=== PATIENT | female | born 1955 | race Caucasian/White ===

== ENCOUNTER 2016-07-28 22:58 | Observation (INO) | payer MEDICAID ==
[~2016-07-28] VITALS: Ht 162.6 cm; Wt 100.0 kg
[~2016-07-28 22:58] MED LIST: CEPH-460 PO
[2016-07-28 23:45] VITALS: BP 142/64; PULSE 71; RESP 20; TEMP 98.1; O2SAT 98
[2016-07-28] MEDS ORDERED: PLAV75TA29 PO (23:55)
[2016-07-28] MEDS ORDERED: ASPI81TA81 PO (23:55)
[2016-07-28] MEDS ORDERED: AMOX500T PO (23:56)
[2016-07-28] MEDS ORDERED: FURO1TAB61 PO (23:56)
[2016-07-28] MEDS ORDERED: LEVO.075 PO (23:56)
[2016-07-28] MEDS ORDERED: XANA2TAB2 PO (23:57)
[2016-07-28] MEDS ORDERED: POTA-163 PO (23:58)
[2016-07-28] MEDS ORDERED: HYDR-3516 PO (23:58)
[2016-07-28] MEDS ORDERED: SIMV20TA PO (23:59)
[2016-07-28] MEDS ORDERED: blood pressure (23:59)
[2016-07-29] VITALS: O2SAT 97
[2016-07-29] MEDS ORDERED: ASPIRIN 81 MG CHEW TAB PO ONE
[2016-07-29] MEDS ORDERED: SODIUM CHLORIDE 0.9% FLUSH 5 ML FLUSH IVF PRN
[2016-07-29] MEDS ORDERED: NITROGLYCERIN 0.4 MG SL 25 TABS/BTL SL ONE
[2016-07-29] MEDS ORDERED: NITROGLYCERIN 2% OINT 1 GM PACKET TOP ONE
[2016-07-29 00:27] LABS: AUTOMATED NEUTROPHIL # 4.3 TH/MM3 (1.8-7.7); BASOPHIL % 0.3 % (0.0-2.0); EOSINOPHIL # 0.1 TH/MM3 (0-0.4); EOSINOPHIL % 1.1 % (0.0-4.0); HEMATOCRIT 40.5 % (35.0-46.0); HEMO FLAGS DIFF FINAL; LYMPH % 43.4 % (9.0-44.0); MEAN CELL VOLUME 80.9 FL (80.0-100.0); MEAN CORPUSCULAR HEMOGLOBIN 28.1 PG (27.0-34.0); MEAN CORPUSCULAR HGB CONC 34.7 % (32.0-36.0); MONO % 7.6 % (0.0-8.0); NEUT % 47.6 % (16.0-70.0); PLATELET COUNT 303 TH/MM3 (150-450); RED BLOOD COUNT 5.01 MIL/MM3 (4.00-5.30); RED CELL DISTRIBUTION WIDTH 14.1 % (11.6-17.2); WHITE BLOOD COUNT 9.1 TH/MM3 (4.0-11.0)
[2016-07-29] MEDS ORDERED: ENAL5TAB PO (00:27)
[2016-07-29 00:35] LABS: APTT (PATIENT) 25.2 SEC (24.3-30.1); PROTHROMBIN TIME - PATIENT 10.6 SEC (9.8-11.6)
--- NOTE | 2016-07-29 00:46 | RADRPT ---
EXAM DATE/TIME: 07/29/2016 00:10 [place] COMPARISON: CHEST SINGLE AP, September 25, 2015, 4:50. INDICATIONS : Shortness of breath. MEDICAL HISTORY : Chronic obstructive pulmonary disease. Diabetes mellitus type II. SURGICAL HISTORY : None. ENCOUNTER: Initial ACUITY: 1 day PAIN SCORE: 0/10 LOCATION: Bilateral chest FINDINGS: A single view of the chest demonstrates the lungs to be symmetrically aerated without evidence of mas s, infiltrate or effusion. The cardiomediastinal contours are unremarkable. Osseous structures are intact. CONCLUSION: No acute disease. Rei Mello MD on July 29, 2016 at 0:45 Board Certified Radiologist. This report was verified electronically.
[2016-07-29 00:48] LABS: ALT (GPT) 22 U/L (10-53); ANION GAP 10 MEQ/L (5-15); AST (GOT) 21 U/L (15-37); BICARBONATE 26.8 MEQ/L (21.0-32.0); BLOOD UREA NITROGEN 16 MG/DL (7-18); CHLORIDE 99 MEQ/L (98-107); GLOMERULAR FILTRATION RATE 64 ML/MIN (>89); MAGNESIUM 1.5 MG/DL (1.5-2.5); POTASSIUM 3.7 MEQ/L (3.5-5.1); SODIUM (NA) 136 MEQ/L (136-145)
[2016-07-29 00:52] LABS: ALKALINE PHOSPHATASE 67 U/L (45-117); CREATINE KINASE 332 U/L (26-192); TOTAL BILIRUBIN ADULT 0.3 MG/DL (0.2-1.0)
[2016-07-29 01:04] LABS: CKMB 1.9 NG/ML (0.5-3.6)
[2016-07-29 01:23] VITALS: BP 142/64; PULSE 78; RESP 18; O2SAT 98
--- NOTE | 2016-07-29 02:06 | PD ---
HPI Chief Complaint: Chest Pain Time Seen by Provider: 23:42 Travel History International Travel<30 days: No Contact w/Intl Traveler<30days: No Traveled to known affect area: No History of Present Illness HPI The patient is a 61 year old female who presents to the [facility] emergency department with a history of chest pain that she reports is in the center of her chest and a sharp sensation. She reports that she has had chest pain in the past. She reports that in 2009 she had a cardiac catheterization, however she reports that it was never completed due to a problem with the equipment. She reports that she last had a stress test done in 2012, however review of the electronic medical record reveals that it was in 2014 at this facility. The patient reports that she's been out of all of her chronic medications as her physician in [place] 2 months ago. The patient unfortunately is a poor historian. The patient reports that she has a history of schizophrenia, posttraumatic stress disorder, bipolar disorder and generalized anxiety and has been off of her medication. She denies any suicidal or homicidal ideations. She reports that she has had a myocardial infarction in the past, however she denies having angioplasty or stenting done previously. She has not had coronary artery bypass grafting. The patient denies any recent fevers, cough, congestion, neck pain, abdominal pain, vomiting , diarrhea, urinary symptoms, or neurologic symptoms. [facility] Past Medical History Narrative Medical The patient's past medical history is significant for generalized anxiety disorder, bipolar disorder, schizophrenia, history of reported myocardial infarction in the past, history of hypertension, hyperlipidemia, diabetes mellitus, fibromyalgia, hepatitis C, chronic back pain, chronic shoulder pain, history of kidney stones, history of hypothyroid disorder. Hx Anticoagulant Therapy: Yes Arthritis: No Asthma: Yes Autoimmune Disease: No Blood Disorders: No Bipolar Disorder: Yes Anxiety: Yes Depression: Yes Heart Rhythm Problems: No Cancer: Yes (BREAST AND UTERINE) Cardiac Catheterization: Yes Cardiovascular Problems: Yes High Cholesterol: Yes Chemotherapy: No Chest Pain: Yes Congestive Heart Failure: Yes COPD: Yes Cerebrovascular Accident: Yes Diabetes: Yes Patient Takes Glucophage: No Diminished Hearing: Yes Endocrine: No Fibromyalgia: Yes GERD: Yes Glaucoma: No Genitourinary: No Headaches: No Hepatitis: Yes (C) Hiatal Hernia: No Herniated Disk: Yes Hypertension: Yes Immune Disorder: No Implanted Vascular Access Dvce: No Kidney Stones: Yes Musculoskeletal: Yes (RT SHOULDER,RT KNEE 3 HERNIATED DISCS) Neurologic: No Psychiatric: Yes Reproductive: No Respiratory: Yes Immunizations Current: No Migraines: Yes Myocardial Infarction: Yes Radiation Therapy: No Renal Failure: No Schizophrenia: Yes (PARANOID SCHIZOPHRENIA) Seizures: No Sickle Cell Disease: No Sleep Apnea: No Thyroid Disease: Yes (HYPOTHYROIDISM) Triglycerides - High: Yes Ulcer: No Tetanus Vaccination: Unknown Menopausal: Yes : 5 Para: 2 : 3 Ectopic : Yes Ovarian Cysts: Yes Past Surgical History Narrative Surgical The patient's past surgical history is significant for eye surgery, 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 Abdominal Surgery: No AICD: No Appendectomy: No Arteriovenous Shunt: No Cardiac Surgery: No Cholecystectomy: No Ear Surgery: No Endocrine Surgery: No Eye Surgery: Yes (BLIND LEFT EYE-surgery) Genitourinary Surgery: No Gynecologic Surgery: Yes (BX BILATERAL BREAST) Hysterectomy: Yes Insulin Pump: No Joint Replacement: No Oral Surgery: No Pacemaker: No Thoracic Surgery: No Social History Alcohol Use: No Tobacco Use: Yes (pack ) Substance Use: No Allergies-Medications (Allergen,Severity, Reaction): Coded Allergies: Baclofen (Verified Allergy, Unknown, 07/28/16) Geodon (Verified Allergy, Unknown, 07/28/16) Sulfa (Verified Allergy, Unknown, does not know, 07/28/16) Haldol (Verified Adverse Reaction, Severe, "STIFFNESS", 07/28/16) Risperdal (Verified Adverse Reaction, Severe, anxiety, 07/28/16) Seroquel (Verified Adverse Reaction, Severe, anxiety, 07/28/16) Iron (Verified Adverse Reaction, Intermediate, dark bm's, 07/28/16) Reported Meds & Prescriptions Reported Meds & Active Scripts Active Reported Enalapril (Enalapril Maleate) 5 Mg Tab 5 Mg PO DAILY Simvastatin 20 Mg Tab 20 Mg PO DAILY Potassium Chloride ER (Potassium Chloride) 20 Meq Tab 20 Meq PO DAILY Hydrocodone-Acetaminophen 5-325 mg Tab 1 Tab PO Q4H PRN Xanax (Alprazolam) 2 Mg Tab 2 Mg PO Q8H PRN Amoxicillin 500 Mg Tab 500 Mg PO BID Lasix (Furosemide) 80 Mg Tab 80 Mg PO DAILY Synthroid (Levothyroxine Sodium) 75 Mcg Tab 0.175 Mcg PO DAILY Plavix (Clopidogrel Bisulfate) 75 Mg Tab 75 Mg PO DAILY Aspir-81 (Aspirin) 81 Mg Tabdr Review of Systems Except as stated in HPI: all other systems reviewed are Neg General / Constitutional: No: Fever Eyes: No: Visual changes HENT: No: Headaches, Congestion Cardiovascular: Positive: Chest Pain or Discomfort, Dyspnea on exertion Respiratory: Positive: Shortness of Breath, No: Cough Gastrointestinal: No: Nausea, Vomiting, Diarrhea, Abdominal Pain Genitourinary: No: Dysuria Musculoskeletal: Positive: Myalgias, No: Pain Skin: No Rash Neurologic: No: Weakness, Focal Abnormalities, Change in Mentation, Slurred Speech, Sensory Disturbance Psychiatric: Positive: Anxiety, Mood Disorder, No: Depression, Suicidal Ideations, Substance Abuse, Homicidal Ideation Endocrine: No: Polydipsia Hematologic/Lymphatic: No: Easy Bruising Physical Exam Narrative General: The patient is a well-developed well-nourished female in no acute distress. Head and Neck exam: Head is normocephalic atraumatic. Eyes: EOMI, pupils are equal round and reactive to light. Nose: Midline septum with pink mucous membranes Mouth: Dentition unremarkable. Moist mucus membranes. Posterior oropharynx is not erythematous. No tonsillar hypertrophy. Uvula midline. Airway patent. Neck: No palpable lymphadenopathy. No nuchal rigidity. No thyromegaly. Cardiovascular: Regular rate and rhythm without murmurs, gallops, or rubs. No pulse deficit to the extremities and simultaneous auscultation and palpation of her radial artery. Lungs: Clear to auscultation bilaterally. No wheezes, rhonchi, or rales. Abdomen: Soft, without tenderness to palpation in all 4 quadrants of the abdomen. No guarding, rebound, or rigidity. Normal bowel sounds are audible. Extremities: No clubbing, cyanosis, or edema. 2+ pulses in all 4 extremities. No calf tenderness on palpation. Back: No spinous process tenderness to palpation. No costovertebral angle tenderness to palpation. Neurologic Exam: Grossly nonfocal. Skin Exam: No rash noted. Intact skin that is warm and dry. Data Data Last Documented VS Vital Signs Date Time Temp Pulse Resp B/P Pulse Ox O2 Delivery O2 Flow Rate FiO2 07/29/16 01:23 78 18 142/64 98 Room Air 07/28/16 23:45 98.1 Orders Electrocardiogram (07/28/16 23:56) B-Type Natriuretic Peptide (07/28/16 23:56) Ckmb (Isoenzyme) Profile (07/28/16 23:56) Complete Blood Count With Diff (07/28/16 23:56) Comprehensive Metabolic Panel (07/28/16 23:56) Magnesium (Mg) (07/28/16 23:56) Prothrombin Time / Inr (Pt) (07/28/16 23:56) Act Partial Throm Time (Ptt) (07/28/16 23:56) Troponin I (07/28/16 23:56) Chest, Single Ap (07/28/16 23:56) Ecg Monitoring (07/28/16:56) Bilateral Bp Monitoring (07/28/16 23:56) Iv Access Insert/Monitor (07/28/16 23:56) Oximetry (07/28/16 23:56) Oxygen Administration (07/28/16 23:56) Aspirin Chew (Aspirin Chew) (07/29/16 00:00) Nitroglycerin 2% Oint (Nitroglycerin 2% (07/29/16 00:00) Sodium Chloride 0.9% Flush (Ns Flush) (07/29/16 00:00) Nitroglycerin Sl (Nitrostat Sl) (07/29/16 00:00) CKMB (07/28/16 23:28) CKMB% (07/28/16 23:28) Admit Order (Ed Use Only) (07/29/16 01:29) Labs Laboratory Tests Test 07/28/16 23:28 White Blood Count 9.1 TH/MM3 Red Blood Count 5.01 MIL/MM3 Hemoglobin 14.1 GM/DL Hematocrit 40.5 % Mean Corpuscular Volume 80.9 FL Mean Corpuscular Hemoglobin 28.1 PG Mean Corpuscular Hemoglobin 34.7 % Concent Red Cell Distribution Width 14.1 % Platelet Count 303 TH/MM3 Mean Platelet Volume 7.8 FL Neutrophils (%) (Auto) 47.6 % Lymphocytes (%) (Auto) 43.4 % Monocytes (%) (Auto) 7.6 % Eosinophils (%) (Auto) 1.1 % Basophils (%) (Auto) 0.3 % Neutrophils # (Auto) 4.3 TH/MM3 Lymphocytes # (Auto) 4.0 TH/MM3 Monocytes # (Auto) 0.7 TH/MM3 Eosinophils # (Auto) 0.1 TH/MM3 Basophils # (Auto) 0.0 TH/MM3 CBC Comment DIFF FINAL Differential Comment Prothrombin Time 10.6 SEC Prothromb Time International 1.0 RATIO Ratio Activated Partial 25.2 SEC Thromboplast Time Sodium Level 136 MEQ/L Potassium Level 3.7 MEQ/L Chloride Level 99 MEQ/L Carbon Dioxide Level 26.8 MEQ/L Anion Gap 10 MEQ/L Blood Urea Nitrogen 16 MG/DL Creatinine 0.90 MG/DL Estimat Glomerular Filtration 64 ML/MIN Rate Random Glucose 105 MG/DL Calcium Level 8.2 MG/DL Magnesium Level 1.5 MG/DL Total Bilirubin 0.3 MG/DL Aspartate Amino Transf 21 U/L (AST/SGOT) Alanine Aminotransferase 22 U/L (ALT/SGPT) Alkaline Phosphatase 67 U/L Total Creatine Kinase 332 U/L Creatine Kinase MB 1.9 NG/ML Creatine Kinase MB % 0.6 % Troponin I LESS THAN 0.02 NG/ML B-Type Natriuretic Peptide 2 PG/ML Total Protein 7.5 GM/DL Albumin 3.6 GM/DL MDM Medical Decision Making Medical Screen Exam Complete: Yes Emergency Medical Condition: Yes Medical Record Reviewed: Yes Interpretation(s) Laboratory Tests Test 07/28/16 23:28 White Blood Count 9.1 TH/MM3 Red Blood Count 5.01 MIL/MM3 Hemoglobin 14.1 GM/DL Hematocrit 40.5 % Mean Corpuscular Volume 80.9 FL Mean Corpuscular Hemoglobin 28.1 PG Mean Corpuscular Hemoglobin 34.7 % Concent Red Cell Distribution Width 14.1 % Platelet Count 303 TH/MM3 Mean Platelet Volume 7.8 FL Neutrophils (%) (Auto) 47.6 % Lymphocytes (%) (Auto) 43.4 % Monocytes (%) (Auto) 7.6 % Eosinophils (%) (Auto) 1.1 % Basophils (%) (Auto) 0.3 % Neutrophils # (Auto) 4.3 TH/MM3 Lymphocytes # (Auto) 4.0 TH/MM3 Monocytes # (Auto) 0.7 TH/MM3 Eosinophils # (Auto) 0.1 TH/MM3 Basophils # (Auto) 0.0 TH/MM3 CBC Comment DIFF FINAL Differential Comment Prothrombin Time 10.6 SEC Prothromb Time International 1.0 RATIO Ratio Activated Partial 25.2 SEC Thromboplast Time Sodium Level 136 MEQ/L Potassium Level 3.7 MEQ/L Chloride Level 99 MEQ/L Carbon Dioxide Level 26.8 MEQ/L Anion Gap 10 MEQ/L Blood Urea Nitrogen 16 MG/DL Creatinine 0.90 MG/DL Estimat Glomerular Filtration 64 ML/MIN Rate Random Glucose 105 MG/DL Calcium Level 8.2 MG/DL Magnesium Level 1.5 MG/DL Total Bilirubin 0.3 MG/DL Aspartate Amino Transf 21 U/L (AST/SGOT) Alanine Aminotransferase 22 U/L (ALT/SGPT) Alkaline Phosphatase 67 U/L Total Creatine Kinase 332 U/L Creatine Kinase MB 1.9 NG/ML Creatine Kinase MB % 0.6 % Troponin I LESS THAN 0.02 NG/ML B-Type Natriuretic Peptide 2 PG/ML Total Protein 7.5 GM/DL Albumin 3.6 GM/DL Last Impressions Chest X-Ray 07/28/16 4799 Signed Impressions: Service Date/Time: Friday, July 29, 2016 00:10 - CONCLUSION: No acute disease. Rei Mello MD Differential Diagnosis Musculoskeletal strain, versus costochondritis, versus acute coronary syndrome, versus Narrative Course During the course of the patients emergency department visit, the patients history, examination, and differential diagnosis were reviewed with the patient. The patient had IV access obtained and blood work sent for analysis. The patient was placed on a front desk monitor with oximetry and blood pressure monitoring. An EKG was done on arrival. The patient's EKG reveals a sinus rhythm heart rate of 65, no acute ST segment elevation, T waves are inverted in V1. The patient was provided nitroglycerin sublingual 1, nitroglycerin 1 inch to the chest wall, aspirin 162 mg by mouth 1. The patients laboratory studies were reviewed and remarkable for a CBC that is within normal limits, CMP is unremarkable, CPK and troponin I initial results show no evidence of myocardial infarction, BNP within normal limits. Radiology studies were reviewed and remarkable for a chest x-ray that shows no acute abnormality. As it has been over a year since the patient's last stress test, the patient will be admitted to the chest pain center for rule out serial cardiac enzyme protocol and consideration of stress test to follow in the morning. The patients results were discussed with the patient, including the plan of care. I explained that further testing and/ or monitoring is indicated based on the patients history, examination, and/ or laboratory findings. Therefore, I recommended admission for additional evaluation. The patient expressed understanding and was agreeable with this plan. The patient was admitted to the hospital in stable condition and sent to a bed under the care of chest pain center. Unfortunately, while awaiting the bed in the chest pain center the patient became agitated, did not want to wait any longer. The patient was made aware that her symptoms could be related to cardiac disease, however she insisted on leaving. AMA: The risks of leaving against medical advice without further evaluation treatment were discussed with the patient. These risks include cardiac dysfunction, cardiac dysrhythmia, possible heart attack, possible stroke or . The patient indicated understanding of these risks and appeared to have the capacity to make this decision. Diagnosis Primary Impression: Chest pain, rule out acute myocardial infarction Patient Instructions: General Instructions Departure Forms: Tests/Procedures Disposition: 07 AGAINST MEDICAL ADVICE Condition: Stable Lashell Parekh MD Jul 29, 2016 02:06
--- NOTE | 2016-07-29 14:23 | EKG ---
Date Performed: 07/28/2016 Time Performed: 23:57:16 PTAGE: 61 years EKG: Sinus rhythm LOW QRS VOLTAGE IN PRECORDIAL LEADS BORDERLINE ECG PREVIOUS TRACING : 09/25/2015 04.28 DOCTOR: Alonzo Landin Interpretating Date/Time 07/29/2016 14:18:50
== END 2016-07-29 01:45 | disposition left against medical advice (07) ==
LOC: NEPE 22:58 → NEDA 07-29 01:37
DX: R07.89 Other chest pain (principal); I10 Essential (primary) hypertension; E03.9 Hypothyroidism, unspecified; E11.9 Type 2 diabetes mellitus without complications; K21.9 Gastro-esophageal reflux disease without esophagitis; R94.31 Abnormal electrocardiogram [ECG] [EKG]; R45.1 Restlessness and agitation; M79.7 Fibromyalgia; J44.9 Chronic obstructive pulmonary disease, unspecified; J45.909 Unspecified asthma, uncomplicated; I25.2 Old myocardial infarction; E78.5 Hyperlipidemia, unspecified; E78.00 Pure hypercholesterolemia, unspecified; F20.0 Paranoid schizophrenia; H91.90 Unspecified hearing loss, unspecified ear; Z72.0 Tobacco use; Z86.73 Personal history of transient ischemic attack (TIA), and cerebral infarction without residual deficits; Z87.442 Personal history of urinary calculi
CPT/HCPCS: 71010; 80053; 82550; 82552; 83735; 83880; 84484; 85025; 85610; 85730; 93005

== ENCOUNTER 2016-08-07 21:48 | Emergency (ER) | payer MEDICAID ==
[~2016-08-07 21:48] MED LIST changes: +AMOX500T PO; +ASPI81TA81 PO; -CEPH-460 PO; +ENAL5TAB PO; +FURO1TAB61 PO; +HYDR-3516 PO; +LEVO.075 PO; +PLAV75TA29 PO; +POTA-163 PO; +SIMV20TA PO; +XANA2TAB2 PO
--- NOTE | 2016-08-07 22:09 | PD ---
HPI . patient wanting refills on xanax and hydrocodone Chief Complaint: Pain: Acute or Chronic Time Seen by Provider: 22:09 Travel History International Travel<30 days: No Contact w/Intl Traveler<30days: No Traveled to known affect area: No History of Present Illness HPI 61-year-old female with multiple medical problems including hypertension, hypothyroidism, schizophrenia, bipolar disorder, COPD, hepatitis C, old CVA, old AK, tobaccoism who was recently seen on July 29, 2016 for complaints of chest pain, but decided to leave AGAINST MEDICAL ADVICE here with request for refills on Xanax and hydrocodone. Patient here telling me that she is just here because she needs refill on her hydrocodone. She looks and tells me "I am almost certain that you cannot fill that, but maybe continue some alprazolam. I discussed with her the policy and procedures in the emergency department and she was very understanding." I did complete a physical exam on her. She has no other complaints today. PFSH Past Medical History Hx Anticoagulant Therapy: Yes Arthritis: No Asthma: Yes Autoimmune Disease: No Blood Disorders: No Bipolar Disorder: Yes Anxiety: Yes Depression: Yes Heart Rhythm Problems: No Cancer: Yes (BREAST AND UTERINE) Cardiac Catheterization: Yes Cardiovascular Problems: Yes High Cholesterol: Yes Chemotherapy: No Chest Pain: Yes Congestive Heart Failure: Yes COPD: Yes Cerebrovascular Accident: Yes Diabetes: Yes Diminished Hearing: Yes Endocrine: No Fibromyalgia: Yes GERD: Yes Glaucoma: No Genitourinary: No Headaches: No Hepatitis: Yes (C) Hiatal Hernia: No Herniated Disk: Yes Hypertension: Yes Immune Disorder: No Implanted Vascular Access Dvce: No Kidney Stones: Yes Musculoskeletal: Yes (RT SHOULDER,RT KNEE 3 HERNIATED DISCS) Neurologic: No Psychiatric: Yes Reproductive: No Respiratory: Yes Immunizations Current: No Migraines: Yes Myocardial Infarction: Yes Radiation Therapy: No Renal Failure: No Schizophrenia: Yes (PARANOID SCHIZOPHRENIA) Seizures: No Sickle Cell Disease: No Sleep Apnea: No Thyroid Disease: Yes (HYPOTHYROIDISM) Triglycerides - High: Yes Ulcer: No Menopausal: Yes : 5 Para: 2 : 3 Ectopic : Yes Ovarian Cysts: Yes Past Surgical History Abdominal Surgery: No AICD: No Appendectomy: No Arteriovenous Shunt: No Cardiac Surgery: No Cholecystectomy: No Ear Surgery: No Endocrine Surgery: No Eye Surgery: Yes (BLIND LEFT EYE-surgery) Genitourinary Surgery: No Gynecologic Surgery: Yes (BX BILATERAL BREAST) Hysterectomy: Yes Insulin Pump: No Joint Replacement: No Oral Surgery: No Pacemaker: No Thoracic Surgery: No Social History Alcohol Use: No Tobacco Use: Yes (pack ) Substance Use: No Allergies-Medications (Allergen,Severity, Reaction): Coded Allergies: Baclofen (Verified Allergy, Unknown, 08/07/16) Geodon (Verified Allergy, Unknown, 08/07/16) Sulfa (Verified Allergy, Unknown, does not know, 08/07/16) Haldol (Verified Adverse Reaction, Severe, "STIFFNESS", 08/07/16) Risperdal (Verified Adverse Reaction, Severe, anxiety, 08/07/16) Seroquel (Verified Adverse Reaction, Severe, anxiety, 08/07/16) Iron (Verified Adverse Reaction, Intermediate, dark bm's, 08/07/16) Reported Meds & Prescriptions Reported Meds & Active Scripts Active Reported Paroxetine (Paroxetine HCl) 10 Mg Tab 10 Mg PO DAILY Potassium Chloride ER (Potassium Chloride) 20 Meq Tab 20 Meq PO DAILY Clopidogrel (Clopidogrel Bisulfate) 75 Mg Tab 75 Mg PO DAILY Metoprolol Tartrate 25 Mg Tab 25 Mg PO DAILY Levothyroxine (Levothyroxine Sodium) 175 Mcg Tab 175 Mcg PO DAILY Promethazine (Promethazine HCl) 12.5 Mg Tab 12.5 Mg PO Q6H PRN Enalapril (Enalapril Maleate) 5 Mg Tab 5 Mg PO DAILY Aspir-81 (Aspirin) 81 Mg Tabdr Review of Systems General / Constitutional: No: Fever Eyes: No: Visual changes HENT: No: Headaches Cardiovascular: No: Chest Pain or Discomfort Respiratory: No: Shortness of Breath Gastrointestinal: No: Abdominal Pain Genitourinary: No: Dysuria Musculoskeletal: No: Pain Skin: No Rash Neurologic: No: Weakness Psychiatric: No: Depression Endocrine: No: Polydipsia Hematologic/Lymphatic: No: Easy Bruising Physical Exam Narrative GENERAL: AAO x 3, no acute distress, Well-nourished, well-developed patient. comfortable and pleasant. SKIN: Warm and dry. No visible rashes or bruising. HEAD: Normocephalic and atraumatic. EYES: No scleral icterus. No injection or drainage. ENT: No nasal drainage noted. Airway patent. NECK: Supple, trachea midline. No JVD. CARDIOVASCULAR: Regular rate and rhythm without murmurs, gallops, or rubs. RESPIRATORY: Breath sounds equal bilaterally. No accessory muscle use. No rhonchi or rales. GASTROINTESTINAL: Abdomen soft, non-tender, nondistended. EXTREMITIES: No cyanosis or edema. BACK: Nontender without obvious deformity. No CVA tenderness. PSYCH: AAO x 3, normal affect. Data Data Last Documented VS Vital Signs Date Time Temp Pulse Resp B/P Pulse Ox O2 Delivery O2 Flow Rate FiO2 08/07/16 22:25 78 155/86 95 Room Air MDM Medical Decision Making Medical Screen Exam Complete: Yes Emergency Medical Condition: Yes Medical Record Reviewed: Yes Differential Diagnosis chronic pain, drug seeking behavior, less likely acute trauma Narrative Course 61-year-old female with multiple medical problems including hypertension, hypothyroidism, schizophrenia, bipolar disorder, COPD, hepatitis C, old CVA, old AK, tobaccoism who was recently seen on July 29, 2016 for complaints of chest pain, but decided to leave AGAINST MEDICAL ADVICE here with request for refills on Xanax and hydrocodone. Patient here telling me that she is just here because she needs refill on her hydrocodone. She looks and tells me "I am almost certain that you cannot fill that, but maybe continue some alprazolam. I discussed with her the policy and procedures in the emergency department and she was very understanding." I did complete a physical exam on her. She has no other complaints today. Patient seen and examined. She does not have any acute findings. Unfortunately she is aware that I cannot fill the medication she is requesting. I have advised her to follow-up with her primary care provider. Patient verbalized understanding of instructions, questions were answered, and thanked me for their care. I advised them if their condition worsens, please return to the nearest emergency room for further care. Diagnosis Primary Impression: Drug-seeking behavior Patient Instructions: General Instructions Additional Instructions: Please return to emergency department if your symptoms return or worsen. Follow up with your primary care provider. Med/Other Pt SpecificInfo: No Change to Meds Disposition: 01 DISCHARGE HOME Condition: Stable Peyton Dumont Aug 07, 2016 22:09
[2016-08-07] MEDS ORDERED: POTA-163 PO (22:16)
[2016-08-07] MEDS ORDERED: METO25TA3 PO (22:16)
[2016-08-07] MEDS ORDERED: CLOP75TA PO (22:16)
[2016-08-07] MEDS ORDERED: PROM12.54 PO (22:16)
[2016-08-07] MEDS ORDERED: LEVO175T2 PO (22:16)
[2016-08-07] MEDS ORDERED: PARO1TAB71 PO (22:16)
[2016-08-07 22:25] VITALS: BP 155/86; PULSE 78; O2SAT 95
== END 2016-08-07 22:46 | disposition home or self-care (01) ==
LOC: PHEFT 21:48
DX: Z76.5 Malingerer [conscious simulation] (principal); I10 Essential (primary) hypertension; E03.9 Hypothyroidism, unspecified; Z86.59 Personal history of other mental and behavioral disorders; Z87.09 Personal history of other diseases of the respiratory system; Z86.19 Personal history of other infectious and parasitic diseases
CPT/HCPCS: 99281

== ENCOUNTER 2016-08-08 22:53 | Emergency (ER) | payer MEDICAID ==
[~2016-08-08] VITALS: Ht 162.6 cm; Wt 100.0 kg
[~2016-08-08 22:53] MED LIST changes: +CLOP75TA PO; +LEVO175T2 PO; +METO25TA3 PO; +PARO1TAB71 PO; +PROM12.54 PO
[2016-08-08 22:55] VITALS: BP 155/85; PULSE 73; RESP 18; TEMP 97.2; O2SAT 99
--- NOTE | 2016-08-08 23:34 | PD ---
HPI Chief Complaint: Pain: Acute or Chronic Time Seen by Provider: 23:30 Travel History International Travel<30 days: No Contact w/Intl Traveler<30days: No Traveled to known affect area: No History of Present Illness HPI 61-year-old white female presents to emergency department by EMS for evaluation of a allegedly fall. According to the nursing staff the patient had notified them that she was here to get an x-ray she had chronic pain. She tells me that she was swatting at a bug and fell onto her right side. She is complaining of pain in her lower back, right hip, and right shoulder. She states that she uses a cane. She states that she does not have a current doctor. She had been on hydrocodone and Xanax. Review of the medical record indicates that she was just seen yesterday and was requesting a refill of her hydrocodone and Xanax. Review of the medical record also indicates she had been under the care Dr. Conrad and Dr. Griffiths. [facility] Past Medical History Hx Anticoagulant Therapy: Yes Arthritis: No Asthma: Yes Autoimmune Disease: No Blood Disorders: No Bipolar Disorder: Yes Anxiety: Yes Depression: Yes Heart Rhythm Problems: No Cancer: Yes (BREAST AND UTERINE) Cardiac Catheterization: Yes Cardiovascular Problems: Yes High Cholesterol: Yes Chemotherapy: No Chest Pain: Yes Congestive Heart Failure: Yes COPD: Yes Cerebrovascular Accident: Yes Diabetes: Yes Patient Takes Glucophage: No Diminished Hearing: Yes Endocrine: No Fibromyalgia: Yes GERD: Yes Glaucoma: No Genitourinary: No Headaches: No Hepatitis: Yes (C) Hiatal Hernia: No Herniated Disk: Yes Hypertension: Yes Immune Disorder: No Implanted Vascular Access Dvce: No Kidney Stones: Yes Musculoskeletal: Yes (RT SHOULDER,RT KNEE 3 HERNIATED DISCS) Neurologic: No Psychiatric: Yes Reproductive: No Respiratory: Yes Immunizations Current: No Migraines: Yes Myocardial Infarction: Yes Radiation Therapy: No Renal Failure: No Schizophrenia: Yes (PARANOID SCHIZOPHRENIA) Seizures: No Sickle Cell Disease: No Sleep Apnea: No Thyroid Disease: Yes (HYPOTHYROIDISM) Triglycerides - High: Yes Ulcer: No ?: Not Menopausal: Yes : 5 Para: 2 : 3 Ectopic : Yes Ovarian Cysts: Yes Past Surgical History Abdominal Surgery: No AICD: No Appendectomy: No Arteriovenous Shunt: No Cardiac Surgery: No Cholecystectomy: No Ear Surgery: No Endocrine Surgery: No Eye Surgery: Yes (BLIND LEFT EYE-surgery) Genitourinary Surgery: No Gynecologic Surgery: Yes (BX BILATERAL BREAST) Hysterectomy: Yes Insulin Pump: No Joint Replacement: No Oral Surgery: No Pacemaker: No Thoracic Surgery: No Social History Alcohol Use: No Tobacco Use: Yes (pack ) Substance Use: No Allergies-Medications (Allergen,Severity, Reaction): Coded Allergies: Baclofen (Verified Allergy, Unknown, 08/08/16) Geodon (Verified Allergy, Unknown, 08/08/16) Sulfa (Verified Allergy, Unknown, does not know, 08/08/16) Haldol (Verified Adverse Reaction, Severe, "STIFFNESS", 08/08/16) Risperdal (Verified Adverse Reaction, Severe, anxiety, 08/08/16) Seroquel (Verified Adverse Reaction, Severe, anxiety, 08/08/16) Iron (Verified Adverse Reaction, Intermediate, dark bm's, 08/08/16) Reported Meds & Prescriptions Reported Meds & Active Scripts Active Reported Paroxetine (Paroxetine HCl) 10 Mg Tab 10 Mg PO DAILY Potassium Chloride ER (Potassium Chloride) 20 Meq Tab 20 Meq PO DAILY Clopidogrel (Clopidogrel Bisulfate) 75 Mg Tab 75 Mg PO DAILY Metoprolol Tartrate 25 Mg Tab 25 Mg PO DAILY Levothyroxine (Levothyroxine Sodium) 175 Mcg Tab 175 Mcg PO DAILY Promethazine (Promethazine HCl) 12.5 Mg Tab 12.5 Mg PO Q6H PRN Enalapril (Enalapril Maleate) 5 Mg Tab 5 Mg PO DAILY Aspir-81 (Aspirin) 81 Mg Tabdr Review of Systems Except as stated in HPI: all other systems reviewed are Neg Physical Exam Narrative GENERAL: Well-developed, well-nourished in no apparent distress. Nontoxic appearing. HEAD: Normocephalic, atraumatic. EYES: Pupils equal round and reactive. Extraocular motions intact. No scleral icterus. No injection or drainage. ENT: Nose clear. Throat without erythema, tonsillar hypertrophy or exudate. Uvula midline. Airway patent. NECK: Trachea midline. Supple, nontender, moves head freely. No central bony tenderness or spasm. CARDIOVASCULAR: Regular rate and rhythm without murmurs, gallops, or rubs. RESPIRATORY: Clear to auscultation. Breath sounds equal bilaterally. No wheezes , rales, or rhonchi. GASTROINTESTINAL: Abdomen soft, non-tender, nondistended. No hepato-splenomegaly , or palpable masses. No guarding. EXTREMITIES: No clubbing, cyanosis, or edema. No joint tenderness. Examination of the right upper extremity reveals no localizing pain and she moves it freely without limitation. Left upper extremity is unremarkable. The right lower extremity the patient complains of pain over the right buttocks and greater trochanter. She also complains of pain in the right knee down in her right leg. There is no obvious deformity or bruising. She has intact gross sensation and pulses. The left lower extremity is unremarkable. BACK: Complains of diffuse lower lumbar tenderness more so on the right side. Without deformity. No flank tenderness. Sits up in bed at 90 without difficulty. No saddle anesthesia. NEUROLOGICAL: Awake, alert and oriented x 3 .Cranial nerves grossly intact. Motor and sensory grossly within normal limits. Normal speech. Data Data Last Documented VS Vital Signs Date Time Temp Pulse Resp B/P Pulse Ox O2 Delivery O2 Flow Rate FiO2 08/08/16 22:55 97.2 73 18 155/85 99 Orders Spine, Lumbar - Ltd (Ap & Lat) (08/08/16 23:28) Pelvis, Ap Only (Routine) (08/08/16 23:28) MDM Medical Decision Making Medical Screen Exam Complete: Yes Emergency Medical Condition: Yes Medical Record Reviewed: Yes Interpretation(s) Lumbar spine: Negative for acute fracture. Pelvis: Negative for acute fracture. No obvious hip deformity. Differential Diagnosis MDM: High Differential diagnoses: Fracture, sprain, strain, dislocation, contusion, neurovascular injury, malingering Narrative Course Patient is given 1 g of Tylenol and Flexeril 10 mg by mouth. X-rays are negative. I am unsure whether the patient truly fell or not the medical record indicates a visit yesterday requesting opiates and benzos. I suspect that this is truly a malingering event and that she truly did not have an injury. She also had told triage nurse that she has chronic pain in that the reason she is here. I see no indication for opiates or benzos at this time. This is acute exacerbation of chronic pain Diagnosis Primary Impression: Acute exacerbation of chronic low back pain Patient Instructions: General Instructions Additional Instructions: Rest. Ice for the next 3 days followed by heat . Flexeril and 2 Tylenol every 6 hours. Follow-up with a primary care doctor in one week. Return to the ER for emergencies. Med/Other Pt SpecificInfo: Prescription(s) given Disposition: 01 DISCHARGE HOME Condition: Stable Lauro Griffith Aug 08, 2016 23:34
[2016-08-09] MEDS ORDERED: CYCL1TAB29 PO (00:11)
[2016-08-09] MEDS ORDERED: ACETAMINOPHEN 500 MG CPLT PO ONE (00:15)
[2016-08-09] MEDS ORDERED: CYCLOBENZAPRINE HCL 10 MG TAB PO ONE (00:15)
--- NOTE | 2016-08-09 00:27 | RADRPT ---
EXAM DATE/TIME: 08/08/2016 23:55 [facility] COMPARISON: No previous studies available for comparison. INDICATIONS : Trauma, fall. MEDICAL HISTORY : None. SURGICAL HISTORY : None. ENCOUNTER: Initial ACUITY: 1 day PAIN SCORE: 6/10 LOCATION: Right pelvis FINDINGS: A single frontal view of the pelvis demonstrates no evidence of fracture. The bony pelvic ring is in tact. Bony mineralization is normal. The soft tissues are intact. CONCLUSION: Unremarkable examination of the pelvis. Rei Rodriguez MD on August 09, 2016 at 0:25 Board Certified Radiologist. This report was verified electronically.
--- NOTE | 2016-08-09 00:28 | RADRPT ---
EXAM DATE/TIME: 08/08/2016 23:57 [facility] COMPARISON: No previous studies available for comparison. INDICATIONS : Trauma, fall. MEDICAL HISTORY : None. SURGICAL HISTORY : None. ENCOUNTER: Initial ACUITY: 1 day PAIN SCORE: 6/10 LOCATION: lumbar spine. FINDINGS: Two view examination was performed. There are five non-rib bearing vertebral bodies. The vertebral bodies are in normal alignment without evidence of subluxation or scoliosis. The disc spaces are karri ntained. The pedicles are intact. Bony mineralization is normal. No fracture is identified. CONCLUSION: Unremarkable limited examination of the lumbar spine. Rei Rodriguez MD on August 09, 2016 at 0:26 Board Certified Radiologist. This report was verified electronically.
== END 2016-08-09 00:31 | disposition home or self-care (01) ==
LOC: NEPB 22:53
DX: M54.5 Low back pain (principal); G89.29 Other chronic pain; E03.9 Hypothyroidism, unspecified; I10 Essential (primary) hypertension; M79.7 Fibromyalgia; F17.210 Nicotine dependence, cigarettes, uncomplicated; E78.00 Pure hypercholesterolemia, unspecified; Z87.442 Personal history of urinary calculi; F31.9 Bipolar disorder, unspecified; I50.9 Heart failure, unspecified; J44.9 Chronic obstructive pulmonary disease, unspecified; E11.9 Type 2 diabetes mellitus without complications; I25.2 Old myocardial infarction
CPT/HCPCS: 72100; 72170; 99284

== ENCOUNTER 2016-08-28 13:25 | Emergency (ER) | payer MEDICAID ==
[~2016-08-28] VITALS: Ht 162.6 cm; Wt 103.7 kg
[~2016-08-28 13:25] MED LIST changes: -AMOX500T PO; +CYCL1TAB29 PO; -FURO1TAB61 PO; -HYDR-3516 PO; -LEVO.075 PO; -PLAV75TA29 PO; -SIMV20TA PO; -XANA2TAB2 PO
[2016-08-28 13:33] VITALS: BP 119/69; PULSE 81; RESP 18; TEMP 98; O2SAT 98
[2016-08-28] MEDS ORDERED: XANA2TAB2 PO (14:02)
[2016-08-28] MEDS ORDERED: FURO1TAB60 PO (14:02)
[2016-08-28] MEDS ORDERED: HYDR-3535 PO (14:02)
--- NOTE | 2016-08-28 14:21 | PD ---
HPI Chief Complaint: Edema Time Seen by Provider: 13:50 Travel History International Travel<30 days: No Contact w/Intl Traveler<30days: No Traveled to known affect area: No History of Present Illness HPI 61-year-old female presents with bilateral lower extremity swelling that is been present over the past 3 weeks. She states that this is new for her. She states that she is having difficulty affording her diabetes and blood pressure medications and she is out of some of them. She is out of enalapril and metoprolol. She states she hasn't been taking her insulin at night because she cannot afford her diabetes strips and she is afraid to take it without knowing what her sugars are. She denies any trauma or other concurrent complaints other than she feels like she has a bite on her left elbow. She states that she 's not wanting pain medications and she was here recently for that and understands that we cannot do those here. She states she has an appointment with her primary this Friday but will not be able to afford to go. PFSH Past Medical History Hx Anticoagulant Therapy: Yes Arthritis: No Asthma: Yes Autoimmune Disease: No Blood Disorders: No Bipolar Disorder: Yes Anxiety: Yes Depression: Yes Heart Rhythm Problems: No Cancer: Yes (BREAST AND UTERINE) Cardiac Catheterization: Yes Cardiovascular Problems: Yes High Cholesterol: Yes Chemotherapy: No Chest Pain: Yes Congestive Heart Failure: Yes COPD: Yes Cerebrovascular Accident: Yes Diabetes: Yes Patient Takes Glucophage: No Diminished Hearing: Yes Endocrine: No Fibromyalgia: Yes GERD: Yes Glaucoma: No Genitourinary: No Headaches: No Hepatitis: Yes (C) Hiatal Hernia: No Herniated Disk: Yes Hypertension: Yes Immune Disorder: No Implanted Vascular Access Dvce: No Kidney Stones: Yes Musculoskeletal: Yes (RT SHOULDER,RT KNEE 3 HERNIATED DISCS) Neurologic: No Psychiatric: Yes Reproductive: No Respiratory: Yes Immunizations Current: No Migraines: Yes Myocardial Infarction: Yes Radiation Therapy: No Renal Failure: No Schizophrenia: Yes (PARANOID SCHIZOPHRENIA) Seizures: No Sickle Cell Disease: No Sleep Apnea: No Thyroid Disease: Yes (HYPOTHYROIDISM) Triglycerides - High: Yes Ulcer: No Influenza Vaccination: No ?: Not Menopausal: Yes : 5 Para: 2 : 3 Ectopic : Yes Ovarian Cysts: Yes Past Surgical History Abdominal Surgery: No AICD: No Appendectomy: No Arteriovenous Shunt: No Cardiac Surgery: No Cholecystectomy: No Ear Surgery: No Endocrine Surgery: No Eye Surgery: Yes (BLIND LEFT EYE-surgery) Genitourinary Surgery: No Gynecologic Surgery: Yes (BX BILATERAL BREAST) Hysterectomy: Yes Insulin Pump: No Joint Replacement: No Oral Surgery: No Pacemaker: No Thoracic Surgery: No Social History Alcohol Use: No Tobacco Use: Yes (5 CIGS) Substance Use: No Allergies-Medications (Allergen,Severity, Reaction): Coded Allergies: Baclofen (Verified Allergy, Unknown, 08/28/16) Geodon (Verified Allergy, Unknown, 08/28/16) Sulfa (Verified Allergy, Unknown, does not know, 08/28/16) Haldol (Verified Adverse Reaction, Severe, "STIFFNESS", 08/28/16) Risperdal (Verified Adverse Reaction, Severe, anxiety, 08/28/16) Seroquel (Verified Adverse Reaction, Severe, anxiety, 08/28/16) Iron (Verified Adverse Reaction, Intermediate, dark bm's, 08/28/16) Reported Meds & Prescriptions Reported Meds & Active Scripts Active Keflex (Cephalexin) 500 Mg Cap 500 Mg PO TID 7 Days Flexeril (Cyclobenzaprine HCl) 10 Mg Tab 10 Mg PO TID Reported Xanax (Alprazolam) 2 Mg Tab 2 Mg PO Q8H PRN Lortab (Hydrocodone-Acetaminophen) 10-325 Mg Tab 1 Tab PO Q6H PRN Lasix (Furosemide) 40 Mg Tab 40 Mg PO DAILY Potassium Chloride ER (Potassium Chloride) 20 Meq Tab 20 Meq PO DAILY Clopidogrel (Clopidogrel Bisulfate) 75 Mg Tab 75 Mg PO DAILY Metoprolol Tartrate 25 Mg Tab 25 Mg PO DAILY Levothyroxine (Levothyroxine Sodium) 175 Mcg Tab 175 Mcg PO DAILY Promethazine (Promethazine HCl) 12.5 Mg Tab 12.5 Mg PO Q6H PRN Enalapril (Enalapril Maleate) 5 Mg Tab 5 Mg PO DAILY Aspir-81 (Aspirin) 81 Mg Tabdr Review of Systems Except as stated in HPI: all other systems reviewed are Neg Physical Exam Narrative GENERAL: Well-nourished, well-developed patient. SKIN: Warm and dry. Small area of erythema noted near left elbow without induration or crepitus, no pain with movement of left elbow HEAD: Normocephalic and atraumatic. EYES: No injection or drainage. ENT: No nasal drainage noted. NECK: Supple, trachea midline. CARDIOVASCULAR: Regular rate and rhythm RESPIRATORY: Breath sounds equal bilaterally. No accessory muscle use. GASTROINTESTINAL: Abdomen soft, non-tender, nondistended. EXTREMITIES: Mild nonpitting bilateral edema without calf pain NEUROLOGICAL: Awake and alert. Motor and sensory grossly within normal limits. Normal speech. Steady gait Data Data Last Documented VS Vital Signs Date Time Temp Pulse Resp B/P Pulse Ox O2 Delivery O2 Flow Rate FiO2 08/28/16 16:24 84 16 111/60 96 Room Air 08/28/16 13:33 98.0 Orders Us Leg Venous Doppler Bilat (08/28/16 14:13) Complete Blood Count With Diff (08/28/16 14:13) Basic Metabolic Panel (Bmp) (08/28/16 14:13) Act Partial Throm Time (Ptt) (08/28/16 14:13) Prothrombin Time / Inr (Pt) (08/28/16 14:13) Iv Access Insert/Monitor (08/28/16 14:13) Ecg Monitoring (08/28/16 14:13) Oximetry (08/28/16 14:13) Labs Laboratory Tests Test 08/28/16 14:25 White Blood Count 6.6 TH/MM3 Red Blood Count 4.40 MIL/MM3 Hemoglobin 12.1 GM/DL Hematocrit 36.5 % Mean Corpuscular Volume 82.9 FL Mean Corpuscular Hemoglobin 27.4 PG Mean Corpuscular Hemoglobin 33.1 % Concent Red Cell Distribution Width 13.2 % Platelet Count 309 TH/MM3 Mean Platelet Volume 7.7 FL Neutrophils (%) (Auto) 51.8 % Lymphocytes (%) (Auto) 35.8 % Monocytes (%) (Auto) 10.6 % Eosinophils (%) (Auto) 1.4 % Basophils (%) (Auto) 0.4 % Neutrophils # (Auto) 3.4 TH/MM3 Lymphocytes # (Auto) 2.4 TH/MM3 Monocytes # (Auto) 0.7 TH/MM3 Eosinophils # (Auto) 0.1 TH/MM3 Basophils # (Auto) 0.0 TH/MM3 CBC Comment DIFF FINAL Differential Comment Prothrombin Time 10.4 SEC Prothromb Time International 0.9 RATIO Ratio Activated Partial 24.7 SEC Thromboplast Time Sodium Level 141 MEQ/L Potassium Level 3.5 MEQ/L Chloride Level 100 MEQ/L Carbon Dioxide Level 31.7 MEQ/L Anion Gap 9 MEQ/L Blood Urea Nitrogen 9 MG/DL Creatinine 0.90 MG/DL Estimat Glomerular Filtration 64 ML/MIN Rate Random Glucose 110 MG/DL Calcium Level 8.4 MG/DL [facility] Medical Decision Making Medical Screen Exam Complete: Yes Emergency Medical Condition: Yes Medical Record Reviewed: Yes (past history confirmed) Interpretation(s) CBC & BMP Diagram 08/28/16 14:25 Last 24 hours Impressions Lower Extremity Ultrasound 08/28/16 1413 Signed Impressions: Service Date/Time: Sunday, August 28, 2016 15:15 - CONCLUSION: No evidence of deep venous thrombosis within the lower extremities. Chepe Flowers MD Differential Diagnosis Anemia, renal failure, DVT, cellulitis Narrative Course Will check blood work, ultrasound, imaging and reevaluate ED workup no emergent process, for small area of redness noted to left arm Will start on Keflex for possible cellulitis. Patient wanting to go home, Patient denies any new complaints, all questions answered. Patient knows that follow up is incumbent on them and to return to the emergency room immediately if new or worsening symptoms develop. Patient given strict return precautions, vitals reviewed and are normal, agrees to further workup as an outpatient. Case management talked with patient to help facilitate outpatient care Diagnosis Primary Impression: Edema Qualified Code: R60.9 - Edema, unspecified type Additional Impression: Cellulitis of arm Qualified Code: L03.114 - Cellulitis of left upper extremity Patient Instructions: General Instructions Additional Instructions: return as needed, tylenol as needed, follow with primary friday as scheduled, elevate legs at rest Med/Other Pt SpecificInfo: Prescription(s) given Scripts Cephalexin (Keflex)500 Mg Isg830 Mg PO TID 7 Days Prov:Zee Da Silva MD 08/28/16 Disposition: 01 DISCHARGE HOME Condition: Stable Zee Da Silva MD Aug 28, 2016 14:21
[2016-08-28 14:46] LABS: AUTOMATED NEUTROPHIL # 3.4 TH/MM3 (1.8-7.7); BASOPHIL % 0.4 % (0.0-2.0); EOSINOPHIL # 0.1 TH/MM3 (0-0.4); EOSINOPHIL % 1.4 % (0.0-4.0); HEMATOCRIT 36.5 % (35.0-46.0); HEMO FLAGS DIFF FINAL; LYMPH % 35.8 % (9.0-44.0); LYMPHOCYTE # 2.4 TH/MM3 (1.0-4.8); MEAN CELL VOLUME 82.9 FL (80.0-100.0); MEAN CORPUSCULAR HEMOGLOBIN 27.4 PG (27.0-34.0); MEAN CORPUSCULAR HGB CONC 33.1 % (32.0-36.0); MONO % 10.6 % (0.0-8.0); NEUT % 51.8 % (16.0-70.0); PLATELET COUNT 309 TH/MM3 (150-450); RED CELL DISTRIBUTION WIDTH 13.2 % (11.6-17.2); WHITE BLOOD COUNT 6.6 TH/MM3 (4.0-11.0)
[2016-08-28 14:57] LABS: POTASSIUM 3.5 MEQ/L (3.5-5.1)
[2016-08-28 15:00] LABS: BICARBONATE 31.7 MEQ/L (21.0-32.0)
[2016-08-28 15:01] LABS: APTT (PATIENT) 24.7 SEC (24.3-30.1); INTERNATIONAL NORMALIZED RATIO 0.9 RATIO; PROTHROMBIN TIME - PATIENT 10.4 SEC (9.8-11.6)
--- NOTE | 2016-08-28 15:54 | RADHPO ---
EXAM DATE/TIME: 08/28/2016 15:15 [facility] COMPARISON: No previous studies available for comparison. INDICATIONS : Bilateral leg swelling. MEDICAL HISTORY : Hypertension. Chronic obstructive pulmonary disease. Hepatitis C. Hypothyroid. Schizophrenia. Bipol ar. CVA. Diabetic. IA. Breast and uterine cancer. SURGICAL HISTORY : Breast biopsy. ENCOUNTER: Initial ACUITY: 3 weeks PAIN SCORE: 10/10 LOCATION: Bilateral leg. TECHNIQUE: Venous ultrasound of the left and right leg was performed from the inguinal ligament to the proximal calf. Real-time, color Doppler and spectral tracing, compression and augmentation techniques were us ed. FINDINGS: RIGHT LEG: There is normal compressibility of the deep venous system from the inguinal region to the proximal ca lf. No echogenic clot is seen in the lumen of the common femoral, femoral, popliteal, and posterior tibial veins. There is a normal response of the venous system to proximal and distal augmentation an d respiration. LEFT LEG: There is normal compressibility of the deep venous system from the inguinal region to the proximal ca lf. No echogenic clot is seen in the lumen of the common femoral, femoral, popliteal, and posterior tibial veins. There is a normal response of the venous system to proximal and distal augmentation an d respiration. CONCLUSION: No evidence of deep venous thrombosis within the lower extremities. Chepe Flowers MD on August 28, 2016 at 15:52 Board Certified Radiologist. This report was verified electronically.
[2016-08-28] MEDS ORDERED: CEPH-460 PO (16:18)
[2016-08-28 16:24] VITALS: BP 111/60; PULSE 84; RESP 16; O2SAT 96
== END 2016-08-28 16:30 | disposition home or self-care (01) ==
LOC: PHEFT 13:25
DX: R60.0 Localized edema (principal); L03.114 Cellulitis of left upper limb; E78.00 Pure hypercholesterolemia, unspecified; I50.9 Heart failure, unspecified; J44.9 Chronic obstructive pulmonary disease, unspecified; E11.9 Type 2 diabetes mellitus without complications; M79.7 Fibromyalgia; I10 Essential (primary) hypertension; K21.9 Gastro-esophageal reflux disease without esophagitis; I25.2 Old myocardial infarction; E03.9 Hypothyroidism, unspecified; F17.210 Nicotine dependence, cigarettes, uncomplicated; Z87.442 Personal history of urinary calculi; Z86.73 Personal history of transient ischemic attack (TIA), and cerebral infarction without residual deficits; Z79.01 Long term (current) use of anticoagulants
CPT/HCPCS: 80048; 85025; 85610; 85730; 93970

== ENCOUNTER 2016-09-27 06:57 | Emergency (ER) | payer MEDICAID ==
[~2016-09-27] VITALS: Ht 154.9 cm; Wt 104.5 kg
[~2016-09-27 06:57] MED LIST changes: +CEPH-460 PO; +FURO1TAB60 PO; +HYDR-3535 PO; -PARO1TAB71 PO; +XANA2TAB2 PO
--- NOTE | 2016-09-27 07:12 | PD ---
HPI Chief Complaint: fall Time Seen by Provider: 07:12 Travel History International Travel<30 days: No Contact w/Intl Traveler<30days: No Traveled to known affect area: No History of Present Illness HPI 59-year-old female presents to the emergency department by EMS transport from home to be evaluated for head injury and right knee injury. According to the patient last evening around 8:30 she was going down 3 of her steps from her trailer and on the last step and fell forward. Patient states that she went "flying"landing on her right knee with injury. Patient also complains of posterior scalp pain and headache injury. Patient denies having loss of consciousness. Patient has chronic pain syndrome, diabetes, schizophrenia, legally blind, hypertension, dyslipidemia, COPD, CVA, fibromyalgia, hepatitis C , chronic right upper extremity and lower extremity injury/pain, migraines, ovarian cysts, hypothyroidism, hysterectomy, cardiac catheterization, and tobacco use. According to lead pony rider report blood sugar was 113. According to lead pony rider report patient walked to the door and let them into her trailer. [facility] Past Medical History Narrative Medical chronic pain syndrome, diabetes, schizophrenia, legally blind, hypertension, dyslipidemia, COPD, CVA, fibromyalgia, hepatitis C, chronic right upper extremity and lower extremity injury/pain, migraines, ovarian cysts, hypothyroidism, hysterectomy, cardiac catheterization; tobacco use; nursing notes reviewed Hx Anticoagulant Therapy: Yes Arthritis: No Asthma: Yes Autoimmune Disease: No Blood Disorders: No Bipolar Disorder: Yes Anxiety: Yes Depression: Yes Heart Rhythm Problems: No Cancer: Yes (BREAST AND UTERINE) Cardiac Catheterization: Yes Cardiovascular Problems: Yes High Cholesterol: Yes Chemotherapy: No Chest Pain: Yes Congestive Heart Failure: Yes COPD: Yes Cerebrovascular Accident: Yes Diabetes: Yes Diminished Hearing: Yes Endocrine: No Fibromyalgia: Yes GERD: Yes Glaucoma: No Genitourinary: No Headaches: No Hepatitis: Yes (C) Hiatal Hernia: No Herniated Disk: Yes Hypertension: Yes Immune Disorder: No Implanted Vascular Access Dvce: No Kidney Stones: Yes Musculoskeletal: Yes (RT SHOULDER,RT KNEE 3 HERNIATED DISCS) Neurologic: No Psychiatric: Yes Reproductive: No Respiratory: Yes Immunizations Current: No Migraines: Yes Myocardial Infarction: Yes Radiation Therapy: No Renal Failure: No Schizophrenia: Yes (PARANOID SCHIZOPHRENIA) Seizures: No Sickle Cell Disease: No Sleep Apnea: No Thyroid Disease: Yes (HYPOTHYROIDISM) Triglycerides - High: Yes Ulcer: No Menopausal: Yes : 5 Para: 2 : 3 Ectopic : Yes Ovarian Cysts: Yes Past Surgical History Abdominal Surgery: No AICD: No Appendectomy: No Arteriovenous Shunt: No Cardiac Surgery: No Cholecystectomy: No Ear Surgery: No Endocrine Surgery: No Eye Surgery: Yes (BLIND LEFT EYE-surgery) Genitourinary Surgery: No Gynecologic Surgery: Yes (BX BILATERAL BREAST) Hysterectomy: Yes Insulin Pump: No Joint Replacement: No Oral Surgery: No Pacemaker: No Thoracic Surgery: No Social History Alcohol Use: No Tobacco Use: Yes (5 CIGS) Substance Use: No Allergies-Medications (Allergen,Severity, Reaction): Coded Allergies: Baclofen (Verified Allergy, Unknown, 08/28/16) Geodon (Verified Allergy, Unknown, 08/28/16) Sulfa (Verified Allergy, Unknown, does not know, 08/28/16) Haldol (Verified Adverse Reaction, Severe, "STIFFNESS", 08/28/16) Risperdal (Verified Adverse Reaction, Severe, anxiety, 08/28/16) Seroquel (Verified Adverse Reaction, Severe, anxiety, 08/28/16) Iron (Verified Adverse Reaction, Intermediate, dark bm's, 08/28/16) Reported Meds & Prescriptions Reported Meds & Active Scripts Active Keflex (Cephalexin) 500 Mg Cap 500 Mg PO TID 7 Days Flexeril (Cyclobenzaprine HCl) 10 Mg Tab 10 Mg PO TID Reported Xanax (Alprazolam) 2 Mg Tab 2 Mg PO Q8H PRN Lortab (Hydrocodone-Acetaminophen) 10-325 Mg Tab 1 Tab PO Q6H PRN Lasix (Furosemide) 40 Mg Tab 40 Mg PO DAILY Potassium Chloride ER (Potassium Chloride) 20 Meq Tab 20 Meq PO DAILY Clopidogrel (Clopidogrel Bisulfate) 75 Mg Tab 75 Mg PO DAILY Metoprolol Tartrate 25 Mg Tab 25 Mg PO DAILY Levothyroxine (Levothyroxine Sodium) 175 Mcg Tab 175 Mcg PO DAILY Promethazine (Promethazine HCl) 12.5 Mg Tab 12.5 Mg PO Q6H PRN Enalapril (Enalapril Maleate) 5 Mg Tab 5 Mg PO DAILY Aspir-81 (Aspirin) 81 Mg Tabdr Review of Systems Except as stated in HPI: all other systems reviewed are Neg General / Constitutional: No: Fever, Chills Eyes: No: Visual changes HENT: Positive: Headaches, No: Neck Pain Cardiovascular: No: Chest Pain or Discomfort Respiratory: Positive: Wheezing, No: Shortness of Breath Gastrointestinal: No: Nausea, Vomiting, Abdominal Pain Genitourinary: No: Dysuria Musculoskeletal: Positive: Myalgias, Arthralgias, Pain (right knee) Skin: Positive Rash Neurologic: Positive: Weakness (abrasion right knee) Psychiatric: Positive: Anxiety Hematologic/Lymphatic: No: Easy Bruising Physical Exam Narrative GENERAL: Well-developed obese female in no acute distress no respiratory distress; GCS 15 SKIN: Warm and dry. HEAD: Atraumatic. Normocephalic small posterior scalp hematoma tender to palpation no bony step-off. EYES: Pupils equal and round. Extraocular muscles intact. No scleral icterus. No injection or drainage. ENT: No nasal bleeding or discharge. Mucous membranes pink and moist. No hemotympanum. NECK: Trachea midline. No JVD. No midline tenderness to direct palpation along the cervical spine no bony step-off. CARDIOVASCULAR: Regular rate and rhythm. RESPIRATORY: No accessory muscle use. Expiratory wheezes noted to auscultation. Breath sounds equal bilaterally. GASTROINTESTINAL: Abdomen soft, non-tender, nondistended. Hepatic and splenic margins not palpable. MUSCULOSKELETAL: Extremities without clubbing, cyanosis, or edema. No obvious deformities. Right knee with soft tissue swelling tenderness superficial abrasion minimal effusion no deformity. Distally extremities are neurovascular tendon intact. NEUROLOGICAL: Awake and alert. No obvious cranial nerve deficits. Motor grossly within normal limits. Five out of 5 muscle strength in the arms and legs. Normal speech. MDM Medical Decision Making Medical Screen Exam Complete: Yes Emergency Medical Condition: Yes Medical Record Reviewed: Yes Differential Diagnosis Knee contusion sprain strain internal derangement fracture, minor CHI, ICH, overmedication, uncontrolled diabetes Narrative Course Patient with recent fall not witnessed reportedly without loss of consciousness complains of right knee pain and head pain. Ice pack applied imaging studies ordered. EMS glucose in the 130 range. Random glucose was rechecked at bedside urine specimen obtained CT brain noncontrast and x-ray of the right knee ordered At 7:10 AM care signed over to oncoming physician for follow-up of imaging studies and patient disposition Crista Ron MD Sep 27, 2016 07:12
[2016-09-27 07:15] VITALS: BP 140/65; PULSE 89; RESP 16; TEMP 98.1; O2SAT 98
[2016-09-27 07:32] LABS: BLOOD, URINE NEG (NEG); GLUCOSE,URINE NEG (NEG); KETONE, URINE NEG (NEG); NITRITE,URINE NEG (NEG); PH, URINE 5.5 (5.0-8.5)
[2016-09-27 07:38] LABS: METHOD OF COLLECTION CLEAN CATCH; URINE COLOR YELLOW (YELLW/STRAW)
[2016-09-27 07:39] LABS: COMMENT (UR) CULT NOT INDICATED; CULTURE IF INDICATED CULT NOT INDICATED; WBC, URINE 0-2 /hpf (0-5)
[2016-09-27] MEDS ORDERED: LANTUS2P SQ (08:19)
--- NOTE | 2016-09-27 09:07 | RADHPO ---
EXAM DATE/TIME: 09/27/2016 08:43 [facility] COMPARISON: No previous studies available for comparison. INDICATIONS : Trauma. Fall. RADIATION DOSE: 38.58 CTDIvol (mGy) MEDICAL HISTORY : Chronic obstructive pulmonary disease. Congestive heart failure. Cerebrovascular disease.Hep C. Diab etes. Hypertension. Breast cancer. Uterine cancer. Schizophrenia. SURGICAL HISTORY : None. ENCOUNTER: Initial ACUITY: 1 day PAIN SCALE: 2/10 LOCATION: cranial TECHNIQUE: Multiple contiguous axial images were obtained of the head. Using automated exposure control and adj ustment of the mA and/or kV according to patient size, radiation dose was kept as low as reasonably a chievable to obtain optimal diagnostic quality images. FINDINGS: There is no evidence for intracranial hemorrhage, mass effect, mass lesions, edema, or extra-axial fl uid collections. The visualized bony structures appear intact. The ventricles are normal size for t he patient's age. There are no signs of acute infarction for technique. CONCLUSION: Unremarkable study. Vicente Conti MD on September 27, 2016 at 9:03 Board Certified Radiologist. This report was verified electronically.
--- NOTE | 2016-09-27 09:08 | RADHPO ---
EXAM DATE/TIME: 09/27/2016 08:30 [facility] COMPARISON: KNEE RIGHT LTD (1 OR 2 VWS), September 10, 2013, 23:54. INDICATIONS : Right anterior knee pain/bruising post fall yesterday. MEDICAL HISTORY : Hypercholesterolemia. Gastroesophageal reflux disease. Renal calculi. Hypertension. Chronic obstr uctive pulmonary disease. Hepatitis C. Hypothyroid. Schizophrenia. Bipolar. CVA. Diabetic. NM. Breast and uterine cancer. SURGICAL HISTORY : Hysterectomy. Breast biopsy. Right shuolder. Right knee. ENCOUNTER: Initial ACUITY: 2 days PAIN SCORE: 10/10 LOCATION: Right anterior knee FINDINGS: There is a small avulsion off the superior portion of the patella not present previously. Tricompartm ent osteoarthritis to a slight degree is identified. CONCLUSION: Small avulsion off the superior portion of the patella. Vicente Conti MD on September 27, 2016 at 9:05 Board Certified Radiologist. This report was verified electronically.
--- NOTE | 2016-09-27 09:10 | PD ---
Physical Exam Narrative Received sign out from previous physician to follow up on CT brain and Xray right knee. 61yo F fell last night and is here for evaluation of head and right knee injury. Pt has a bump in occipital lobe but states it has been there for a while. Right knee has ecchymoses but no effusion. FROM right knee. Distal pulses intact. CT brain negative. Xray right knee showed small avulsion off superior portion of the patella. Pt given toradol with improvement of pain. Pt given right knee immobilizer and is ambulating with her cane. Return precautions given. Pt to follow up with orthopedic as outpatient. Data Data Last Documented VS Vital Signs Date Time Temp Pulse Resp B/P Pulse Ox O2 Delivery O2 Flow Rate FiO2 09/27/16 07:17 89 16 98 Room Air 09/27/16 07:15 98.1 140/65 Orders Blood Glucose (09/27/16 07:12) Urinalysis - C+S If Indicated (09/27/16 07:12) Ct Brain W/O Iv Contrast(Rout) (09/27/16 ) Knee, Complete (4vws) (09/27/16 ) Ketorolac Inj (Toradol Inj) (09/27/16 09:15) Ketorolac Inj (Toradol Inj) (09/27/16 09:30) Splint Or Brace Apply/Monitor (09/27/16 09:19) Labs Laboratory Tests Test 09/27/16 07:20 Urine Collection Type CLEAN CATCH Urine Color YELLOW Urine Turbidity CLEAR Urine pH 5.5 Urine Specific [place] 1.003 Urine Protein NEG mg/dL Urine Glucose (UA) NEG mg/dL Urine Ketones NEG mg/dL Urine Occult Blood NEG Urine Nitrite NEG Urine Bilirubin NEG Urine Leukocyte Esterase NEG Urine WBC 0-2 /hpf Urine Squamous Epithelial 6-8 /hpf Cells Microscopic Urinalysis Comment CULT NOT INDICATED Urine Collection Time 07:20 MDM Supervised Visit with LINDSEY: No Diagnosis Primary Impression: Avulsion fracture Referrals: Yovany Zaragoza MD call for appointment Avulsion patella Patient Instructions: General Instructions Departure Forms: Tests/Procedures Additional Instruction: Please follow up with orthopedic as outpatient. Return to the ED if symptoms worsen. Med/Other Pt SpecificInfo: Prescription(s) given Scripts Acetaminophen (Acetaminophen Extra Strength)500 Mg [id number] Mg PO Q6H PRN (PAIN SCALE 1 TO 4) #20 TAB Ref 0 Prov:Mary Burton DO 09/27/16 Disposition: 01 DISCHARGE HOME Condition: Stable Mary Burton DO Sep 27, 2016 09:09
[2016-09-27] MEDS ORDERED: KETOROLAC TROMETHAMINE 30 MG/ML (IVP) VIAL IV PUSH ONE (09:15)
[2016-09-27] MEDS ORDERED: ACET500T36 PO (09:25)
[2016-09-27 09:30] VITALS: BP 132/72; PULSE 78; RESP 18; O2SAT 97
[2016-09-27] MEDS ORDERED: KETOROLAC TROMETHAMINE 60 MG/2 ML (IM) VIAL IM ONE (09:30)
[2016-09-27 10:19] VITALS: BP 137/69
[2016-09-27 10:20] VITALS: RESP 16
== END 2016-09-27 10:29 | disposition home or self-care (01) ==
LOC: PHED 06:57
DX: S82.091A Other fracture of right patella, initial encounter for closed fracture (principal); R51 Headache; G89.4 Chronic pain syndrome; E11.9 Type 2 diabetes mellitus without complications; E03.9 Hypothyroidism, unspecified; I10 Essential (primary) hypertension; E78.5 Hyperlipidemia, unspecified; H54.8 Legal blindness, as defined in USA; W10.8XXA Fall (on) (from) other stairs and steps, initial encounter; Z72.0 Tobacco use; Z79.01 Long term (current) use of anticoagulants; Z87.09 Personal history of other diseases of the respiratory system; Z86.59 Personal history of other mental and behavioral disorders; Z86.79 Personal history of other diseases of the circulatory system; Z87.39 Personal history of other diseases of the musculoskeletal system and connective tissue; Z86.19 Personal history of other infectious and parasitic diseases; Z86.69 Personal history of other diseases of the nervous system and sense organs
CPT/HCPCS: 70450; 73564; 81001; 96372; 99285; J1885; L1830

== ENCOUNTER 2016-10-07 06:55 | Emergency (ER) | payer MEDICAID ==
[~2016-10-07] VITALS: Ht 162.6 cm; Wt 100.0 kg
[~2016-10-07 06:55] MED LIST changes: +ACET500T36 PO; -CEPH-460 PO; +LANTUS2P SQ
[2016-10-07 07:01] VITALS: BP 113/64; PULSE 73; RESP 18; TEMP 98.1; O2SAT 97
--- NOTE | 2016-10-07 07:07 | PD ---
HPI Chief Complaint: Skin Problem Time Seen by Provider: 07:06 Travel History International Travel<30 days: No Contact w/Intl Traveler<30days: No Traveled to known affect area: No History of Present Illness HPI 61-year-old female came to the emergency room with history of itching all over her body and rash since she's been taking Abilify which she said started a week ago. Patient says she spoke with her psych doctor and has been asked to stop taking Abilify. She did that 2 days ago. But the rash and itching still continues. Patient says she took Benadryl 2 days ago and did not help much. Vital signs are stable. No respiratory issues. PFSH Past Medical History Narrative Medical List of her past medical, surgical, social and family history was reviewed from the nursing note. Hx Anticoagulant Therapy: Yes Arthritis: No Asthma: Yes Autoimmune Disease: No Blood Disorders: No Bipolar Disorder: Yes Anxiety: Yes Depression: Yes Heart Rhythm Problems: No Cancer: Yes (BREAST AND UTERINE) Cardiac Catheterization: Yes Cardiovascular Problems: Yes (2009 IN [place] ) High Cholesterol: Yes Chemotherapy: No Chest Pain: Yes Congestive Heart Failure: Yes COPD: Yes Cerebrovascular Accident: Yes (2009) Diabetes: Yes Diminished Hearing: Yes Endocrine: No Fibromyalgia: Yes GERD: Yes Glaucoma: No Genitourinary: No Headaches: No Hepatitis: Yes (C) Hiatal Hernia: No Herniated Disk: Yes Hypertension: Yes Immune Disorder: No Implanted Vascular Access Dvce: No Kidney Stones: Yes Musculoskeletal: Yes (RT SHOULDER,RT KNEE 3 HERNIATED DISCS) Neurologic: No Psychiatric: Yes Reproductive: No Respiratory: Yes Immunizations Current: No Migraines: Yes Myocardial Infarction: Yes Radiation Therapy: No Renal Failure: No Schizophrenia: Yes (PARANOID SCHIZOPHRENIA) Seizures: No Sickle Cell Disease: No Sleep Apnea: No Thyroid Disease: Yes (HYPOTHYROIDISM) Triglycerides - High: Yes Ulcer: No Menopausal: Yes : 5 Para: 2 : 3 Ectopic : Yes Ovarian Cysts: Yes Past Surgical History Abdominal Surgery: No AICD: No Appendectomy: No Arteriovenous Shunt: No Cardiac Surgery: No Cholecystectomy: No Ear Surgery: No Endocrine Surgery: No Eye Surgery: Yes (BLIND LEFT EYE-surgery) Genitourinary Surgery: No Gynecologic Surgery: Yes (BX BILATERAL BREAST) Hysterectomy: Yes Insulin Pump: No Joint Replacement: No Oral Surgery: No Pacemaker: No Thoracic Surgery: No Social History Alcohol Use: No (denies) Tobacco Use: Yes (5 CIGS) Substance Use: No Allergies-Medications (Allergen,Severity, Reaction): Coded Allergies: Baclofen (Verified Allergy, Unknown, 09/27/16) Geodon (Verified Allergy, Unknown, 09/27/16) Sulfa (Verified Allergy, Unknown, does not know, 09/27/16) Haldol (Verified Adverse Reaction, Severe, "STIFFNESS", 09/27/16) Risperdal (Verified Adverse Reaction, Severe, anxiety, 09/27/16) Seroquel (Verified Adverse Reaction, Severe, anxiety, 09/27/16) Iron (Verified Adverse Reaction, Intermediate, dark bm's, 09/27/16) Comments List of her allergies reviewed from the nursing note. Reported Meds & Prescriptions Reported Meds & Active Scripts Active Benadryl Allergy Children Liq (Diphenhydramine HCl) 12.5 Mg/5 Ml Liq 25 Mg PO Q6H PRN 3 Days Acetaminophen Extra Strength (Acetaminophen) 500 Mg Tab 500 Mg PO Q6H PRN Flexeril (Cyclobenzaprine HCl) 10 Mg Tab 10 Mg PO TID Reported Lantus Inj (Insulin Glargine) 1,000 Unit/10 Ml Vial 10-12 Units SQ HS Xanax (Alprazolam) 2 Mg Tab 2 Mg PO Q8H PRN Lortab (Hydrocodone-Acetaminophen) 10-325 Mg Tab 1 Tab PO Q6H PRN Lasix (Furosemide) 40 Mg Tab 80 Mg PO DAILY Potassium Chloride ER (Potassium Chloride) 20 Meq Tab 20 Meq PO DAILY Clopidogrel (Clopidogrel Bisulfate) 75 Mg Tab 75 Mg PO DAILY Metoprolol Tartrate 25 Mg Tab 25 Mg PO DAILY Levothyroxine (Levothyroxine Sodium) 175 Mcg Tab 175 Mcg PO DAILY Promethazine (Promethazine HCl) 12.5 Mg Tab 12.5 Mg PO Q6H PRN Enalapril (Enalapril Maleate) 5 Mg Tab 5 Mg PO DAILY Aspir-81 (Aspirin) 81 Mg Tabdr 81 Mg PO DAILY Narrative Medication List of her home medications reviewed from the nursing note. Review of Systems Except as stated in HPI: all other systems reviewed are Neg Physical Exam Narrative GENERAL: Awake, alert, obese, no obvious distress SKIN: Focused skin assessment warm/dry. Faint erythematous macular rash on the arms HEAD: Atraumatic. Normocephalic. EYES: Pupils equal and round. No scleral icterus. No injection or drainage. ENT: No nasal bleeding or discharge. Mucous membranes pink and moist. NECK: Trachea midline. No JVD. CARDIOVASCULAR: Regular rate and rhythm. No murmur appreciated. RESPIRATORY: No accessory muscle use. Clear to auscultation. Breath sounds equal bilaterally. GASTROINTESTINAL: Abdomen soft, non-tender, nondistended. Hepatic and splenic margins not palpable. MUSCULOSKELETAL: No obvious deformities. No clubbing. No cyanosis. No edema. NEUROLOGICAL: Awake and alert. No obvious cranial nerve deficits. Motor grossly within normal limits. Normal speech. PSYCHIATRIC: Appropriate mood and affect; insight and judgment normal. Data Data Last Documented VS Vital Signs Date Time Temp Pulse Resp B/P Pulse Ox O2 Delivery O2 Flow Rate FiO2 10/07/16 07:30 80 18 10/07/16 07:01 98.1 113/64 97 Orders Diphenhydramine Liq (Benadryl Liq) (10/07/16 07:15) [facility] Medical Decision Making Medical Screen Exam Complete: Yes Emergency Medical Condition: Yes Medical Record Reviewed: Yes Differential Diagnosis Allergic reaction Narrative Course 7:15 AM patient was given by mouth Benadryl. She insisted on getting liquid Benadryl. She says she "takes too many pills" already. Patient will be discharged home on prescription Benadryl. Procedures EKG Prior to Arrival: No Diagnosis Primary Impression: Allergic reaction Qualified Code: T78.40XA - Allergic reaction, initial encounter Referrals: Primary Care Physician 2 days Additional Instructions: Stop taking Abilify. Take the medication as per the prescription direction. Follow-up with your primary care in couple days. Med/Other Pt SpecificInfo: Prescription(s) given Scripts Diphenhydramine Liq (Benadryl Allergy Children Liq)12.5 Mg/5 Ml Liq25 Mg PO Q6H PRN (ALLERGIES) 3 Days Ref 0 Prov:Vaibhav Howard MD 10/07/16 Disposition: 01 DISCHARGE HOME Condition: Stable Vaibhav Howard MD October 07, 2016 07:07
[2016-10-07] MEDS ORDERED: BENA12.5 PO (07:14)
[2016-10-07] MEDS ORDERED: diphenhydrAMINE HCL ELIXIR 12.5 MG/5 ML CUP PO ONE (07:15)
== END 2016-10-07 08:05 | disposition home or self-care (01) ==
LOC: NEPC 06:55
DX: T78.40XA Allergy, unspecified, initial encounter (principal); J45.909 Unspecified asthma, uncomplicated; E11.9 Type 2 diabetes mellitus without complications; I10 Essential (primary) hypertension; Z72.0 Tobacco use; Z79.01 Long term (current) use of anticoagulants
CPT/HCPCS: 99283

== ENCOUNTER 2016-10-23 13:47 | Inpatient (IN) | payer OTHER ==
[~2016-10-23] VITALS: Ht 162.6 cm; Wt 97.2 kg
[~2016-10-23 13:47] MED LIST changes: +BENA12.5 PO
[2016-10-23 14:10] VITALS: BP 115/57; PULSE 82; RESP 18; TEMP 99.1; O2SAT 95
[2016-10-23] MEDS ORDERED: ZOCO40TA PO (14:41)
[2016-10-23] MEDS ORDERED: FENO160T PO (14:41)
[2016-10-23] MEDS ORDERED: PROM25TA5 PO (14:41)
[2016-10-23] MEDS ORDERED: LEVO137T2 PO (14:41)
[2016-10-23] MEDS ORDERED: OXCA150T PO (14:41)
[2016-10-23] MEDS ORDERED: PROM6.256 PO (14:41)
--- NOTE | 2016-10-23 14:47 | PD ---
HPI Chief Complaint: Psychiatric Symptoms Time Seen by Provider: 14:45 Travel History International Travel<30 days: No Contact w/Intl Traveler<30days: No Traveled to known affect area: No History of Present Illness HPI 61-year-old female that presents to the ED for evaluation of psychiatric evaluation. Patient was [place] acted by police after apparently she mentioned to a social media marketer on the phone that she was suicidal. The patient is was taken out of context and now she is here. Patient denies any suicidal or homicidal ideation. Patient denies any depression. Per patient she has chronic medical issues but denies suicidal ideation. Patient does state that she has a history of bipolar disorder and depression. Patient does take medications for psychiatric disease. She denies any other acute disease other than chronic pain to her leg secondary to neuropathy. She does have a history of diabetes. She is cooperative at this time. She denies any other medical problem. No chest pressures of breath. No urinary or bowel movement issues. PFSH Past Medical History Hx Anticoagulant Therapy: Yes Arthritis: No Asthma: Yes Autoimmune Disease: No Blood Disorders: No Bipolar Disorder: Yes Anxiety: Yes Depression: Yes Heart Rhythm Problems: No Cancer: Yes (BREAST AND UTERINE) Cardiac Catheterization: Yes Cardiovascular Problems: Yes High Cholesterol: Yes Chemotherapy: No Chest Pain: Yes Congestive Heart Failure: Yes COPD: Yes Cerebrovascular Accident: Yes Diabetes: Yes Patient Takes Glucophage: No Diminished Hearing: Yes Endocrine: No Fibromyalgia: Yes GERD: Yes Glaucoma: No Genitourinary: No Headaches: No Hepatitis: Yes (C) Hiatal Hernia: No Herniated Disk: Yes Hypertension: Yes Immune Disorder: No Implanted Vascular Access Dvce: No Kidney Stones: Yes Musculoskeletal: Yes (RT SHOULDER,RT KNEE 3 HERNIATED DISCS) Neurologic: No Psychiatric: Yes Reproductive: No Respiratory: Yes Immunizations Current: No Migraines: Yes Myocardial Infarction: Yes Radiation Therapy: No Renal Failure: No Schizophrenia: Yes (PARANOID SCHIZOPHRENIA) Seizures: No Sickle Cell Disease: No Sleep Apnea: No Thyroid Disease: Yes (HYPOTHYROIDISM) Triglycerides - High: Yes Ulcer: No Menopausal: Yes : 5 Para: 2 : 3 Ectopic : Yes Ovarian Cysts: Yes Past Surgical History Abdominal Surgery: No AICD: No Appendectomy: No Arteriovenous Shunt: No Cardiac Surgery: No Cholecystectomy: No Ear Surgery: No Endocrine Surgery: No Eye Surgery: Yes (BLIND LEFT EYE-surgery) Genitourinary Surgery: No Gynecologic Surgery: Yes (BX BILATERAL BREAST) Hysterectomy: Yes Insulin Pump: No Joint Replacement: No Oral Surgery: No Pacemaker: No Thoracic Surgery: No Other Surgery: No Social History Alcohol Use: No (denies) Tobacco Use: Yes (5 CIGS) Substance Use: No Allergies-Medications (Allergen,Severity, Reaction): Coded Allergies: Baclofen (Verified Allergy, Unknown, 09/27/16) Geodon (Verified Allergy, Unknown, 09/27/16) Sulfa (Verified Allergy, Unknown, does not know, 09/27/16) Haldol (Verified Adverse Reaction, Severe, "STIFFNESS", 09/27/16) Risperdal (Verified Adverse Reaction, Severe, anxiety, 09/27/16) Seroquel (Verified Adverse Reaction, Severe, anxiety, 09/27/16) Iron (Verified Adverse Reaction, Intermediate, dark bm's, 09/27/16) Reported Meds & Prescriptions Reported Meds & Active Scripts Active Reported Zocor (Simvastatin) 40 Mg Tab 40 Mg PO HS Promethazine-Codeine Liq 6.25-10 Mg/5 Ml Syrp 5 Ml PO Q8HR PRN Fenofibrate 160 Mg Tab 160 Mg PO DAILY Oxcarbazepine 150 Mg Tab 150 Mg PO BID Levothyroxine (Levothyroxine Sodium) 137 Mcg Tab 137 Mcg PO DAILY Phenergan (Promethazine HCl) 25 Mg Tab 25 Mg PO Q6H PRN Lantus Inj (Insulin Glargine) 1,000 Unit/10 Ml Vial 10-12 Units SQ HS Xanax (Alprazolam) 2 Mg Tab 2 Mg PO Q8H PRN Lortab (Hydrocodone-Acetaminophen) 10-325 Mg Tab 1 Tab PO Q6H PRN Lasix (Furosemide) 40 Mg Tab 80 Mg PO DAILY Potassium Chloride ER (Potassium Chloride) 20 Meq Tab 20 Meq PO DAILY Clopidogrel (Clopidogrel Bisulfate) 75 Mg Tab 75 Mg PO DAILY Metoprolol Tartrate 25 Mg Tab 25 Mg PO DAILY Enalapril (Enalapril Maleate) 5 Mg Tab 5 Mg PO DAILY Aspir-81 (Aspirin) 81 Mg Tabdr 81 Mg PO DAILY Review of Systems Except as stated in HPI: all other systems reviewed are Neg Physical Exam Narrative GENERAL: SKIN: Warm and dry. HEAD: Atraumatic. Normocephalic. EYES: Pupils equal and round. No scleral icterus. No injection or drainage. ENT: No nasal bleeding or discharge. Mucous membranes pink and moist. Tongue is midline. No Uvula deviation. NECK: Trachea midline. No JVD. CARDIOVASCULAR: Regular rate and rhythm. No murmurs, S3, S4. RESPIRATORY: No accessory muscle use. Clear to auscultation. Breath sounds equal bilaterally. GASTROINTESTINAL: Abdomen soft, non-tender, nondistended. Hepatic and splenic margins not palpable. MUSCULOSKELETAL: Extremities without clubbing, cyanosis, or edema. No obvious deformities. Full range of motion of the upper and lower extremities bilaterally. 2+ pulses bilaterally. NEUROLOGICAL: Awake and alert. No obvious cranial nerve deficits. Motor grossly within normal limits. Five out of 5 muscle strength in the arms and legs. Normal speech. PSYCHIATRIC: Appropriate mood and affect; insight and judgment normal. Data Data Last Documented VS Vital Signs Date Time Temp Pulse Resp B/P Pulse Ox O2 Delivery O2 Flow Rate FiO2 10/23/16 14:10 99.1 82 18 115/57 95 Orders Complete Blood Count With Diff (10/23/16 14:12) Comprehensive Metabolic Panel (10/23/16 14:12) Urinalysis - C+S If Indicated (10/23/16 14:12) Psych Screen (10/23/16 14:12) Drug Screen, Random Urine (10/23/16 14:12) Alcohol (Ethanol) (10/23/16 14:12) Labs Laboratory Tests Test 10/23/16 10/23/16 14:50 15:00 Urine Color LIGHT-YELLOW Urine Turbidity CLEAR Urine pH 7.0 Urine Specific [place] 1.006 Urine Protein NEG mg/dL Urine Glucose (UA) NEG mg/dL Urine Ketones NEG mg/dL Urine Occult Blood NEG Urine Nitrite NEG Urine Bilirubin NEG Urine Urobilinogen LESS THAN 2.0 MG/DL Urine Leukocyte Esterase NEG Urine WBC LESS THAN 1 /hpf Urine Squamous Epithelial <1 /hpf Cells Urine Bacteria RARE /hpf Microscopic Urinalysis Comment CULT NOT INDICATED Urine Opiates Screen POS Urine Barbiturates Screen NEG Urine Amphetamines Screen NEG Urine Benzodiazepines Screen POS Urine Cocaine Screen NEG Urine Cannabinoids Screen NEG White Blood Count 13.9 TH/MM3 Red Blood Count 4.95 MIL/MM3 Hemoglobin 13.4 GM/DL Hematocrit 39.2 % Mean Corpuscular Volume 79.1 FL Mean Corpuscular Hemoglobin 27.0 PG Mean Corpuscular Hemoglobin 34.1 % Concent Red Cell Distribution Width 13.5 % Platelet Count 374 TH/MM3 Mean Platelet Volume 7.5 FL Neutrophils (%) (Auto) 76.1 % Lymphocytes (%) (Auto) 19.2 % Monocytes (%) (Auto) 4.2 % Eosinophils (%) (Auto) 0.1 % Basophils (%) (Auto) 0.4 % Neutrophils # (Auto) 10.6 TH/MM3 Lymphocytes # (Auto) 2.7 TH/MM3 Monocytes # (Auto) 0.6 TH/MM3 Eosinophils # (Auto) 0.0 TH/MM3 Basophils # (Auto) 0.1 TH/MM3 CBC Comment DIFF FINAL Differential Comment MDM Medical Decision Making Medical Screen Exam Complete: Yes Emergency Medical Condition: Yes Medical Record Reviewed: Yes Interpretation(s) CBC Diagram 10/23/16 15:00 Tox screen positive for opiates and benzos Differential Diagnosis Depression versus suicidal ideation versus anxiety versus adjustment disorder versus mood disorder versus bipolar disorder versus schizophrenia versus paranoid disorder versus psychosis versus substance abuse versus alcohol abuse versus alcohol induced psychosis versus homicidality addition versus cutting versus personality disorder Narrative Course 61-year-old female that presents to the ED for evaluation of psych. Patient was properly examined and was found to have signs and symptoms consistent with psychiatric illness. No significant medical distress. Patient was medically cleared. Okay to be seen by psych. Labs were drawn. Mental health screening was discussed with the patient. Diagnosis Primary Impression: Bipolar disorder Qualified Code: F31.9 - Bipolar affective disorder, remission status unspecified Leopoldo Schultz October 23, 2016 14:47
[2016-10-23 15:17] LABS: AUTOMATED NEUTROPHIL # 10.6 TH/MM3 (1.8-7.7); BASOPHIL # 0.1 TH/MM3 (0-0.2); BASOPHIL % 0.4 % (0.0-2.0); EOSINOPHIL % 0.1 % (0.0-4.0); HEMATOCRIT 39.2 % (35.0-46.0); HEMO FLAGS DIFF FINAL; LYMPH % 19.2 % (9.0-44.0); LYMPHOCYTE # 2.7 TH/MM3 (1.0-4.8); MEAN CELL VOLUME 79.1 FL (80.0-100.0); MEAN CORPUSCULAR HGB CONC 34.1 % (32.0-36.0); MONO % 4.2 % (0.0-8.0); NEUT % 76.1 % (16.0-70.0); PLATELET COUNT 374 TH/MM3 (150-450); RED BLOOD COUNT 4.95 MIL/MM3 (4.00-5.30); RED CELL DISTRIBUTION WIDTH 13.5 % (11.6-17.2); WHITE BLOOD COUNT 13.9 TH/MM3 (4.0-11.0)
[2016-10-23 15:28] LABS: AMPHETAMINE, URINE NEG (NEG); BARBITURATES, URINE NEG (NEG); COCAINE, URINE NEG (NEG)
[2016-10-23 15:47] LABS: BACTERIA, URINE RARE /hpf; BLOOD, URINE NEG (NEG); COMMENT (UR) CULT NOT INDICATED; CULTURE IF INDICATED CULT NOT INDICATED; GLUCOSE,URINE NEG (NEG); KETONE, URINE NEG (NEG); NITRITE,URINE NEG (NEG); SQUAMOUS EPITHELIAL CELL URINE <1 /hpf (0-5); URINE COLOR LIGHT-YELLOW (YELLW/STRAW)
[2016-10-23 16:48] LABS: ALT (GPT) 22 U/L (10-53); ANION GAP 9 MEQ/L (5-15); AST (GOT) 19 U/L (15-37); BICARBONATE 29.9 MEQ/L (21.0-32.0); BLOOD UREA NITROGEN 13 MG/DL (7-18); CHLORIDE 94 MEQ/L (98-107); GLOMERULAR FILTRATION RATE 56 ML/MIN (>89); POTASSIUM 3.8 MEQ/L (3.5-5.1); SODIUM (NA) 133 MEQ/L (136-145)
[2016-10-23 16:50] LABS: ALKALINE PHOSPHATASE 60 U/L (45-117); TOTAL BILIRUBIN ADULT 0.2 MG/DL (0.2-1.0)
[2016-10-23] MEDS ORDERED: CLOPIDOGREL 75 MG TAB PO ONE (19:00)
[2016-10-23] MEDS ORDERED: FUROSEMIDE 40 MG TAB PO ONE (19:00)
[2016-10-23] MEDS ORDERED: OXcarbazepine 150 MG TAB PO ONE (19:00)
[2016-10-23 19:06] VITALS: BP 128/83; PULSE 82; RESP 16; O2SAT 95
[2016-10-23 22:00] VITALS: BP 126/65; PULSE 73; RESP 18; O2SAT 99
[2016-10-23 22:40] VITALS: BP 129/68; PULSE 78; RESP 16; TEMP 97.8; O2SAT 91
[2016-10-23] MEDS ORDERED: ALUMINUM/MAGNESIUM/SIMETH 30 ML CUP PO PRN (23:15)
[2016-10-23] MEDS ORDERED: diphenhydrAMINE HCL 50 MG/ML VIAL IM PRN (23:15)
[2016-10-23] MEDS ORDERED: MAGNESIUM HYDROXIDE SUSP 30 ML CUP PO PRN (23:15)
[2016-10-23] MEDS: diphenhydrAMINE HCL 50 MG CAP PO PRN (23:30)
[2016-10-23] MEDS: hydrOXYzine HCL 50 MG TAB PO PRN (23:30)
[2016-10-23] MEDS: ACETAMINOPHEN 325 MG TAB PO PRN (23:36)
[2016-10-24] MEDS: ACETAMINOPHEN 325 MG TAB PO PRN ×3 (04:08→20:08)
[2016-10-24] MEDS: LEVOTHYROXINE SODIUM 25 MCG TAB PO SCH (06:08)
[2016-10-24] MEDS: LEVOTHYROXINE SODIUM 112 MCG TAB PO SCH (06:08)
[2016-10-24 06:11] VITALS: BP 118/63; PULSE 78; RESP 18; TEMP 98.1; O2SAT 96
[2016-10-24 07:40] LABS: ANION GAP 10 MEQ/L (5-15); BICARBONATE 33.4 MEQ/L (21.0-32.0); BLOOD UREA NITROGEN 18 MG/DL (7-18); CHLORIDE 93 MEQ/L (98-107); GLOMERULAR FILTRATION RATE 73 ML/MIN (>89); LDL CHOLESTEROL 88 MG/DL (0-99); POTASSIUM 3.4 MEQ/L (3.5-5.1); SODIUM (NA) 136 MEQ/L (136-145)
[2016-10-24] MEDS ORDERED: POTASSIUM CHLORIDE 10 MEQ CONTROLLED RELEASE TAB PO ONE (08:30)
[2016-10-24] MEDS: NICOTINE 21 MG/24 HR PATCH T-DERMAL SCH (08:38)
[2016-10-24] MEDS: POTASSIUM CHLORIDE 20 MEQ CONTROLLED RELEASE TAB PO SCH (08:39)
[2016-10-24] MEDS: hydrOXYzine HCL 50 MG TAB PO PRN (08:40)
[2016-10-24] MEDS: METOPROLOL TARTRATE 25 MG TAB PO SCH (08:40)
[2016-10-24] MEDS: FENOFIBRATE 145 MG TAB PO SCH (08:40)
[2016-10-24] MEDS: OXcarbazepine 150 MG TAB PO SCH ×2 (08:40→20:07)
[2016-10-24] MEDS: ASPIRIN 81 MG CHEW TAB PO SCH (08:40)
[2016-10-24] MEDS: CLOPIDOGREL 75 MG TAB PO SCH (08:40)
[2016-10-24] MEDS: FUROSEMIDE 80 MG TAB PO SCH (08:46)
[2016-10-24] MEDS: ENALAPRIL MALEATE 5 MG TAB PO SCH (08:46)
[2016-10-24] MEDS ORDERED: MAGNESIUM HYDROXIDE SUSP 30 ML CUP PO PRN (13:00)
[2016-10-24] MEDS ORDERED: ACETAMINOPHEN 325 MG TAB PO PRN (13:00)
[2016-10-24] MEDS ORDERED: LORazepam 2 MG/ML VIAL IM PRN (13:00)
[2016-10-24] MEDS ORDERED: ALUMINUM/MAGNESIUM/SIMETH 30 ML CUP PO PRN (13:00)
[2016-10-24 13:28] LABS: HEMOGLOBIN A1a 0.6 %; HEMOGLOBIN A1b 2.1 %; HEMOGLOBIN Ao 84.1 %; HEMOGLOBIN P3 3.9 %
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
--- NOTE | 2016-10-24 14:38 | PD.CONS ---
HPI Service [facility] Consult Requested By Psychiatry team Reason for Consult Medical management diabetes Primary Care Physician No Primary Care Physician Diagnoses: History of Present Illness Written by Jeff Stovall, acting as scribe for Dr. Wright on 10/24/16 at 16: 13. Patient say 61-year-old female with primary medical history of CHF, HTN, HLD, CVA, diabetes, hypothyroidism, bipolar disorder, depression who came into the hospital under [place] act for psychiatric evaluation. As per records, patient was [place] acted by the police because she mentioned to a social service worker on the phone that she was suicidal. She is now admitted to inpatient psychiatry unit for further evaluation. Consulted for medical management. Patient seen and examined today. Patient verified some of her medical conditions. She rambles throughout conversation. Most of the time and able to answer questions appropriately. States she has fibroid tumor and uropathy requesting for Xanax, [place]'s, oxycodone. 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 Poor historian with other medical conditions. Not focus on conversation. Denies pain and discomfort. Denies SOB/ dyspnea. Denies chest pain, palpitations, headaches, dizziness. Denies fevers, chills, n/v/d. Denies hematuria, dysuria. Review of Systems Psychiatric: COMPLAINS OF: Confusion Except as stated in HPI: all other systems reviewed are Neg Past Family Social History Allergies: Coded Allergies: Baclofen (Verified Allergy, Unknown, 09/27/16) Geodon (Verified Allergy, Unknown, 09/27/16) Sulfa (Verified Allergy, Unknown, does not know, 09/27/16) Haldol (Verified Adverse Reaction, Severe, "STIFFNESS", 09/27/16) Risperdal (Verified Adverse Reaction, Severe, anxiety, 09/27/16) Seroquel (Verified Adverse Reaction, Severe, anxiety, 09/27/16) Iron (Verified Adverse Reaction, Intermediate, dark bm's, 09/27/16) Past Medical History Bipolar disorder Depression Asthma ?Breast and uterine cancer CHF HLD HTN CVA DM 2 Hypothyroidism Hep C Past Surgical History Cardiac catheterization Hysterectomy Right knee arthroscopy/arthroplasty Right questionable lumpectomy versus removal of tumor cyst Reported Medications Reported Meds & Active Scripts Active Reported Zocor (Simvastatin) 40 Mg Tab 40 Mg PO HS Promethazine-Codeine Liq 6.25-10 Mg/5 Ml Syrp 5 Ml PO Q8HR PRN Fenofibrate 160 Mg Tab 160 Mg PO DAILY Oxcarbazepine 150 Mg Tab 150 Mg PO BID Levothyroxine (Levothyroxine Sodium) 137 Mcg Tab 137 Mcg PO DAILY Phenergan (Promethazine HCl) 25 Mg Tab 25 Mg PO Q6H PRN Lantus Inj (Insulin Glargine) 1,000 Unit/10 Ml Vial 10-12 Units SQ HS Xanax (Alprazolam) 2 Mg Tab 2 Mg PO Q8H PRN Lortab (Hydrocodone-Acetaminophen) 10-325 Mg Tab 1 Tab PO Q6H PRN Lasix (Furosemide) 40 Mg Tab 80 Mg PO DAILY Potassium Chloride ER (Potassium Chloride) 20 Meq Tab 20 Meq PO DAILY Clopidogrel (Clopidogrel Bisulfate) 75 Mg Tab 75 Mg PO DAILY Metoprolol Tartrate 25 Mg Tab 25 Mg PO DAILY Enalapril (Enalapril Maleate) 5 Mg Tab 5 Mg PO DAILY Aspir-81 (Aspirin) 81 Mg Tabdr 81 Mg PO DAILY Active Ordered Medications Current Medications Medications (Trade) Dose Ordered Sig/Shira Route Start Time Stop Time Status Last Admin (Pravachol) 80 mg HS PO 10/24/16 21:00 (Aspirin Chew) 81 mg DAILY PO 10/24/16 09:00 10/24/16 08:40 (Vasotec) 5 mg DAILY PO 10/24/16 09:00 10/24/16 08:46 (Lopressor) 25 mg DAILY PO 10/24/16 09:00 10/24/16 08:40 (Plavix) 75 mg DAILY PO 10/24/16 09:00 10/24/16 08:40 (KCl) 20 meq DAILY PO 10/24/16 09:00 10/24/16 08:39 (Lasix) 80 mg DAILY PO 10/24/16 09:00 10/24/16 08:46 (Levemir Inj) 10 units HS SQ 10/24/16 21:00 (Tricor) 145 mg DAILY PO 10/24/16 09:00 10/24/16 08:40 (Trileptal) 150 mg BID PO 10/24/16 09:00 10/24/16 08:40 (Synthroid) 112 mcg DAILY@0600 PO 10/24/16 06:00 10/24/16 06:08 (Synthroid) 25 mcg DAILY@0600 PO 10/24/16 06:00 10/24/16 06:08 (Atarax) 50 mg Q6H PRN PO 10/23/16 23:15 10/24/16 08:40 (Benadryl) 50 mg Q6H PRN PO 10/23/16 23:15 10/23/16 23:30 (Tylenol) 650 mg Q4H PRN PO 10/23/16 23:15 10/24/16 08:39 (Milk Of Magnesia Liq) 30 ml DAILY PRN PO 10/23/16 23:15 (Mag-Al Plus Susp Liq) 30 ml Q6H PRN PO 10/23/16 23:15 (Habitrol 21 Mg Patch.24 Hr) 1 patch DAILY T-DERMAL 10/24/16 09:00 10/24/16 08:38 Miscellaneous Information 1 HS T-DERMAL 10/24/16 21:00 (Pneumovax-23 Inj) 25 mcg ONCE ONCE IM 10/25/16 10:00 10/25/16 10:01 (Ativan) 1 mg Q6H PRN PO 10/24/16 13:00 (Ativan Inj) 1 mg Q6H PRN IM 10/24/16 13:00 (ZyPREXA ZYDIS ODT) 10 mg Q12HR PO 10/24/16 21:00 Family History States mother is manic Father is paranoid schizophrenic and suicidal Social History Denies alcohol use Current day smoker a pack per day Denies illicit drug use Physical Exam Vital Signs Vital Signs Date Time Temp Pulse Resp B/P Pulse Ox O2 Delivery O2 Flow Rate FiO2 10/24/16 06:11 98.1 78 18 118/63 96 10/23/16 22:40 97.8 78 16 129/68 91 10/23/16 22:00 73 18 126/65 99 Room Air 10/23/16 19:06 82 16 128/83 95 Room Air Physical Exam GENERAL: This is an obese, well-developed patient, in no apparent distress. SKIN: No rashes, ecchymoses or lesions. Warm and dry. HEAD: Atraumatic. Normocephalic. No temporal or scalp tenderness. EYES: Pupils equal round and reactive. Extraocular motions intact. No scleral icterus. No injection or drainage. ENT: Nose without bleeding. Throat without erythema. Uvula midline. Airway patent. NECK: Trachea midline. No JVD or lymphadenopathy. CARDIOVASCULAR: Regular rate and rhythm without murmurs, gallops, or rubs. RESPIRATORY: Diminished bases. No wheezes, rales, or rhonchi. GASTROINTESTINAL: Abdomen soft, non-tender, nondistended. Bowel sounds active 4 MUSCULOSKELETAL: Extremities without clubbing, cyanosis, bilateral foot +1 edema. NEUROLOGICAL: Awake and alert. Oriented to person, place. Hyperverbal. Motor and sensory grossly within normal limits. Laboratory Laboratory Tests Test 10/23/16 10/23/16 10/24/16 14:50 15:00 06:12 Urine Color LIGHT-YELLOW Urine Turbidity CLEAR Urine pH 7.0 Urine Specific [place] 1.006 Urine Protein NEG Urine Glucose (UA) NEG Urine Ketones NEG Urine Occult Blood NEG Urine Nitrite NEG Urine Bilirubin NEG Urine Urobilinogen LESS THAN 2.0 Urine Leukocyte Esterase NEG Urine WBC LESS THAN 1 Urine Squamous Epithelial <1 Cells Urine Bacteria RARE Microscopic Urinalysis Comment CULT NOT INDICATED Urine Opiates Screen POS Urine Barbiturates Screen NEG Urine Amphetamines Screen NEG Urine Benzodiazepines Screen POS Urine Cocaine Screen NEG Urine Cannabinoids Screen NEG White Blood Count 13.9 Red Blood Count 4.95 Hemoglobin 13.4 Hematocrit 39.2 Mean Corpuscular Volume 79.1 Mean Corpuscular Hemoglobin 27.0 Mean Corpuscular Hemoglobin 34.1 Concent Red Cell Distribution Width 13.5 Platelet Count 374 Mean Platelet Volume 7.5 Neutrophils (%) (Auto) 76.1 Lymphocytes (%) (Auto) 19.2 Monocytes (%) (Auto) 4.2 Eosinophils (%) (Auto) 0.1 Basophils (%) (Auto) 0.4 Neutrophils # (Auto) 10.6 Lymphocytes # (Auto) 2.7 Monocytes # (Auto) 0.6 Eosinophils # (Auto) 0.0 Basophils # (Auto) 0.1 CBC Comment DIFF FINAL Differential Comment Sodium Level 133 136 Potassium Level 3.8 3.4 Chloride Level 94 93 Carbon Dioxide Level 29.9 33.4 Anion Gap 9 10 Blood Urea Nitrogen 13 18 Creatinine 1.01 0.80 Estimat Glomerular Filtration 56 73 Rate Random Glucose 141 98 Calcium Level 9.4 8.7 Total Bilirubin 0.2 Aspartate Amino Transf 19 (AST/SGOT) Alanine Aminotransferase 22 (ALT/SGPT) Alkaline Phosphatase 60 Total Protein 8.2 Albumin 4.1 Ethyl Alcohol Level LESS THAN 3 Hemoglobin A1c 6.4 Triglycerides Level 128 Cholesterol Level 159 LDL Cholesterol 88 HDL Cholesterol 45.0 Cholesterol/HDL Ratio 3.53 Result Diagram: 10/23/16 1500 10/24/16 0612 Assessment and Plan Problem List: (1) Bipolar disorder ICD Code: F31.9 Status: Acute (2) Hypertension ICD Code: I10 Status: Chronic (3) Hyperlipidemia ICD Code: E78.5 Status: Chronic (4) Diabetes ICD Code: E11.9 Status: Chronic (5) Coronary artery disease ICD Code: I25.10 Status: Chronic (6) History of CVA (cerebrovascular accident) ICD Code: Z86.73 Status: Chronic Assessment and Plan Patient say 61-year-old female with primary medical history of CHF, HTN, HLD, CVA, diabetes, hypothyroidism, bipolar disorder, depression who came into the hospital under [place] act for psychiatric evaluation. As per records, patient was [place] acted by the police because she mentioned to a social service worker on the phone that she was suicidal. She is now admitted to inpatient psychiatry unit for further evaluation. Consulted for medical management. Bipolar, depression -managed by psychiatry team Hypertension, controlled Hyperlipidemia CVA CHF, systolic, not on exacerbation - Continue pravastatin 80 mg, fenofibrate, aspirin 81 mg, Plavix 75 mg daily - Continue enalapril 5 mg daily, continue metoprolol 25 mg daily - Continue Lasix 80 mg daily. May probably benefit with just 40 mg daily - Monitor BP trend DM 2, controlled - On Levemir 10 units daily at bedtime - Accu-Cheks - Monitor for hypoglycemia - Hemoglobin A1c is 6.4 controlled Hypothyroidism - Continue home dose levothyroxine Tobacco use - Counseled. Start nicotine patch. Thank you for this consultation. I will follow patient with you. This note was transcribed by miguel Stovall. I, Dr. Stas Spears personally performed the history, physical exam, and medical decision making; and confirmed the accuracy of the information in the transcribed note. Authenticated by Dr. Stas Spears on 10/24/16 at 16:13. Code Status Full code Discussed Condition With Patient, nursing Problem Qualifiers (1) Bipolar disorder: Qualified Code: F31.2 - Bipolar affective disorder, currently manic, severe, with psychotic features Jeff Merrill October 24, 2016 14:37 Stas Glover MD November 06, 2016 23:47
[2016-10-24 18:00] VITALS: BP 127/75; PULSE 77; RESP 16; TEMP 98.1; O2SAT 97
[2016-10-24] MEDS: OLANZapine ODT 10 MG TAB PO SCH (20:07)
[2016-10-24] MEDS: diphenhydrAMINE HCL 50 MG CAP PO PRN (20:07)
[2016-10-24] MEDS: PRAVASTATIN SOD 80 MG TAB PO SCH (20:07)
[2016-10-24] MEDS: INSULIN DETEMIR 100 UNITS/ML VIAL SQ SCH (20:13)
[2016-10-24] MEDS: REMOVE OLD NICOTINE PATCH T-DERMAL SCH (20:14)
[2016-10-24] MEDS: LORazepam 1 MG TAB PO PRN (21:49)
[2016-10-25 05:17] VITALS: BP 102/62; PULSE 70; RESP 18; TEMP 97.7; O2SAT 96
[2016-10-25] MEDS: LEVOTHYROXINE SODIUM 112 MCG TAB PO SCH (06:04)
[2016-10-25] MEDS: LEVOTHYROXINE SODIUM 25 MCG TAB PO SCH (06:04)
[2016-10-25] MEDS: ACETAMINOPHEN 325 MG TAB PO PRN ×2 (07:46→20:16)
[2016-10-25] MEDS: LORazepam 1 MG TAB PO PRN ×2 (07:46→20:16)
[2016-10-25] MEDS: POTASSIUM CHLORIDE 20 MEQ CONTROLLED RELEASE TAB PO SCH (08:58)
[2016-10-25] MEDS: ASPIRIN 81 MG CHEW TAB PO SCH (08:58)
[2016-10-25] MEDS: OLANZapine ODT 10 MG TAB PO SCH ×2 (08:58→20:15)
[2016-10-25] MEDS: CLOPIDOGREL 75 MG TAB PO SCH (08:59)
[2016-10-25] MEDS: OXcarbazepine 150 MG TAB PO SCH ×2 (08:59→20:15)
[2016-10-25] MEDS: FENOFIBRATE 145 MG TAB PO SCH (09:00)
[2016-10-25] MEDS: NICOTINE 21 MG/24 HR PATCH T-DERMAL SCH (09:00)
[2016-10-25] MEDS ORDERED: NICOTINE 21 MG/24 HR PATCH T-DERMAL SCH (09:00)
[2016-10-25] MEDS: ENALAPRIL MALEATE 5 MG TAB PO SCH (09:04)
[2016-10-25] MEDS: METOPROLOL TARTRATE 25 MG TAB PO SCH (09:04)
[2016-10-25] MEDS: FUROSEMIDE 80 MG TAB PO SCH (09:05)
[2016-10-25] MEDS ORDERED: POTASSIUM CHLORIDE 10 MEQ CONTROLLED RELEASE TAB PO ONE (09:45)
[2016-10-25] MEDS ORDERED: GLUCAGON 1 MG/ML VIAL OTHER PRN (09:45)
[2016-10-25] MEDS ORDERED: DEXTROSE 50% IN WATER 50 ML VIAL(D50) IV PRN (09:45)
[2016-10-25] MEDS ORDERED: PNEUMOCOCCAL POLYVALENT INJ 25 MCG/0.5 ML SYR IM ONE (10:00)
[2016-10-25] MEDS: INSULIN ASPART SUPPLEMENTAL SCALE SQ SCH ×3 (11:51→20:20)
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
--- NOTE | 2016-10-25 13:08 | HHI.PYPN ---
Subjective Remarks Patient seen in [place] with nurse Silvia, patient continues with rapid pressured speech marked grandiosity and paranoia. Though she is compliant with medication., Still very little insight into her illness. For Now continue treatment Review of Systems Except as stated in HPI: all other systems reviewed are Neg Objective Alert: Yes [place]: Person, Place Mood: Anxious Affect: Labile, Manic Memory Intact: Comment Hallucinations: Other (denies) Delusions: Yes Delusion Type: Grandiose, Paranoid Suicidal: Ideation (denies) Homicidal: Ideation (denies denies) Insight/Judgment Very poor Vitals/IOs Vital Signs Date Time Temp Pulse Resp B/P Pulse Ox O2 Delivery O2 Flow Rate FiO2 10/25/16 05:17 97.7 70 18 102/62 96 10/23/16 22:00 Room Air Assessment & Plan Problem List: (1) Bipolar disorder ICD Code: F31.9 Assessment & Plan Estimated LOS: days patient continues manic with rapid pressured speech grandiose and paranoid delusions. Though she is compliant with medications. For now continue treatment Justification for Cont. Inpt. At this time patient will decompensate who placed a lower level of care Discharge Planning To be determined Request HC Surrog/Guard Advoc?: No Problem Qualifiers (1) Bipolar disorder: Qualified Code: F31.2 - Bipolar affective disorder, currently manic, severe, with psychotic features Rei Porras MD October 25, 2016 13:08
[2016-10-25 18:03] VITALS: BP 115/85; PULSE 72; RESP 18; TEMP 98.2; O2SAT 99
--- NOTE | 2016-10-25 18:57 | HHI.PR ---
Subjective Remarks Follow up on patient with CHF, HTN, HLD, CVA, diabetes, hypothyroidism, bipolar disorder, depression. Patient seen and examined today. Patient playing cards in community room. She denies any complaints at present. Denies any f/c, n/v, SOB, chest pain or abdominal pain. She request for me to leave her alone as she is trying to concentrate on her card game. Objective Vitals Vital Signs Date Time Temp Pulse Resp B/P Pulse Ox O2 Delivery O2 Flow Rate FiO2 10/25/16 18:03 98.2 72 18 115/85 99 10/25/16 05:17 97.7 70 18 102/62 96 Result Diagram: 10/23/16 1500 10/24/16 0612 Objective Remarks GENERAL: This is an obese, well-developed patient, in no apparent distress. Awake and alert. SKIN: No rashes, ecchymoses or lesions. Warm and dry. HEAD: Atraumatic. Normocephalic. EYES: Extraocular motions intact. No scleral icterus. No injection or drainage. CARDIOVASCULAR: Regular rate and rhythm without murmurs, gallops, or rubs. RESPIRATORY: Diminished bases. No wheezes, rales, or rhonchi. GASTROINTESTINAL: Abdomen soft, non-tender, nondistended. Bowel sounds active 4 MUSCULOSKELETAL: Extremities without clubbing, cyanosis, bilateral foot +1 edema. NEUROLOGICAL: Awake and alert. Oriented to person, place. Hyperverbal. Motor and sensory grossly within normal limits. Medications and IVs Current Medications Medications (Trade) Dose Ordered Sig/Shira Route Start Time Stop Time Status Last Admin (Pravachol) 80 mg HS PO 10/24/16 21:00 10/25/16 20:15 (Aspirin Chew) 81 mg DAILY PO 10/24/16 09:00 10/26/16 08:41 (Vasotec) 5 mg DAILY PO 10/24/16 09:00 10/26/16 08:41 (Lopressor) 25 mg DAILY PO 10/24/16 09:00 10/26/16 08:42 (Plavix) 75 mg DAILY PO 10/24/16 09:00 10/26/16 08:41 (KCl) 20 meq DAILY PO 10/24/16 09:00 10/26/16 08:41 (Levemir Inj) 10 units HS SQ 10/24/16 21:00 10/25/16 20:19 (Tricor) 145 mg DAILY PO 10/24/16 09:00 10/26/16 08:41 (Trileptal) 150 mg BID PO 10/24/16 09:00 10/26/16 08:41 (Synthroid) 112 mcg DAILY@0600 PO 10/24/16 06:00 10/26/16 06:06 (Synthroid) 25 mcg DAILY@0600 PO 10/24/16 06:00 10/26/16 06:06 (Atarax) 50 mg Q6H PRN PO 10/23/16 23:15 10/24/16 08:40 (Benadryl) 50 mg Q6H PRN PO 10/23/16 23:15 10/26/16 09:02 (Tylenol) 650 mg Q4H PRN PO 10/23/16 23:15 10/26/16 09:02 (Milk Of Magnesia Liq) 30 ml DAILY PRN PO 10/23/16 23:15 10/24/16 20:06 (Mag-Al Plus Susp Liq) 30 ml Q6H PRN PO 10/23/16 23:15 (Habitrol 21 Mg Patch.24 Hr) 1 patch DAILY T-DERMAL 10/24/16 09:00 10/26/16 08:42 Miscellaneous Information 1 HS T-DERMAL 10/24/16 21:00 10/25/16 20:25 (Ativan) 1 mg Q6H PRN PO 10/24/16 13:00 10/26/16 06:07 (Ativan Inj) 1 mg Q6H PRN IM 10/24/16 13:00 (ZyPREXA ZYDIS ODT) 10 mg Q12HR PO 10/24/16 21:00 10/26/16 08:41 (D50w (Vial) Inj) 50 ml UNSCH PRN IV 10/25/16 09:45 (Glucagon Inj) 1 mg UNSCH PRN OTHER 10/25/16 09:45 (Lasix) 40 mg DAILY PO 10/26/16 09:00 10/26/16 08:41 A/P Problem List: (1) Bipolar disorder ICD Code: F31.9 Status: Acute (2) Hypertension ICD Code: I10 Status: Chronic (3) Hyperlipidemia ICD Code: E78.5 Status: Chronic (4) Diabetes ICD Code: E11.9 Status: Chronic (5) Coronary artery disease ICD Code: I25.10 Status: Chronic (6) History of CVA (cerebrovascular accident) ICD Code: Z86.73 Status: Chronic Assessment and Plan Patient say 61-year-old female with primary medical history of CHF, HTN, HLD, CVA, diabetes, hypothyroidism, bipolar disorder, depression who came into the hospital under [place] act for psychiatric evaluation. As per records, patient was [place] acted by the police because she mentioned to a social work coordinator on the phone that she was suicidal. She is now admitted to inpatient psychiatry unit for further evaluation. Consulted for medical management. Bipolar, depression -managed by psychiatry team Hypertension, controlled Hyperlipidemia CVA CHF, systolic, not on exacerbation - Continue pravastatin 80 mg, fenofibrate, aspirin 81 mg, Plavix 75 mg daily - Continue enalapril 5 mg daily, continue metoprolol 25 mg daily - Continue Lasix but decrease dose to 40 mg daily. - Monitor BP trend Elevated Bicarb - likely secondary to contraction alkalosis - decrease dose of Lasix - repeat lab studies to monitor DM 2, controlled - On Levemir 10 units daily at bedtime - Accu-Cheks - Monitor for hypoglycemia - Hemoglobin A1c is 6.4 controlled Hypothyroidism - Continue home dose levothyroxine Tobacco use - Counseled. - Continue Nicotine patch Discussed with patient, nursing staff and Dr. Wright Problem Qualifiers (1) Bipolar disorder: Qualified Code: F31.2 - Bipolar affective disorder, currently manic, severe, with psychotic features Monie Cali October 25, 2016 18:57
[2016-10-25] MEDS: PRAVASTATIN SOD 80 MG TAB PO SCH (20:15)
[2016-10-25] MEDS: diphenhydrAMINE HCL 50 MG CAP PO PRN (20:16)
[2016-10-25] MEDS: INSULIN DETEMIR 100 UNITS/ML VIAL SQ SCH (20:19)
[2016-10-25] MEDS: REMOVE OLD NICOTINE PATCH T-DERMAL SCH (20:25)
[2016-10-26 04:58] VITALS: BP 103/51; PULSE 71; RESP 18; TEMP 97.8; O2SAT 96
[2016-10-26] MEDS: LEVOTHYROXINE SODIUM 25 MCG TAB PO SCH (06:06)
[2016-10-26] MEDS: LEVOTHYROXINE SODIUM 112 MCG TAB PO SCH (06:06)
[2016-10-26] MEDS: ACETAMINOPHEN 325 MG TAB PO PRN ×4 (06:07→20:07)
[2016-10-26] MEDS: LORazepam 1 MG TAB PO PRN ×3 (06:07→20:06)
[2016-10-26] MEDS: INSULIN ASPART SUPPLEMENTAL SCALE SQ SCH ×4 (06:23→20:19)
[2016-10-26 08:29] VITALS: BP 145/76; PULSE 107; RESP 18; TEMP 98.5; O2SAT 97
[2016-10-26 08:32] LABS: BASOPHIL % 0.3 % (0.0-2.0); EOSINOPHIL # 0.1 TH/MM3 (0-0.4); EOSINOPHIL % 1.3 % (0.0-4.0); HEMATOCRIT 36.5 % (35.0-46.0); HEMO FLAGS DIFF FINAL; LYMPH % 37.5 % (9.0-44.0); LYMPHOCYTE # 3.6 TH/MM3 (1.0-4.8); MEAN CELL VOLUME 78.1 FL (80.0-100.0); MEAN CORPUSCULAR HEMOGLOBIN 26.9 PG (27.0-34.0); MEAN CORPUSCULAR HGB CONC 34.4 % (32.0-36.0); MONO % 9.1 % (0.0-8.0); NEUT % 51.8 % (16.0-70.0); PLATELET COUNT 307 TH/MM3 (150-450); RED BLOOD COUNT 4.68 MIL/MM3 (4.00-5.30); RED CELL DISTRIBUTION WIDTH 13.3 % (11.6-17.2); WHITE BLOOD COUNT 9.7 TH/MM3 (4.0-11.0)
[2016-10-26] MEDS: ASPIRIN 81 MG CHEW TAB PO SCH (08:41)
[2016-10-26] MEDS: FUROSEMIDE 40 MG TAB PO SCH (08:41)
[2016-10-26] MEDS: CLOPIDOGREL 75 MG TAB PO SCH (08:41)
[2016-10-26] MEDS: ENALAPRIL MALEATE 5 MG TAB PO SCH (08:41)
[2016-10-26] MEDS: POTASSIUM CHLORIDE 20 MEQ CONTROLLED RELEASE TAB PO SCH (08:41)
[2016-10-26] MEDS: FENOFIBRATE 145 MG TAB PO SCH (08:41)
[2016-10-26] MEDS: OLANZapine ODT 10 MG TAB PO SCH ×2 (08:41→20:06)
[2016-10-26] MEDS: OXcarbazepine 150 MG TAB PO SCH ×2 (08:41→20:06)
[2016-10-26] MEDS: METOPROLOL TARTRATE 25 MG TAB PO SCH (08:42)
[2016-10-26] MEDS: NICOTINE 21 MG/24 HR PATCH T-DERMAL SCH (08:42)
[2016-10-26] MEDS ORDERED: FUROSEMIDE 40 MG TAB PO SCH (09:00)
[2016-10-26] MEDS: diphenhydrAMINE HCL 50 MG CAP PO PRN ×2 (09:02→20:06)
[2016-10-26 09:26] LABS: ANION GAP 9 MEQ/L (5-15); BICARBONATE 26.4 MEQ/L (21.0-32.0); BLOOD UREA NITROGEN 16 MG/DL (7-18); CHLORIDE 97 MEQ/L (98-107); GLOMERULAR FILTRATION RATE 92 ML/MIN (>89); HDL CHOLESTEROL 47.9 MG/DL (40.0-60.0); LDL CHOLESTEROL 70 MG/DL (0-99); POTASSIUM 4.2 MEQ/L (3.5-5.1); SODIUM (NA) 132 MEQ/L (136-145)
[2016-10-26] MEDS: hydrOXYzine HCL 50 MG TAB PO PRN ×2 (11:06→17:40)
--- NOTE | 2016-10-26 12:47 | HHI.PYPN ---
Subjective Remarks Patient was seen and case discussed with nursing. Patient is irritable and grandiose throughout the interview. She believes that she is famous. 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 She has thoughts of hurting her younger brother "beating him up." Her reasons are "because I can 't." No thoughts of killing him or anyone else and denies any access to guns. Sleeping well per nursing. Compliant with medications. Upset I would not give her Lortab Objective Alert: Yes [place]: Person, Place Mood: Angry, Oppositional Affect: Manic Memory Intact: Comment Hallucinations: Other (denies) Delusions: Yes Delusion Type: Grandiose, Paranoid Suicidal: Ideation (denies) Homicidal: Ideation (denies denies) Insight/Judgment Poor Labs Test 10/26/16 07:43 White Blood Count 9.7 TH/MM3 Red Blood Count 4.68 MIL/MM3 Hemoglobin 12.6 GM/DL Hematocrit 36.5 % Mean Corpuscular Volume 78.1 FL Mean Corpuscular Hemoglobin 26.9 PG Mean Corpuscular Hemoglobin 34.4 % Concent Red Cell Distribution Width 13.3 % Platelet Count 307 TH/MM3 Mean Platelet Volume 7.7 FL Neutrophils (%) (Auto) 51.8 % Lymphocytes (%) (Auto) 37.5 % Monocytes (%) (Auto) 9.1 % Eosinophils (%) (Auto) 1.3 % Basophils (%) (Auto) 0.3 % Neutrophils # (Auto) 5.0 TH/MM3 Lymphocytes # (Auto) 3.6 TH/MM3 Monocytes # (Auto) 0.9 TH/MM3 Eosinophils # (Auto) 0.1 TH/MM3 Basophils # (Auto) 0.0 TH/MM3 CBC Comment DIFF FINAL Differential Comment Sodium Level 132 MEQ/L Potassium Level 4.2 MEQ/L Chloride Level 97 MEQ/L Carbon Dioxide Level 26.4 MEQ/L Anion Gap 9 MEQ/L Blood Urea Nitrogen 16 MG/DL Creatinine 0.66 MG/DL Estimat Glomerular Filtration 92 ML/MIN Rate Random Glucose 108 MG/DL Calcium Level 8.8 MG/DL Triglycerides Level 160 MG/DL Cholesterol Level 150 MG/DL LDL Cholesterol 70 MG/DL HDL Cholesterol 47.9 MG/DL Cholesterol/HDL Ratio 3.13 RATIO Vitals/IOs Vital Signs Date Time Temp Pulse Resp B/P Pulse Ox O2 Delivery O2 Flow Rate FiO2 10/26/16 08:29 98.5 107 18 145/76 97 10/23/16 22:00 Room Air Assessment & Plan Problem List: (1) Bipolar disorder ICD Code: F31.9 Assessment & Plan Continue current treatment plan Justification for Cont. Inpt. Patient will decompensate in a less restrictive setting Request HC Surrog/Guard Advoc?: No Problem Qualifiers (1) Bipolar disorder: Qualified Code: F31.2 - Bipolar affective disorder, currently manic, severe, with psychotic features Boaz Driver DO October 26, 2016 12:47
[2016-10-26 13:35] LABS: HEMOGLOBIN A1a 0.7 %; HEMOGLOBIN Ao 83.9 %; HEMOGLOBIN LA1C 2.1 %; HEMOGLOBIN P3 3.9 %
[2016-10-26 16:35] VITALS: BP 132/80; PULSE 61; RESP 16; TEMP 97.7; O2SAT 99
[2016-10-26] MEDS: PRAVASTATIN SOD 80 MG TAB PO SCH (20:05)
[2016-10-26] MEDS: INSULIN DETEMIR 100 UNITS/ML VIAL SQ SCH (20:12)
[2016-10-26] MEDS: REMOVE OLD NICOTINE PATCH T-DERMAL SCH (20:19)
[2016-10-27] MEDS: LORazepam 1 MG TAB PO PRN ×2 (03:54→20:54)
[2016-10-27] MEDS: ACETAMINOPHEN 325 MG TAB PO PRN ×4 (03:55→20:55)
[2016-10-27 05:56] VITALS: BP 151/78; PULSE 72; RESP 18; TEMP 97.6; O2SAT 95
[2016-10-27] MEDS: LEVOTHYROXINE SODIUM 112 MCG TAB PO SCH (06:23)
[2016-10-27] MEDS: INSULIN ASPART SUPPLEMENTAL SCALE SQ SCH ×4 (06:23→21:00)
[2016-10-27] MEDS: LEVOTHYROXINE SODIUM 25 MCG TAB PO SCH (06:23)
[2016-10-27] MEDS: hydrOXYzine HCL 50 MG TAB PO PRN ×2 (07:43→20:54)
[2016-10-27] MEDS: NICOTINE 21 MG/24 HR PATCH T-DERMAL SCH (09:00)
[2016-10-27] MEDS: FUROSEMIDE 40 MG TAB PO SCH (09:07)
[2016-10-27] MEDS: ASPIRIN 81 MG CHEW TAB PO SCH (09:07)
[2016-10-27] MEDS: OXcarbazepine 150 MG TAB PO SCH ×2 (09:07→20:54)
[2016-10-27] MEDS: ENALAPRIL MALEATE 5 MG TAB PO SCH (09:07)
[2016-10-27] MEDS: POTASSIUM CHLORIDE 20 MEQ CONTROLLED RELEASE TAB PO SCH (09:07)
[2016-10-27] MEDS: METOPROLOL TARTRATE 25 MG TAB PO SCH (09:07)
[2016-10-27] MEDS: FENOFIBRATE 145 MG TAB PO SCH (09:07)
[2016-10-27] MEDS: CLOPIDOGREL 75 MG TAB PO SCH (09:08)
[2016-10-27] MEDS: OLANZapine ODT 10 MG TAB PO SCH ×2 (09:08→20:54)
[2016-10-27 09:25] LABS: BICARBONATE 27.5 MEQ/L (21.0-32.0); POTASSIUM 4.3 MEQ/L (3.5-5.1)
[2016-10-27] MEDS: diphenhydrAMINE HCL 50 MG CAP PO PRN (12:05)
--- NOTE | 2016-10-27 13:19 | HHI.PYPN ---
Subjective Remarks Patient was seen and case discussed with nursing. Lab work reviewed and sodium was low at 126. Patient continues to be followed by the medical team nurse and will be asked to call them and make sure they are aware. Patient is alert and oriented 3. She is less intrusive and less irritable compared to yesterday is compliant with her medications. Remains with various grandiose delusions that she has 8 bachelor's degrees. Objective Alert: Yes [place]: Person, Place, Date Mood: Calm Affect: Manic Memory Intact: Comment Hallucinations: Other (denies) Delusions: Yes Delusion Type: Grandiose, Paranoid Suicidal: Ideation (denies) Homicidal: Ideation (denies denies) Insight/Judgment Poor Labs Test 10/27/16 08:44 Sodium Level 126 MEQ/L Potassium Level 4.3 MEQ/L Chloride Level 90 MEQ/L Carbon Dioxide Level 27.5 MEQ/L Anion Gap 9 MEQ/L Blood Urea Nitrogen 11 MG/DL Creatinine 0.76 MG/DL Estimat Glomerular Filtration 78 ML/MIN Rate Random Glucose 150 MG/DL Calcium Level 8.9 MG/DL Vitals/IOs Vital Signs Date Time Temp Pulse Resp B/P Pulse Ox O2 Delivery O2 Flow Rate FiO2 10/27/16 05:56 97.6 72 18 151/78 95 10/23/16 22:00 Room Air Assessment & Plan Problem List: (1) Bipolar disorder ICD Code: F31.9 Assessment & Plan Continue current treatment plan Justification for Cont. Inpt. Patient will decompensate in a less restrictive setting Request HC Surrog/Guard Advoc?: No Problem Qualifiers (1) Bipolar disorder: Qualified Code: F31.2 - Bipolar affective disorder, currently manic, severe, with psychotic features Boaz Driver DO October 27, 2016 13:19
--- NOTE | 2016-10-27 16:36 | HHI.PR ---
Subjective Remarks Follow up on patient with CHF, HTN, HLD, CVA, diabetes, hypothyroidism, bipolar disorder, depression. Patient seen and examined today. Lying awake in bed. Complaining of sore throat and cough. No sputum production. No fever or chills. Denies any N/V, headache, dizziness, chest pain or abdominal pain. Objective Vitals Vital Signs Date Time Temp Pulse Resp B/P Pulse Ox O2 Delivery O2 Flow Rate FiO2 10/27/16 05:56 97.6 72 18 151/78 95 10/26/16 16:35 97.7 61 16 132/80 99 Result Diagram: 10/26/16 0743 10/27/16 0844 Objective Remarks GENERAL: This is an obese, well-developed patient, in no apparent distress. Awake and alert. Cooperative. SKIN: No rashes, ecchymoses or lesions. Warm and dry. HEENT: Atraumatic. Normocephalic. Extraocular motions intact. No scleral icterus. No injection or drainage. Oropharynx pink and moist. No erythema. No exudate. CARDIOVASCULAR: Regular rate and rhythm without murmurs, gallops, or rubs. RESPIRATORY: Diminished bases. Coarse BS in all lung hyatt. No wheezes, rales , or rhonchi. GASTROINTESTINAL: Abdomen soft, non-tender, nondistended. Bowel sounds active 4 MUSCULOSKELETAL: Extremities without clubbing, cyanosis, bilateral foot +1 edema. NEUROLOGICAL: Awake and alert. Oriented to person, place. Hyperverbal. Motor and sensory grossly within normal limits. Medications and IVs Current Medications Medications (Trade) Dose Ordered Sig/Shira Route Start Time Stop Time Status Last Admin (Pravachol) 80 mg HS PO 10/24/16 21:00 10/26/16 20:05 (Aspirin Chew) 81 mg DAILY PO 10/24/16 09:00 10/27/16 09:07 (Vasotec) 5 mg DAILY PO 10/24/16 09:00 10/27/16 09:07 (Lopressor) 25 mg DAILY PO 10/24/16 09:00 10/27/16 09:07 (Plavix) 75 mg DAILY PO 10/24/16 09:00 10/27/16 09:08 (KCl) 20 meq DAILY PO 10/24/16 09:00 10/27/16 09:07 (Levemir Inj) 10 units HS SQ 10/24/16 21:00 10/26/16 20:12 (Tricor) 145 mg DAILY PO 10/24/16 09:00 10/27/16 09:07 (Trileptal) 150 mg BID PO 10/24/16 09:00 10/27/16 09:07 (Synthroid) 112 mcg DAILY@0600 PO 10/24/16 06:00 10/27/16 06:23 (Synthroid) 25 mcg DAILY@0600 PO 10/24/16 06:00 10/27/16 06:23 (Atarax) 50 mg Q6H PRN PO 10/23/16 23:15 10/27/16 07:43 (Benadryl) 50 mg Q6H PRN PO 10/23/16 23:15 10/27/16 12:05 (Tylenol) 650 mg Q4H PRN PO 10/23/16 23:15 10/27/16 12:05 (Milk Of Magnesia Liq) 30 ml DAILY PRN PO 10/23/16 23:15 10/24/16 20:06 (Mag-Al Plus Susp Liq) 30 ml Q6H PRN PO 10/23/16 23:15 (Habitrol 21 Mg Patch.24 Hr) 1 patch DAILY T-DERMAL 10/24/16 09:00 10/27/16 09:00 Miscellaneous Information 1 HS T-DERMAL 10/24/16 21:00 10/26/16 20:19 (Ativan) 1 mg Q6H PRN PO 10/24/16 13:00 10/27/16 03:54 (Ativan Inj) 1 mg Q6H PRN IM 10/24/16 13:00 (ZyPREXA ZYDIS ODT) 10 mg Q12HR PO 10/24/16 21:00 10/27/16 09:08 (D50w (Vial) Inj) 50 ml UNSCH PRN IV 10/25/16 09:45 (Glucagon Inj) 1 mg UNSCH PRN OTHER 10/25/16 09:45 (Lasix) 40 mg DAILY PO 10/26/16 09:00 10/27/16 09:07 (Sodium Chloride) 1 gm BID PO 10/27/16 16:00 A/P Problem List: (1) Bipolar disorder ICD Code: F31.9 Status: Acute (2) Hypertension ICD Code: I10 Status: Chronic (3) Hyperlipidemia ICD Code: E78.5 Status: Chronic (4) Diabetes ICD Code: E11.9 Status: Chronic (5) Coronary artery disease ICD Code: I25.10 Status: Chronic (6) History of CVA (cerebrovascular accident) ICD Code: Z86.73 Status: Chronic Assessment and Plan Patient say 61-year-old female with primary medical history of CHF, HTN, HLD, CVA, diabetes, hypothyroidism, bipolar disorder, depression who came into the hospital under [place] act for psychiatric evaluation. As per records, patient was [place] acted by the police because she mentioned to a social contact worker on the phone that she was suicidal. She is now admitted to inpatient psychiatry unit for further evaluation. Consulted for medical management. Bipolar, depression -managed by psychiatry team Hypertension, controlled Hyperlipidemia CVA CHF, systolic, not on exacerbation - Continue pravastatin 80 mg, fenofibrate, aspirin 81 mg, Plavix 75 mg daily - Continue enalapril 5 mg daily, continue metoprolol 25 mg daily - Continue Lasix but decrease dose to 40 mg daily. - Monitor BP trend Hyponatremia - fluid restriction 1500ml - salt tablets - obtain serum and urine osm - am labs to monitor trend Elevated Bicarb - likely secondary to contraction alkalosis - Lasix decreased - resolved Cough - tobacco user - CXR ordered DM 2, controlled - On Levemir 10 units daily at bedtime - Accu-Cheks - Monitor for hypoglycemia - BS ranges 121-131 today - Hemoglobin A1c is 6.4 controlled Hypothyroidism - Continue home dose levothyroxine Tobacco use - Counseled. - Continue Nicotine patch Discussed with patient, nursing staff and Dr. Wright Problem Qualifiers (1) Bipolar disorder: Qualified Code: F31.2 - Bipolar affective disorder, currently manic, severe, with psychotic features Monie Cali October 27, 2016 16:36
[2016-10-27] MEDS: SODIUM CHLORIDE 1 GRAM TAB PO SCH ×2 (16:48→21:30)
[2016-10-27 20:39] VITALS: BP 121/82; PULSE 65; RESP 18; TEMP 97.2; O2SAT 100
[2016-10-27] MEDS: PRAVASTATIN SOD 80 MG TAB PO SCH (20:54)
[2016-10-27] MEDS: REMOVE OLD NICOTINE PATCH T-DERMAL SCH (21:00)
--- NOTE | 2016-10-27 21:21 | RADRPT ---
EXAM DATE/TIME: 10/27/2016 21:05 [facility] COMPARISON: CHEST SINGLE AP, July 29, 2016, 0:10. INDICATIONS : Chest pain and shortness of breath. MEDICAL HISTORY : Hypertension. Chronic obstructive pulmonary disease. Myocardial infarction. SURGICAL HISTORY : None. ENCOUNTER: Initial ACUITY: 3 days PAIN SCORE: 4/10 LOCATION: Right lower chest FINDINGS: PA and lateral views of the chest demonstrate the lungs to be symmetrically aerated without evidence of mass, infiltrate or effusion. The cardiomediastinal contours are unremarkable. Osseous structure s are intact. CONCLUSION: No evidence of acute cardiopulmonary disease. Rei King MD on October 27, 2016 at 21:19 Board Certified Radiologist. This report was verified electronically.
[2016-10-27] MEDS: INSULIN DETEMIR 100 UNITS/ML VIAL SQ SCH (21:32)
[2016-10-28] MEDS: ACETAMINOPHEN 325 MG TAB PO PRN ×3 (01:09→16:08)
[2016-10-28] MEDS: diphenhydrAMINE HCL 50 MG CAP PO PRN (04:59)
[2016-10-28] MEDS: LEVOTHYROXINE SODIUM 25 MCG TAB PO SCH (04:59)
[2016-10-28] MEDS: LORazepam 1 MG TAB PO PRN (04:59)
[2016-10-28] MEDS: LEVOTHYROXINE SODIUM 112 MCG TAB PO SCH (05:00)
[2016-10-28 05:52] VITALS: BP 149/79; PULSE 69; RESP 17; TEMP 97.8; O2SAT 97
[2016-10-28] MEDS: INSULIN ASPART SUPPLEMENTAL SCALE SQ SCH ×4 (06:25→21:00)
[2016-10-28 08:35] LABS: BICARBONATE 26.9 MEQ/L (21.0-32.0); POTASSIUM 4.2 MEQ/L (3.5-5.1)
[2016-10-28] MEDS: CLOPIDOGREL 75 MG TAB PO SCH (08:41)
[2016-10-28] MEDS: FUROSEMIDE 40 MG TAB PO SCH (08:41)
[2016-10-28] MEDS: METOPROLOL TARTRATE 25 MG TAB PO SCH (08:41)
[2016-10-28] MEDS: NICOTINE 21 MG/24 HR PATCH T-DERMAL SCH (08:41)
[2016-10-28] MEDS: ASPIRIN 81 MG CHEW TAB PO SCH (08:41)
[2016-10-28] MEDS: ENALAPRIL MALEATE 5 MG TAB PO SCH (08:41)
[2016-10-28] MEDS: OLANZapine ODT 10 MG TAB PO SCH ×2 (08:41→21:00)
[2016-10-28] MEDS: FENOFIBRATE 145 MG TAB PO SCH (08:41)
[2016-10-28] MEDS: SODIUM CHLORIDE 1 GRAM TAB PO SCH ×2 (08:41→17:15)
[2016-10-28] MEDS: POTASSIUM CHLORIDE 20 MEQ CONTROLLED RELEASE TAB PO SCH (08:41)
[2016-10-28] MEDS: OXcarbazepine 150 MG TAB PO SCH (08:41)
[2016-10-28] MEDS: hydrOXYzine HCL 50 MG TAB PO PRN ×2 (11:06→21:16)
--- NOTE | 2016-10-28 14:09 | HHI.DS ---
Psychiatry Discharge Summary Inpatient Psychiatric care?: Yes Advance Directive: No Reason Not Provided: Due to Patient Condition Mental Health AdvanceDirective: No Health Care Proxy: No Admission Admission Date October 23, 2016 at 21:48 Admission Diagnosis: (1) Bipolar disorder ICD Code: F31.9 Brief History Patient is a 61-year-old obese white female comes here under act by the [place] [employer] dated 10/23/16 at 010 6 PM the document reviewed and agreed with sister states that the patient told her insurance counselor that she wants to kill herself after she is been detoxing and toxicology positive for opiates and positive for benzodiazepines. At the present time patient sitting a marked around the state in her room nurse Sonali present throughout session patient showing rapid pressured speech markedly grandiosity and paranoia. 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 She does state that she is 2.5% bipolar that she has not been taking medication for a period of time. Then she states she is a compliant with [place] act and seasonal clinician there patient also markedly somatic saying she has multiple diseases including uterine fibroids so she says she had a hysterectomy and multiple other medical issues too numerous to count. She is vague about any prior physical or sexual abuse, denies alcohol or drug use. She states she remembers me from [facility] a number of years ago. States multiple prior psychiatric hospitalizations. Patient states she is willing to continue taking medications including Zyprexa that she states she has been on in the past. Thus at the present time I feel patient doesn't meet criteria for involuntary psychiatric hospitalization on the [place] act I'll do first opinion requests second opinion though will allow capacity this time to sign for her medications will continue medication as per the medication reconciliation except will place her codeine preparations and her benzodiazepines on hold. Will have counselor talk to patient's mother come to get further information about this lady. She states she lives by herself. That she has at least one child a boyfriend who at about one year of age 40 years ago. Patient seen today for psychiatric reevaluation, patient is irritable, talkative , disorganized. Patient says that she doesn't understand my accent "I don't know why we paid so much money to bring you for your country when you don't even can speak [place] correctly". However with redirection patient become calmer and more cooperative. She says that she wants to be discharged, that he doesn't need to be here. She says that she knows much more than the doctors in this hospital "what is going on with me and all this patient's". Her speech at times is pressured, she is restless, seems to be intrusive, she denies suicidal and homicidal ideation, she denies visual and auditory hallucinations. Patient is oriented 3, with impaired attention. Tobacco Use In Past 30 Days: 5 or More Cigarettes/Day Alcohol Use: Monthly or Less Hospital Course pt cooperative with meds from admission, her manic behaviors, rapidpressured speech softened, her grandiosity also sofened she was compliant with meds, participated in groups, she denies si hi ah vh. at this time i feel she has met the maximum benefit of this hospitalization and she can cont to imiprove in a less restrictive environment fred will d/c today to self with rx psych meds for 1 mo. fu sma Results Blood Pressure 149 / 79 Vital Signs Date Time Temp Pulse Resp B/P Pulse Ox O2 Delivery O2 Flow Rate FiO2 10/28/16 05:52 97.8 69 17 149/79 97 Laboratory Tests Test 10/26/16 10/27/16 10/27/16 10/27/16 07:43 08:44 08:45 16:30 Mean Corpuscular Volume 78.1 FL (80.0-100.0) Mean Corpuscular Hemoglobin 26.9 PG (27.0-34.0) Monocytes (%) (Auto) 9.1 % (0.0-8.0) Sodium Level 132 MEQ/L 126 MEQ/L (136-145) (136-145) Chloride Level 97 MEQ/L 90 MEQ/L (98-107) (98-107) Random Glucose 108 MG/DL 150 MG/DL (74-106) (74-106) Hemoglobin A1c 6.6 % (4.3-6.0) Triglycerides Level 160 MG/DL (42-150) Estimat Glomerular Filtration 78 ML/MIN (>89) Rate Serum Osmolality 270 MOSM/KG (275-295) Urine Osmolality 149 MOSM/KG (300-1300) Test 10/28/16 06:38 Sodium Level 127 MEQ/L (136-145) Chloride Level 92 MEQ/L (98-107) Laboratory Results Test 10/26/16 07:43 Hemoglobin A1c 6.6 % (4.3-6.0) Triglycerides Level 160 MG/DL (42-150) Cholesterol Level 150 MG/DL (120-200) LDL Cholesterol 70 MG/DL (0-99) HDL Cholesterol 47.9 MG/DL (40.0-60.0) Summary of Procedures none done Imaging Last Impressions Chest X-Ray 10/27/16 0000 Signed Impressions: Service Date/Time: Thursday, October 27, 2016 21:05 - CONCLUSION: No evidence of acute cardiopulmonary disease. Rei King MD Pending results at discharge: No Medications # of Antipsychotic meds at D/C: 1 Approp Antipsych med options 1 - Minimum of three failed multiple trials of monotherapy. 2 - Documented plan to taper to monotherapy due to previous use of multiple meds OR cross-taper in progress at D/C. 3 - Documentation of augmentation of Clozapine. 4 - Justification other than those listed in allowable values 1-3, document here : Discharge Discharge Date: October 28, 2016 Discharge Diagnosis: (1) Bipolar disorder ICD Code: F31.9 Mental Status Exam at Disch alert oriented female, normoactive, mood euthymic to sl elevated, affect shows some incr range and intensity. speech rate and rhythm sl increased,mildly tangential and circumstantial. no ouditory or visual hallucinations no delusions but mild grandiosity insight poor to fair judgement poor to fair, cognition grossly intact Pt Condition on Discharge: Stable Discharge Disposition: Discharge Home Discharge Instructions Diet Instructions: As Tolerated, No Restrictions Activities you can perform: Regular-No Restrictions Scheduled Appointment: [facility] Discharge Time > 30 minutes Discharge/Advance Care Plan Health Problems: (1) Bipolar disorder Goals to promote your health * To prevent worsening of your condition and complications * To maintain your health at the optimal level Directions to meet your goals Take your medications as prescribed Follow your dietary instruction Follow activity as directed Keep your appointments as scheduled Take your immunizations and boosters as scheduled If your symptoms worsen call your PCP, if no PCP go to Urgent Care Center or Emergency Room For 30/12 questions related to your inpatient stay or results of tests pending at discharge, please contact Dr. Rei Porras at Smoking is Dangerous to Your Health. Avoid second hand smoking Problem Qualifiers (1) Bipolar disorder: Qualified Code: F31.2 - Bipolar affective disorder, currently manic, severe, with psychotic features Rei Porras MD October 28, 2016 14:09
--- NOTE | 2016-10-28 20:36 | HHI.PR ---
Subjective Remarks patient wants to go home denies cp/sob denies dizziness no seizure episodes reported Objective Vitals Vital Signs Date Time Temp Pulse Resp B/P Pulse Ox O2 Delivery O2 Flow Rate FiO2 10/28/16 05:52 97.8 69 17 149/79 97 10/27/16 20:39 97.2 65 18 121/82 100 Result Diagram: 10/26/16 0743 10/28/16 0638 Imaging Last Impressions Chest X-Ray 10/27/16 0000 Signed Impressions: Service Date/Time: Thursday, October 27, 2016 21:05 - CONCLUSION: No evidence of acute cardiopulmonary disease. Rei King MD Objective Remarks GENERAL: This is an obese, well-developed patient, in no apparent distress. Awake and alert. SKIN: No rashes, ecchymoses or lesions. Warm and dry. HEENT: Atraumatic. Normocephalic. Extraocular motions intact. No scleral icterus. No injection or drainage. Oropharynx pink and moist. No erythema. No exudate. CARDIOVASCULAR: Regular rate and rhythm without murmurs, gallops, or rubs. RESPIRATORY: Diminished bases. Coarse BS in all lung hyatt. No wheezes, rales , or rhonchi. GASTROINTESTINAL: Abdomen soft, non-tender, nondistended. Bowel sounds active 4 MUSCULOSKELETAL: Extremities without clubbing, cyanosis, bilateral foot +1 edema. NEUROLOGICAL: Awake and alert. Oriented to person, place. Hyperverbal. Motor and sensory grossly within normal limits. Medications and IVs Current Medications Medications (Trade) Dose Ordered Sig/Shira Route Start Time Stop Time Status Last Admin (Pravachol) 80 mg HS PO 10/24/16 21:00 10/27/16 20:54 (Aspirin Chew) 81 mg DAILY PO 10/24/16 09:00 10/28/16 08:41 (Vasotec) 5 mg DAILY PO 10/24/16 09:00 10/28/16 08:41 (Lopressor) 25 mg DAILY PO 10/24/16 09:00 10/28/16 08:41 (Plavix) 75 mg DAILY PO 10/24/16 09:00 10/28/16 08:41 (KCl) 20 meq DAILY PO 10/24/16 09:00 10/28/16 08:41 (Levemir Inj) 10 units HS SQ 10/24/16:00 10/27/16 21:32 (Tricor) 145 mg DAILY PO 10/24/16 09:00 10/28/16 08:41 (Trileptal) 150 mg BID PO 10/24/16 09:00 10/28/16 08:41 (Synthroid) 112 mcg DAILY@0600 PO 10/24/16 06:00 10/28/16 05:00 (Synthroid) 25 mcg DAILY@0600 PO 10/24/16 06:00 10/28/16 04:59 (Atarax) 50 mg Q6H PRN PO 10/23/16 23:15 10/28/16 11:06 (Benadryl) 50 mg Q6H PRN PO 10/23/16 23:15 10/28/16 04:59 (Tylenol) 650 mg Q4H PRN PO 10/23/16 23:15 10/28/16 16:08 (Milk Of Magnesia Liq) 30 ml DAILY PRN PO 10/23/16 23:15 10/24/16 20:06 (Mag-Al Plus Susp Liq) 30 ml Q6H PRN PO 10/23/16 23:15 (Habitrol 21 Mg Patch.24 Hr) 1 patch DAILY T-DERMAL 10/24/16 09:00 10/28/16 08:41 Miscellaneous Information 1 HS T-DERMAL 10/24/16 21:00 10/27/16 21:00 (Ativan) 1 mg Q6H PRN PO 10/24/16 13:00 10/28/16 04:59 (Ativan Inj) 1 mg Q6H PRN IM 10/24/16 13:00 (ZyPREXA ZYDIS ODT) 10 mg Q12HR PO 10/24/16 21:00 10/28/16 08:41 (D50w (Vial) Inj) 50 ml UNSCH PRN IV 10/25/16 09:45 (Glucagon Inj) 1 mg UNSCH PRN OTHER 10/25/16 09:45 (Lasix) 40 mg DAILY PO 10/26/16 09:00 10/28/16 08:41 (Sodium Chloride) 1 gm TID PO 10/28/16 18:00 10/28/16 17:15 A/P Problem List: (1) Bipolar disorder ICD Code: F31.9 Status: Acute (2) Hypertension ICD Code: I10 Status: Chronic (3) Hyperlipidemia ICD Code: E78.5 Status: Chronic (4) Diabetes ICD Code: E11.9 Status: Chronic (5) Coronary artery disease ICD Code: I25.10 Status: Chronic (6) History of CVA (cerebrovascular accident) ICD Code: Z86.73 Status: Chronic Assessment and Plan Patient say 61-year-old female with primary medical history of CHF, HTN, HLD, CVA, diabetes, hypothyroidism, bipolar disorder, depression who came into the hospital under [place] act for psychiatric evaluation. As per records, patient was [place] acted by the police because she mentioned to a elementary school social worker on the phone that she was suicidal. She is now admitted to inpatient psychiatry unit for further evaluation. Consulted for medical management. Bipolar, depression -managed by psychiatry team Hypertension, controlled Hyperlipidemia CVA CHF, systolic, not on exacerbation - Continue pravastatin 80 mg, fenofibrate, aspirin 81 mg, Plavix 75 mg daily - Continue enalapril 5 mg daily, continue metoprolol 25 mg daily - Continue Lasix but decrease dose to 40 mg daily. - Monitor BP trend Hyponatremia -Patient with acute hyponatremia. Likely secondary to Trileptal use given that hyponatremia started after this medication was started. -Sodium stable at 127. I will increase sodium chloride tablets to 1 g by mouth 3 times a day. Continue with fluid restriction. -The case was discussed with Dr. Porras who agreed on discontinuation of Trileptal. Continue to monitor BMP daily. Elevated Bicarb - likely secondary to contraction alkalosis - Lasix decreased - resolved Cough - tobacco user - CXR DM 2, controlled - On Levemir 10 units daily at bedtime - Accu-Cheks - Monitor for hypoglycemia - BS ranges 121-131 today - Hemoglobin A1c is 6.4 controlled Hypothyroidism - Continue home dose levothyroxine Tobacco use - Counseled. - Continue Nicotine patch Problem Qualifiers (1) Bipolar disorder: Qualified Code: F31.2 - Bipolar affective disorder, currently manic, severe, with psychotic features Stas Glover MD October 28, 2016 20:36
[2016-10-28] MEDS: PRAVASTATIN SOD 80 MG TAB PO SCH (21:00)
[2016-10-28] MEDS: INSULIN DETEMIR 100 UNITS/ML VIAL SQ SCH (21:00)
[2016-10-28] MEDS: REMOVE OLD NICOTINE PATCH T-DERMAL SCH (21:00)
[2016-10-28 21:53] VITALS: BP 141/76; PULSE 68; RESP 17; TEMP 97.7; O2SAT 98
[2016-10-29 05:39] VITALS: BP 132/71; PULSE 75; RESP 16; TEMP 98.4; O2SAT 94
[2016-10-29] MEDS: LEVOTHYROXINE SODIUM 25 MCG TAB PO SCH (05:40)
[2016-10-29] MEDS: LEVOTHYROXINE SODIUM 112 MCG TAB PO SCH (05:40)
[2016-10-29] MEDS: INSULIN ASPART SUPPLEMENTAL SCALE SQ SCH ×3 (06:11→16:00)
[2016-10-29] MEDS: ENALAPRIL MALEATE 5 MG TAB PO SCH (08:53)
[2016-10-29] MEDS: CLOPIDOGREL 75 MG TAB PO SCH (08:53)
[2016-10-29] MEDS: SODIUM CHLORIDE 1 GRAM TAB PO SCH ×3 (08:53→18:23)
[2016-10-29] MEDS: FUROSEMIDE 40 MG TAB PO SCH (08:54)
[2016-10-29] MEDS: OLANZapine ODT 10 MG TAB PO SCH ×2 (08:54→21:00)
[2016-10-29] MEDS: ASPIRIN 81 MG CHEW TAB PO SCH (08:54)
[2016-10-29] MEDS: METOPROLOL TARTRATE 25 MG TAB PO SCH (08:54)
[2016-10-29] MEDS: POTASSIUM CHLORIDE 20 MEQ CONTROLLED RELEASE TAB PO SCH (08:54)
[2016-10-29] MEDS: FENOFIBRATE 145 MG TAB PO SCH (08:54)
[2016-10-29] MEDS: NICOTINE 21 MG/24 HR PATCH T-DERMAL SCH (08:55)
--- NOTE | 2016-10-29 14:19 | HHI.PYPN ---
Subjective Remarks Patient seen in day room with nurse Silvia, patient calmer today her focus speech rate and rhythm are slowed intensity has slowed. The grandiosity as also slowed. She showing some insight into need to remain to help monitor medications with the discontinuation of the Trileptal and also with the attempt of medicine service to stabilize her hyponatremia Review of Systems Except as stated in HPI: all other systems reviewed are Neg Objective Alert: Yes [place]: Person, Place, Date Mood: Calm Affect: Manic Memory Intact: Comment Hallucinations: Other (denies) Delusions: Yes Delusion Type: Grandiose, Paranoid Suicidal: Ideation (denies) Homicidal: Ideation (denies denies) Insight/Judgment Poor Vitals/IOs Vital Signs Date Time Temp Pulse Resp B/P Pulse Ox O2 Delivery O2 Flow Rate FiO2 10/29/16 05:39 98.4 75 16 132/71 94 Assessment & Plan Problem List: (1) Bipolar disorder ICD Code: F31.9 Assessment & Plan Estimated LOS: days patient continues hypomanic though softening. Compliant medications. Now continue treatment need to observe patient further since the discontinuation of the Trileptal me precipitate an increase manic episode Justification for Cont. Inpt. At this time patient will decompensate placed in a lower level of care Discharge Planning To be determined Request HC Surrog/Guard Advoc?: No Problem Qualifiers (1) Bipolar disorder: Qualified Code: F31.2 - Bipolar affective disorder, currently manic, severe, with psychotic features Rei Porras MD October 29, 2016 14:19
[2016-10-29 14:51] LABS: BICARBONATE 25.9 MEQ/L (21.0-32.0); POTASSIUM 3.9 MEQ/L (3.5-5.1)
[2016-10-29] MEDS: ACETAMINOPHEN 325 MG TAB PO PRN ×2 (15:50→21:00)
[2016-10-29 18:01] VITALS: BP 106/70; PULSE 68; RESP 17; TEMP 97.4; O2SAT 98
--- NOTE | 2016-10-29 18:27 | HHI.PR ---
Subjective Remarks denies any complaints denies dizziness denies cp/sob feels well stable vital signs Objective Vitals Vital Signs Date Time Temp Pulse Resp B/P Pulse Ox O2 Delivery O2 Flow Rate FiO2 10/29/16 18:01 97.4 68 17 106/70 98 10/29/16 05:39 98.4 75 16 132/71 94 10/28/16 21:53 97.7 68 17 141/76 98 I/O 10/28/16 10/28/16 10/28/16 10/29/16 10/29/16 10/29/16 06:59 14:59 22:59 06:59 14:59 22:59 Intake Total 360 ml Balance 360 ml Intake Oral 360 ml Result Diagram: 10/26/16 0743 10/29/16 1408 Objective Remarks GENERAL: This is an obese, well-developed patient, in no apparent distress. Awake and alert. SKIN: No rashes, ecchymoses or lesions. Warm and dry. HEENT: Atraumatic. Normocephalic. Extraocular motions intact. No scleral icterus. No injection or drainage. Oropharynx pink and moist. No erythema. No exudate. CARDIOVASCULAR: Regular rate and rhythm without murmurs, gallops, or rubs. RESPIRATORY: Diminished bases. Coarse BS in all lung hyatt. No wheezes, rales , or rhonchi. GASTROINTESTINAL: Abdomen soft, non-tender, nondistended. Bowel sounds active 4 MUSCULOSKELETAL: Extremities without clubbing, cyanosis, bilateral foot +1 edema. NEUROLOGICAL: Awake and alert. Oriented to person, place. Hyperverbal. Motor and sensory grossly within normal limits. Medications and IVs Current Medications Medications (Trade) Dose Ordered Sig/Shira Route Start Time Stop Time Status Last Admin (Pravachol) 80 mg HS PO 10/24/16 21:00 10/28/16 21:00 (Aspirin Chew) 81 mg DAILY PO 10/24/16 09:00 10/29/16 08:54 (Vasotec) 5 mg DAILY PO 10/24/16 09:00 10/29/16 08:53 (Lopressor) 25 mg DAILY PO 10/24/16 09:00 10/29/16 08:54 (Plavix) 75 mg DAILY PO 10/24/16 09:00 10/29/16 08:53 (KCl) 20 meq DAILY PO 10/24/16 09:00 10/29/16 08:54 (Levemir Inj) 10 units HS SQ 10/24/16 21:00 10/28/16 21:00 (Tricor) 145 mg DAILY PO 10/24/16 09:00 10/29/16 08:54 (Synthroid) 112 mcg DAILY@0600 PO 10/24/16 06:00 10/29/16 05:40 (Synthroid) 25 mcg DAILY@0600 PO 10/24/16 06:00 10/29/16 05:40 (Atarax) 50 mg Q6H PRN PO 10/23/16 23:15 10/28/16 21:16 (Benadryl) 50 mg Q6H PRN PO 10/23/16 23:15 10/28/16 04:59 (Tylenol) 650 mg Q4H PRN PO 10/23/16 23:15 10/29/16 15:50 (Milk Of Magnesia Liq) 30 ml DAILY PRN PO 10/23/16 23:15 10/24/16 20:06 (Mag-Al Plus Susp Liq) 30 ml Q6H PRN PO 10/23/16 23:15 (Habitrol 21 Mg Patch.24 Hr) 1 patch DAILY T-DERMAL 10/24/16 09:00 10/29/16 08:55 Miscellaneous Information 1 HS T-DERMAL 10/24/16 21:00 10/28/16 21:00 (Ativan) 1 mg Q6H PRN PO 10/24/16 13:00 10/28/16 04:59 (Ativan Inj) 1 mg Q6H PRN IM 10/24/16 13:00 (ZyPREXA ZYDIS ODT) 10 mg Q12HR PO 10/24/16 21:00 10/29/16 08:54 (D50w (Vial) Inj) 50 ml UNSCH PRN IV 10/25/16 09:45 (Glucagon Inj) 1 mg UNSCH PRN OTHER 10/25/16 09:45 (Lasix) 40 mg DAILY PO 10/26/16 09:00 10/29/16 08:54 (Sodium Chloride) 1 gm TID PO 10/28/16 18:00 10/29/16 13:34 A/P Problem List: (1) Bipolar disorder ICD Code: F31.9 Status: Acute (2) Hypertension ICD Code: I10 Status: Chronic (3) Hyperlipidemia ICD Code: E78.5 Status: Chronic (4) Diabetes ICD Code: E11.9 Status: Chronic (5) Coronary artery disease ICD Code: I25.10 Status: Chronic (6) History of CVA (cerebrovascular accident) ICD Code: Z86.73 Status: Chronic Assessment and Plan Patient say 61-year-old female with primary medical history of CHF, HTN, HLD, CVA, diabetes, hypothyroidism, bipolar disorder, depression who came into the hospital under [place] act for psychiatric evaluation. As per records, patient was [place] acted by the police because she mentioned to a health social work professor on the phone that she was suicidal. She is now admitted to inpatient psychiatry unit for further evaluation. Consulted for medical management. Bipolar, depression -managed by psychiatry team Hypertension, controlled Hyperlipidemia CVA CHF, systolic, not on exacerbation - Continue pravastatin 80 mg, fenofibrate, aspirin 81 mg, Plavix 75 mg daily - Continue enalapril 5 mg daily, continue metoprolol 25 mg daily - Continue Lasix but decrease dose to 40 mg daily. - Monitor BP trend Hyponatremia -Patient with acute hyponatremia. Likely secondary to Trileptal use given that hyponatremia started after this medication was started. -Trileptal discontinued. -Sodium improving. Continue Salt tablets and fluid restriction. Continue to monitor bmp. Sodium now 130. Contraction Alkalosis -Patient had elevated bicarbonate, likely secondary to over diureses. - Lasix decreased - resolved Cough - tobacco user - CXR does not show any evidence of cardio pulmonary disease DM 2, controlled - On Levemir 10 units daily at bedtime - Accu-Cheks - Monitor for hypoglycemia -Blood sugar stable - Hemoglobin A1c is 6.4 controlled Hypothyroidism - Continue home dose levothyroxine Tobacco use - Counseled. - Continue Nicotine patch Discharge Planning The patient is not medically cleared for discharge Problem Qualifiers (1) Bipolar disorder: Qualified Code: F31.2 - Bipolar affective disorder, currently manic, severe, with psychotic features Stas Glover MD October 29, 2016 18:27
[2016-10-29] MEDS: PRAVASTATIN SOD 80 MG TAB PO SCH (21:00)
[2016-10-29] MEDS: diphenhydrAMINE HCL 50 MG CAP PO PRN (21:00)
[2016-10-29] MEDS: REMOVE OLD NICOTINE PATCH T-DERMAL SCH (21:00)
[2016-10-29] MEDS: LORazepam 1 MG TAB PO PRN (21:00)
[2016-10-30 05:07] VITALS: BP 109/56; PULSE 80; RESP 20; TEMP 98; O2SAT 96
[2016-10-30] MEDS: POTASSIUM CHLORIDE 20 MEQ CONTROLLED RELEASE TAB PO SCH (09:21)
[2016-10-30] MEDS: CLOPIDOGREL 75 MG TAB PO SCH (09:22)
[2016-10-30] MEDS: FENOFIBRATE 145 MG TAB PO SCH (09:22)
[2016-10-30] MEDS: OLANZapine ODT 10 MG TAB PO SCH ×2 (09:22→21:15)
[2016-10-30] MEDS: SODIUM CHLORIDE 1 GRAM TAB PO SCH ×3 (09:22→18:44)
[2016-10-30] MEDS: FUROSEMIDE 40 MG TAB PO SCH (09:22)
[2016-10-30] MEDS: ASPIRIN 81 MG CHEW TAB PO SCH (09:22)
[2016-10-30] MEDS: NICOTINE 21 MG/24 HR PATCH T-DERMAL SCH (09:23)
[2016-10-30] MEDS: METOPROLOL TARTRATE 25 MG TAB PO SCH (09:24)
[2016-10-30] MEDS: ENALAPRIL MALEATE 5 MG TAB PO SCH (09:24)
[2016-10-30] MEDS: INSULIN ASPART SUPPLEMENTAL SCALE SQ SCH ×3 (11:00→21:00)
[2016-10-30 11:37] LABS: BICARBONATE 24.8 MEQ/L (21.0-32.0); POTASSIUM 4.1 MEQ/L (3.5-5.1)
--- NOTE | 2016-10-30 11:54 | HHI.PYPN ---
Subjective Remarks Patient seen in her room floor staff. Patient laying in bed she is calm some decrease in the lability. She is compliant medications though perhaps there is some developing resistance to the Zyprexa perhaps related to the lowering of her mood. She denies suicidality homicidality voices or visions. Patient continues to be treated for hyponatremia. Patient scheduled for [place] tomorrow. At this time I feel patient has capacity to sign voluntary. Thus I' ll lift Lynn act allow patient to sign voluntary consideration of discharge within 24-48 hours when medically cleared Review of Systems Except as stated in HPI: all other systems reviewed are Neg Objective Alert: Yes [place]: Person, Place, Date Mood: Calm Affect: Manic Memory Intact: Comment Hallucinations: Other (denies) Delusions: Yes Delusion Type: Grandiose, Paranoid Suicidal: Ideation (denies) Homicidal: Ideation (denies denies) Insight/Judgment Very poor Labs Test 10/29/16 10/30/16 14:08 10:45 Sodium Level 130 MEQ/L 135 MEQ/L Potassium Level 3.9 MEQ/L 4.1 MEQ/L Chloride Level 95 MEQ/L 102 MEQ/L Carbon Dioxide Level 25.9 MEQ/L 24.8 MEQ/L Anion Gap 9 MEQ/L 8 MEQ/L Blood Urea Nitrogen 14 MG/DL 14 MG/DL Creatinine 0.89 MG/DL 0.83 MG/DL Estimat Glomerular Filtration 65 ML/MIN 70 ML/MIN Rate Random Glucose 126 MG/DL 101 MG/DL Calcium Level 9.2 MG/DL 9.7 MG/DL Vitals/IOs Vital Signs Date Time Temp Pulse Resp B/P Pulse Ox O2 Delivery O2 Flow Rate FiO2 10/30/16 05:07 98.0 80 20 109/56 96 Intake and Output 10/29/16 10/29/16 10/29/16 07:59 15:59 23:59 Intake Total 360 ml Balance 360 ml Assessment & Plan Problem List: (1) Bipolar disorder ICD Code: F31.9 Assessment & Plan Estimated LOS: days patient is aba is softening, she continues get treatment for hyponatremia. Will lift [place] act allow the patient to sign voluntary Justification for Cont. Inpt. At this time patient will decompensate the placed in the lower level of care Discharge Planning To be determined Request HC Surrog/Guard Advoc?: No Problem Qualifiers (1) Bipolar disorder: Qualified Code: F31.2 - Bipolar affective disorder, currently manic, severe, with psychotic features Rei Porras MD October 30, 2016 11:54
[2016-10-30] MEDS: ACETAMINOPHEN 325 MG TAB PO PRN ×2 (12:02→21:15)
[2016-10-30 18:13] VITALS: BP 141/92; PULSE 88; RESP 18; TEMP 97.7; O2SAT 94
[2016-10-30] MEDS: INSULIN DETEMIR 100 UNITS/ML VIAL SQ SCH ×2 (21:00→21:15)
[2016-10-30] MEDS: REMOVE OLD NICOTINE PATCH T-DERMAL SCH (21:00)
--- NOTE | 2016-10-30 21:10 | HHI.PR ---
Subjective Remarks no complaints denies cp/sob denies headache/dizziness Objective Vitals Vital Signs Date Time Temp Pulse Resp B/P Pulse Ox O2 Delivery O2 Flow Rate FiO2 10/30/16 18:13 97.7 88 18 141/92 94 10/30/16 05:07 98.0 80 20 109/56 96 I/O 10/29/16 10/29/16 10/29/16 10/30/16 10/30/16 10/30/16 07:00 15:00 23:00 07:00 15:00 23:00 Intake Total 360 ml Balance 360 ml Intake Oral 360 ml Result Diagram: 10/26/16 0743 10/30/16 1045 Objective Remarks GENERAL: This is an obese, well-developed patient, in no apparent distress. Awake and alert. SKIN: No rashes, ecchymoses or lesions. Warm and dry. HEENT: Atraumatic. Normocephalic. Extraocular motions intact. No scleral icterus. No injection or drainage. Oropharynx pink and moist. No erythema. No exudate. CARDIOVASCULAR: Regular rate and rhythm without murmurs, gallops, or rubs. RESPIRATORY: Diminished bases. Coarse BS in all lung hyatt. No wheezes, rales , or rhonchi. GASTROINTESTINAL: Abdomen soft, non-tender, nondistended. Bowel sounds active 4 MUSCULOSKELETAL: Extremities without clubbing, cyanosis, bilateral foot +1 edema. NEUROLOGICAL: Awake and alert. Oriented to person, place. Hyperverbal. Motor and sensory grossly within normal limits. A/P Problem List: (1) Bipolar disorder ICD Code: F31.9 Status: Acute (2) Hypertension ICD Code: I10 Status: Chronic (3) Hyperlipidemia ICD Code: E78.5 Status: Chronic (4) Diabetes ICD Code: E11.9 Status: Chronic (5) Coronary artery disease ICD Code: I25.10 Status: Chronic (6) History of CVA (cerebrovascular accident) ICD Code: Z86.73 Status: Chronic Assessment and Plan Patient say 61-year-old female with primary medical history of CHF, HTN, HLD, CVA, diabetes, hypothyroidism, bipolar disorder, depression who came into the hospital under [place] act for psychiatric evaluation. As per records, patient was [place] acted by the police because she mentioned to a director of social work on the phone that she was suicidal. She is now admitted to inpatient psychiatry unit for further evaluation. Consulted for medical management. Bipolar, depression -managed by psychiatry team Hypertension, controlled Hyperlipidemia CVA CHF, systolic, not on exacerbation - Continue pravastatin 80 mg, fenofibrate, aspirin 81 mg, Plavix 75 mg daily - Continue enalapril 5 mg daily, continue metoprolol 25 mg daily - Continue Lasix but decrease dose to 40 mg daily. - Monitor BP trend Hyponatremia -Patient with acute hyponatremia. Likely secondary to Trileptal use given that hyponatremia started after this medication was started. -Trileptal discontinued. -Sodium 135. DC Salt tablets. Check BMP in am. If stable may Dc in am. Will need a follow up BMP 2 days after discharge. Contraction Alkalosis -Patient had elevated bicarbonate, likely secondary to over diureses. - Lasix decreased - resolved Cough - tobacco user - CXR does not show any evidence of cardio pulmonary disease DM 2, controlled - On Levemir 10 units daily at bedtime - Accu-Cheks - Monitor for hypoglycemia -Blood sugar stable - Hemoglobin A1c is 6.4 controlled Hypothyroidism - Continue home dose levothyroxine Tobacco use - Counseled. - Continue Nicotine patch Discharge Planning The patient is not medically cleared for discharge Problem Qualifiers (1) Bipolar disorder: Qualified Code: F31.2 - Bipolar affective disorder, currently manic, severe, with psychotic features Stas Glover MD October 30, 2016 21:10
[2016-10-30] MEDS: diphenhydrAMINE HCL 50 MG CAP PO PRN (21:15)
[2016-10-30] MEDS: LORazepam 1 MG TAB PO PRN (21:15)
[2016-10-30] MEDS: PRAVASTATIN SOD 80 MG TAB PO SCH (21:15)
[2016-10-31] MEDS: LEVOTHYROXINE SODIUM 112 MCG TAB PO SCH (05:09)
[2016-10-31] MEDS: ACETAMINOPHEN 325 MG TAB PO PRN ×2 (05:09→11:49)
[2016-10-31] MEDS: LEVOTHYROXINE SODIUM 25 MCG TAB PO SCH (05:10)
[2016-10-31 05:26] VITALS: BP 137/61; PULSE 77; RESP 17; TEMP 97.2; O2SAT 96
[2016-10-31] MEDS: INSULIN ASPART SUPPLEMENTAL SCALE SQ SCH ×2 (07:00→11:00)
[2016-10-31 08:24] LABS: BICARBONATE 24.6 MEQ/L (21.0-32.0); POTASSIUM 4.2 MEQ/L (3.5-5.1)
[2016-10-31] MEDS: ASPIRIN 81 MG CHEW TAB PO SCH (08:36)
[2016-10-31] MEDS: FENOFIBRATE 145 MG TAB PO SCH (08:36)
[2016-10-31] MEDS: OLANZapine ODT 10 MG TAB PO SCH (08:36)
[2016-10-31] MEDS: METOPROLOL TARTRATE 25 MG TAB PO SCH (08:36)
[2016-10-31] MEDS: POTASSIUM CHLORIDE 20 MEQ CONTROLLED RELEASE TAB PO SCH (08:36)
[2016-10-31] MEDS: ENALAPRIL MALEATE 5 MG TAB PO SCH (08:37)
[2016-10-31] MEDS: FUROSEMIDE 40 MG TAB PO SCH (08:37)
[2016-10-31] MEDS: CLOPIDOGREL 75 MG TAB PO SCH (08:37)
[2016-10-31] MEDS: NICOTINE 21 MG/24 HR PATCH T-DERMAL SCH (08:38)
[2016-10-31] MEDS ORDERED: FENO145T2 PO (12:00)
[2016-10-31] MEDS ORDERED: LEVO25TA4 PO (12:00)
[2016-10-31] MEDS ORDERED: SYNT112T PO (12:00)
[2016-10-31] MEDS ORDERED: PRAV80TA PO (12:00)
[2016-10-31] MEDS ORDERED: CLOPIDOGREL PO (12:00)
[2016-10-31] MEDS ORDERED: ASPI81CH25 PO (12:00)
[2016-10-31] MEDS ORDERED: ZYPR10TA PO (12:00)
[2016-10-31] MEDS ORDERED: FURO40TA PO (12:00)
[2016-10-31] MEDS ORDERED: METO25TA3 PO (12:00)
[2016-10-31] MEDS ORDERED: ENAL5TAB PO (12:00)
[2016-10-31] MEDS ORDERED: POTA20TA5 PO (12:00)
[2016-10-31] MEDS ORDERED: LEVEMIR SQ (12:00)
--- NOTE | 2016-10-31 12:07 | HHI.PYPN ---
Subjective Remarks Patient seen on unit calm cooperative. Is been medically cleared now by medical service. Patient to be discharged to her's family, Rx 1 month, follow [facility], follow up PCP. And addendum note has also been dictated on the discharge summary written on 10/28 Review of Systems Except as stated in HPI: all other systems reviewed are Neg Objective Alert: Yes [place]: Person, Place, Date Mood: Calm Affect: Manic Memory Intact: Comment Hallucinations: Other (denies) Delusions: Yes Delusion Type: Grandiose, Paranoid Suicidal: Ideation (denies) Homicidal: Ideation (denies denies) Insight/Judgment Poor to fair Labs Test 10/31/16 07:22 Sodium Level 136 MEQ/L Potassium Level 4.2 MEQ/L Chloride Level 102 MEQ/L Carbon Dioxide Level 24.6 MEQ/L Anion Gap 9 MEQ/L Blood Urea Nitrogen 17 MG/DL Creatinine 0.80 MG/DL Estimat Glomerular Filtration 73 ML/MIN Rate Random Glucose 121 MG/DL Calcium Level 9.3 MG/DL Vitals/IOs Vital Signs Date Time Temp Pulse Resp B/P Pulse Ox O2 Delivery O2 Flow Rate FiO2 10/31/16 05:26 97.2 77 17 137/61 96 Assessment & Plan Problem List: (1) Bipolar disorder ICD Code: F31.9 Assessment & Plan Estimated LOS: days patient to be discharged today to her family Rx 1 month, follow-up [facility], follow-up PCP within one week for further monitoring and treatment of her hyponatremia. Have also dictated addendum on the discharge summary dictated on 10/28 Justification for Cont. Inpt. Patient to be discharged today Discharge Planning Patient to be discharged today see above Request HC Surrog/Guard Advoc?: No Problem Qualifiers (1) Bipolar disorder: Qualified Code: F31.2 - Bipolar affective disorder, currently manic, severe, with psychotic features Rei Porras MD October 31, 2016 12:07
== END 2016-10-31 15:25 | disposition home or self-care (01) | DRG 885 ==
LOC: NEPD 13:47 → NEDA 21:48 → H260 22:41
PROVIDERS: ADMIT Psychiatry & Neurology Psychiatry; ATTEND Psychiatry & Neurology Psychiatry
DX: F31.2 Bipolar disorder, current episode manic severe with psychotic features (principal); R45.851 Suicidal ideations; I11.0 Hypertensive heart disease with heart failure; I50.22 Chronic systolic (congestive) heart failure; E87.1 Hypo-osmolality and hyponatremia; J44.9 Chronic obstructive pulmonary disease, unspecified; F20.0 Paranoid schizophrenia; E11.9 Type 2 diabetes mellitus without complications; K21.9 Gastro-esophageal reflux disease without esophagitis; M79.7 Fibromyalgia; E03.9 Hypothyroidism, unspecified; F17.210 Nicotine dependence, cigarettes, uncomplicated; E66.9 Obesity, unspecified; F41.9 Anxiety disorder, unspecified; E78.5 Hyperlipidemia, unspecified; I25.10 Atherosclerotic heart disease of native coronary artery without angina pectoris; Z68.36 Body mass index [BMI] 36.0-36.9, adult; Z86.73 Personal history of transient ischemic attack (TIA), and cerebral infarction without residual deficits; Z79.4 Long term (current) use of insulin
CPT/HCPCS: 71020; 80048; 80053; 80061; 80307; 81001; 82948; 83036; 83930; 83935; 85025; 90732; 99285; J1815; Q0163

== ENCOUNTER 2016-11-10 00:47 | Emergency (ER) | payer MEDICAID, OTHER ==
[~2016-11-10] VITALS: Ht 162.6 cm; Wt 100.0 kg
[~2016-11-10 00:47] MED LIST changes: -ACET500T36 PO; +ASPI81CH25 PO; -BENA12.5 PO; +CLOPIDOGREL PO; -CYCL1TAB29 PO; +FENO145T2 PO; +FENO160T PO; +FURO40TA PO; +LEVEMIR SQ; +LEVO137T2 PO; -LEVO175T2 PO; +LEVO25TA4 PO; +OXCA150T PO; +POTA20TA5 PO; +PRAV80TA PO; -PROM12.54 PO; +PROM25TA5 PO; +PROM6.256 PO; +SYNT112T PO; +ZOCO40TA PO; +ZYPR10TA PO
--- NOTE | 2016-11-10 00:57 | PD ---
HPI Chief Complaint: shortness of breath Time Seen by Provider: 00:51 Travel History International Travel<30 days: No Contact w/Intl Traveler<30days: No Traveled to known affect area: No History of Present Illness HPI 61-year-old female complains of coughing wheezing and shortness of breath. Patient states that she started having productive cough for the past few days. Patient started having increasing wheezing and shortness of breath since this morning. Patient is a smoker. Patient has history of reactive airway disease for the past 5 years. Patient states that she ran out of her inhaler a year ago. Patient denies any fever chills. Patient denies any chest pain. EMS was called this evening. Patient was given albuterol treatment 3 and Solu-Medrol [address] IV [address] to ED. Patient's feeling much better now. Patient has history hypertension, diabetes, hyperlipidemia, bipolar disorder, hypothyroidism. PFSH Past Medical History Hx Anticoagulant Therapy: Yes Arthritis: No Asthma: Yes Autoimmune Disease: No Blood Disorders: No Bipolar Disorder: Yes Anxiety: Yes Depression: Yes Heart Rhythm Problems: No Cancer: Yes (BREAST AND UTERINE) Cardiac Catheterization: Yes Cardiovascular Problems: Yes High Cholesterol: Yes Chemotherapy: No Chest Pain: Yes Congestive Heart Failure: Yes COPD: Yes Cerebrovascular Accident: Yes Diabetes: Yes Diminished Hearing: Yes Endocrine: No Fibromyalgia: Yes GERD: Yes Glaucoma: No Genitourinary: No Headaches: No Hepatitis: Yes (C) Hiatal Hernia: No Herniated Disk: Yes Hypertension: Yes Immune Disorder: No Implanted Vascular Access Dvce: No Kidney Stones: Yes Musculoskeletal: Yes (RT SHOULDER,RT KNEE 3 HERNIATED DISCS) Neurologic: No Psychiatric: Yes Reproductive: No Respiratory: Yes Immunizations Current: No Migraines: Yes Myocardial Infarction: Yes Radiation Therapy: No Renal Failure: No Schizophrenia: Yes (PARANOID SCHIZOPHRENIA) Seizures: No Sickle Cell Disease: No Sleep Apnea: No Thyroid Disease: Yes (HYPOTHYROIDISM) Triglycerides - High: Yes Ulcer: No Menopausal: Yes : 5 Para: 2 : 3 Ectopic : Yes Ovarian Cysts: Yes Past Surgical History Abdominal Surgery: No AICD: No Appendectomy: No Arteriovenous Shunt: No Cardiac Surgery: No Cholecystectomy: No Ear Surgery: No Endocrine Surgery: No Eye Surgery: Yes (BLIND LEFT EYE-surgery) Genitourinary Surgery: No Gynecologic Surgery: Yes (BX BILATERAL BREAST) Hysterectomy: Yes Insulin Pump: No Joint Replacement: No Oral Surgery: No Pacemaker: No Thoracic Surgery: No Other Surgery: No Social History Alcohol Use: No (denies) Tobacco Use: Yes (5 CIGS) Substance Use: Yes Allergies-Medications (Allergen,Severity, Reaction): Coded Allergies: Baclofen (Verified Allergy, Unknown, 11/10/16) Celexa (Verified Allergy, Unknown, Rash, 11/10/16) Geodon (Verified Allergy, Unknown, 11/10/16) Sulfa (Verified Allergy, Unknown, does not know, 11/10/16) Haldol (Verified Adverse Reaction, Severe, "STIFFNESS", 11/10/16) Risperdal (Verified Adverse Reaction, Severe, anxiety, 11/10/16) Seroquel (Verified Adverse Reaction, Severe, anxiety, 11/10/16) Iron (Verified Adverse Reaction, Intermediate, dark bm's, 11/10/16) Reported Meds & Prescriptions Reported Meds & Active Scripts Active Potassium Chloride Microencaps 20 Meq Tab 20 Meq PO DAILY Zyprexa (Olanzapine) 10 Mg Tab 10 Mg PO BID Furosemide 40 Mg Tab 40 Mg PO DAILY Fenofibrate 145 Mg Tab 145 Mg PO DAILY Enalapril (Enalapril Maleate) 5 Mg Tab 5 Mg PO DAILY Aspirin Low Strength (Aspirin) 81 Mg Chew 81 Mg PO DAILY Reported Levothyroxine (Levothyroxine Sodium) 137 Mcg Tab 137 Mcg PO DAILY Phenergan (Promethazine HCl) 25 Mg Tab 25 Mg PO Q6H PRN Lantus Inj (Insulin Glargine) 1,000 Unit/10 Ml Vial 10-12 Units SQ HS Xanax (Alprazolam) 2 Mg Tab 2 Mg PO Q8H PRN Lortab (Hydrocodone-Acetaminophen) 10-325 Mg Tab 1 Tab PO Q6H PRN Clopidogrel (Clopidogrel Bisulfate) 75 Mg Tab 75 Mg PO DAILY Review of Systems General / Constitutional: No: Fever Eyes: No: Visual changes HENT: No: Headaches Cardiovascular: No: Chest Pain or Discomfort Respiratory: Positive: Cough, Shortness of Breath, Wheezing Gastrointestinal: No: Abdominal Pain Genitourinary: No: Dysuria Musculoskeletal: No: Pain Skin: No Rash Neurologic: No: Weakness Psychiatric: No: Depression Endocrine: No: Polydipsia Hematologic/Lymphatic: No: Easy Bruising Physical Exam Narrative GENERAL: Well-nourished, well-developed patient. SKIN: Focused skin assessment warm/dry. HEAD: Normocephalic. EYES: No scleral icterus. No injection or drainage. NECK: Supple, trachea midline. No JVD or lymphadenopathy. CARDIOVASCULAR: Regular rate and rhythm without murmurs, gallops, or rubs. RESPIRATORY: Breath sounds equal bilaterally. No accessory muscle use. Patient has mild expiratory wheezes bilaterally. No rhonchi. GASTROINTESTINAL: Abdomen soft, non-tender, nondistended. MUSCULOSKELETAL: No cyanosis, or edema. BACK: Nontender without obvious deformity. No CVA tenderness. Neurologic exam normal. Data Data Last Documented VS Vital Signs Date Time Temp Pulse Resp B/P Pulse Ox O2 Delivery O2 Flow Rate FiO2 11/10/16 01:24 83 24 92 Room Air 11/10/16 01:10 108/79 11/10/16 01:03 97.6 Orders Iv Access Insert/Monitor (11/10/16 00:51) Ecg Monitoring (11/10/16 00:51) Oximetry (11/10/16 00:51) Chest, Single Ap (11/10/16 00:51) Albuterol-Ipratropium Neb (Duoneb Neb) (11/10/16 01:00) MDM Medical Decision Making Medical Screen Exam Complete: Yes Emergency Medical Condition: Yes Interpretation(s) 1:29 AM. Chest x-ray shows no acute pulmonary disease. Differential Diagnosis Differential diagnosis including acute exacerbation of reactive airway disease, bronchitis, pneumonia, PE, pneumothorax. Narrative Course 61-year-old female with coughing wheezing and shortness of breath. History of reactive airway disease. Patient was given albuterol treatment 3 and Solu- Medrol 125 mg IV by EMS. Albuterol with Atrovent unit treatment times one. 2: 06 AM. Patient's feeling better. Examination shows mild expiratory wheezes. Diagnosis Primary Impression: COPD with acute exacerbation Patient Instructions: General Instructions Additional Instructions: Use albuterol inhaler as directed. Prednisone is directed. Z-Castillo as directed. Follow-up with personal physician. Return if worse. Med/Other Pt SpecificInfo: Prescription(s) given Scripts Azithromycin (Zithromax Z-Castillo)250 Mg [id number] Mg PO DIRECTED #1 DSPK 500 MG (2 tabs) day 1, then 1 tab days 2-5. Prov:Gavin Angel MD 11/10/16 Prednisone 20 Mg Tab20 Mg PO DAILY #7 TAB Prov:Gavin Angel MD 11/10/16 Albuterol 8.5 GM Inh (Proair Hfa 8.5 GM Inh)90 Mcg/Act Aer2 Puff INH Q4-6H PRN ( SHORTNESS OF BREATH) #1 INHALER 108 mcg/actuation Prov:Gavin Angel MD 11/10/16 Disposition: 01 DISCHARGE HOME Condition: Stable Gavin Angel MD Nov 10, 2016 00:56 Condition: Gavin Martin MD Nov 10, 2016 00:56
[2016-11-10] MEDS ORDERED: RESP: ALBUTEROL 2.5 MG/IPRATROPIUM 0.5 MG NEB (SCH) INH ONE (01:00)
[2016-11-10 01:03] VITALS: BP 108/79; PULSE 94; RESP 20; TEMP 97.6; O2SAT 96
[2016-11-10 01:10] VITALS: BP 108/79; PULSE 81; RESP 20; O2SAT 96
--- NOTE | 2016-11-10 01:18 | RADHPO ---
EXAM DATE/TIME: 11/10/2016 00:56 [facility] COMPARISON: CHEST PA & LAT, October 27, 2016, 21:05. INDICATIONS : Shortness of breath. MEDICAL HISTORY : Hypertension. Chronic obstructive pulmonary disease. Myocardial infarction. Hepatitis C. Diabetes . Breast cancer. Uterine cancer. Schizophrenia, Cerebrovascular accident, CHF SURGICAL HISTORY : None. ENCOUNTER: Initial ACUITY: 1 day PAIN SCORE: 0/10 LOCATION: Bilateral chest FINDINGS: The lungs are clear without infiltrate, nodule, or mass. There is no appreciable pleural effusion fo r technique. Heart and mediastinum are unremarkable. CONCLUSION: No acute cardiopulmonary disease. Vicente Conti MD on November 10, 2016 at 1:13 Board Certified Radiologist. This report was verified electronically.
[2016-11-10] MEDS ORDERED: PRED20 PO (02:08)
[2016-11-10] MEDS ORDERED: ALBUAER3 INH (02:08)
[2016-11-10] MEDS ORDERED: ZITHTAB PO (02:08)
[2016-11-10 02:39] VITALS: BP 123/74
== END 2016-11-10 02:58 | disposition home or self-care (01) ==
LOC: PHED 00:47
DX: J44.1 Chronic obstructive pulmonary disease with (acute) exacerbation (principal); I10 Essential (primary) hypertension; E11.9 Type 2 diabetes mellitus without complications; E78.5 Hyperlipidemia, unspecified; E03.9 Hypothyroidism, unspecified; Z72.0 Tobacco use; Z79.4 Long term (current) use of insulin; Z79.01 Long term (current) use of anticoagulants; Z86.59 Personal history of other mental and behavioral disorders; Z87.09 Personal history of other diseases of the respiratory system; Z86.79 Personal history of other diseases of the circulatory system; Z87.39 Personal history of other diseases of the musculoskeletal system and connective tissue; Z87.19 Personal history of other diseases of the digestive system; Z86.19 Personal history of other infectious and parasitic diseases
CPT/HCPCS: 71010; 94664; 99284

== ENCOUNTER 2016-11-17 09:01 | Emergency (ER) | payer MEDICAID ==
[~2016-11-17] VITALS: Ht 162.6 cm; Wt 100.0 kg
[~2016-11-17 09:01] MED LIST changes: +ALBUAER3 INH; -ASPI81TA81 PO; -CLOPIDOGREL PO; -FENO160T PO; -FURO1TAB60 PO; -LEVEMIR SQ; -LEVO25TA4 PO; -METO25TA3 PO; -OXCA150T PO; -POTA-163 PO; -PRAV80TA PO; +PRED20 PO; -PROM6.256 PO; -SYNT112T PO; +ZITHTAB PO; -ZOCO40TA PO
[2016-11-17 09:04] VITALS: BP 120/55; PULSE 81; RESP 16; TEMP 97.6; O2SAT 94
--- NOTE | 2016-11-17 09:24 | PD ---
HPI Chief Complaint: Psychiatric Symptoms Time Seen by Provider: 09:08 Travel History International Travel<30 days: No Contact w/Intl Traveler<30days: No Traveled to known affect area: No History of Present Illness HPI This is a 61-year-old female history of schizophrenia, diabetes mellitus, who presents today under Lynn act after she reportedly called sooner [facility] and stated she was suicidal. Patient stated that she's not been taking her medications for several days. Patient is very histrionic and to me denies that she suicidal. She states that the police are lying. The patient denies any pain. She states that she is not sure what her blood sugars are at this time. There are no other complaints time my examination. PFSH Past Medical History Hx Anticoagulant Therapy: Yes Arthritis: No Asthma: Yes Autoimmune Disease: No Blood Disorders: No Bipolar Disorder: Yes Anxiety: Yes Depression: Yes Heart Rhythm Problems: No Cancer: Yes (BREAST AND UTERINE) Cardiac Catheterization: Yes Cardiovascular Problems: Yes High Cholesterol: Yes Chemotherapy: No Chest Pain: Yes Congestive Heart Failure: Yes COPD: Yes Cerebrovascular Accident: Yes Diabetes: Yes Patient Takes Glucophage: Yes Diminished Hearing: Yes Endocrine: No Fibromyalgia: Yes GERD: Yes Glaucoma: No Genitourinary: No Headaches: No Hepatitis: Yes (C) Hiatal Hernia: No Herniated Disk: Yes Hypertension: Yes Immune Disorder: No Implanted Vascular Access Dvce: No Kidney Stones: Yes Musculoskeletal: Yes (RT SHOULDER,RT KNEE 3 HERNIATED DISCS) Neurologic: No Psychiatric: Yes Reproductive: No Respiratory: Yes Immunizations Current: No Migraines: Yes Myocardial Infarction: Yes Radiation Therapy: No Renal Failure: No Schizophrenia: Yes (PARANOID SCHIZOPHRENIA) Seizures: No Sickle Cell Disease: No Sleep Apnea: No Thyroid Disease: Yes (HYPOTHYROIDISM) Triglycerides - High: Yes Ulcer: No Menopausal: Yes : 5 Para: 2 : 3 Ectopic : Yes Ovarian Cysts: Yes Past Surgical History Abdominal Surgery: No AICD: No Appendectomy: No Arteriovenous Shunt: No Cardiac Surgery: No Cholecystectomy: No Ear Surgery: No Endocrine Surgery: No Eye Surgery: Yes (BLIND LEFT EYE-surgery) Genitourinary Surgery: No Gynecologic Surgery: Yes (BX BILATERAL BREAST) Hysterectomy: Yes Insulin Pump: No Joint Replacement: No Oral Surgery: No Pacemaker: No Thoracic Surgery: No Other Surgery: No Social History Alcohol Use: No (DENIES) Tobacco Use: Yes (5 CIGS) Substance Use: Yes Allergies-Medications (Allergen,Severity, Reaction): Coded Allergies: Baclofen (Verified Allergy, Unknown, 11/17/16) Celexa (Verified Allergy, Unknown, Rash, 11/17/16) Geodon (Verified Allergy, Unknown, 11/17/16) Sulfa (Verified Allergy, Unknown, does not know, 11/17/16) Haldol (Verified Adverse Reaction, Severe, "STIFFNESS", 11/17/16) Risperdal (Verified Adverse Reaction, Severe, anxiety, 11/17/16) Seroquel (Verified Adverse Reaction, Severe, anxiety, 11/17/16) Iron (Verified Adverse Reaction, Intermediate, dark bm's, 11/17/16) Reported Meds & Prescriptions Reported Meds & Active Scripts Active Prednisone 20 Mg Tab 20 Mg PO DAILY Proair Hfa 8.5 GM Inh (Albuterol Sulfate) 90 Mcg/Act Aer 2 Puff INH Q4-6H PRN 108 mcg/actuation Fenofibrate 145 Mg Tab 145 Mg PO DAILY Enalapril (Enalapril Maleate) 5 Mg Tab 5 Mg PO DAILY Aspirin Low Strength (Aspirin) 81 Mg Chew 81 Mg PO DAILY Reported Promethazine-Codeine Liq 6.25-10 Mg/5 Ml Syrp 5 Ml PO Q8HR PRN Potassium Chloride Microencaps 20 Meq Tab 30 Meq PO DAILY Furosemide 80 Mg Tab 80 Mg PO DAILY Levothyroxine (Levothyroxine Sodium) 137 Mcg Tab 137 Mcg PO DAILY Lantus Inj (Insulin Glargine) 1,000 Unit/10 Ml Vial 10-12 Units SQ HS Xanax (Alprazolam) 2 Mg Tab 2 Mg PO Q8H PRN Lortab (Hydrocodone-Acetaminophen) 10-325 Mg Tab 1 Tab PO Q6H PRN Clopidogrel (Clopidogrel Bisulfate) 75 Mg Tab 75 Mg PO DAILY Review of Systems Except as stated in HPI: all other systems reviewed are Neg General / Constitutional: No: Fever, Chills Eyes: Positive: Blurred Vision (secondary to diabetes, not new.), No: Photophobia HENT: No: Headaches, Lightheadedness Cardiovascular: No: Chest Pain or Discomfort, Palpitations Respiratory: Positive: Cough, No: Shortness of Breath Gastrointestinal: No: Nausea, Vomiting, Abdominal Pain Genitourinary: No: Frequency, Dysuria Musculoskeletal: No: Weakness, Pain Neurologic: No: Weakness, Dizziness, Headache Psychiatric: Positive: Suicidal Ideations (reported), Mood Disorder, No: Homicidal Ideation Physical Exam Narrative GENERAL: Well-developed well-nourished female in no acute distress. SKIN: Focused skin assessment warm/dry. HEAD: Atraumatic. Normocephalic. EYES: No scleral icterus. No injection or drainage. ENT: No nasal bleeding or discharge. Mucous membranes pink and moist. NECK: Trachea midline. No JVD. Supple. CARDIOVASCULAR: Regular rate and rhythm. No murmur appreciated. RESPIRATORY: No accessory muscle use. Clear to auscultation. Breath sounds equal bilaterally. GASTROINTESTINAL: Abdomen soft, obese, non-tender, nondistended. MUSCULOSKELETAL: No obvious deformities. No clubbing. No cyanosis. Trace pretibial edema bilaterally. NEUROLOGICAL: Awake and alert. No obvious cranial nerve deficits. Motor grossly within normal limits. Normal speech. PSYCHIATRIC: Flight of ideas and tangential thought process. Data Data Last Documented VS Vital Signs Date Time Temp Pulse Resp B/P Pulse Ox O2 Delivery O2 Flow Rate FiO2 11/17/16 09:07 81 17 11/17/16 09:04 97.6 120/55 94 Orders Complete Blood Count With Diff (11/17/16 09:09) Comprehensive Metabolic Panel (11/17/16 09:09) Psych Screen (11/17/16 09:09) Drug Screen, Random Urine (11/17/16 09:09) Sodium Chlor 0.9% 1000 Ml Inj (Ns 1000 M (11/17/16 11:00) Labs Laboratory Tests Test 11/17/16 09:20 White Blood Count 10.8 TH/MM3 Red Blood Count 4.17 MIL/MM3 Hemoglobin 11.0 GM/DL Hematocrit 34.0 % Mean Corpuscular Volume 81.4 FL Mean Corpuscular Hemoglobin 26.3 PG Mean Corpuscular Hemoglobin 32.3 % Concent Red Cell Distribution Width 14.0 % Platelet Count 274 TH/MM3 Mean Platelet Volume 7.7 FL Neutrophils (%) (Auto) 53.2 % Lymphocytes (%) (Auto) 36.2 % Monocytes (%) (Auto) 8.3 % Eosinophils (%) (Auto) 1.6 % Basophils (%) (Auto) 0.7 % Neutrophils # (Auto) 5.7 TH/MM3 Lymphocytes # (Auto) 3.9 TH/MM3 Monocytes # (Auto) 0.9 TH/MM3 Eosinophils # (Auto) 0.2 TH/MM3 Basophils # (Auto) 0.1 TH/MM3 CBC Comment DIFF FINAL Differential Comment Sodium Level 140 MEQ/L Potassium Level 3.7 MEQ/L Chloride Level 102 MEQ/L Carbon Dioxide Level 30.4 MEQ/L Anion Gap 8 MEQ/L Blood Urea Nitrogen 23 MG/DL Creatinine 1.18 MG/DL Estimat Glomerular Filtration 47 ML/MIN Rate Random Glucose 160 MG/DL Calcium Level 8.5 MG/DL Total Bilirubin LESS THAN 0.1 MG/DL Aspartate Amino Transf 16 U/L (AST/SGOT) Alanine Aminotransferase 20 U/L (ALT/SGPT) Alkaline Phosphatase 42 U/L Total Protein 6.5 GM/DL Albumin 2.9 GM/DL [facility] Medical Decision Making Medical Screen Exam Complete: Yes Emergency Medical Condition: Yes Differential Diagnosis Psychosis versus substance induced mood disorder versus metabolic derangement. Narrative Course 61-year-old female presents with Lynn act. Patient has history of diabetes mellitus and schizophrenia. Apparently she's not been taking her medications as prescribed. The patient denies this however does appear to be tangential thoughts and psychotic. The patient has a blood glucose of 160. BUN and creatinine were slightly elevated. She is given 1 L of IV fluid. She'll be medically cleared for psychiatric admission. Diagnosis Primary Impression: Psychosis Additional Impressions: Noncompliance with medication regimen Diabetes mellitus Mild dehydration medically clear Allen Ferris MD Nov 17, 2016 09:24
[2016-11-17] MEDS ORDERED: FURO80TA PO (09:28)
[2016-11-17] MEDS ORDERED: POTA20TA5 PO (09:31)
[2016-11-17] MEDS ORDERED: PROM6.256 PO (09:34)
[2016-11-17 09:38] LABS: AUTOMATED NEUTROPHIL # 5.7 TH/MM3 (1.8-7.7); BASOPHIL # 0.1 TH/MM3 (0-0.2); BASOPHIL % 0.7 % (0.0-2.0); EOSINOPHIL # 0.2 TH/MM3 (0-0.4); EOSINOPHIL % 1.6 % (0.0-4.0); HEMO FLAGS DIFF FINAL; LYMPH % 36.2 % (9.0-44.0); LYMPHOCYTE # 3.9 TH/MM3 (1.0-4.8); MEAN CELL VOLUME 81.4 FL (80.0-100.0); MEAN CORPUSCULAR HEMOGLOBIN 26.3 PG (27.0-34.0); MEAN CORPUSCULAR HGB CONC 32.3 % (32.0-36.0); MONO % 8.3 % (0.0-8.0); NEUT % 53.2 % (16.0-70.0); PLATELET COUNT 274 TH/MM3 (150-450); RED BLOOD COUNT 4.17 MIL/MM3 (4.00-5.30); WHITE BLOOD COUNT 10.8 TH/MM3 (4.0-11.0)
[2016-11-17 10:03] LABS: ALT (GPT) 20 U/L (10-53)
[2016-11-17 10:05] LABS: ALKALINE PHOSPHATASE 42 U/L (45-117); TOTAL BILIRUBIN ADULT LESS THAN 0.1 MG/DL (0.2-1.0)
[2016-11-17 10:12] LABS: ANION GAP 8 MEQ/L (5-15); AST (GOT) 16 U/L (15-37); BICARBONATE 30.4 MEQ/L (21.0-32.0); BLOOD UREA NITROGEN 23 MG/DL (7-18); CHLORIDE 102 MEQ/L (98-107); GLOMERULAR FILTRATION RATE 47 ML/MIN (>89); POTASSIUM 3.7 MEQ/L (3.5-5.1); SODIUM (NA) 140 MEQ/L (136-145)
[2016-11-17] MEDS ORDERED: SODIUM CHLOR 0.9% 1000 ML INJ 1,000 ML IV ONE (11:00)
[2016-11-17 12:59] LABS: AMPHETAMINE, URINE NEG (NEG); BARBITURATES, URINE NEG (NEG); COCAINE, URINE NEG (NEG)
[2016-11-17 14:28] VITALS: BP 141/75; PULSE 81; RESP 18
[2016-11-17 15:00] VITALS: BP 126/60; PULSE 126; RESP 18; TEMP 98.3; O2SAT 99
[2016-11-17] MEDS ORDERED: NITR0.4S SL (16:54)
[2016-11-17] MEDS ORDERED: NITROGLYCERIN 0.4 MG SL 25 TABS/BTL SL ONE (18:15)
[2016-11-17] MEDS ORDERED: ASPIRIN 325 MG TAB PO ONE (18:15)
[2016-11-17] MEDS ORDERED: diphenhydrAMINE HCL 50 MG CAP PO PRN (20:30)
[2016-11-17] MEDS ORDERED: INSULIN DETEMIR 100 UNITS/ML VIAL SQ ONE (20:30)
[2016-11-17] MEDS: ACETAMINOPHEN 325 MG TAB PO PRN (20:53)
[2016-11-17 21:35] VITALS: BP 132/61; PULSE 73; RESP 18
[2016-11-17 23:06] LABS: CREATINE KINASE 151 U/L (26-192)
[2016-11-17 23:18] LABS: CKMB 2.6 NG/ML (0.5-3.6)
[2016-11-18 01:58] VITALS: BP 136/80; PULSE 82; RESP 18
[2016-11-18] MEDS: ACETAMINOPHEN 325 MG TAB PO PRN (05:00)
[2016-11-18 05:59] VITALS: BP 123/60; PULSE 76; RESP 22
--- NOTE | 2016-11-18 08:56 | PD ---
History of Present Illness Chief Complaint: Psychiatric Symptoms Time Seen by Provider: 08:45 Travel History International Travel<30 Days: No Contact w/Intl Traveler<30days: No Known affected area: No Legal Status Legal Status: Lynn Act Lynn Act Signed By: Jean-Claude Chamberlain History of Present Illness: History of Present Illness HPI This is a 61-year-old female history of bipolar disorder who presents today under Lynn act initiated by MANJEET. The BA alleges that she called the police and stated that she wanted to kill herself and had homicidal thoughts, that she was depressed and ran out of her medication. Apparently she called [facility] hotline and stated she was suicidal. Patient stated that she's not been taking her medications for several days because she had run out of the mediation and because she felt that the Citalopram was causing her to have an allergic reaction. Patient is seen and EMR is reviewed. She was hospitalized at [facility] and discharged on october 31. Patient has been monitored here in J pod with no behavioral concerns and no suicidality. She is alert and oriented. Speech is clear and logical. No pressure of speech. There is no indication of any hallucinatory process. She denies any suicidal or homicidal ideation. She tells me " I don't know w why the hotline contacted the police. I wanted to talk to someone about my medication. I have an appointment today at 1: 30 at [facility] and I don't want to miss my appointment". Patient with no depressive or anxious symptoms. Does tell me she stopped the Celexa because she developed a rash. PFSH Past Medical History Hx Anticoagulant Therapy: Yes Arthritis: No Asthma: Yes Autoimmune Disease: No Blood Disorders: No Bipolar Disorder: Yes Anxiety: Yes Depression: Yes Heart Rhythm Problems: No Cancer: Yes (BREAST AND UTERINE) Cardiac Catheterization: Yes Cardiovascular Problems: Yes High Cholesterol: Yes Chemotherapy: No Chest Pain: Yes Congestive Heart Failure: Yes COPD: Yes Cerebrovascular Accident: Yes Diabetes: Yes Patient Takes Glucophage: Yes Diminished Hearing: Yes Endocrine: No Fibromyalgia: Yes GERD: Yes Glaucoma: No Genitourinary: No Headaches: No Hepatitis: Yes (C) Hiatal Hernia: No Herniated Disk: Yes Hypertension: Yes Immune Disorder: No Implanted Vascular Access Dvce: No Kidney Stones: Yes Musculoskeletal: Yes (RT SHOULDER,RT KNEE 3 HERNIATED DISCS) Neurologic: No Psychiatric: Yes Reproductive: No Respiratory: Yes Immunizations Current: No Migraines: Yes Myocardial Infarction: Yes Radiation Therapy: No Renal Failure: No Schizophrenia: Yes (PARANOID SCHIZOPHRENIA) Seizures: No Sickle Cell Disease: No Sleep Apnea: No Thyroid Disease: Yes (HYPOTHYROIDISM) Triglycerides - High: Yes Ulcer: No Menopausal: Yes : 5 Para: 2 : 3 Ectopic : Yes Ovarian Cysts: Yes Past Surgical History Abdominal Surgery: No AICD: No Appendectomy: No Arteriovenous Shunt: No Cardiac Surgery: No Cholecystectomy: No Ear Surgery: No Endocrine Surgery: No Eye Surgery: Yes (BLIND LEFT EYE-surgery) Genitourinary Surgery: No Gynecologic Surgery: Yes (BX BILATERAL BREAST) Hysterectomy: Yes Insulin Pump: No Joint Replacement: No Oral Surgery: No Pacemaker: No Thoracic Surgery: No Other Surgery: No Psychiatric History Psychiatric History Hx Psychiatric Treatment: bipolar disorder. History of Inpatient Treatment: Yes (Last hosp at [facility] . 2017. ) Guns or firearms in home: No Social History female. lives by herself. her mother lives close by. retired. Hx Alcohol Use: No (DENIES) Hx Tobacco Use: Yes (5 CIGS) Hx Substance Use: Yes Substance Use Type: Alcohol, Amphetamines-Stimulants Other Substances Used: TAKES NORCO FOR PAIN Hx of Substance Use Treatment: Yes Family Psychiatric History Negative Allergies-Medications (Allergen,Severity, Reaction): Coded Allergies: Baclofen (Verified Allergy, Unknown, 11/17/16) Celexa (Verified Allergy, Unknown, Rash, 11/17/16) Geodon (Verified Allergy, Unknown, 11/17/16) Sulfa (Verified Allergy, Unknown, does not know, 11/17/16) Haldol (Verified Adverse Reaction, Severe, "STIFFNESS", 11/17/16) Risperdal (Verified Adverse Reaction, Severe, anxiety, 11/17/16) Seroquel (Verified Adverse Reaction, Severe, anxiety, 11/17/16) Iron (Verified Adverse Reaction, Intermediate, dark bm's, 11/17/16) Reported Meds & Prescriptions Reported Meds & Active Scripts Active Prednisone 20 Mg Tab 20 Mg PO DAILY Proair Hfa 8.5 GM Inh (Albuterol Sulfate) 90 Mcg/Act Aer 2 Puff INH Q4-6H PRN 108 mcg/actuation Fenofibrate 145 Mg Tab 145 Mg PO DAILY Enalapril (Enalapril Maleate) 5 Mg Tab 5 Mg PO DAILY Aspirin Low Strength (Aspirin) 81 Mg Chew 81 Mg PO DAILY Reported Nitrostat SL (Nitroglycerin) 0.4 Mg Subl 0.4 Mg SL DIRECTED PRN 1 tablet under the tongue as needed for chest pain. Repeat every 5 minutes for a total of 3 DOSES or call 911 if NO relief. Promethazine-Codeine Liq 6.25-10 Mg/5 Ml Syrp 5 Ml PO Q8HR PRN Potassium Chloride Microencaps 20 Meq Tab 30 Meq PO DAILY Furosemide 80 Mg Tab 80 Mg PO DAILY Levothyroxine (Levothyroxine Sodium) 137 Mcg Tab 137 Mcg PO DAILY Lantus Inj (Insulin Glargine) 1,000 Unit/10 Ml Vial 10-12 Units SQ HS Xanax (Alprazolam) 2 Mg Tab 2 Mg PO Q8H PRN Lortab (Hydrocodone-Acetaminophen) 10-325 Mg Tab 1 Tab PO Q6H PRN Clopidogrel (Clopidogrel Bisulfate) 75 Mg Tab 75 Mg PO DAILY Review of Systems Except as stated in HPI: all other systems reviewed are Neg Exam Alert: Yes [place]: Person (ox4) Mood: Calm Affect: Appropriate Speech: Clear, Logical Eye Contact: Normal Memory Intact: Comment (No impairment) Hallucinations: Other (Negative) Delusions: No Suicidal: Ideation (deneis any) Homicidal: Ideation (denies any) Insight/Judgement Fair. Not impaired. [facility] Medical Decision Making Medical Record Reviewed: Yes Assessment/Plan Does not meet BA criteria at this time . Denies any suicidal or homicidal ideation, intent or plan. She is requesting discharge as she has an appointment at [facility] this afternoon and she does not want to miss this appointment. Lift BA and follow up with [facility] Orders Complete Blood Count With Diff (11/17/16 09:09) Comprehensive Metabolic Panel (11/17/16 09:09) Psych Screen (11/17/16 09:09) Drug Screen, Random Urine (11/17/16 09:09) Sodium Chlor 0.9% 1000 Ml Inj (Ns 1000 M (11/17/16 11:00) Diet Diabetic (11/17/16 Lunch) Diet Regular Basic (11/17/16 Dinner) Electrocardiogram (11/17/16 18:07) Ckmb (Isoenzyme) Profile (11/17/16 18:07) Troponin I (11/17/16 18:07) Aspirin (Aspirin) (11/17/16 18:15) Nitroglycerin Sl (Nitrostat Sl) (11/17/16 18:15) Insulin Detemir Inj (Levemir Inj) (11/17/16 20:30) Diphenhydramine (Benadryl) (11/17/16 20:30) Acetaminophen (Tylenol) (11/17/16 20:30) CKMB (11/17/16 22:15) CKMB% (11/17/16 22:15) Diet Diabetic (11/18/16 Breakfast) Results Vital Signs Date Time Temp Pulse Resp B/P Pulse Ox O2 Delivery O2 Flow Rate FiO2 11/18/16 05:59 76 22 123/60 11/18/16 01:58 82 18 136/80 11/17/16 21:35 73 18 132/61 11/17/16 15:00 98.3 126 18 126/60 99 11/17/16 14:28 81 18 141/75 11/17/16 09:07 81 17 11/17/16 09:04 97.6 81 16 120/55 94 Laboratory Tests Test 11/17/16 11/17/16 11/17/16 09:20 12:30 22:15 White Blood Count 10.8 Red Blood Count 4.17 Hemoglobin 11.0 Hematocrit 34.0 Mean Corpuscular Volume 81.4 Mean Corpuscular Hemoglobin 26.3 Mean Corpuscular Hemoglobin 32.3 Concent Red Cell Distribution Width 14.0 Platelet Count 274 Mean Platelet Volume 7.7 Neutrophils (%) (Auto) 53.2 Lymphocytes (%) (Auto) 36.2 Monocytes (%) (Auto) 8.3 Eosinophils (%) (Auto) 1.6 Basophils (%) (Auto) 0.7 Neutrophils # (Auto) 5.7 Lymphocytes # (Auto) 3.9 Monocytes # (Auto) 0.9 Eosinophils # (Auto) 0.2 Basophils # (Auto) 0.1 CBC Comment DIFF FINAL Differential Comment Sodium Level 140 Potassium Level 3.7 Chloride Level 102 Carbon Dioxide Level 30.4 Anion Gap 8 Blood Urea Nitrogen 23 Creatinine 1.18 Estimat Glomerular Filtration 47 Rate Random Glucose 160 Calcium Level 8.5 Total Bilirubin LESS THAN 0.1 Aspartate Amino Transf 16 (AST/SGOT) Alanine Aminotransferase 20 (ALT/SGPT) Alkaline Phosphatase 42 Total Protein 6.5 Albumin 2.9 Urine Opiates Screen POS Urine Barbiturates Screen NEG Urine Amphetamines Screen NEG Urine Benzodiazepines Screen POS Urine Cocaine Screen NEG Urine Cannabinoids Screen NEG Total Creatine Kinase 151 Creatine Kinase MB 2.6 Troponin I LESS THAN 0.02 Diagnosis Primary Impression: Bipolar disorder Psychiatrically Cleared: Yes Referrals: [facility] (Out patient) call for appointment Departure Forms: Tests/Procedures Patient Instructions: General Instructions, Stress (ED) Med/ Other Pt Specific Info: No Change to Meds Disposition: 01 DISCHARGE HOME Condition: Stable Problem Qualifiers Primary Impression: Bipolar disorder Qualified Code: F31.61 - Bipolar disorder, current episode mixed, mild Virginia Clemente [facility] Nov 18, 2016 08:56
--- NOTE | 2016-11-18 11:46 | EKG ---
Date Performed: 11/17/2016 Time Performed: 22:30:55 PTAGE: 61 years EKG: Sinus rhythm Since previous tracing, no significant change noted NORMAL ECG PREVIOUS TRACING : 07/28/2016 23.57.16 DOCTOR: Marquis Parekh Interpretating Date/Time 11/18/2016 11:45:23
== END 2016-11-18 10:24 | disposition home or self-care (01) ==
LOC: NEPE 09:01 → NEPJ 11-18 10:24
DX: Z02.89 Encounter for other administrative examinations (principal); F29 Unspecified psychosis not due to a substance or known physiological condition; E11.9 Type 2 diabetes mellitus without complications; E86.0 Dehydration; F31.61 Bipolar disorder, current episode mixed, mild; I10 Essential (primary) hypertension; E03.9 Hypothyroidism, unspecified; E78.5 Hyperlipidemia, unspecified; Z91.14 Patient's other noncompliance with medication regimen; Z72.0 Tobacco use; Z79.4 Long term (current) use of insulin; Z86.59 Personal history of other mental and behavioral disorders; Z87.09 Personal history of other diseases of the respiratory system; Z86.79 Personal history of other diseases of the circulatory system; Z87.39 Personal history of other diseases of the musculoskeletal system and connective tissue; Z87.19 Personal history of other diseases of the digestive system; Z86.19 Personal history of other infectious and parasitic diseases
CPT/HCPCS: 80053; 80307; 82550; 82552; 84484; 85025; 93005; 96360; 96372; 99284; J7030; Q0163

== ENCOUNTER 2016-12-20 00:13 | Emergency (ER) | payer MEDICAID ==
[~2016-12-20] VITALS: Ht 162.6 cm; Wt 101.6 kg
[~2016-12-20 00:13] MED LIST changes: -FURO40TA PO; +FURO80TA PO; +NITR0.4S SL; -PROM25TA5 PO; +PROM6.256 PO; -ZITHTAB PO; -ZYPR10TA PO
[2016-12-20] MEDS ORDERED: NICO21DI2 T-DERMAL (00:33)
[2016-12-20 00:34] VITALS: BP 116/60; PULSE 93; RESP 16; TEMP 98.4; O2SAT 97
[2016-12-20 00:38] VITALS: BP 116/60; PULSE 93; RESP 16; TEMP 98.4; O2SAT 97
[2016-12-20] MEDS ORDERED: SODIUM CHLORIDE 0.9% FLUSH 10 ML FLUSH IVF PRN (01:30)
--- NOTE | 2016-12-20 01:39 | RADRPT ---
EXAM DATE/TIME: 12/20/2016 01:33 [place] COMPARISON: CHEST SINGLE AP, November 10, 2016, 0:56. INDICATIONS : Cough, shortness of breath, flu-like symptoms for 1 week MEDICAL HISTORY : Hypertension. Chronic obstructive pulmonary disease. Myocardial infarction. Hepatitis C. Diabetes. Br east cancer. Uterine cancer. Schizophrenia. Cerebrovascular accident, CHF SURGICAL HISTORY : None. ENCOUNTER: Initial ACUITY: 1 week PAIN SCORE: 0/10 LOCATION: Bilateral chest FINDINGS: Cardiomegaly. Clear lungs. Osseous structures are intact. CONCLUSION: No acute disease. Jama Metcalf MD on December 20, 2016 at 1:37 Board Certified Radiologist. This report was verified electronically.
[2016-12-20 02:01] VITALS: RESP 16; O2SAT 96
[2016-12-20 02:02] LABS: BLOOD, URINE NEG (NEG); GLUCOSE,URINE 100 mg/dL (NEG); KETONE, URINE NEG (NEG); NITRITE,URINE NEG (NEG)
[2016-12-20] MEDS: RESP: ALBUTEROL 2.5 MG/IPRATROPIUM 0.5 MG NEB (SCH) INH ×2 (02:02→02:03)
[2016-12-20 02:03] LABS: AUTOMATED NEUTROPHIL # 6.2 TH/MM3 (1.8-7.7); BASOPHIL # 0.3 TH/MM3 (0-0.2); BASOPHIL % 2.8 % (0.0-2.0); EOSINOPHIL # 0.2 TH/MM3 (0-0.4); EOSINOPHIL % 1.6 % (0.0-4.0); HEMATOCRIT 37.5 % (35.0-46.0); HEMO FLAGS DIFF FINAL; LYMPHOCYTE # 2.9 TH/MM3 (1.0-4.8); MEAN CELL VOLUME 78.9 FL (80.0-100.0); MEAN CORPUSCULAR HEMOGLOBIN 26.7 PG (27.0-34.0); MEAN CORPUSCULAR HGB CONC 33.8 % (32.0-36.0); MONO % 7.9 % (0.0-8.0); NEUT % 59.7 % (16.0-70.0); PLATELET COUNT 355 TH/MM3 (150-450); RED BLOOD COUNT 4.75 MIL/MM3 (4.00-5.30); WHITE BLOOD COUNT 10.4 TH/MM3 (4.0-11.0)
[2016-12-20 02:07] LABS: URINE COLOR STRAW (YELLW/STRAW)
[2016-12-20 02:08] LABS: BACTERIA, URINE OCC /hpf; COMMENT (UR) CULT NOT INDICATED; CULTURE IF INDICATED CULT NOT INDICATED; RBC, URINE 0-2 /hpf (0-3); SQUAMOUS EPITHELIAL CELL URINE 0-5 /hpf (0-5); WBC, URINE 0-2 /hpf (0-5)
[2016-12-20 02:09] LABS: CHLORIDE 96 MEQ/L (98-107); POTASSIUM 3.4 MEQ/L (3.5-5.1); SODIUM (NA) 136 MEQ/L (136-145)
[2016-12-20 02:12] LABS: ANION GAP 8 MEQ/L (5-15); BICARBONATE 32.2 MEQ/L (21.0-32.0); BLOOD UREA NITROGEN 21 MG/DL (7-18); MAGNESIUM 1.9 MG/DL (1.5-2.5)
[2016-12-20 02:16] LABS: GLOMERULAR FILTRATION RATE 51 ML/MIN (>89)
--- NOTE | 2016-12-20 02:34 | PD ---
HPI Chief Complaint: Cold / Flu Symptoms Time Seen by Provider: 01:26 Travel History International Travel<30 days: No Contact w/Intl Traveler<30days: No Traveled to known affect area: No History of Present Illness HPI 61 year-old female presents to the emergency department from home by EMS transport for complaint of not feeling well. Patient states that she thinks she 's had some cold symptoms recently, nasal congestion, sinus pressure, and rare nose bleed. Patient denies fever chills or productive cough although has sounded congested. Patient has history of COPD. Patient is also diabetic. Patient states last evening while eating some fish she thinks she may have swallowed a small bone. Patient states that after eating the fish did vomit and states that perhaps she was able to clear whatever she had accidentally swallowed on her own. Patient states that after vomiting she did continue to feel short of breath and so decided to come to the emergency room to be evaluated. Presently she states he feels fine and voicing any concerns or complaints. Patient does note however while here in the emergency department that at times while getting in and out of bed to go to the bathroom at the bedside commode that she will develop some wheezing and requests updraft treatments. Patient denies other concerns or complaints. Patient has not had any chest pain. Patient does not report any orthopnea or PND or lower extremity pain or swelling. Patient also denies any abdominal pain. Patient's had no dysuria frequency urgency or flank pain. PFSH Past Medical History Narrative Medical Asthma, bipolar disorder, uterine breast cancer, dyslipidemia, CHF, COPD, CVA, diabetes, dyslipidemia, CAD, fibromyalgia, arthritis, hepatitis C, schizophrenia , hypothyroidism, bilateral mastectomy, hysterectomy; tobacco use; nursing notes reviewed Hx Anticoagulant Therapy: Yes Arthritis: No Asthma: Yes Autoimmune Disease: No Blood Disorders: No Bipolar Disorder: Yes Anxiety: Yes Depression: Yes Heart Rhythm Problems: No Cancer: Yes (BREAST AND UTERINE) Cardiac Catheterization: Yes Cardiovascular Problems: Yes High Cholesterol: Yes Chemotherapy: No Chest Pain: Yes Congestive Heart Failure: Yes COPD: Yes Cerebrovascular Accident: Yes (2009) Diabetes: Yes Patient Takes Glucophage: No Diminished Hearing: Yes Endocrine: No Fibromyalgia: Yes GERD: Yes Glaucoma: No Genitourinary: No Headaches: No Hepatitis: Yes (C) Hiatal Hernia: No Heparin Induced Thrombocytopen: No Herniated Disk: Yes Hypertension: Yes Immune Disorder: No Implanted Vascular Access Dvce: No Kidney Stones: Yes Musculoskeletal: Yes (RT SHOULDER,RT KNEE 3 HERNIATED DISCS) Neurologic: No Psychiatric: Yes Reproductive: No Respiratory: Yes Immunizations Current: No Migraines: Yes Myocardial Infarction: Yes Radiation Therapy: No Renal Failure: No Schizophrenia: Yes (PARANOID SCHIZOPHRENIA) Seizures: No Sickle Cell Disease: No Sleep Apnea: No Thyroid Disease: Yes (HYPOTHYROIDISM) Triglycerides - High: Yes Ulcer: No Tetanus Vaccination: > 5 Years Influenza Vaccination: Yes ?: Unknown Menopausal: Yes : 5 Para: 2 : 3 Ectopic : Yes Ovarian Cysts: Yes Past Surgical History Abdominal Surgery: No AICD: No Appendectomy: No Arteriovenous Shunt: No Cardiac Surgery: No Cholecystectomy: No Ear Surgery: No Endocrine Surgery: No Eye Surgery: Yes (BLIND LEFT EYE-surgery) Genitourinary Surgery: No Gynecologic Surgery: Yes (BX BILATERAL BREAST) Hysterectomy: Yes Insulin Pump: No Joint Replacement: No Neurologic Surgery: No Oral Surgery: No Pacemaker: No Thoracic Surgery: No Other Surgery: No Social History Alcohol Use: No (DENIES) Tobacco Use: Yes (5 CIGS, CURRENTLY WEARING NICOTINE PATCH) Substance Use: Yes Allergies-Medications (Allergen,Severity, Reaction): Coded Allergies: Baclofen (Verified Allergy, Unknown, 12/20/16) Celexa (Verified Allergy, Unknown, Rash, 12/20/16) Geodon (Verified Allergy, Unknown, 12/20/16) Sulfa (Verified Allergy, Unknown, does not know, 12/20/16) Haldol (Verified Adverse Reaction, Severe, "STIFFNESS", 12/20/16) Risperdal (Verified Adverse Reaction, Severe, anxiety, 12/20/16) Seroquel (Verified Adverse Reaction, Severe, anxiety, 12/20/16) Iron (Verified Adverse Reaction, Intermediate, dark bm's, 12/20/16) Reported Meds & Prescriptions Reported Meds & Active Scripts Active Zithromax Tri-Castillo (Azithromycin) 500 Mg Dspk 500 Mg PO DAILY Prednisone 20 Mg Tab 20 Mg PO DAILY Fenofibrate 145 Mg Tab 145 Mg PO DAILY Enalapril (Enalapril Maleate) 5 Mg Tab 5 Mg PO DAILY Aspirin Low Strength (Aspirin) 81 Mg Chew 81 Mg PO DAILY Reported Symbicort Inh (Budesonide/Formoterol Fumarate) 80-4.5 Mcg/Act Aero 2 Puff INH Q12HR Nicotine Patch (Nicotine) 21 Mg/24 Hr Patch 21 Mg T-DERMAL DAILY Nitrostat SL (Nitroglycerin) 0.4 Mg Subl 0.4 Mg SL DIRECTED PRN 1 tablet under the tongue as needed for chest pain. Repeat every 5 minutes for a total of 3 DOSES or call 911 if NO relief. Promethazine-Codeine Liq 6.25-10 Mg/5 Ml Syrp 5 Ml PO Q8HR PRN Potassium Chloride Microencaps 20 Meq Tab 30 Meq PO DAILY Furosemide 80 Mg Tab 80 Mg PO DAILY Levothyroxine (Levothyroxine Sodium) 137 Mcg Tab 137 Mcg PO DAILY Lantus Inj (Insulin Glargine) 1,000 Unit/10 Ml Vial 10-12 Units SQ HS Xanax (Alprazolam) 2 Mg Tab 2 Mg PO Q8H PRN Lortab (Hydrocodone-Acetaminophen) 10-325 Mg Tab 1 Tab PO Q6H PRN Clopidogrel (Clopidogrel Bisulfate) 75 Mg Tab 75 Mg PO DAILY Narrative Medication Symbicort; albuterol inhaler Review of Systems Except as stated in HPI: all other systems reviewed are Neg General / Constitutional: No: Fever, Chills HENT: Positive: Congestion, Nosebleed Cardiovascular: No: Chest Pain or Discomfort Respiratory: Positive: Cough, Shortness of Breath, Wheezing, No: Orthopnea, Pleuritic Pain Gastrointestinal: Positive: Vomiting (x1), No: Nausea, Abdominal Pain, Hematemesis, Hematochezia, Loss of Appetite Genitourinary: No: Dysuria, Flank Pain Musculoskeletal: No: Myalgias, Arthralgias Skin: No Rash Neurologic: No: Weakness Psychiatric: Positive: Anxiety, No: Suicidal Ideations Hematologic/Lymphatic: No: Lymph Node Enlargement Physical Exam Narrative GENERAL: Well-developed well-nourished female in no acute distress no respiratory distress SKIN: Warm and dry. HEAD: Normocephalic. EYES: No scleral icterus. No injection or drainage. NECK: Supple, trachea midline. No JVD or lymphadenopathy. CARDIOVASCULAR: Regular rate and rhythm without murmurs, gallops, or rubs. RESPIRATORY: Breath sounds equal bilaterally few expiratory wheezes. No accessory muscle use. GASTROINTESTINAL: Abdomen soft, non-tender, nondistended. MUSCULOSKELETAL: No cyanosis, or edema. BACK: Nontender without obvious deformity. No CVA tenderness. Data Data Last Documented VS Vital Signs Date Time Temp Pulse Resp B/P Pulse Ox O2 Delivery O2 Flow Rate FiO2 12/20/16 02:01 16 96 Room Air 12/20/16 00:38 98.4 93 116/60 Orders Complete Blood Count With Diff (12/20/16 01:26) Basic Metabolic Panel (Bmp) (12/20/16 01:26) B-Type Natriuretic Peptide (12/20/16 01:26) Magnesium (Mg) (12/20/16 01:26) Troponin I (12/20/16 01:26) Iv Access Insert/Monitor (12/20/16 01:26) Electrocardiogram (12/20/16:26) Ecg Monitoring (12/20/16:26) Oximetry (12/20/16 01:26) Oxygen Administration (12/20/16 01:26) Chest, Single Ap (12/20/16 01:26) Sodium Chloride 0.9% Flush (Ns Flush) (12/20/16 01:30) Urinalysis - C+S If Indicated (12/20/16 01:34) Albuterol-Ipratropium Neb (Duoneb Neb) (12/20/16 02:00) Sodium Chlor 0.9% 250 Ml Inj (Ns 250 Ml (12/20/16 02:45) Labs Laboratory Tests Test 12/20/16 01:43 White Blood Count 10.4 TH/MM3 Red Blood Count 4.75 MIL/MM3 Hemoglobin 12.7 GM/DL Hematocrit 37.5 % Mean Corpuscular Volume 78.9 FL Mean Corpuscular Hemoglobin 26.7 PG Mean Corpuscular Hemoglobin 33.8 % Concent Red Cell Distribution Width 14.0 % Platelet Count 355 TH/MM3 Mean Platelet Volume 7.9 FL Neutrophils (%) (Auto) 59.7 % Lymphocytes (%) (Auto) 28.0 % Monocytes (%) (Auto) 7.9 % Eosinophils (%) (Auto) 1.6 % Basophils (%) (Auto) 2.8 % Neutrophils # (Auto) 6.2 TH/MM3 Lymphocytes # (Auto) 2.9 TH/MM3 Monocytes # (Auto) 0.8 TH/MM3 Eosinophils # (Auto) 0.2 TH/MM3 Basophils # (Auto) 0.3 TH/MM3 CBC Comment DIFF FINAL Differential Comment Urine Color STRAW Urine Turbidity CLEAR Urine pH 6.0 Urine Specific [place] 1.004 Urine Protein NEG mg/dL Urine Glucose (UA) 100 mg/dL Urine Ketones NEG mg/dL Urine Occult Blood NEG Urine Nitrite NEG Urine Bilirubin NEG Urine Leukocyte Esterase NEG Urine RBC 0-2 /hpf Urine WBC 0-2 /hpf Urine Squamous Epithelial 0-5 /hpf Cells Urine Bacteria OCC /hpf Microscopic Urinalysis Comment CULT NOT INDICATED Sodium Level 136 MEQ/L Potassium Level 3.4 MEQ/L Chloride Level 96 MEQ/L Carbon Dioxide Level 32.2 MEQ/L Anion Gap 8 MEQ/L Blood Urea Nitrogen 21 MG/DL Creatinine 1.10 MG/DL Estimat Glomerular Filtration 51 ML/MIN Rate Random Glucose 227 MG/DL Calcium Level 8.9 MG/DL Magnesium Level 1.9 MG/DL Troponin I LESS THAN 0.02 NG/ML B-Type Natriuretic Peptide 17 PG/ML MDM Medical Decision Making Medical Screen Exam Complete: Yes Emergency Medical Condition: Yes Medical Record Reviewed: Yes Interpretation(s) Last Impressions Chest X-Ray 12/20/16 0126 Signed Impressions: Service Date/Time: Tuesday, December 20, 2016 01:33 - CONCLUSION: No acute disease. Jama Metcalf MD CBC & BMP Diagram 12/20/16 01:43 Vital Signs Date Time Temp Pulse Resp B/P Pulse Ox O2 Delivery O2 Flow Rate FiO2 12/20/16 02:01 16 96 Room Air 12/20/16 02:01 96 Room Air 12/20/16 00:38 16 97 Room Air 12/20/16 00:38 98.4 93 16 116/60 97 Room Air 12/20/16 00:34 98.4 93 16 116/60 97 Differential Diagnosis Dyspnea, exacerbation COPD, CAD, CHF, bronchitis, pneumonia, electrolyte disturbance, poorly controlled diabetes Narrative Course Patient placed on cardiac access obtained EKG ordered normal sinus rhythm rate [address] elevation or injury pattern change noted Patient administered DuoNeb updrafts 2 Left values are remarkable for mild hypokalemia 3.4 random glucose of 227 urinalysis shows glucosuria but no ketonuria bicarbonate is not decreased and anion gap is not elevated Chest x-ray no lobar infiltrate or acute process Patient resting comfortably voicing no concerns or complaints and is stable for outpatient management; patient presents with mild exacerbation of COPD currently on steroid therapy additional steroid administration not indicated and patient does not need a refill of medications. Patient reports she saw her PCP yesterday and has appointment in 2 weeks. Diagnosis Primary Impression: Chronic obstructive pulmonary disease Qualified Code: J44.9 - Chronic obstructive pulmonary disease, unspecified COPD type Additional Impression: Sinusitis Qualified Code: J32.9 - Sinusitis, unspecified chronicity, unspecified location Referrals: Primary Care Physician call for appointment Patient Instructions: General Instructions Additional Instructions: Increase fluid hydration Continue current medications as presently prescribed Return to the emergency for for any concerns or change in condition Take acetaminophen/Tylenol as needed for fever 100.4F or greater Add potassium containing foods and beverages to dietary intake Complete course of antibiotic as prescribed Med/Other Pt SpecificInfo: Prescription(s) given Scripts Azithromycin (Zithromax Tri-Castillo)500 Mg [id number] Mg PO DAILY #1 DSPK Ref 0 Prov:Crista Ron MD 12/20/16 Disposition: 01 DISCHARGE HOME Condition: Stable Crista Ron MD Dec 20, 2016 02:33
[2016-12-20] MEDS ORDERED: ZITHTAB2 PO ×2 (02:40→03:10)
[2016-12-20] MEDS ORDERED: SODIUM CHLOR 0.9% 250 ML INJ 250 ML IV ONE (02:45)
[2016-12-20] MEDS ORDERED: SYMB80AE INH (02:49)
[2016-12-20 03:14] VITALS: BP 111/62; PULSE 82; RESP 16; O2SAT 97
[2016-12-20 05:11] VITALS: BP 138/60; PULSE 89; RESP 18; O2SAT 92
--- NOTE | 2016-12-21 10:54 | EKG ---
Date Performed: 12/20/2016 Time Performed: 02:00:09 PTAGE: 61 years EKG: Sinus rhythm LOW QRS VOLTAGE IN PRECORDIAL LEADS BORDERLINE ECG PREVIOUS TRACING : 11/17/2016 22.30 DOCTOR: Jayme Llanes Interpretating Date/Time 12/21/2016 10:52:05
== END 2016-12-20 05:42 | disposition home or self-care (01) ==
LOC: PHED 00:13
DX: J44.9 Chronic obstructive pulmonary disease, unspecified (principal); J32.9 Chronic sinusitis, unspecified; I10 Essential (primary) hypertension; E11.9 Type 2 diabetes mellitus without complications; F31.9 Bipolar disorder, unspecified; E78.00 Pure hypercholesterolemia, unspecified; I50.9 Heart failure, unspecified; H91.90 Unspecified hearing loss, unspecified ear; M79.7 Fibromyalgia; K21.9 Gastro-esophageal reflux disease without esophagitis; Z87.442 Personal history of urinary calculi; I25.2 Old myocardial infarction; E03.9 Hypothyroidism, unspecified
CPT/HCPCS: 71010; 80048; 81001; 83735; 83880; 84484; 85025; 93005; 94640; 94664; 96360; 99285; J7050

== ENCOUNTER 2016-12-23 04:15 | Emergency (ER) | payer MEDICAID ==
[~2016-12-23] VITALS: Ht 165.1 cm; Wt 120.0 kg
[~2016-12-23 04:15] MED LIST changes: -ALBUAER3 INH; +NICO21DI2 T-DERMAL; +SYMB80AE INH; +ZITHTAB2 PO
[2016-12-23 04:24] VITALS: BP 149/71; PULSE 87; RESP 16; TEMP 97.6
--- NOTE | 2016-12-23 04:41 | PD ---
HPI Chief Complaint: Psychiatric Symptoms Time Seen by Provider: 04:37 Travel History International Travel<30 days: No Contact w/Intl Traveler<30days: No Traveled to known affect area: No History of Present Illness HPI Patient comes in voluntarily requesting psychiatric evaluation. Patient states she's is feeling depressed and overwhelmed. Patient denies any suicidal or homicidal ideations. Patient denies anything making her symptoms better. Patient states that she is dealing with a lot of stressors in her life currently that seem to make her symptoms worse. Patient denies any medical complaints at this time. Denies any chest pain, shortness of breath out of the ordinary, nausea, vomiting, abdominal pain, headache, or bladder, or numbness or tingling anywhere, or fevers. PFSH Past Medical History Hx Anticoagulant Therapy: Yes Arthritis: No Asthma: Yes Autoimmune Disease: No Blood Disorders: No Bipolar Disorder: Yes Anxiety: Yes Depression: Yes Heart Rhythm Problems: No Cancer: Yes (BREAST AND UTERINE) Cardiac Catheterization: Yes Cardiovascular Problems: Yes High Cholesterol: Yes Chemotherapy: No Chest Pain: Yes Congestive Heart Failure: Yes COPD: Yes Cerebrovascular Accident: Yes (2009) Diabetes: Yes Patient Takes Glucophage: Yes Diminished Hearing: Yes Endocrine: No Fibromyalgia: Yes GERD: Yes Glaucoma: No Genitourinary: No Headaches: No Hepatitis: Yes (C) Hiatal Hernia: No Heparin Induced Thrombocytopen: No Herniated Disk: Yes Hypertension: Yes Immune Disorder: No Implanted Vascular Access Dvce: No Kidney Stones: Yes Musculoskeletal: Yes (RT SHOULDER,RT KNEE 3 HERNIATED DISCS) Neurologic: No Psychiatric: Yes Reproductive: No Respiratory: Yes Immunizations Current: No Migraines: Yes Myocardial Infarction: Yes Radiation Therapy: No Renal Failure: No Schizophrenia: Yes (PARANOID SCHIZOPHRENIA) Seizures: No Sickle Cell Disease: No Sleep Apnea: No Thyroid Disease: Yes (HYPOTHYROIDISM) Triglycerides - High: Yes Ulcer: No Tetanus Vaccination: Unknown Influenza Vaccination: Yes Menopausal: Yes : 5 Para: 2 : 3 Ectopic : Yes Ovarian Cysts: Yes Past Surgical History Abdominal Surgery: No AICD: No Appendectomy: No Arteriovenous Shunt: No Cardiac Surgery: No Cholecystectomy: No Ear Surgery: No Endocrine Surgery: No Eye Surgery: Yes (BLIND LEFT EYE-surgery) Genitourinary Surgery: No Gynecologic Surgery: Yes (BX BILATERAL BREAST) Hysterectomy: Yes Insulin Pump: No Joint Replacement: No Neurologic Surgery: No Oral Surgery: No Pacemaker: No Thoracic Surgery: No Other Surgery: No Social History Alcohol Use: No (DENIES) Tobacco Use: Yes (5 CIGS, CURRENTLY WEARING NICOTINE PATCH) Substance Use: Yes Allergies-Medications (Allergen,Severity, Reaction): Coded Allergies: Baclofen (Verified Allergy, Unknown, 12/23/16) Celexa (Verified Allergy, Unknown, Rash, 12/23/16) Geodon (Verified Allergy, Unknown, 12/23/16) Sulfa (Verified Allergy, Unknown, does not know, 12/23/16) Haldol (Verified Adverse Reaction, Severe, "STIFFNESS", 12/23/16) Risperdal (Verified Adverse Reaction, Severe, anxiety, 12/23/16) Seroquel (Verified Adverse Reaction, Severe, anxiety, 12/23/16) Iron (Verified Adverse Reaction, Intermediate, dark bm's, 12/23/16) Reported Meds & Prescriptions Reported Meds & Active Scripts Active Zithromax Tri-Casitllo (Azithromycin) 500 Mg Dspk 500 Mg PO DAILY Prednisone 20 Mg Tab 20 Mg PO DAILY Fenofibrate 145 Mg Tab 145 Mg PO DAILY Enalapril (Enalapril Maleate) 5 Mg Tab 5 Mg PO DAILY Aspirin Low Strength (Aspirin) 81 Mg Chew 81 Mg PO DAILY Reported Symbicort Inh (Budesonide/Formoterol Fumarate) 80-4.5 Mcg/Act Aero 2 Puff INH Q12HR Nicotine Patch (Nicotine) 21 Mg/24 Hr Patch 21 Mg T-DERMAL DAILY Nitrostat SL (Nitroglycerin) 0.4 Mg Subl 0.4 Mg SL DIRECTED PRN 1 tablet under the tongue as needed for chest pain. Repeat every 5 minutes for a total of 3 DOSES or call 911 if NO relief. Promethazine-Codeine Liq 6.25-10 Mg/5 Ml Syrp 5 Ml PO Q8HR PRN Potassium Chloride Microencaps 20 Meq Tab 30 Meq PO DAILY Furosemide 80 Mg Tab 80 Mg PO DAILY Levothyroxine (Levothyroxine Sodium) 137 Mcg Tab 137 Mcg PO DAILY Lantus Inj (Insulin Glargine) 1,000 Unit/10 Ml Vial 10-12 Units SQ HS Xanax (Alprazolam) 2 Mg Tab 2 Mg PO Q8H PRN Lortab (Hydrocodone-Acetaminophen) 10-325 Mg Tab 1 Tab PO Q6H PRN Clopidogrel (Clopidogrel Bisulfate) 75 Mg Tab 75 Mg PO DAILY Review of Systems Except as stated in HPI: all other systems reviewed are Neg Physical Exam Narrative GENERAL: Well-developed, overly nourished, in no acute distress, and non-ill appearing. SKIN: Focused skin assessment warm and dry. HEAD: Atraumatic. Normocephalic. EYES: Pupils equal and round. EOMI. No scleral icterus. No injection or drainage. ENT: No nasal bleeding or discharge. Mucous membranes pink and moist. NECK: Trachea midline. Supple. No nuclear rigidity. CARDIOVASCULAR: Regular rate and rhythm. No murmur appreciated. RESPIRATORY: No accessory muscle use. No respiratory distress. Scant wheezing throughout. Breath sounds equal bilaterally. MUSCULOSKELETAL: No obvious deformities. No clubbing. No cyanosis. No edema. Full range of motion. NEUROLOGICAL: Awake and alert. No obvious cranial nerve deficits. Motor grossly within normal limits. Normal speech. PSYCHIATRIC: Appropriate mood and affect; insight and judgment normal. Data Data Last Documented VS Vital Signs Date Time Temp Pulse Resp B/P Pulse Ox O2 Delivery O2 Flow Rate FiO2 12/23/16 04:27 20 12/23/16 04:24 97.6 87 149/71 Orders Psych Screen (12/23/16 04:36) MDM Medical Decision Making Medical Screen Exam Complete: Yes Emergency Medical Condition: No Differential Diagnosis Homicidal, suicidal, depression, adjustment disorder, other Narrative Course Patient was seen and examined. Labs were reviewed from 3 days ago and I do not see a need for additional laboratory testing at this time. Patient medically cleared for further treatment and evaluation by psych. Final disposition per psych. 0550 patient longer wanting to stay in the ER that she has an appointment later today to go home so she can take her home medications. Patient is not homicidal or suicidal and is stable for discharge home for outpatient follow-up. Patient in no obvious distress upon re-evaluation. Any questions/concerns in reference to patient diagnosis/condition discussed and clarified prior to patient's discharge. Reinforced sheer importance of close follow up with patient 's primary physician or primary care clinic. Instructed patient to return to ED immediately, if symptoms return/worsen. Pt showed understanding of above instructions. Further instructions and recommendations were detailed in discharge paperwork. Pt ambulated without difficulty out of ED at discharge. Diagnosis Primary Impression: Well adult health check Referrals: [facility] Patient Instructions: General Instructions Additional Instructions: Follow-up with your primary care physician and/or [facility] in 1-2 days for reevaluation. Return to the emergency department if symptoms get worse. Disposition: 01 DISCHARGE HOME Condition: Stable Claus Meier Dec 23, 2016 04:41
== END 2016-12-23 06:10 | disposition home or self-care (01) ==
LOC: NEPD 04:15
DX: F32.9 Major depressive disorder, single episode, unspecified (principal)
CPT/HCPCS: 99284

== ENCOUNTER 2017-01-24 02:59 | Emergency (ER) | payer MEDICAID ==
[~2017-01-24] VITALS: Ht 163.8 cm; Wt 100.0 kg
[2017-01-24 02:59] VITALS: BP 117/62; PULSE 77; RESP 18; TEMP 98.5; O2SAT 95
[2017-01-24] MEDS ORDERED: METO25TA3 PO (03:23)
--- NOTE | 2017-01-24 03:26 | PD ---
HPI . Fall out of bed Chief Complaint: Fall Time Seen by Provider: 03:02 Travel History International Travel<30 days: No Contact w/Intl Traveler<30days: No Traveled to known affect area: No History of Present Illness HPI Patient is a 61 year old female with history of Diabetes Mellitus, COPD, TX, CVA, Hep C, Depression, Schizophrenia, and Fibromyalgia presents to the [facility] ED after falling out of bed. Patient is a poor historian. Patient states she was sleeping and her phone rang and fell out of bed trying to retrieve her phone off her night stand. She thinks when she fell she lost consciousness and hit her head and was "out for five minutes". She called her mom who suggested she call EMS. She is currently complaining of left hip and back pain but states she does not want any pain medication because she already take Hydrocodone. She admits to falling out of bed frequently. She denies any alcohol or recreational drug use. She smokes tobacco occasionally. PFSH Past Medical History Hx Anticoagulant Therapy: Yes Arthritis: No Asthma: Yes Autoimmune Disease: No Blood Disorders: No Bipolar Disorder: Yes Anxiety: Yes Depression: Yes Heart Rhythm Problems: No Cancer: Yes (BREAST AND UTERINE) Cardiac Catheterization: Yes Cardiovascular Problems: Yes High Cholesterol: Yes Chemotherapy: No Chest Pain: Yes Congestive Heart Failure: Yes COPD: Yes Cerebrovascular Accident: Yes (2009) Diabetes: Yes Diminished Hearing: Yes Endocrine: No Fibromyalgia: Yes GERD: Yes Glaucoma: No Genitourinary: No Headaches: No Hepatitis: Yes (C) Hiatal Hernia: No Heparin Induced Thrombocytopen: No Herniated Disk: Yes Hypertension: Yes Immune Disorder: No Implanted Vascular Access Dvce: No Kidney Stones: Yes Musculoskeletal: Yes (RT SHOULDER,RT KNEE 3 HERNIATED DISCS) Neurologic: No Psychiatric: Yes Reproductive: No Respiratory: Yes Immunizations Current: No Migraines: Yes Myocardial Infarction: Yes Radiation Therapy: No Renal Failure: No Schizophrenia: Yes (PARANOID SCHIZOPHRENIA) Seizures: No Sickle Cell Disease: No Sleep Apnea: No Thyroid Disease: Yes (HYPOTHYROIDISM) Triglycerides - High: Yes Ulcer: No ?: Not Menopausal: Yes : 5 Para: 2 : 3 Ectopic : Yes Ovarian Cysts: Yes Past Surgical History Abdominal Surgery: No AICD: No Appendectomy: No Arteriovenous Shunt: No Cardiac Surgery: No Cholecystectomy: No Ear Surgery: No Endocrine Surgery: No Eye Surgery: Yes (BLIND LEFT EYE-surgery) Genitourinary Surgery: No Gynecologic Surgery: Yes (BX BILATERAL BREAST) Hysterectomy: Yes Insulin Pump: No Joint Replacement: No Neurologic Surgery: No Oral Surgery: No Pacemaker: No Thoracic Surgery: No Other Surgery: No Social History Alcohol Use: No (DENIES) Tobacco Use: Yes (5 CIGS, CURRENTLY WEARING NICOTINE PATCH) Substance Use: Yes Allergies-Medications (Allergen,Severity, Reaction): Coded Allergies: Sulfa (Sulfonamide Antibiotics) (Unverified Allergy, Unknown, does not know, 01/24/17) baclofen (Unverified Allergy, Unknown, 01/24/17) citalopram (Unverified Allergy, Unknown, Rash, 01/24/17) ziprasidone (Unverified Allergy, Unknown, 01/24/17) haloperidol (Unverified Adverse Reaction, Severe, "STIFFNESS", 01/24/17) quetiapine (Unverified Adverse Reaction, Severe, anxiety, 01/24/17) risperidone (Unverified Adverse Reaction, Severe, anxiety, 01/24/17) ferrous fumarate (Unverified Adverse Reaction, Intermediate, dark bm's, ) ferrous sulfate (Unverified Adverse Reaction, Intermediate, dark bm's, ) ferumoxytol (Unverified Adverse Reaction, Intermediate, dark bm's, 01/24/17 ) iron (Unverified Adverse Reaction, Intermediate, dark bm's, 01/24/17) multivitamin infusion, adult no.4 with vitamin K (Unverified Adverse Reaction, Intermediate, dark bm's, 01/24/17) multivitamin with iron,other minerals (Unverified Adverse Reaction, Intermediate, dark bm's, 01/24/17) Reported Meds & Prescriptions Reported Meds & Active Scripts Active Fenofibrate 145 Mg Tab 145 Mg PO DAILY Enalapril (Enalapril Maleate) 5 Mg Tab 5 Mg PO DAILY Aspirin Low Strength (Aspirin) 81 Mg Chew 81 Mg PO DAILY Reported Metoprolol Tartrate 25 Mg Tab 25 Mg PO DAILY Symbicort Inh (Budesonide/Formoterol Fumarate) 80-4.5 Mcg/Act Aero 2 Puff INH Q12HR Nicotine Patch (Nicotine) 21 Mg/24 Hr Patch 21 Mg T-DERMAL DAILY Nitrostat SL (Nitroglycerin) 0.4 Mg Subl 0.4 Mg SL DIRECTED PRN 1 tablet under the tongue as needed for chest pain. Repeat every 5 minutes for a total of 3 DOSES or call 911 if NO relief. Promethazine-Codeine Liq 6.25-10 Mg/5 Ml Syrp 5 Ml PO Q8HR PRN Potassium Chloride Microencaps 20 Meq Tab 30 Meq PO HS NEB Furosemide 80 Mg Tab 80 Mg PO DAILY Levothyroxine (Levothyroxine Sodium) 137 Mcg Tab 137 Mcg PO DAILY Lantus Inj (Insulin Glargine) 1,000 Unit/10 Ml Vial 10-12 Units SQ HS Xanax (Alprazolam) 2 Mg Tab 2 Mg PO Q8H PRN Lortab (Hydrocodone-Acetaminophen) 10-325 Mg Tab 1 Tab PO Q6H PRN Clopidogrel (Clopidogrel Bisulfate) 75 Mg Tab 75 Mg PO DAILY Review of Systems Except as stated in HPI: all other systems reviewed are Neg General / Constitutional: No: Fever, Chills Eyes: No: Blurred Vision HENT: No: Headaches Cardiovascular: No: Chest Pain or Discomfort, Palpitations Respiratory: No: Cough, Shortness of Breath Gastrointestinal: No: Nausea, Vomiting, Diarrhea Musculoskeletal: Positive: Pain Neurologic: No: Weakness, Dizziness Physical Exam Narrative GENERAL: This patient is a 61 year old obese female examined at the bedside. She is alert and oriented x3 and is in no acute distress. SKIN: No bruising or rashes, skin warm and dry. No cyanosis or edema. HEAD: Atraumatic. Normocephalic. No hematomas, abrasions or bruising. EYES: Pupils equal and round. ENT: No nasal bleeding or discharge. Mucous membranes pink and moist. NECK: Trachea midline. CARDIOVASCULAR: Regular rate and rhythm. No murmurs or extra beats RESPIRATORY: No accessory muscle use. Clear to auscultation. GASTROINTESTINAL: Abdomen soft, non-tender, nondistended. MUSCULOSKELETAL: No obvious deformities. Moves all extremities with no problems BUE and BLE strength and sensation intact. No leg length discrepancies. NEUROLOGICAL: Awake and alert. No obvious cranial nerve deficits. Motor grossly within normal limits. Slightly pressured speech PSYCHIATRIC: Appropriate mood and affect; insight and judgment normal. Data Data Last Documented VS Vital Signs Date Time Temp Pulse Resp B/P Pulse Ox O2 Delivery O2 Flow Rate FiO2 8/18/17 03:10 Room Air 01/24/17 02:59 98.5 77 18 117/[address] Brain W/O Iv Contrast(Rout) (01/24/17 03:13) Hip, Uni(Ap&Lat) W Ap Pelvis (01/24/17 03:13) MDM Medical Decision Making Medical Screen Exam Complete: Yes Emergency Medical Condition: Yes Medical Record Reviewed: Yes (Previous history of COPD, CVA, DM, TX, Fibromyalgia, Schizophrenia, Drug Seeking Behaviour ) Differential Diagnosis Fall, Hip fracture, Intracranial Hemorrhage, Altered Mental Status Narrative Course This is a 61 year old female with multiple co-morbidities who fell out of bed. She reports a + LOC, and hit her head. She is currently hemodynamically stable and has no obvious injuries. She state she does not want any pain medication. The CT and X-Ray were independently reviewed by me. CT Head showed no intracranial hemorrhage, no trauma. X-Ray Hip and Pelvis show no fracture. Procedures EKG Prior to Arrival: No EKG Not Completed: EKG Not Medically Necessary Diagnosis Primary Impression: Fall from bed Qualified Code: W06.XXXA - Fall from bed, initial encounter Med/Other Pt SpecificInfo: No Change to Meds Disposition: 01 DISCHARGE HOME Condition: Stable Cari Gaines MD Jan 24, 2017 03:26
--- NOTE | 2017-01-24 04:11 | RADRPT ---
EXAM DATE/TIME: 01/24/2017 03:27 [facility] COMPARISON: No previous studies available for comparison. INDICATIONS : Left hip pain post fall today MEDICAL HISTORY : None. SURGICAL HISTORY : None. ENCOUNTER: Initial ACUITY: 1 day PAIN SCORE: 7/10 LOCATION: Left entire hip FINDINGS: Examination of the left hip was performed with AP Pelvis. The primary and secondary trabecular patte rn of the femoral neck is intact. The hip joint is of normal width without significant sclerosis or bony hypertrophy. The acetabulum is grossly intact. CONCLUSION: No fracture. Chele Howell MD on January 24, 2017 at 4:09 Board Certified Radiologist. This report was verified electronically.
--- NOTE | 2017-01-24 04:12 | RADRPT ---
EXAM DATE/TIME: 01/24/2017 03:38 [facility] COMPARISON: CT BRAIN W/O CONTRAST, September 27, 2016, 8:43. INDICATIONS : Frequent falls. Patient fell and hit head tonight. RADIATION DOSE: 58.07 CTDIvol (mGy) MEDICAL HISTORY : Cerebrovascular disease. Carcinoma, breast. Stroke.Bipolar disease, migreine SURGICAL HISTORY : Hysterectomy. Left eye ENCOUNTER: Initial ACUITY: 1 day PAIN SCALE: 8/10 LOCATION: cranial TECHNIQUE: Multiple contiguous axial images were obtained of the head. Using automated exposure control and adj ustment of the mA and/or kV according to patient size, radiation dose was kept as low as reasonably a chievable to obtain optimal diagnostic quality images. DICOM format image data is available electro nically for review and comparison. FINDINGS: CEREBRUM: The ventricles are normal for age. No evidence of midline shift, mass lesion, hemorrhage or acute in farction. No extra-axial fluid collections are seen. POSTERIOR FOSSA: The cerebellum and brainstem are intact. The 4th ventricle is midline. The cerebellopontine angle i s unremarkable. EXTRACRANIAL: The visualized portion of the orbits is intact. SKULL: The calvaria is intact. No evidence of skull fracture. CONCLUSION: Nothing acute. No trauma. Chele Howell MD on January 24, 2017 at 4:10 Board Certified Radiologist. This report was verified electronically.
== END 2017-01-24 04:36 | disposition home or self-care (01) ==
LOC: PHED 02:59
DX: M25.552 Pain in left hip (principal); M54.9 Dorsalgia, unspecified; E11.9 Type 2 diabetes mellitus without complications; I10 Essential (primary) hypertension; E03.9 Hypothyroidism, unspecified; E78.5 Hyperlipidemia, unspecified; I25.2 Old myocardial infarction; W06.XXXA Fall from bed, initial encounter; W22.8XXA Striking against or struck by other objects, initial encounter; Z72.0 Tobacco use; Z79.4 Long term (current) use of insulin; Z79.01 Long term (current) use of anticoagulants; Z87.09 Personal history of other diseases of the respiratory system; Z86.79 Personal history of other diseases of the circulatory system; Z87.39 Personal history of other diseases of the musculoskeletal system and connective tissue; Z86.59 Personal history of other mental and behavioral disorders; Z85.3 Personal history of malignant neoplasm of breast; Z85.42 Personal history of malignant neoplasm of other parts of uterus; Z87.19 Personal history of other diseases of the digestive system; Z87.442 Personal history of urinary calculi; Z86.69 Personal history of other diseases of the nervous system and sense organs
CPT/HCPCS: 70450; 73502; 99284

== ENCOUNTER 2017-02-09 23:15 | Emergency (ER) | payer MEDICAID ==
[~2017-02-09 23:15] MED LIST changes: +METO25TA3 PO; -PRED20 PO; -ZITHTAB2 PO
[2017-02-09 23:22] VITALS: BP 106/57; PULSE 70; RESP 16; TEMP 97.9; O2SAT 97
== END 2017-02-09 23:40 | disposition left against medical advice (07) ==
LOC: NED 23:15
DX: M25.569 Pain in unspecified knee (principal); Z53.21 Procedure and treatment not carried out due to patient leaving prior to being seen by health care provider
CPT/HCPCS: 99281

== ENCOUNTER 2017-06-06 21:02 | Emergency (ER) | payer MEDICAID ==
[~2017-06-06] VITALS: Ht 165.1 cm; Wt 100.0 kg
[2017-06-06 21:05] VITALS: BP 144/97; PULSE 79; RESP 18; TEMP 97.8; O2SAT 95
[2017-06-06] MEDS ORDERED: SODIUM CHLOR 0.9% 1000 ML INJ 1,000 ML IV SCH (21:09)
[2017-06-06] MEDS ORDERED: MORPHINE SULFATE 2 MG/ML INJ IV PUSH ONE (21:15)
[2017-06-06] MEDS ORDERED: ONDANSETRON HCL 4 MG/2 ML VIAL IVP ONE (21:15)
[2017-06-06] MEDS ORDERED: ORPHENADRINE INJ 60 MG/2 ML AMP IM ONE (21:15)
[2017-06-06] MEDS ORDERED: KETOROLAC TROMETHAMINE 30 MG/ML (IVP) VIAL IVP ONE (21:15)
--- NOTE | 2017-06-06 21:25 | PD ---
HPI Chief Complaint: Back/ Neck Pain or Injury Time Seen by Provider: 21:07 Travel History International Travel<30 days: No Contact w/Intl Traveler<30days: No Traveled to known affect area: No History of Present Illness HPI The patient is a 62-year-old female that complains of pain in the low back radiating to the right hip and above the knee for 3 days. She does have a history of herniated disc she states in her back. The patient is a frequent visitor to emergency Department has been seen here 14 times this year alone, usually for minor problems. She does have a history of diabetes and has a history of diabetic polyneuropathy. She does have a past history of cocaine abuse and has been suspected of drug seeking behavior in the past. She denies any trauma. She denies any bladder or bowel dysfunction. PFSH Past Medical History Hx Anticoagulant Therapy: Yes Arthritis: No Asthma: Yes Autoimmune Disease: No Blood Disorders: No Bipolar Disorder: Yes Anxiety: Yes Depression: Yes Heart Rhythm Problems: No Cancer: Yes (BREAST AND UTERINE) Cardiac Catheterization: Yes Cardiovascular Problems: Yes High Cholesterol: Yes Chemotherapy: No Chest Pain: Yes Congestive Heart Failure: Yes COPD: Yes Cerebrovascular Accident: Yes (2009) Coronary Artery Disease: Yes Diabetes: Yes Patient Takes Glucophage: No Diminished Hearing: Yes Endocrine: No Fibromyalgia: Yes Gastrointestinal Disorders: Yes (POLYPS ON GALLBLADDER) GERD: Yes Glaucoma: No Genitourinary: No Headaches: No Hepatitis: Yes (C) Hiatal Hernia: No Heparin Induced Thrombocytopen: No Herniated Disk: Yes Hypertension: Yes Immune Disorder: No Implanted Vascular Access Dvce: No Kidney Stones: Yes Musculoskeletal: Yes (RT SHOULDER,RT KNEE, 3 HERNIATED DISCS) Neurologic: No Psychiatric: Yes (DRUG-SEEKING BEHAVIOR, PSYCHOSIS) Reproductive: No Respiratory: Yes Integumentary: Yes (CELLULITIS) Immunizations Current: No Migraines: Yes Myocardial Infarction: Yes Radiation Therapy: No Renal Failure: No Schizophrenia: Yes (PARANOID SCHIZOPHRENIA) Seizures: No Sickle Cell Disease: No Sleep Apnea: No Thyroid Disease: Yes (HYPOTHYROIDISM) Triglycerides - High: Yes Ulcer: No Tetanus Vaccination: < 5 Years Influenza Vaccination: Yes ?: Not LMP: HYSTERECTOMY Menopausal: Yes : 5 Para: 2 : 3 Ectopic : Yes Ovarian Cysts: Yes Past Surgical History Abdominal Surgery: No AICD: No Appendectomy: No Arteriovenous Shunt: No Cardiac Surgery: No Cholecystectomy: No Ear Surgery: No Endocrine Surgery: No Eye Surgery: Yes (BLIND LEFT EYE-surgery) Genitourinary Surgery: No Gynecologic Surgery: Yes (BX BILATERAL BREAST) Hysterectomy: Yes Insulin Pump: No Joint Replacement: No Neurologic Surgery: No Oral Surgery: No Pacemaker: No Thoracic Surgery: No Other Surgery: No Social History Alcohol Use: No ("I QUIT 20 YEARS AGO" ) Tobacco Use: Yes Substance Use: No (DENIES: ) Allergies-Medications (Allergen,Severity, Reaction): Coded Allergies: Sulfa (Sulfonamide Antibiotics) (Unverified Allergy, Unknown, does not know, 01/24/17) baclofen (Unverified Allergy, Unknown, 01/24/17) citalopram (Unverified Allergy, Unknown, Rash, 01/24/17) ziprasidone (Unverified Allergy, Unknown, 01/24/17) haloperidol (Unverified Adverse Reaction, Severe, "STIFFNESS", 01/24/17) quetiapine (Unverified Adverse Reaction, Severe, anxiety, 01/24/17) risperidone (Unverified Adverse Reaction, Severe, anxiety, 01/24/17) ferrous fumarate (Unverified Adverse Reaction, Intermediate, dark bm's, ) ferrous sulfate (Unverified Adverse Reaction, Intermediate, dark bm's, ) ferumoxytol (Unverified Adverse Reaction, Intermediate, dark bm's, 01/24/17 ) iron (Unverified Adverse Reaction, Intermediate, dark bm's, 01/24/17) multivitamin infusion, adult no.4 with vitamin K (Unverified Adverse Reaction, Intermediate, dark bm's, 01/24/17) multivitamin with iron,other minerals (Unverified Adverse Reaction, Intermediate, dark bm's, 01/24/17) Reported Meds & Prescriptions Reported Meds & Active Scripts Active Fenofibrate 145 Mg Tab 145 Mg PO DAILY Enalapril (Enalapril Maleate) 5 Mg Tab 5 Mg PO DAILY Aspirin Low Strength (Aspirin) 81 Mg Chew 81 Mg PO DAILY Reported Metoprolol Tartrate 25 Mg Tab 25 Mg PO DAILY Symbicort Inh (Budesonide/Formoterol Fumarate) 80-4.5 Mcg/Act Aero 2 Puff INH Q12HR Nicotine Patch (Nicotine) 21 Mg/24 Hr Patch 21 Mg T-DERMAL DAILY Nitrostat SL (Nitroglycerin) 0.4 Mg Subl 0.4 Mg SL DIRECTED PRN 1 tablet under the tongue as needed for chest pain. Repeat every 5 minutes for a total of 3 DOSES or call 911 if NO relief. Promethazine-Codeine Liq 6.25-10 Mg/5 Ml Syrp 5 Ml PO Q8HR PRN Potassium Chloride Microencaps 20 Meq Tab 30 Meq PO HS NEB Furosemide 80 Mg Tab 80 Mg PO DAILY Levothyroxine (Levothyroxine Sodium) 137 Mcg Tab 137 Mcg PO DAILY Lantus Inj (Insulin Glargine) 1,000 Unit/10 Ml Vial 10-12 Units SQ HS Xanax (Alprazolam) 2 Mg Tab 2 Mg PO Q8H PRN Lortab (Hydrocodone-Acetaminophen) 10-325 Mg Tab 1 Tab PO Q6H PRN Clopidogrel (Clopidogrel Bisulfate) 75 Mg Tab 75 Mg PO DAILY Review of Systems Except as stated in HPI: all other systems reviewed are Neg Physical Exam Narrative GENERAL: The patient is alert, obese, oriented 3 in moderate apparent distress with her low back discomfort. Her vital signs show blood pressure 144/97 but are otherwise normal. SKIN: Focused skin assessment warm/dry. HEAD: Atraumatic. Normocephalic. EYES: Pupils equal and round. No scleral icterus. No injection or drainage. ENT: No nasal bleeding or discharge. Mucous membranes pink and moist. NECK: Trachea midline. No JVD. CARDIOVASCULAR: Regular rate and rhythm. No murmur appreciated. RESPIRATORY: No accessory muscle use. Clear to auscultation. Breath sounds equal bilaterally. GASTROINTESTINAL: Abdomen soft, non-tender, nondistended. Hepatic and splenic margins not palpable. MUSCULOSKELETAL: No obvious deformities. No clubbing. No cyanosis. No edema. Straight leg raising NEUROLOGICAL: Awake and alert. No obvious cranial nerve deficits. Motor grossly within normal limits. Normal speech. PSYCHIATRIC: Appropriate mood and affect; insight and judgment normal. Data Data Last Documented VS Vital Signs Date Time Temp Pulse Resp B/P (MAP) Pulse Ox O2 Delivery O2 Flow Rate FiO2 06/06/17 21:05 97.8 79 18 144/97 (113) [address] Lumb Spine W/O Contrast (06/06/17 21:07) Orphenadrine Inj (Norflex Inj) (06/06/17 21:15) Ondansetron Inj (Zofran Inj) (06/06/17 21:15) Sodium Chlor 0.9% 1000 Ml Inj (Ns 1000 M (06/06/17 21:09) Ketorolac Inj (Toradol Inj) (06/06/17 21:15) Morphine Inj (Morphine Inj) (06/06/17 21:15) Complete Blood Count With Diff (06/06/17 21:25) Basic Metabolic Panel (Bmp) (06/06/17 21:25) Urinalysis - C+S If Indicated (06/06/17 21:25) Labs Laboratory Tests Test 06/06/17 21:34 White Blood Count 9.3 TH/MM3 Red Blood Count 5.22 MIL/MM3 Hemoglobin 14.1 GM/DL Hematocrit 42.0 % Mean Corpuscular Volume 80.4 FL Mean Corpuscular Hemoglobin 27.0 PG Mean Corpuscular Hemoglobin Concent 33.6 % Red Cell Distribution Width 14.4 % Platelet Count 294 TH/MM3 Mean Platelet Volume 7.7 FL Neutrophils (%) (Auto) 56.8 % Lymphocytes (%) (Auto) 33.8 % Monocytes (%) (Auto) 7.6 % Eosinophils (%) (Auto) 0.9 % Basophils (%) (Auto) 0.9 % Neutrophils # (Auto) 5.3 TH/MM3 Lymphocytes # (Auto) 3.1 TH/MM3 Monocytes # (Auto) 0.7 TH/MM3 Eosinophils # (Auto) 0.1 TH/MM3 Basophils # (Auto) 0.1 TH/MM3 CBC Comment DIFF FINAL Differential Comment Blood Urea Nitrogen 13 MG/DL Creatinine 0.80 MG/DL Random Glucose 162 MG/DL Calcium Level 8.5 MG/DL Sodium Level 136 MEQ/L Potassium Level 3.4 MEQ/L Chloride Level 100 MEQ/L Carbon Dioxide Level 30.2 MEQ/L Anion Gap 6 MEQ/L Estimat Glomerular Filtration Rate 73 ML/MIN MDM Medical Decision Making Medical Screen Exam Complete: Yes Emergency Medical Condition: Yes Medical Record Reviewed: Yes Interpretation(s) The CT scan of the lumbar spine shows mild disc bulge at L4-5 level with mild flattening of the anterior thecal sac and no focal protrusion. There is also a minimal disc bulge at L5-S1. Also noted is mild scoliosis with no bony abnormality. Differential Diagnosis Herniated nucleus pulposus, compression fracture lumbar spine, acute lumbosacral strain, drug seeking behavior, hyper/hypoglycemia Narrative Course The patient has an acute exacerbation of her chronic back pain. This does not need urgent or immediate surgical intervention. She will be treated conservatively with tramadol, Flexeril. She states she cannot take Motrin. She can't tell me why she cannot take Motrin. Diagnosis Primary Impression: Lumbar back pain with radiculopathy affecting right lower extremity Additional Instructions: You will need to follow-up with Dr. Conrad. Do not drink alcohol or drive on the tramadol or the Flexeril. Both can make you sleepy and dizzy. Disposition: 01 DISCHARGE HOME Condition: Stable Jay Knight MD Jun 06, 2017 21:25
[2017-06-06 21:42] LABS: AUTOMATED NEUTROPHIL # 5.3 TH/MM3 (1.8-7.7); BASOPHIL # 0.1 TH/MM3 (0-0.2); BASOPHIL % 0.9 % (0.0-2.0); EOSINOPHIL # 0.1 TH/MM3 (0-0.4); EOSINOPHIL % 0.9 % (0.0-4.0); HEMOGLOBIN 14.1 GM/DL (11.6-15.3); LYMPH % 33.8 % (9.0-44.0); LYMPHOCYTE # 3.1 TH/MM3 (1.0-4.8); MEAN CELL VOLUME 80.4 FL (80.0-100.0); MEAN CORPUSCULAR HGB CONC 33.6 % (32.0-36.0); MEAN PLATELET VOLUME 7.7 FL (7.0-11.0); MONO % 7.6 % (0.0-8.0); MONOCYTE # 0.7 TH/MM3 (0-0.9); NEUT % 56.8 % (16.0-70.0); PLATELET COUNT 294 TH/MM3 (150-450); RED BLOOD COUNT 5.22 MIL/MM3 (4.00-5.30); RED CELL DISTRIBUTION WIDTH 14.4 % (11.6-17.2); WHITE BLOOD COUNT 9.3 TH/MM3 (4.0-11.0)
[2017-06-06 21:52] LABS: CALCIUM 8.5 MG/DL (8.5-10.1)
[2017-06-06 21:53] LABS: BICARBONATE 30.2 MEQ/L (21.0-32.0)
[2017-06-06 21:56] LABS: CREATININE 0.8 MG/DL (0.50-1.00)
--- NOTE | 2017-06-06 22:18 | RADRPT ---
EXAM DATE/TIME: 06/06/2017 21:38 [facility] COMPARISON: No previous studies available for comparison. INDICATIONS : Low back and hip pain, No injury RADIATION DOSE: 40.28 CTDIvol (mGy) ; Patient body habitus MEDICAL HISTORY : Hepatitis C. Diabetes mellitus type 2. Radiculopathy.renal; stones, HTN, CAD, CHF, COPD SURGICAL HISTORY : Hysterectomy. ENCOUNTER: Initial ACUITY: 3 days PAIN SCALE: 7/10 LOCATION: Right flank and hip TECHNIQUE: Volumetric scanning of the lumbar spine was performed. Multiplanar reconstructions in the sagittal, coronal and oblique axial planes were performed. Using automated exposure control and adjustment of the mA and/or kV according to patient size, radiation dose was kept as low as reasonably achievable t o obtain optimal diagnostic quality images. DICOM format image data is available electronically for review and comparison. FINDINGS: VERTEBRAE: Normal vertebral body height. There is a mild scoliosis. ALIGNMENT: No evidence of subluxation. T12-L1: The thecal sac has a normal diameter. No evidence of disc bulge or protrusion. The neural foramina are patent bilaterally. L1-L2: The thecal sac has a normal diameter. No evidence of disc bulge or protrusion. The neural foramina are patent bilaterally. L2-L3: The thecal sac has a normal diameter. No evidence of disc bulge or protrusion. The neural foramina are patent bilaterally. L3-L4: The thecal sac has a normal diameter. No evidence of disc bulge or protrusion. The neural foramina are patent bilaterally. L4-L5: There is a mild disc bulge with mild flattening of the anterior thecal sac and no focal protrusion. T he neural foramina are patent bilaterally. L5-S1: The thecal sac has a normal diameter. No evidence of disc bulge or protrusion. The neural foramina are patent bilaterally. CONCLUSION: 1. Mild disc bulge at the L4-5 level with mild flattening of the anterior thecal sac and no focal pro trusion. 2. Minimal disc bulge at L5-S1. 3. Mild scoliosis with no underlying bony abnormality. Mayur Ibrahim MD on June 06, 2017 at 22:12 Board Certified Radiologist. This report was verified electronically.
[2017-06-06] MEDS ORDERED: TRAM50TA PO (22:31)
[2017-06-06] MEDS ORDERED: CYCL10TA PO (22:31)
[2017-06-06 22:40] LABS: BILIRUBIN, URINE NEG (NEG); BLOOD, URINE NEG (NEG); GLUCOSE,URINE NEG (NEG); KETONE, URINE NEG (NEG); NITRITE,URINE NEG (NEG); PH, URINE 6.5 (5.0-8.5); URINE LEUKOCYTE ESTERASE TRACE (NEG)
[2017-06-06 22:43] VITALS: BP 138/88; PULSE 75; RESP 16; TEMP 97.9; O2SAT 97
[2017-06-06] MEDS ORDERED: oxyCODONE/ACETAMINOPHEN 7.5 MG/325 MG TAB PO ONE (22:45)
[2017-06-06 22:47] LABS: URINE COLOR YELLOW (YELLW/STRAW)
[2017-06-06 22:48] LABS: RBC, URINE 0-2 /hpf (0-3)
[2017-06-06 22:49] LABS: BACTERIA, URINE MOD /hpf
== END 2017-06-06 22:56 | disposition home or self-care (01) ==
LOC: PHED 21:02
DX: M54.16 Radiculopathy, lumbar region (principal); E11.42 Type 2 diabetes mellitus with diabetic polyneuropathy; I11.0 Hypertensive heart disease with heart failure; I50.9 Heart failure, unspecified; E78.00 Pure hypercholesterolemia, unspecified; E03.9 Hypothyroidism, unspecified; I25.10 Atherosclerotic heart disease of native coronary artery without angina pectoris; B19.20 Unspecified viral hepatitis C without hepatic coma; Z72.0 Tobacco use
CPT/HCPCS: 72131; 80048; 81001; 85025; 87086; 96361; 96372; 96374; 96375; 99285; J1885; J2270; J2360; J2405; J7030

== ENCOUNTER 2017-06-08 12:58 | Emergency (ER) | payer MEDICAID ==
[~2017-06-08] VITALS: Ht 165.1 cm; Wt 112.0 kg
[~2017-06-08 12:58] MED LIST changes: +CYCL10TA PO; +TRAM50TA PO
[2017-06-08 13:14] VITALS: BP 118/72; PULSE 69; RESP 18; TEMP 98.3; O2SAT 93
[2017-06-08] MEDS ORDERED: HYDR-3583 PO (13:58)
[2017-06-08] MEDS ORDERED: DEXAMETHASONE SOD PHOS 4 MG/ML VIAL IM ONE (14:45)
[2017-06-08] MEDS ORDERED: ORPHENADRINE INJ 60 MG/2 ML AMP IM ONE (14:45)
[2017-06-08] MEDS ORDERED: ORPH100T2 PO (14:51)
[2017-06-08] MEDS ORDERED: MEDR4PAK PO (14:51)
--- NOTE | 2017-06-08 14:51 | PD ---
HPI Chief Complaint: Pain: Acute or Chronic Time Seen by Provider: 14:16 Travel History International Travel<30 days: No Contact w/Intl Traveler<30days: No Traveled to known affect area: No History of Present Illness HPI The patient is a 62-year-old female who presents emergency department for back pain. The patient states she has a long-standing history of back pain and is trying to find an orthopedic surgeon who will perform surgery. She states she has been told in the past that she will need surgery for her back. The back pain radiates from the left lower aspect of the back across the midline to the right lower aspect of the back. She then notes the pain radiates down the right leg, occasionally to all 5 toes of the right foot. She does have a history of neuropathy which she attributes to diabetes. The patient states that she was seen in the emergency department approximately one week prior to today and underwent a CT of the lumbar spine. The patient was given an injection at that time which helped her symptoms, however, her symptoms have returned. Patient states she is unable to see her primary physician, Dr. Conrad, until June 19, 2017. The patient states that her primary physician is her chronic pain physician for her chronic back pain and fibromyalgia. The patient also states she takes hydrocodone at home, however, that barely alleviates the pain per her report. She denies any urinary or fecal incontinence. She denies any fever. Symptoms are moderate, chronic, with no acute alleviating factors. PFSH Past Medical History Hx Anticoagulant Therapy: Yes Arthritis: No Asthma: Yes Autoimmune Disease: No Blood Disorders: No Bipolar Disorder: Yes Anxiety: Yes Depression: Yes Heart Rhythm Problems: No Cancer: Yes (BREAST AND UTERINE) Cardiac Catheterization: Yes Cardiovascular Problems: Yes High Cholesterol: Yes Chemotherapy: No Chest Pain: Yes Congestive Heart Failure: Yes COPD: Yes Cerebrovascular Accident: Yes (2009) Coronary Artery Disease: Yes Diabetes: Yes Diminished Hearing: Yes Endocrine: No Fibromyalgia: Yes Gastrointestinal Disorders: Yes (POLYPS ON GALLBLADDER) GERD: Yes Glaucoma: No Genitourinary: No Headaches: No Hepatitis: Yes (C) Hiatal Hernia: No Heparin Induced Thrombocytopen: No Herniated Disk: Yes Hypertension: Yes Immune Disorder: No Implanted Vascular Access Dvce: No Kidney Stones: Yes Musculoskeletal: Yes (RT SHOULDER,RT KNEE, 3 HERNIATED DISCS) Neurologic: No Psychiatric: Yes (DRUG-SEEKING BEHAVIOR, PSYCHOSIS) Reproductive: No Respiratory: Yes Integumentary: Yes (CELLULITIS) Immunizations Current: No Migraines: Yes Myocardial Infarction: Yes Radiation Therapy: No Renal Failure: No Schizophrenia: Yes (PARANOID SCHIZOPHRENIA) Seizures: No Sickle Cell Disease: No Sleep Apnea: No Thyroid Disease: Yes (HYPOTHYROIDISM) Triglycerides - High: Yes Ulcer: No Menopausal: Yes : 5 Para: 2 : 3 Ectopic : Yes Ovarian Cysts: Yes Past Surgical History Abdominal Surgery: No AICD: No Appendectomy: No Arteriovenous Shunt: No Cardiac Surgery: No Cholecystectomy: No Ear Surgery: No Endocrine Surgery: No Eye Surgery: Yes (BLIND LEFT EYE-surgery) Genitourinary Surgery: No Gynecologic Surgery: Yes (BX BILATERAL BREAST) Hysterectomy: Yes Insulin Pump: No Joint Replacement: No Neurologic Surgery: No Oral Surgery: No Pacemaker: No Thoracic Surgery: No Other Surgery: No Social History Alcohol Use: No ("I QUIT 20 YEARS AGO" ) Tobacco Use: Yes Substance Use: No (DENIES: ) Allergies-Medications (Allergen,Severity, Reaction): Coded Allergies: Sulfa (Sulfonamide Antibiotics) (Unverified Allergy, Unknown, does not know, 06/08/17) baclofen (Unverified Allergy, Unknown, 06/08/17) citalopram (Unverified Allergy, Unknown, Rash, 06/08/17) ziprasidone (Unverified Allergy, Unknown, 06/08/17) haloperidol (Unverified Adverse Reaction, Severe, "STIFFNESS", 06/08/17) quetiapine (Unverified Adverse Reaction, Severe, anxiety, 06/08/17) risperidone (Unverified Adverse Reaction, Severe, anxiety, 06/08/17) ferrous fumarate (Unverified Adverse Reaction, Intermediate, dark bm's, ) ferrous sulfate (Unverified Adverse Reaction, Intermediate, dark bm's, ) ferumoxytol (Unverified Adverse Reaction, Intermediate, dark bm's, ) iron (Unverified Adverse Reaction, Intermediate, dark bm's, 06/08/17) multivitamin infusion, adult no.4 with vitamin K (Unverified Adverse Reaction, Intermediate, dark bm's, 06/08/17) multivitamin with iron,other minerals (Unverified Adverse Reaction, Intermediate, dark bm's, 06/08/17) Reported Meds & Prescriptions Reported Meds & Active Scripts Active Reported Hydrocodone-Acetaminophen 10-325 mg Tab 1 Tab PO Q6H PRN Lantus Inj (Insulin Glargine) 1,000 Unit/10 Ml Vial 10-12 Units SQ HS Xanax (Alprazolam) 2 Mg Tab 2 Mg PO Q8H PRN Review of Systems Except as stated in HPI: all other systems reviewed are Neg General / Constitutional: No: Fever Musculoskeletal: Positive: Limited ROM, Pain, No: Weakness Neurologic: Positive: Sensory Disturbance (history of neuropathy which she attributes to diabetes), No: Weakness Physical Exam Narrative GENERAL: Awake, alert, pleasant qib-yyxg-aim female who appears her stated age and is in no acute respiratory distress. SKIN: Focused skin assessment warm/dry. HEAD: Atraumatic. Normocephalic. EYES: No injection or drainage. GASTROINTESTINAL: Abdomen soft, obese, no tenderness. Back: Patient is tender over the sacroiliac area bilateral as well as mid lumbar spine. Also tender over the right lateral gluteal area. MUSCULOSKELETAL: No obvious deformities. No clubbing. No cyanosis. No edema. NEUROLOGICAL: Awake and alert. No obvious cranial nerve deficits. Motor grossly within normal limits. Normal speech. PSYCHIATRIC: Appropriate mood and affect; insight and judgment normal. Data Data Last Documented VS Vital Signs Date Time Temp Pulse Resp B/P (MAP) Pulse Ox O2 Delivery O2 Flow Rate FiO2 06/08/17 13:14 98.3 69 18 118/72 (87) 93 Orders Orders Dexamethasone Inj (Decadron Inj) (06/08/17 14:45) Orphenadrine Inj (Norflex Inj) (06/08/17 14:45) MDM Medical Decision Making Medical Screen Exam Complete: Yes Emergency Medical Condition: Yes Medical Record Reviewed: Yes Differential Diagnosis Differential diagnosis includes sciatica, back pain with radiculopathy, herniated disc, chronic pain, neuropathy, drug-seeking behavior. Narrative Course I had a discussion with the patient regarding the need to follow-up with her chronic pain physician in regards to her chronic pain. After discussion it was agreed the patient would receive an injection of Decadron and Norflex and be discharged home with Norflex and a Medrol Dosepak until she can follow-up with her primary physician. I did review the EMR and her CT results from last week and the lumbar spine revealing chronic changes and mild disc bulge, but no evidence of fracture. Patient has no symptoms of cauda equina, denies urinary incontinence or acute weakness, she is stable for outpatient follow-up. Diagnosis Primary Impression: Back pain with right-sided radiculopathy Patient Instructions: General Instructions Additional Instructions: Medications as directed. Follow-up with your primary physician. Please provide the patient a copy of her CT results from last week for follow-up with her primary physician. Return if symptoms worsen or progress. Med/Other Pt SpecificInfo: Prescription(s) given Scripts Orphenadrine ER 12 HR (Orphenadrine CR) 100 Mg Tab 100 MG PO Q12HR for Muscle Spasm for 10 Days, #20 TAB 0 Refills Prov: Christian Cobb MD 06/08/17 Methylprednisolone Dosepak (Medrol Dosepak) 4 Mg Dspk 4 MG PO DIRECTED, #1 DSPK 0 Refills Per Pharmacist direction Prov: Christian Cobb MD 06/08/17 Disposition: 01 DISCHARGE HOME Condition: Stable Christian Cobb MD Jun 08, 2017 14:51
== END 2017-06-08 15:08 | disposition home or self-care (01) ==
LOC: PHEFT 12:58
DX: M54.16 Radiculopathy, lumbar region (principal); G89.29 Other chronic pain; E11.9 Type 2 diabetes mellitus without complications; E78.00 Pure hypercholesterolemia, unspecified; I11.0 Hypertensive heart disease with heart failure; I50.9 Heart failure, unspecified; I25.10 Atherosclerotic heart disease of native coronary artery without angina pectoris; M79.7 Fibromyalgia; F20.0 Paranoid schizophrenia; I25.2 Old myocardial infarction; F31.9 Bipolar disorder, unspecified; J44.9 Chronic obstructive pulmonary disease, unspecified; Z72.0 Tobacco use
CPT/HCPCS: 96372; 99284; J1100; J2360

== ENCOUNTER 2017-06-20 08:10 | Emergency (ER) | payer MEDICAID ==
[~2017-06-20] VITALS: Ht 165.1 cm; Wt 115.0 kg
[~2017-06-20 08:10] MED LIST changes: -ASPI81CH25 PO; -CLOP75TA PO; -CYCL10TA PO; -ENAL5TAB PO; -FENO145T2 PO; -FURO80TA PO; -HYDR-3535 PO; +HYDR-3583 PO; -LEVO137T2 PO; +MEDR4PAK PO; -METO25TA3 PO; -NICO21DI2 T-DERMAL; -NITR0.4S SL; +ORPH100T2 PO; -POTA20TA5 PO; -PROM6.256 PO; -SYMB80AE INH; -TRAM50TA PO
[2017-06-20 08:13] VITALS: BP 158/74; PULSE 90; RESP 20; TEMP 98.9; O2SAT 93
[2017-06-20] MEDS ORDERED: PLAV75TA29 PO (08:27)
[2017-06-20] MEDS ORDERED: LEVO200T4 PO (08:27)
[2017-06-20] MEDS ORDERED: PROM12.54 PO (08:27)
--- NOTE | 2017-06-20 08:37 | PD ---
HPI Chief Complaint: Psychiatric Symptoms Time Seen by Provider: 08:26 Travel History International Travel<30 days: No Contact w/Intl Traveler<30days: No Traveled to known affect area: No History of Present Illness HPI This is a 62-year-old female with history of bipolar disorder who presents voluntarily requesting psychiatric evaluation. She reports that for the past several days she's been having mood swings, lack of sleep, auditory and visual hallucinations. She is denying any suicidal or homicidal ideation. She does not currently see a psychiatrist. In the past she was prescribed Zyprexa. She has no other complaints at this time. PFSH Past Medical History Hx Anticoagulant Therapy: Yes Arthritis: No Asthma: Yes Autoimmune Disease: No Blood Disorders: No Bipolar Disorder: Yes Anxiety: Yes Depression: Yes Heart Rhythm Problems: No Cancer: Yes (BREAST AND UTERINE) Cardiac Catheterization: Yes Cardiovascular Problems: Yes High Cholesterol: Yes Chemotherapy: No Chest Pain: Yes Congestive Heart Failure: Yes COPD: Yes Cerebrovascular Accident: Yes (2009) Coronary Artery Disease: Yes Diabetes: Yes Patient Takes Glucophage: No Diminished Hearing: Yes Endocrine: No Fibromyalgia: Yes Gastrointestinal Disorders: Yes (POLYPS ON GALLBLADDER) GERD: Yes Glaucoma: No Genitourinary: No Headaches: No Hepatitis: Yes (C) Hiatal Hernia: No Heparin Induced Thrombocytopen: No Herniated Disk: Yes Hypertension: Yes Immune Disorder: No Implanted Vascular Access Dvce: No Kidney Stones: Yes Musculoskeletal: Yes (RT SHOULDER,RT KNEE, 3 HERNIATED DISCS) Neurologic: No Psychiatric: Yes (DRUG-SEEKING BEHAVIOR, PSYCHOSIS) Reproductive: No Respiratory: Yes Integumentary: Yes (CELLULITIS) Immunizations Current: No Migraines: Yes Myocardial Infarction: Yes Radiation Therapy: No Renal Failure: No Schizophrenia: Yes (PARANOID SCHIZOPHRENIA) Seizures: No Sickle Cell Disease: No Sleep Apnea: No Thyroid Disease: Yes (HYPOTHYROIDISM) Triglycerides - High: Yes Ulcer: No ?: Not Menopausal: Yes : 5 Para: 2 : 3 Ectopic : Yes Ovarian Cysts: Yes Past Surgical History Abdominal Surgery: No AICD: No Appendectomy: No Arteriovenous Shunt: No Cardiac Surgery: No Cholecystectomy: No Ear Surgery: No Endocrine Surgery: No Eye Surgery: Yes (BLIND LEFT EYE-surgery) Genitourinary Surgery: No Gynecologic Surgery: Yes (BX BILATERAL BREAST) Hysterectomy: Yes Insulin Pump: No Joint Replacement: No Neurologic Surgery: No Oral Surgery: No Pacemaker: No Thoracic Surgery: No Other Surgery: No Social History Alcohol Use: No ("I QUIT 20 YEARS AGO" ) Tobacco Use: Yes Substance Use: No (DENIES: ) Allergies-Medications (Allergen,Severity, Reaction): Coded Allergies: Sulfa (Sulfonamide Antibiotics) (Unverified Allergy, Unknown, does not know, 06/20/17) baclofen (Unverified Allergy, Unknown, 06/20/17) citalopram (Unverified Allergy, Unknown, Rash, 06/20/17) ziprasidone (Unverified Allergy, Unknown, 06/20/17) haloperidol (Unverified Adverse Reaction, Severe, "STIFFNESS", 06/20/17) quetiapine (Unverified Adverse Reaction, Severe, anxiety, 06/20/17) risperidone (Unverified Adverse Reaction, Severe, anxiety, 06/20/17) ferrous fumarate (Unverified Adverse Reaction, Intermediate, dark bm's, 05/26) ferrous sulfate (Unverified Adverse Reaction, Intermediate, dark bm's, 05/26) ferumoxytol (Unverified Adverse Reaction, Intermediate, dark bm's, 06/20/17 ) iron (Unverified Adverse Reaction, Intermediate, dark bm's, 06/20/17) multivitamin infusion, adult no.4 with vitamin K (Unverified Adverse Reaction, Intermediate, dark bm's, 06/20/17) multivitamin with iron,other minerals (Unverified Adverse Reaction, Intermediate, dark bm's, 06/20/17) Reported Meds & Prescriptions Reported Meds & Active Scripts Active Reported Levothyroxine (Levothyroxine Sodium) 200 Mcg Tab 200 Mcg PO DAILY Hydrocodone-Acetaminophen 10-325 mg Tab 1 Tab PO Q6H PRN Lantus Inj (Insulin Glargine) 1,000 Unit/10 Ml Vial 10-12 Units SQ HS Xanax (Alprazolam) 2 Mg Tab 2 Mg PO Q8H PRN Promethazine (Promethazine HCl) 12.5 Mg Tab 12.5 Mg PO Q4H PRN Plavix (Clopidogrel Bisulfate) 75 Mg Tab 75 Mg PO DAILY Review of Systems Except as stated in HPI: all other systems reviewed are Neg Physical Exam Narrative GENERAL: Well-developed well-nourished female in no acute distress SKIN: Warm and dry. HEAD: Atraumatic. Normocephalic. EYES: Pupils equal and round. No scleral icterus. No injection or drainage. ENT: No nasal bleeding or discharge. Mucous membranes pink and moist. NECK: Trachea midline. No JVD. CARDIOVASCULAR: Regular rate and rhythm. No murmur appreciated. RESPIRATORY: No accessory muscle use. Clear to auscultation. Breath sounds equal bilaterally. GASTROINTESTINAL: Abdomen soft, non-tender, nondistended. Hepatic and splenic margins not palpable. MUSCULOSKELETAL: No obvious deformities. No clubbing. No cyanosis. No edema. NEUROLOGICAL: Awake and alert. No obvious cranial nerve deficits. Motor grossly within normal limits. Normal speech. PSYCHIATRIC: Appropriate mood and affect; insight and judgment normal. Data Data Last Documented VS Vital Signs Date Time Temp Pulse Resp B/P (MAP) Pulse Ox O2 Delivery O2 Flow Rate FiO2 06/20/17 08:13 98.9 90 20 158/74 (102) 93 Orders Orders Complete Blood Count With Diff (06/20/17 08:36) Comprehensive Metabolic Panel (06/20/17 08:36) Psych Screen (06/20/17 08:36) Drug Screen, Random Urine (06/20/17 08:36) Potassium Chloride (Kcl) (06/20/17 10:15) Ed Discharge Order (06/20/17 10:13) Labs Laboratory Tests Test 06/20/17 08:51 06/20/17 09:30 White Blood Count 9.0 TH/MM3 Red Blood Count 5.12 MIL/MM3 Hemoglobin 14.6 GM/DL Hematocrit 42.8 % Mean Corpuscular Volume 83.5 FL Mean Corpuscular Hemoglobin 28.5 PG Mean Corpuscular Hemoglobin Concent 34.1 % Red Cell Distribution Width 15.1 % Platelet Count 349 TH/MM3 Mean Platelet Volume 8.3 FL Neutrophils (%) (Auto) 53.7 % Lymphocytes (%) (Auto) 35.3 % Monocytes (%) (Auto) 9.5 % Eosinophils (%) (Auto) 1.1 % Basophils (%) (Auto) 0.4 % Neutrophils # (Auto) 4.9 TH/MM3 Lymphocytes # (Auto) 3.2 TH/MM3 Monocytes # (Auto) 0.9 TH/MM3 Eosinophils # (Auto) 0.1 TH/MM3 Basophils # (Auto) 0.0 TH/MM3 CBC Comment DIFF FINAL Differential Comment Blood Urea Nitrogen 18 MG/DL Creatinine 1.28 MG/DL Random Glucose 192 MG/DL Total Protein 7.4 GM/DL Albumin 3.6 GM/DL Calcium Level 8.8 MG/DL Alkaline Phosphatase 74 U/L Aspartate Amino Transf (AST/SGOT) 26 U/L Alanine Aminotransferase (ALT/SGPT) 27 U/L Total Bilirubin 0.3 MG/DL Sodium Level 135 MEQ/L Potassium Level 3.1 MEQ/L Chloride Level 94 MEQ/L Carbon Dioxide Level 34.1 MEQ/L Anion Gap 7 MEQ/L Estimat Glomerular Filtration Rate 43 ML/MIN Urine Opiates Screen POS Urine Barbiturates Screen NEG Urine Amphetamines Screen NEG Urine Benzodiazepines Screen POS Urine Cocaine Screen NEG Urine Cannabinoids Screen NEG MDM Medical Decision Making Medical Screen Exam Complete: Yes Emergency Medical Condition: Yes Medical Record Reviewed: Yes Differential Diagnosis Bipolar disorder, schizophrenia, acute psychosis, substance induced mood disorder Narrative Course 62-year-old female with history of bipolar disorder presents voluntarily requesting psychiatric evaluation of hallucinations, lack of sleep. Mental health screening discussed with the patient. Psychiatric screen ordered. CBC is unremarkable. CMP reveals sodium 135, potassium 3.1, chloride 94, creatinine 1.28, GFR 43, glucose 192, the patient will be given oral potassium chloride. She is medically cleared. The patient has decided that she would like to leave and follow up with a psychiatrist in outpatient. She actually says that she has an appointment with Riaz Mcknight on Friday. She does not meet davis act criteria and therefore she'll be discharged. She understands that she can return at any time if she changes her mind. Diagnosis Primary Impression: Bipolar disorder Additional Impression: Hypokalemia Additional Instructions: Follow-up with Riaz Mcknight on Friday as discussed. Return for any acutely new or worsening symptoms. Med/Other Pt SpecificInfo: No Change to Meds Disposition: 01 DISCHARGE HOME Condition: Stable Kristian Villa Jun 20, 2017 08:37
[2017-06-20 09:30] LABS: AUTOMATED NEUTROPHIL # 4.9 TH/MM3 (1.8-7.7); BASOPHIL % 0.4 % (0.0-2.0); EOSINOPHIL # 0.1 TH/MM3 (0-0.4); EOSINOPHIL % 1.1 % (0.0-4.0); HEMATOCRIT 42.8 % (35.0-46.0); HEMOGLOBIN 14.6 GM/DL (11.6-15.3); LYMPH % 35.3 % (9.0-44.0); LYMPHOCYTE # 3.2 TH/MM3 (1.0-4.8); MEAN CELL VOLUME 83.5 FL (80.0-100.0); MEAN CORPUSCULAR HEMOGLOBIN 28.5 PG (27.0-34.0); MEAN CORPUSCULAR HGB CONC 34.1 % (32.0-36.0); MEAN PLATELET VOLUME 8.3 FL (7.0-11.0); MONO % 9.5 % (0.0-8.0); MONOCYTE # 0.9 TH/MM3 (0-0.9); NEUT % 53.7 % (16.0-70.0); PLATELET COUNT 349 TH/MM3 (150-450); RED BLOOD COUNT 5.12 MIL/MM3 (4.00-5.30); RED CELL DISTRIBUTION WIDTH 15.1 % (11.6-17.2)
[2017-06-20 09:53] LABS: ALT (GPT) 27 U/L (10-53)
[2017-06-20 09:55] LABS: ALKALINE PHOSPHATASE 74 U/L (45-117); TOTAL BILIRUBIN ADULT 0.3 MG/DL (0.2-1.0); TOTAL PROTEIN 7.4 GM/DL (6.4-8.2)
[2017-06-20 09:56] LABS: ALBUMIN 3.6 GM/DL (3.4-5.0); AST (GOT) 26 U/L (15-37); BICARBONATE 34.1 MEQ/L (21.0-32.0); BLOOD UREA NITROGEN 18 MG/DL (7-18); CALCIUM 8.8 MG/DL (8.5-10.1); CHLORIDE 94 MEQ/L (98-107); CREATININE 1.28 MG/DL (0.50-1.00); GLOMERULAR FILTRATION RATE 43 ML/MIN (>89); GLUCOSE,RANDOM 192 MG/DL (74-106); SODIUM (NA) 135 MEQ/L (136-145)
[2017-06-20] MEDS ORDERED: POTASSIUM CHLORIDE 20 MEQ CONTROLLED RELEASE TAB PO ONE (10:15)
== END 2017-06-20 11:03 | disposition home or self-care (01) ==
LOC: NEPD 08:10
DX: F31.9 Bipolar disorder, unspecified (principal); E87.6 Hypokalemia; E03.9 Hypothyroidism, unspecified; E11.9 Type 2 diabetes mellitus without complications; E78.00 Pure hypercholesterolemia, unspecified; I11.0 Hypertensive heart disease with heart failure; I50.9 Heart failure, unspecified; I25.10 Atherosclerotic heart disease of native coronary artery without angina pectoris; K21.9 Gastro-esophageal reflux disease without esophagitis; M79.7 Fibromyalgia; Z72.0 Tobacco use; Z79.02 Long term (current) use of antithrombotics/antiplatelets; Z79.4 Long term (current) use of insulin
CPT/HCPCS: 80053; 80307; 85025; 99283

== ENCOUNTER 2017-06-22 21:15 | Emergency (ER) | payer MEDICAID ==
[~2017-06-22] VITALS: Ht 167.6 cm; Wt 100.0 kg
[~2017-06-22 21:15] MED LIST changes: +LEVO200T4 PO; -MEDR4PAK PO; -ORPH100T2 PO; +PLAV75TA29 PO; +PROM12.54 PO
[2017-06-22 22:30] VITALS: BP 80/52; PULSE 83; RESP 16; TEMP 98.8; O2SAT 95
[2017-06-22 22:39] VITALS: BP 121/84; PULSE 84; RESP 22; O2SAT 95
--- NOTE | 2017-06-22 22:47 | PD ---
HPI Chief Complaint: GI Complaint Time Seen by Provider: 22:27 Travel History International Travel<30 days: No Contact w/Intl Traveler<30days: No Traveled to known affect area: No History of Present Illness HPI 62-year-old female with a history of bipolar disorder, diabetes, and COPD presents to emergency department complaining of left upper quadrant abdominal pain radiating to her groin area for 1 day. Says the pain is intermittent, sharp, lasting hours before going away. Nothing relieves or worsens her pain. Also states she has had bloody diarrhea but is unable to tell me the color of her diarrhea. During the interview, patient had a difficult time staying awake. States she took all of her home medications today which include hydrocodone 10, ativan 2mg. Pt takes plavix for history of CVA. In addition, pt says she has a history of 'tumors' in her pelvis but is unable to tell me the doctor who diagnosed her with this. She is unable to specify further regarding these tumors. PFSH Past Medical History Hx Anticoagulant Therapy: Yes Arthritis: No Asthma: Yes Autoimmune Disease: No Blood Disorders: No Bipolar Disorder: Yes Anxiety: Yes Depression: Yes Heart Rhythm Problems: No Cancer: Yes (BREAST AND UTERINE) Cardiac Catheterization: Yes Cardiovascular Problems: Yes High Cholesterol: Yes Chemotherapy: No Chest Pain: Yes Congestive Heart Failure: Yes COPD: Yes Cerebrovascular Accident: Yes (2009) Coronary Artery Disease: Yes Diabetes: Yes Patient Takes Glucophage: No Diminished Hearing: Yes Endocrine: No Fibromyalgia: Yes Gastrointestinal Disorders: Yes (POLYPS ON GALLBLADDER) GERD: Yes Glaucoma: No Genitourinary: No Headaches: No Hepatitis: Yes (C) Hiatal Hernia: No Heparin Induced Thrombocytopen: No Herniated Disk: Yes Hypertension: Yes Immune Disorder: No Implanted Vascular Access Dvce: No Kidney Stones: Yes Musculoskeletal: Yes (RT SHOULDER,RT KNEE, 3 HERNIATED DISCS) Neurologic: No Psychiatric: Yes (DRUG-SEEKING BEHAVIOR, PSYCHOSIS) Reproductive: No Respiratory: Yes Integumentary: Yes (CELLULITIS) Immunizations Current: No Migraines: Yes Myocardial Infarction: Yes Radiation Therapy: No Renal Failure: No Schizophrenia: Yes (PARANOID SCHIZOPHRENIA) Seizures: No Sickle Cell Disease: No Sleep Apnea: No Thyroid Disease: Yes (HYPOTHYROIDISM) Triglycerides - High: Yes Ulcer: No ?: Not Menopausal: Yes : 5 Para: 2 : 3 Ectopic : Yes Ovarian Cysts: Yes Past Surgical History Abdominal Surgery: No AICD: No Appendectomy: No Arteriovenous Shunt: No Cardiac Surgery: No Cholecystectomy: No Ear Surgery: No Endocrine Surgery: No Eye Surgery: Yes (BLIND LEFT EYE-surgery) Genitourinary Surgery: No Gynecologic Surgery: Yes (BX BILATERAL BREAST) Hysterectomy: Yes Insulin Pump: No Joint Replacement: No Neurologic Surgery: No Oral Surgery: No Pacemaker: No Thoracic Surgery: No Other Surgery: No Social History Alcohol Use: No ("I QUIT 20 YEARS AGO" ) Tobacco Use: Yes Substance Use: No (DENIES: ) Allergies-Medications (Allergen,Severity, Reaction): Coded Allergies: Sulfa (Sulfonamide Antibiotics) (Unverified Allergy, Unknown, does not know, 06/22/17) baclofen (Unverified Allergy, Unknown, 06/22/17) citalopram (Unverified Allergy, Unknown, Rash, 06/22/17) ziprasidone (Unverified Allergy, Unknown, 06/22/17) haloperidol (Unverified Adverse Reaction, Severe, "STIFFNESS", 06/22/17) quetiapine (Unverified Adverse Reaction, Severe, anxiety, 06/22/17) risperidone (Unverified Adverse Reaction, Severe, anxiety, 06/22/17) ferrous fumarate (Unverified Adverse Reaction, Intermediate, dark bm's, ) ferrous sulfate (Unverified Adverse Reaction, Intermediate, dark bm's, ) ferumoxytol (Unverified Adverse Reaction, Intermediate, dark bm's, 06/22/17 ) iron (Unverified Adverse Reaction, Intermediate, dark bm's, 06/22/17) multivitamin infusion, adult no.4 with vitamin K (Unverified Adverse Reaction, Intermediate, dark bm's, 06/22/17) multivitamin with iron,other minerals (Unverified Adverse Reaction, Intermediate, dark bm's, 06/22/17) Reported Meds & Prescriptions Reported Meds & Active Scripts Active Flagyl (Metronidazole) 500 Mg Tab 500 Mg PO TID 7 Days Reported Promethazine (Promethazine HCl) 12.5 Mg Tab 12.5 Mg PO Q4H PRN Plavix (Clopidogrel Bisulfate) 75 Mg Tab 75 Mg PO DAILY Levothyroxine (Levothyroxine Sodium) 200 Mcg Tab 200 Mcg PO DAILY Hydrocodone-Acetaminophen 10-325 mg Tab 1 Tab PO Q6H PRN Lantus Inj (Insulin Glargine) 1,000 Unit/10 Ml Vial 10-12 Units SQ HS Xanax (Alprazolam) 2 Mg Tab 2 Mg PO Q8H PRN Review of Systems Except as stated in HPI: all other systems reviewed are Neg Physical Exam Narrative GENERAL: Well-nourished obese SKIN: Focused skin assessment warm/dry. HEAD: Atraumatic. Normocephalic. EYES: Pupils equal and round. No scleral icterus. No injection or drainage. ENT: No nasal bleeding or discharge. Mucous membranes pink and moist. NECK: Trachea midline. No JVD. CARDIOVASCULAR: Regular rate and rhythm. No murmur appreciated. RESPIRATORY: No accessory muscle use. Clear to auscultation. Breath sounds equal bilaterally. GASTROINTESTINAL: Abdomen soft, mildly tender left abdominal region, no rebound tenderness, no ecchymosis. No radiation of pain. MUSCULOSKELETAL: No obvious deformities. No clubbing. No cyanosis. No edema. NEUROLOGICAL: Awake and alert. No obvious cranial nerve deficits. Motor grossly within normal limits. Normal speech. PSYCHIATRIC: Appropriate mood and affect; insight and judgment normal. Data Data Last Documented VS Vital Signs Date Time Temp Pulse Resp B/P (MAP) Pulse Ox O2 Delivery O2 Flow Rate FiO2 06/23/17 01:38 06/22/17 22:39 84 22 95 Room Air 06/22/17 22:30 98.8 Orders Orders Complete Blood Count With Diff (06/22/17 22:47) Comprehensive Metabolic Panel (06/22/17 22:47) Lipase (06/22/17 22:47) Prothrombin Time / Inr (Pt) (06/22/17 22:47) Act Partial Throm Time (Ptt) (06/22/17 22:47) Urinalysis - C+S If Indicated (06/22/17 22:47) Iv Access Insert/Monitor (06/22/17 22:47) Ecg Monitoring (06/22/17 22:47) Oximetry (06/22/17 22:47) NPO (06/22/17 22:47) Electrocardiogram (06/22/17 22:47) Ct Abd/Pel W/O Iv Contrast (1/14/18 ) Metronidazole (Flagyl) (06/23/17 01:15) Ed Discharge Order (06/23/17 01:36) Labs Laboratory Tests Test 06/22/17 23:10 White Blood Count 16.3 TH/MM3 Red Blood Count 4.94 MIL/MM3 Hemoglobin 13.8 GM/DL Hematocrit 40.7 % Mean Corpuscular Volume 82.5 FL Mean Corpuscular Hemoglobin 28.0 PG Mean Corpuscular Hemoglobin Concent 33.9 % Red Cell Distribution Width 14.7 % Platelet Count 341 TH/MM3 Mean Platelet Volume 8.5 FL Neutrophils (%) (Auto) 79.9 % Lymphocytes (%) (Auto) 13.2 % Monocytes (%) (Auto) 6.4 % Eosinophils (%) (Auto) 0.2 % Basophils (%) (Auto) 0.3 % Neutrophils # (Auto) 13.0 TH/MM3 Lymphocytes # (Auto) 2.2 TH/MM3 Monocytes # (Auto) 1.0 TH/MM3 Eosinophils # (Auto) 0.0 TH/MM3 Basophils # (Auto) 0.1 TH/MM3 CBC Comment DIFF FINAL Differential Comment Prothrombin Time 10.7 SEC Prothromb Time International Ratio 1.1 RATIO Activated Partial Thromboplast Time 22.3 SEC Urine Color YELLOW Urine Turbidity HAZY Urine pH 5.0 Urine Specific [place] 1.015 Urine Protein TRACE mg/dL Urine Glucose (UA) NEG mg/dL Urine Ketones NEG mg/dL Urine Occult Blood NEG Urine Nitrite NEG Urine Bilirubin NEG Urine Urobilinogen LESS THAN 2.0 MG/DL Urine Leukocyte Esterase NEG Urine RBC 3 /hpf Urine WBC 1 /hpf Urine Squamous Epithelial Cells 1 /hpf Urine Amorphous Sediment RARE Urine Bacteria RARE /hpf Urine Hyaline Casts 33 /lpf Urine Mucus FEW /lpf Microscopic Urinalysis Comment CULT NOT INDICATED Blood Urea Nitrogen 22 MG/DL Creatinine 2.43 MG/DL Random Glucose 189 MG/DL Total Protein 7.3 GM/DL Albumin 3.6 GM/DL Calcium Level 8.3 MG/DL Alkaline Phosphatase 75 U/L Aspartate Amino Transf (AST/SGOT) 23 U/L Alanine Aminotransferase (ALT/SGPT) 27 U/L Total Bilirubin 0.3 MG/DL Sodium Level 136 MEQ/L Potassium Level 3.3 MEQ/L Chloride Level 94 MEQ/L Carbon Dioxide Level 33.6 MEQ/L Anion Gap 8 MEQ/L Estimat Glomerular Filtration Rate 20 ML/MIN Lipase 81 U/L MDM Medical Decision Making Medical Screen Exam Complete: Yes Emergency Medical Condition: Yes Differential Diagnosis Nephrolithiasis, urinary tract infection, malingering, diverticulitis, Narrative Course 62-year-old female with a history of bipolar disorder, diabetes, and COPD presents to emergency department complaining of left upper quadrant abdominal pain radiating to her groin area for 1 day. Says the pain is intermittent, sharp, lasting hours before going away. Nothing relieves or worsens her pain. Also states she has had bloody diarrhea but is unable to tell me the color of her diarrhea. During the interview, patient had a difficult time staying awake. States she took all of her home medications today which include hydrocodone 10, ativan 2mg. Pt takes plavix for history of CVA. In addition, pt says she has a history of 'tumors' in her pelvis but is unable to tell me the doctor who diagnosed her with this. She is unable to specify further regarding these tumors. Vital signs stable. Physical exam findings- Pt sedated, resting comfortably in bed. Abdomen protuberant, left abdominal tenderness without rebound tenderness. No masses or organomegaly noted. Transfer of care to Dr. Ron. Please see her note for final disposition and diagnosis. [facility] Point of Care Internal Pos. & Neg. Controls: Passed Fecal Specimen Occult Blood: Positive Scripts Metronidazole (Flagyl) 500 Mg Tab 500 MG PO TID for Infection for 7 Days, TAB 0 Refills Prov: Crista Ron MD 06/23/17 Condition: Stable Edna Holloway Jun 22, 2017 22:47
[2017-06-22 23:27] LABS: BASOPHIL # 0.1 TH/MM3 (0-0.2); BASOPHIL % 0.3 % (0.0-2.0); EOSINOPHIL % 0.2 % (0.0-4.0); HEMATOCRIT 40.7 % (35.0-46.0); HEMOGLOBIN 13.8 GM/DL (11.6-15.3); LYMPH % 13.2 % (9.0-44.0); LYMPHOCYTE # 2.2 TH/MM3 (1.0-4.8); MEAN CELL VOLUME 82.5 FL (80.0-100.0); MEAN CORPUSCULAR HGB CONC 33.9 % (32.0-36.0); MEAN PLATELET VOLUME 8.5 FL (7.0-11.0); MONO % 6.4 % (0.0-8.0); NEUT % 79.9 % (16.0-70.0); PLATELET COUNT 341 TH/MM3 (150-450); RED BLOOD COUNT 4.94 MIL/MM3 (4.00-5.30); RED CELL DISTRIBUTION WIDTH 14.7 % (11.6-17.2); WHITE BLOOD COUNT 16.3 TH/MM3 (4.0-11.0)
[2017-06-22 23:28] LABS: AMORPHOUS SEDIMENT, URINE RARE; BACTERIA, URINE RARE /hpf; BILIRUBIN, URINE NEG (NEG); BLOOD, URINE NEG (NEG); GLUCOSE,URINE NEG (NEG); HYALINE CAST, URINE 33 /lpf (RARE); KETONE, URINE NEG (NEG); MUCUS URINE FEW /lpf (OCC); NITRITE,URINE NEG (NEG); SQUAMOUS EPITHELIAL CELL URINE 1 /hpf (0-5); URINE COLOR YELLOW (YELLW/STRAW); URINE LEUKOCYTE ESTERASE NEG (NEG)
[2017-06-22 23:34] LABS: INTERNATIONAL NORMALIZED RATIO 1.1 RATIO; PROTHROMBIN TIME - PATIENT 10.7 SEC (9.8-11.6)
[2017-06-22 23:43] LABS: ALBUMIN 3.6 GM/DL (3.4-5.0); ALKALINE PHOSPHATASE 75 U/L (45-117); ALT (GPT) 27 U/L (10-53); AST (GOT) 23 U/L (15-37); BICARBONATE 33.6 MEQ/L (21.0-32.0); BLOOD UREA NITROGEN 22 MG/DL (7-18); CALCIUM 8.3 MG/DL (8.5-10.1); CHLORIDE 94 MEQ/L (98-107); CREATININE 2.43 MG/DL (0.50-1.00); GLOMERULAR FILTRATION RATE 20 ML/MIN (>89); GLUCOSE,RANDOM 189 MG/DL (74-106); LIPASE 81 U/L (73-393); SODIUM (NA) 136 MEQ/L (136-145); TOTAL BILIRUBIN ADULT 0.3 MG/DL (0.2-1.0); TOTAL PROTEIN 7.3 GM/DL (6.4-8.2)
--- NOTE | 2017-06-23 01:01 | RADRPT ---
EXAM DATE/TIME: 06/23/2017 00:26 [facility] COMPARISON: No previous studies available for comparison. INDICATIONS : Abdomen pain with nausea and vomiting past 2 days. ORAL CONTRAST: No oral contrast ingested. RADIATION DOSE: 25.97 CTDIvol (mGy) ; Patient body habitus MEDICAL HISTORY : Cardiovascular disease. Hypertension. Chronic obstructive pulmonary disease.Diabetes Hep C SURGICAL HISTORY : Hysterectomy. ENCOUNTER: Initial ACUITY: 2 days PAIN SCALE: 7/10 LOCATION: Bilateral abdomen TECHNIQUE: Volumetric scanning of the abdomen and pelvis was performed. Using automated exposure control and ad justment of the mA and/or kV according to patient size, radiation dose was kept as low as reasonably achievable to obtain optimal diagnostic quality images. DICOM format image data is available electro nically for review and comparison. FINDINGS: LOWER LUNGS: The visualized lower lungs are clear. LIVER: There is diffuse decreased attenuation to the liver. SPLEEN: Normal size without lesion. PANCREAS: Within normal limits. KIDNEYS: Normal in size and shape. There is no mass, stone, or hydronephrosis. ADRENAL GLANDS: Within normal limits. VASCULAR: There is no aortic aneurysm. BOWEL/MESENTERY: There is a large water density mass seen in the left lower abdomen and upper pelvic region measuring 15.8 cm in transverse dimension, 9 cm in AP dimension and extending over a 13 cm in length. There are some minimal sigmoid colon diverticula. Otherwise the bowel is unremarkable. ABDOMINAL WALL: Within normal limits. RETROPERITONEUM: There is no lymphadenopathy. BLADDER: No wall thickening or mass. REPRODUCTIVE: Within normal limits. INGUINAL: There is no lymphadenopathy or hernia. MUSCULOSKELETAL: Within normal limits for patient age. CONCLUSION: 1. Hepatic steatosis. 2. Large fluid collection in the left lower quadrant. This was reported on a prior CT examination fro 06/17/2013. This could be a lymphocele, mesenteric cyst or even ovarian cyst. Rei Mello MD on June 23, 2017 at 0:53 Board Certified Radiologist. This report was verified electronically.
[2017-06-23] MEDS ORDERED: metroNIDAZOLE 500 MG TAB PO ONE (01:15)
[2017-06-23] MEDS ORDERED: METR-1 PO (01:33)
--- NOTE | 2017-06-23 01:35 | PD ---
Physical Exam Date Seen by Provider: Jun 23, 2017 Time Seen by Provider: 01:34 Narrative Accepted in transfer of care GENERAL: Well-developed morbidly obese female in no acute distress no respiratory distress SKIN: Warm and dry. HEAD: Normocephalic. EYES: No scleral icterus. No injection or drainage. NECK: Supple, trachea midline. No JVD or lymphadenopathy. CARDIOVASCULAR: Regular rate and rhythm without murmurs, gallops, or rubs. RESPIRATORY: Breath sounds equal bilaterally. No accessory muscle use. GASTROINTESTINAL: Abdomen soft, non-tender, nondistended. Data Data Last Documented VS Vital Signs Date Time Temp Pulse Resp B/P (MAP) Pulse Ox O2 Delivery O2 Flow Rate FiO2 06/22/17 22:39 84 22 121/84 (96) 95 Room Air 06/22/17 22:30 98.8 Orders Orders Complete Blood Count With Diff (06/22/17 22:47) Comprehensive Metabolic Panel (06/22/17 22:47) Lipase (06/22/17 22:47) Prothrombin Time / Inr (Pt) (06/22/17 22:47) Act Partial Throm Time (Ptt) (06/22/17 22:47) Urinalysis - C+S If Indicated (06/22/17 22:47) Iv Access Insert/Monitor (06/22/17 22:47) Ecg Monitoring (06/22/17 22:47) Oximetry (06/22/17 22:47) NPO (06/22/17 22:47) Electrocardiogram (06/22/17 22:47) Ct Abd/Pel W/O Iv Contrast (06/22/17 ) Metronidazole (Flagyl) (06/23/17 01:15) Labs Laboratory Tests Test 06/22/17 23:10 White Blood Count 16.3 TH/MM3 Red Blood Count 4.94 MIL/MM3 Hemoglobin 13.8 GM/DL Hematocrit 40.7 % Mean Corpuscular Volume 82.5 FL Mean Corpuscular Hemoglobin 28.0 PG Mean Corpuscular Hemoglobin Concent 33.9 % Red Cell Distribution Width 14.7 % Platelet Count 341 TH/MM3 Mean Platelet Volume 8.5 FL Neutrophils (%) (Auto) 79.9 % Lymphocytes (%) (Auto) 13.2 % Monocytes (%) (Auto) 6.4 % Eosinophils (%) (Auto) 0.2 % Basophils (%) (Auto) 0.3 % Neutrophils # (Auto) 13.0 TH/MM3 Lymphocytes # (Auto) 2.2 TH/MM3 Monocytes # (Auto) 1.0 TH/MM3 Eosinophils # (Auto) 0.0 TH/MM3 Basophils # (Auto) 0.1 TH/MM3 CBC Comment DIFF FINAL Differential Comment Prothrombin Time 10.7 SEC Prothromb Time International Ratio 1.1 RATIO Activated Partial Thromboplast Time 22.3 SEC Urine Color YELLOW Urine Turbidity HAZY Urine pH 5.0 Urine Specific [place] 1.015 Urine Protein TRACE mg/dL Urine Glucose (UA) NEG mg/dL Urine Ketones NEG mg/dL Urine Occult Blood NEG Urine Nitrite NEG Urine Bilirubin NEG Urine Urobilinogen LESS THAN 2.0 MG/DL Urine Leukocyte Esterase NEG Urine RBC 3 /hpf Urine WBC 1 /hpf Urine Squamous Epithelial Cells 1 /hpf Urine Amorphous Sediment RARE Urine Bacteria RARE /hpf Urine Hyaline Casts 33 /lpf Urine Mucus FEW /lpf Microscopic Urinalysis Comment CULT NOT INDICATED Blood Urea Nitrogen 22 MG/DL Creatinine 2.43 MG/DL Random Glucose 189 MG/DL Total Protein 7.3 GM/DL Albumin 3.6 GM/DL Calcium Level 8.3 MG/DL Alkaline Phosphatase 75 U/L Aspartate Amino Transf (AST/SGOT) 23 U/L Alanine Aminotransferase (ALT/SGPT) 27 U/L Total Bilirubin 0.3 MG/DL Sodium Level 136 MEQ/L Potassium Level 3.3 MEQ/L Chloride Level 94 MEQ/L Carbon Dioxide Level 33.6 MEQ/L Anion Gap 8 MEQ/L Estimat Glomerular Filtration Rate 20 ML/MIN Lipase 81 U/L [facility] Medical Record Reviewed: Yes Supervised Visit with LINDSEY: Yes Interpretation(s) Last Impressions Abdomen/Pelvis CT 06/22/17 0000 Signed Impressions: Service Date/Time: Friday, June 23, 2017 00:26 - CONCLUSION: 1. Hepatic steatosis. 2. Large fluid collection in the left lower quadrant. This was reported on a prior CT examination from 06/17/2013. This could be a lymphocele, mesenteric cyst or even ovarian cyst. Rei Mello MD CBC & BMP Diagram 06/22/17 23:10 Total Protein 7.3, Albumin 3.6, Calcium Level 8.3 L, Alkaline Phosphatase 75, Aspartate Amino Transf (AST/SGOT) 23, Alanine Aminotransferase (ALT/SGPT) 27, Total Bilirubin 0.3 Vital Signs Date Time Temp Pulse Resp B/P (MAP) Pulse Ox O2 Delivery O2 Flow Rate FiO2 06/22/17 22:39 84 22 121/84 (96) 95 Room Air 06/22/17 22:30 98.8 83 16 80/52 (61) 95 Room Air Differential Diagnosis Abdominal pain diverticulitis colitis abscess pelvic mass UTI pyelonephritis renal colic Narrative Course Patient was frequently stool that has reportedly had streaks of blood in it on rectal exam by private his provider positive for occult blood with mild white count elevation most likely related to hemorrhoidal bleeding but in view of history of loose stool will cover presumptively for colitis clinically patient with chronic mass fluid collection lymphoid tissue since 2008 unchanged. Patient otherwise stable for outpatient management. Diagnosis Primary Impression: Chronic abdominal pain Additional Impressions: Colitis Lymphocele Referrals: Primary Care Physician call for appointment Patient Instructions: General Instructions Additional Instruction: Take antibiotic as prescribed Follow-up with her primary care provider Take acetaminophen/Tylenol as needed for fever 100.4F or greater Return to emergency for free concerns or change in condition Med/Other Pt SpecificInfo: Prescription(s) given Scripts Metronidazole (Flagyl) 500 Mg Tab 500 MG PO TID for Infection for 7 Days, TAB 0 Refills Prov: Crista Ron MD 06/23/17 Disposition: 01 DISCHARGE HOME Condition: Stable Crista Ron MD Jun 23, 2017 01:35
--- NOTE | 2017-06-23 14:56 | EKG ---
Date Performed: 06/22/2017 Time Performed: 23:16:33 PTAGE: 62 years EKG: Sinus rhythm NONSPECIFIC T-WAVE ABNORMALITY Since previous tracing, no significant change noted BORDERLINE ECG PREVIOUS TRACING : 12/20/2016 02.00 DOCTOR: Jayjay Pascal Interpretating Date/Time 06/23/2017 14:54:50
== END 2017-06-23 02:23 | disposition home or self-care (01) ==
LOC: NEPC 21:15
DX: K52.9 Noninfective gastroenteritis and colitis, unspecified (principal); I89.8 Other specified noninfective disorders of lymphatic vessels and lymph nodes; K76.0 Fatty (change of) liver, not elsewhere classified; R94.31 Abnormal electrocardiogram [ECG] [EKG]; E66.01 Morbid (severe) obesity due to excess calories; E11.9 Type 2 diabetes mellitus without complications; J44.9 Chronic obstructive pulmonary disease, unspecified; I11.0 Hypertensive heart disease with heart failure; I50.9 Heart failure, unspecified
CPT/HCPCS: 74176; 80053; 81001; 83690; 85025; 85610; 85730; 93005

== ENCOUNTER 2017-09-06 14:46 | Emergency (ER) | payer MEDICAID ==
[~2017-09-06] VITALS: Ht 162.6 cm; Wt 107.1 kg
[~2017-09-06 14:46] MED LIST changes: +METR-1 PO
[2017-09-06 15:23] VITALS: BP 107/59; PULSE 81; RESP 16; TEMP 98.8; O2SAT 96
[2017-09-06] MEDS ORDERED: TRAZ100T10 PO (16:00)
[2017-09-06] MEDS ORDERED: DIVA250T3 PO (16:00)
[2017-09-06] MEDS ORDERED: POTA-163 PO (16:00)
[2017-09-06] MEDS ORDERED: INVE6TAB3 PO (16:00)
[2017-09-06] MEDS ORDERED: NITR1SUB3 SL (16:00)
[2017-09-06] MEDS ORDERED: FURO1TAB61 PO (16:00)
--- NOTE | 2017-09-06 16:31 | RADRPT ---
EXAM DATE/TIME: 09/06/2017 16:10 [facility] COMPARISON: No previous studies available for comparison. INDICATIONS : Fell from bed. right shoulder pain.. limited ROM MEDICAL HISTORY : Diabetes mellitus type II. SURGICAL HISTORY : None. ENCOUNTER: Initial ACUITY: 4 - 6 days PAIN SCORE: 10/10 LOCATION: Right shoulder FINDINGS: Two view examination of the right shoulder demonstrates no evidence of fracture or dislocation. The glenohumeral and acromioclavicular joints are maintained. Bony mineralization is normal. CONCLUSION: No acute disease. Jama Metcalf MD on September 06, 2017 at 16:28 Board Certified Radiologist. This report was verified electronically.
--- NOTE | 2017-09-06 16:31 | RADRPT ---
EXAM DATE/TIME: 09/06/2017 16:10 [facility] COMPARISON: No previous studies available for comparison. INDICATIONS : Fell from bed, right hip area pain MEDICAL HISTORY : Diabetes mellitus type II. SURGICAL HISTORY : None. ENCOUNTER: Initial ACUITY: 4 - 6 days PAIN SCORE: 10/10 LOCATION: Right hip FINDINGS: View of the right hip was obtained. Femoral neck is intact. No fracture is seen. The soft tissues are unremarkable. CONCLUSION: No acute disease. Jama Metcalf MD on September 06, 2017 at 16:29 Board Certified Radiologist. This report was verified electronically.
--- NOTE | 2017-09-06 16:32 | RADRPT ---
EXAM DATE/TIME: 09/06/2017 16:10 [facility] COMPARISON: No previous studies available for comparison. INDICATIONS : Fell from bed, right ankle pain MEDICAL HISTORY : Diabetes mellitus type II. SURGICAL HISTORY : None. ENCOUNTER: Initial ACUITY: 4 - 6 days PAIN SCORE: 10/10 LOCATION: Right ankle FINDINGS: Two view examination was performed of the right ankle. The bony structures are in normal alignment. No evidence of fracture, dislocation, or soft tissue swelling. No radiopaque foreign bodies are see n. Bony mineralization is normal. CONCLUSION: No acute disease. Jama Metcalf MD on September 06, 2017 at 16:29 Board Certified Radiologist. This report was verified electronically.
--- NOTE | 2017-09-06 16:46 | PD ---
HPI Chief Complaint: Injury Time Seen by Provider: 15:55 Travel History International Travel<30 days: No Contact w/Intl Traveler<30days: No Traveled to known affect area: No History of Present Illness HPI Patient presents with complaints of right shoulder right hip and right ankle discomfort. Reports from her bed onto her right side on Friday morning. Painful to ambulate. Recently started on an Invega and Depakote for schizophrenia. Reports increased fatigue. Able to ambulate. PFSH Past Medical History Hx Anticoagulant Therapy: Yes (plavix) Arthritis: No Asthma: Yes Autoimmune Disease: No Blood Disorders: No Bipolar Disorder: Yes Anxiety: Yes Depression: Yes Heart Rhythm Problems: No Cancer: Yes (BREAST AND UTERINE) Cardiac Catheterization: Yes Cardiovascular Problems: Yes (htn on meds) High Cholesterol: Yes Chemotherapy: No Chest Pain: Yes Congestive Heart Failure: Yes COPD: Yes Cerebrovascular Accident: Yes (cva) Coronary Artery Disease: Yes Diabetes: Yes (type 2) Patient Takes Glucophage: No Diminished Hearing: Yes Endocrine: No Fibromyalgia: Yes Gastrointestinal Disorders: Yes (POLYPS ON GALLBLADDER) GERD: Yes Glaucoma: No Genitourinary: No Headaches: No Hepatitis: Yes (C) Hiatal Hernia: No Heparin Induced Thrombocytopen: No Herniated Disk: Yes Hypertension: Yes Immune Disorder: No Implanted Vascular Access Dvce: No Kidney Stones: Yes Musculoskeletal: Yes (RT SHOULDER,RT KNEE, 3 HERNIATED DISCS) Neurologic: No Psychiatric: Yes (DRUG-SEEKING BEHAVIOR, PSYCHOSIS) Reproductive: No Respiratory: Yes Integumentary: Yes (CELLULITIS) Immunizations Current: No Migraines: Yes Myocardial Infarction: Yes Radiation Therapy: No Renal Failure: No Schizophrenia: Yes (PARANOID SCHIZOPHRENIA) Seizures: No Sickle Cell Disease: No Sleep Apnea: No Thyroid Disease: Yes (HYPOTHYROIDISM) Triglycerides - High: Yes Ulcer: No Tetanus Vaccination: Unknown ?: Not Menopausal: Yes : 5 Para: 2 : 3 Ectopic : Yes Ovarian Cysts: Yes Past Surgical History Abdominal Surgery: No AICD: No Appendectomy: No Arteriovenous Shunt: No Cardiac Surgery: No Cholecystectomy: No Ear Surgery: No Endocrine Surgery: No Eye Surgery: Yes (BLIND LEFT EYE-surgery) Genitourinary Surgery: No Gynecologic Surgery: Yes (BX BILATERAL BREAST) Hysterectomy: Yes Insulin Pump: No Joint Replacement: No Neurologic Surgery: No Oral Surgery: No Pacemaker: No Thoracic Surgery: No Other Surgery: No Social History Alcohol Use: No ("I QUIT 20 YEARS AGO" ) Tobacco Use: Yes Substance Use: No (DENIES: ) Allergies-Medications (Allergen,Severity, Reaction): Coded Allergies: Sulfa (Sulfonamide Antibiotics) (Unverified Allergy, Unknown, does not know, 06/22/17) baclofen (Unverified Allergy, Unknown, 06/22/17) citalopram (Unverified Allergy, Unknown, Rash, 06/22/17) ziprasidone (Unverified Allergy, Unknown, 06/22/17) haloperidol (Unverified Adverse Reaction, Severe, "STIFFNESS", 06/22/17) quetiapine (Unverified Adverse Reaction, Severe, anxiety, 06/22/17) risperidone (Unverified Adverse Reaction, Severe, anxiety, 06/22/17) ferrous fumarate (Unverified Adverse Reaction, Intermediate, dark bm's, ) ferrous sulfate (Unverified Adverse Reaction, Intermediate, dark bm's, ) ferumoxytol (Unverified Adverse Reaction, Intermediate, dark bm's, 06/22/17 ) iron (Unverified Adverse Reaction, Intermediate, dark bm's, 06/22/17) multivitamin infusion, adult no.4 with vitamin K (Unverified Adverse Reaction, Intermediate, dark bm's, 06/22/17) multivitamin with iron,other minerals (Unverified Adverse Reaction, Intermediate, dark bm's, 06/22/17) Reported Meds & Prescriptions Reported Meds & Active Scripts Active Reported Nitroglycerin SL (Nitroglycerin) 0.4 Mg Subl 0.4 Mg SL DIRECTED PRN ONE TABLET UNDER THE TONGUE NEEDED FOR CHEST PAIN, MAY REPEAT EVERY FIVE MINUTES FOR A TOTAL OF 3 DOSES OR CALL 911 IF NO RELIEF Lasix (Furosemide) 80 Mg Tab 80 Mg PO DAILY Potassium Chloride ER (Potassium Chloride) 20 Meq Tab 20 Meq PO BID Trazodone (Trazodone HCl) 100 Mg Tablet 100 Mg PO HS Invega (Paliperidone ER) 6 Mg Tab 6 Mg PO DAILY Divalproex ER (Divalproex Sodium) 250 Mg Yessy 250 Mg PO BID Promethazine (Promethazine HCl) 12.5 Mg Tab 12.5 Mg PO Q4H PRN Plavix (Clopidogrel Bisulfate) 75 Mg Tab 75 Mg PO DAILY Levothyroxine (Levothyroxine Sodium) 200 Mcg Tab 200 Mcg PO DAILY Hydrocodone-Acetaminophen 10-325 mg Tab 1 Tab PO Q6H PRN Lantus Inj (Insulin Glargine) 1,000 Unit/10 Ml Vial 10-12 Units SQ HS Xanax (Alprazolam) 2 Mg Tab 2 Mg PO Q8H PRN Review of Systems General / Constitutional: No: Fever Eyes: No: Visual changes HENT: No: Headaches Cardiovascular: No: Chest Pain or Discomfort Respiratory: No: Shortness of Breath Gastrointestinal: No: Abdominal Pain Genitourinary: No: Dysuria Musculoskeletal: Positive: Myalgias, No: Pain Skin: No Rash Neurologic: No: Weakness Psychiatric: No: Depression Endocrine: No: Polydipsia Hematologic/Lymphatic: No: Easy Bruising Physical Exam Narrative GENERAL: Well-nourished, well-developed patient. SKIN: Focused skin assessment warm/dry. HEAD: Normocephalic. EYES: No scleral icterus. No injection or drainage. NECK: Supple, trachea midline. No JVD or lymphadenopathy. CARDIOVASCULAR: Regular rate and rhythm without murmurs, gallops, or rubs. RESPIRATORY: Breath sounds equal bilaterally. No accessory muscle use. GASTROINTESTINAL: Abdomen soft, non-tender, nondistended. MUSCULOSKELETAL: No cyanosis, or edema. BACK: Nontender without obvious deformity. No CVA tenderness. Examination right shoulder reveals pain on range of motion Examination of the right hip reveals discomfort on weightbearing Examination of the right ankle reveals pain on manipulation flexion and extension Data Data Last Documented VS Vital Signs Date Time Temp Pulse Resp B/P (MAP) Pulse Ox O2 Delivery O2 Flow Rate FiO2 09/06/17 15:23 98.8 81 16 107/59 (75) 96 Orders Orders Shoulder, Limited(2vws) (09/06/17 ) Ankle, Limited (Ap&Lat) (09/06/17 ) Hip, Ap Only Wo Ap Pelvis (09/06/17 ) Valproic Acid (Depakene) (09/06/17 16:10) Labs Laboratory Tests Test 09/06/17 16:30 Valproic Acid (Depakene) Level 55 MCG/ML MDM Medical Decision Making Medical Screen Exam Complete: Yes Emergency Medical Condition: Yes Differential Diagnosis Joint contusion, degenerative joint disease, malingering, side effects of medication Narrative Course Assessment and plan discussed with patient and mother at bedside. Depakote level within normal limits Last 72 hours Impressions Shoulder X-Ray 09/06/17 0000 Signed Impressions: Service Date/Time: Wednesday, September 06, 2017 16:10 - CONCLUSION: No acute disease. Jama Metcalf MD Hip X-Ray 09/06/17 0000 Signed Impressions: Service Date/Time: Wednesday, September 06, 2017 16:10 - CONCLUSION: No acute disease. Jama Metcalf MD Ankle X-Ray 09/06/17 0000 Signed Impressions: Service Date/Time: Wednesday, September 06, 2017 16:10 - CONCLUSION: No acute disease. Jama Metcalf MD Diagnosis Primary Impression: Shoulder contusion Qualified Codes: S40.011A - Contusion of right shoulder, initial encounter Additional Impressions: Contusion, hip Qualified Codes: S70.01XA - Contusion of right hip, initial encounter Ankle strain Qualified Codes: S96.911A - Strain of unspecified muscle and tendon at ankle and foot level, right foot, initial encounter Patient Instructions: General Instructions Additional Instructions: Discussed side effects of current medications, encouraged to follow-up with her psychiatrist. Encouraged warm heat to shoulder. Encourage gentle range of motion exercises. Patient has pain medication at home. Follow-up with PCP. Return to emergency room with any onset of new symptoms. Med/Other Pt SpecificInfo: No Meds Exist/No RX given Disposition: DISCHARGE HOME Condition: Good Mirza Crawford MD Sep 06, 2017 16:46
== END 2017-09-06 18:30 | disposition home or self-care (01) ==
LOC: PHEFT 14:46
DX: S40.011A Contusion of right shoulder, initial encounter (principal); S70.01XA Contusion of right hip, initial encounter; S96.911A Strain of unspecified muscle and tendon at ankle and foot level, right foot, initial encounter; R53.83 Other fatigue; F20.9 Schizophrenia, unspecified; I11.0 Hypertensive heart disease with heart failure; I50.9 Heart failure, unspecified; E11.9 Type 2 diabetes mellitus without complications; X58.XXXA Exposure to other specified factors, initial encounter
CPT/HCPCS: 73030; 73501; 73600; 80164; 99284

== ENCOUNTER 2017-09-20 21:39 | Emergency (ER) | payer MEDICAID ==
[~2017-09-20 21:39] MED LIST changes: +DIVA250T3 PO; +FURO1TAB61 PO; +INVE6TAB3 PO; -METR-1 PO; +NITR1SUB3 SL; +POTA-163 PO; +TRAZ100T10 PO
[2017-09-20 22:04] VITALS: BP 126/77; PULSE 66; RESP 18; O2SAT 98
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
[2017-09-20 22:46] LABS: AUTOMATED NEUTROPHIL # 4.4 TH/MM3 (1.8-7.7); BASOPHIL % 0.4 % (0.0-2.0); EOSINOPHIL # 0.1 TH/MM3 (0-0.4); EOSINOPHIL % 1.4 % (0.0-4.0); HEMATOCRIT 33.8 % (35.0-46.0); HEMOGLOBIN 11.3 GM/DL (11.6-15.3); LYMPH % 37.1 % (9.0-44.0); LYMPHOCYTE # 3.2 TH/MM3 (1.0-4.8); MEAN CELL VOLUME 81.4 FL (80.0-100.0); MEAN CORPUSCULAR HEMOGLOBIN 27.1 PG (27.0-34.0); MEAN CORPUSCULAR HGB CONC 33.3 % (32.0-36.0); MEAN PLATELET VOLUME 7.9 FL (7.0-11.0); MONO % 10.4 % (0.0-8.0); MONOCYTE # 0.9 TH/MM3 (0-0.9); NEUT % 50.7 % (16.0-70.0); PLATELET COUNT 323 TH/MM3 (150-450); RED BLOOD COUNT 4.16 MIL/MM3 (4.00-5.30); RED CELL DISTRIBUTION WIDTH 13.4 % (11.6-17.2); WHITE BLOOD COUNT 8.6 TH/MM3 (4.0-11.0)
[2017-09-20 22:54] LABS: CHLORIDE 98 MEQ/L (98-107); SODIUM (NA) 133 MEQ/L (136-145)
[2017-09-20 22:56] LABS: CALCIUM 8.1 MG/DL (8.5-10.1)
[2017-09-20 22:57] LABS: BICARBONATE 30.7 MEQ/L (21.0-32.0); BLOOD UREA NITROGEN 14 MG/DL (7-18); GLUCOSE,RANDOM 130 MG/DL (74-106)
[2017-09-20 23:00] LABS: CREATININE 0.93 MG/DL (0.50-1.00); GLOMERULAR FILTRATION RATE 61 ML/MIN (>89)
[2017-09-20 23:05] LABS: TROPONIN I LESS THAN 0.02 NG/ML (0.02-0.05)
[2017-09-20] MEDS ORDERED: KETOROLAC TROMETHAMINE 60 MG/2 ML (IM) VIAL IVP ONE (23:15)
--- NOTE | 2017-09-21 14:27 | EKG ---
Date Performed: 09/20/2017 Time Performed: 22:27:18 PTAGE: 62 years EKG: Sinus rhythm WITH SINUS ARRHYTHMIA LOW QRS VOLTAGE IN PRECORDIAL LEADS BORDERLINE ECG Since PREVIOUS TRACING , no significant change noted PREVIOUS TRACIN06/22/2017 23.16 DOCTOR: Bella Sharif Interpretating Date/Time 09/21/2017 14:25:58
== END 2017-09-20 23:21 | disposition home or self-care (01) ==
LOC: PHED 21:39
DX: R07.89 Other chest pain (principal); G89.29 Other chronic pain; M54.9 Dorsalgia, unspecified; M25.569 Pain in unspecified knee; R94.31 Abnormal electrocardiogram [ECG] [EKG]; F20.9 Schizophrenia, unspecified; I50.9 Heart failure, unspecified; I11.0 Hypertensive heart disease with heart failure; I25.10 Atherosclerotic heart disease of native coronary artery without angina pectoris; F31.9 Bipolar disorder, unspecified; E66.9 Obesity, unspecified; E11.9 Type 2 diabetes mellitus without complications; M79.7 Fibromyalgia; E78.5 Hyperlipidemia, unspecified; E78.00 Pure hypercholesterolemia, unspecified; J44.9 Chronic obstructive pulmonary disease, unspecified; H91.90 Unspecified hearing loss, unspecified ear; K21.9 Gastro-esophageal reflux disease without esophagitis; I25.2 Old myocardial infarction; E03.9 Hypothyroidism, unspecified; Z85.42 Personal history of malignant neoplasm of other parts of uterus; Z85.3 Personal history of malignant neoplasm of breast; Z87.442 Personal history of urinary calculi
CPT/HCPCS: 80048; 84484; 85025; 93005; 96374; 99284; J1885

== ENCOUNTER 2017-10-12 06:58 | Emergency (ER) | payer MEDICAID ==
[2017-10-12] MEDS: ACETAMINOPHEN/HYDROcodone 325 MG/5 MG TAB PO ×2 (07:28→09:02)
[2017-10-12] MEDS: KETOROLAC TROMETHAMINE 60 MG/2 ML (IM) VIAL IM (09:03)
== END 2017-10-12 09:38 | disposition home or self-care (01) ==
LOC: PHED 06:58
DX: M54.17 Radiculopathy, lumbosacral region (principal); M19.019 Primary osteoarthritis, unspecified shoulder; M79.7 Fibromyalgia; F20.0 Paranoid schizophrenia; F31.9 Bipolar disorder, unspecified; I10 Essential (primary) hypertension; E78.00 Pure hypercholesterolemia, unspecified; I11.0 Hypertensive heart disease with heart failure; I50.9 Heart failure, unspecified
CPT/HCPCS: 72100; 73030; 96372; 99283-25

== ENCOUNTER 2017-10-26 03:26 | Emergency (ER) | payer MEDICAID ==
[~2017-10-26] VITALS: Ht 165.1 cm; Wt 104.5 kg
[~2017-10-26 03:26] MED LIST changes: -PROM12.54 PO; +ROBA750T PO
[2017-10-26 03:29] VITALS: BP 125/61; PULSE 85; RESP 18; TEMP 98; O2SAT 95
--- NOTE | 2017-10-26 04:11 | PD ---
HPI Chief Complaint: Pain: Acute or Chronic Time Seen by Provider: 04:09 Travel History International Travel<30 days: No Contact w/Intl Traveler<30days: No Traveled to known affect area: No History of Present Illness HPI 62-year-old female with chronic pain. Patient presents to the emergency department by EMS transport from home. Patient reports that she has chronic left shoulder pain and chronic low back pain. Patient states that she is out of her tramadol. Patient is followed by the [facility] for pain management. Patient states that she has had no recent fall or injury. Patient was just seen in the emergency department for same complaint 10/12/17 imaging study of the shoulder and low back were performed at that time which revealed no acute bony abnormality. Patient denies any lower extremity numbness tingling or weakness. No saddle anesthesia. No bladder or bowel dysfunction. Patient rates her pain as severe. PFSH Past Medical History Narrative Medical Plavix therapy asthma, bipolar disorder, uterine and liver cancer, dyslipidemia , CHF, COPD, CAD A, CAD, diabetes, diminished hearing, fibromyalgia, kidney stones, schizophrenia, sleep apnea, eye surgery, hysterectomy; tobacco use; nursing notes reviewed Hx Anticoagulant Therapy: Yes (plavix) Arthritis: No Asthma: Yes Autoimmune Disease: No Blood Disorders: No Bipolar Disorder: Yes Anxiety: Yes Depression: Yes Heart Rhythm Problems: No Cancer: Yes (LIVER AND UTERINE) Cardiac Catheterization: Yes Cardiovascular Problems: Yes High Cholesterol: Yes Chemotherapy: No Chest Pain: Yes Congestive Heart Failure: Yes COPD: Yes Cerebrovascular Accident: Yes Coronary Artery Disease: Yes Diabetes: Yes Patient Takes Glucophage: No Diminished Hearing: Yes Endocrine: No Fibromyalgia: Yes Gastrointestinal Disorders: Yes (POLYPS ON GALLBLADDER) GERD: Yes Glaucoma: No Genitourinary: No Headaches: No Hepatitis: Yes (C) Hiatal Hernia: No Heparin Induced Thrombocytopen: No Herniated Disk: Yes Hypertension: Yes Immune Disorder: No Implanted Vascular Access Dvce: No Kidney Stones: Yes Musculoskeletal: Yes (RT SHOULDER,RT KNEE, 3 HERNIATED DISCS) Neurologic: No Psychiatric: Yes (PSYCHOSIS) Reproductive: No Respiratory: Yes Integumentary: Yes (CELLULITIS) Immunizations Current: No Migraines: Yes Myocardial Infarction: Yes Radiation Therapy: No Renal Failure: No Schizophrenia: Yes (PARANOID SCHIZOPHRENIA) Seizures: No Sickle Cell Disease: No Sleep Apnea: No Thyroid Disease: Yes (HYPOTHYROIDISM) Triglycerides - High: Yes Ulcer: No Tetanus Vaccination: < 5 Years Influenza Vaccination: Yes ?: Not Menopausal: Yes : 6 Para: 2 : 3 Ectopic : Yes Ovarian Cysts: Yes Past Surgical History Abdominal Surgery: No AICD: No Appendectomy: No Arteriovenous Shunt: No Cardiac Surgery: No Cholecystectomy: No Ear Surgery: No Endocrine Surgery: No Eye Surgery: Yes (BLIND LEFT EYE-surgery) Genitourinary Surgery: No Gynecologic Surgery: Yes (BX BILATERAL BREAST) Hysterectomy: Yes Insulin Pump: No Joint Replacement: No Neurologic Surgery: No Oral Surgery: No Pacemaker: No Thoracic Surgery: No Other Surgery: No Social History Alcohol Use: No ("20 YEARS AGO" ) Tobacco Use: Yes (1 PPD ) Substance Use: No Allergies-Medications (Allergen,Severity, Reaction): Coded Allergies: lithium (Verified Allergy, Intermediate, Hives , 10/26/17) Sulfa (Sulfonamide Antibiotics) (Unverified Allergy, Unknown, does not know, 10/26/17) baclofen (Unverified Allergy, Unknown, 10/26/17) citalopram (Unverified Allergy, Unknown, Rash, 10/26/17) ziprasidone (Unverified Allergy, Unknown, 10/26/17) haloperidol (Unverified Adverse Reaction, Severe, "STIFFNESS", 10/26/17) quetiapine (Unverified Adverse Reaction, Severe, anxiety, 10/26/17) risperidone (Unverified Adverse Reaction, Severe, anxiety, 10/26/17) ferrous fumarate (Unverified Adverse Reaction, Intermediate, dark bm's, ) ferrous sulfate (Unverified Adverse Reaction, Intermediate, dark bm's, ) ferumoxytol (Unverified Adverse Reaction, Intermediate, dark bm's, 10/26/17 ) iron (Unverified Adverse Reaction, Intermediate, dark bm's, 10/26/17) multivitamin infusion, adult no.4 with vitamin K (Unverified Adverse Reaction, Intermediate, dark bm's, 10/26/17) multivitamin with iron,other minerals (Unverified Adverse Reaction, Intermediate, dark bm's, 10/26/17) Reported Meds & Prescriptions Reported Meds & Active Scripts Active Robaxin (Methocarbamol) 750 Mg Tab 1,500 Mg PO TID 3 Days Reported Nitroglycerin SL (Nitroglycerin) 0.4 Mg Subl 0.4 Mg SL DIRECTED PRN ONE TABLET UNDER THE TONGUE NEEDED FOR CHEST PAIN, MAY REPEAT EVERY FIVE MINUTES FOR A TOTAL OF 3 DOSES OR CALL 911 IF NO RELIEF Lasix (Furosemide) 80 Mg Tab 80 Mg PO DAILY Potassium Chloride ER (Potassium Chloride) 20 Meq Tab 20 Meq PO BID Trazodone (Trazodone HCl) 100 Mg Tablet 100 Mg PO HS Invega (Paliperidone ER) 6 Mg Tab 6 Mg PO DAILY Levothyroxine (Levothyroxine Sodium) 200 Mcg Tab 200 Mcg PO DAILY Hydrocodone-Acetaminophen 10-325 mg Tab 1 Tab PO Q6H PRN Lantus Inj (Insulin Glargine) 1,000 Unit/10 Ml Vial 10-12 Units SQ HS Xanax (Alprazolam) 2 Mg Tab 2 Mg PO Q8H PRN Review of Systems Except as stated in HPI: all other systems reviewed are Neg General / Constitutional: No: Fever, Chills HENT: No: Congestion Cardiovascular: No: Chest Pain or Discomfort Respiratory: No: Shortness of Breath Gastrointestinal: No: Abdominal Pain Genitourinary: No: Flank Pain Musculoskeletal: Positive: Myalgias, Arthralgias, Pain (Left shoulder pain on range of motion without deformity known numbness tingling or weakness and recurrent low back pain no fall or injury) Skin: No Rash Neurologic: No: Weakness, Dizziness Psychiatric: No: Anxiety Hematologic/Lymphatic: No: Easy Bruising, Lymph Node Enlargement Physical Exam Narrative GENERAL: Well-developed well-nourished obese female no acute distress no respiratory distress GCS 15 SKIN: Warm and dry. HEAD: Atraumatic. Normocephalic. EYES: Pupils equal and round. No scleral icterus. No injection or drainage. ENT: No nasal bleeding or discharge. Mucous membranes pink and moist. NECK: Trachea midline. No JVD. CARDIOVASCULAR: Regular rate and rhythm. RESPIRATORY: No accessory muscle use. Clear to auscultation. Breath sounds equal bilaterally. GASTROINTESTINAL: Abdomen soft, non-tender, nondistended. Hepatic and splenic margins not palpable. MUSCULOSKELETAL: Extremities without clubbing, cyanosis, or edema. No obvious deformities. Patient is able to pull herself upright complains of some shoulder pain on range of motion distally extremity is neurovascular tendon intact bilaterally; bilateral lower extremities DTRs 2+ and equal no numbness tingling or weakness no clonus sensory exam intact motor strength 5/5. Low back pain mild tenderness to palpation along the lumbar spine no bony step-off no paralumbar muscle spasm no ecchymosis no flank tenderness.. NEUROLOGICAL: Awake and alert. No obvious cranial nerve deficits. Motor grossly within normal limits. Five out of 5 muscle strength in the arms and legs. Normal speech. PSYCHIATRIC: Appropriate mood and affect; insight and judgment normal. Data Data Last Documented VS Vital Signs Date Time Temp Pulse Resp B/P (MAP) Pulse Ox O2 Delivery O2 Flow Rate FiO2 10/26/17 04:54 78 18 118/63 (81) 95 10/26/17 03:29 98.0 Orders Orders Ketorolac Inj (Toradol Inj) (10/26/17 04:15) Orphenadrine Inj (Norflex Inj) (10/26/17 04:15) Tramadol (Ultram) (10/26/17 04:15) Urinalysis - C+S If Indicated (10/26/17 04:12) Ed Discharge Order (10/26/17 05:00) Labs Laboratory Tests Test 10/26/17 04:26 Urine Color YELLOW Urine Turbidity CLEAR Urine pH 5.5 Urine Specific [place] LESS/EQUAL 1.005 Urine Protein NEG mg/dL Urine Glucose (UA) NEG mg/dL Urine Ketones NEG mg/dL Urine Occult Blood NEG Urine Nitrite NEG Urine Bilirubin NEG Urine Urobilinogen 0.2 MG/DL Urine Leukocyte Esterase NEG Urine WBC 0-2 /hpf Urine Squamous Epithelial Cells 0-5 /hpf Microscopic Urinalysis Comment CULT NOT INDICATED MDM Medical Decision Making Medical Screen Exam Complete: Yes Emergency Medical Condition: Yes Medical Record Reviewed: Yes Interpretation(s) UA: Normal Differential Diagnosis Musculoskeletal pain, bursitis, chronic low back pain degenerative disc disease degenerative joint disease, compression fracture, drug seeking behavior, Narrative Course Patient resting comfortably no recent injuries since last visit to the emergency department no indication for repeat imaging. Upper extremity is neurovascular tendon intact patient has some discomfort with range of motion at the shoulder no point tenderness no induration no erythema no increased warmth no fluctuance. Patient is here reporting that she needs pain medication and she is out of her pain medication. Patient concerning for drug-seeking behavior has had recent imaging of her shoulder and upper back with no acute focality on exam this time no findings to support HNP or concern for cauda equina. Patient is very animated and somewhat elaborate in her detail of all of her social issues that contribute to her condition. There is no evidence for synovitis or acute psychosis and no suicidal or homicidal ideation. Patient given one-time dose of pain medication in the emergency department and is felt to be otherwise stable for outpatient management and follow-up with her pain management provider. Diagnosis Primary Impression: Chronic pain syndrome Additional Impression: Bursitis of shoulder, left Referrals: Primary Care Physician 2 days Patient Instructions: General Instructions Additional Instructions: Increase fluid hydration Take a chronic medications as chronically prescribed Follow-up with your primary care provider Return to the emergency department for any concerns or change in condition Med/Other Pt SpecificInfo: No Change to Meds Disposition: 01 DISCHARGE HOME Condition: Stable Crista Ron MD October 26, 2017 04:11
[2017-10-26] MEDS ORDERED: traMADol HCL 50 MG TAB PO ONE (04:15)
[2017-10-26] MEDS ORDERED: ORPHENADRINE INJ 60 MG/2 ML AMP IM ONE (04:15)
[2017-10-26] MEDS ORDERED: KETOROLAC TROMETHAMINE 60 MG/2 ML (IM) VIAL IM ONE (04:15)
[2017-10-26 04:39] LABS: BILIRUBIN, URINE NEG (NEG); BLOOD, URINE NEG (NEG); GLUCOSE,URINE NEG (NEG); KETONE, URINE NEG (NEG); NITRITE,URINE NEG (NEG); PH, URINE 5.5 (5.0-8.5); URINE COLOR YELLOW (YELLW/STRAW); URINE LEUKOCYTE ESTERASE NEG (NEG)
[2017-10-26 04:51] LABS: SQUAMOUS EPITHELIAL CELL URINE 0-5 /hpf (0-5); WBC, URINE 0-2 /hpf (0-5)
[2017-10-26 04:54] VITALS: BP 118/63
== END 2017-10-26 05:12 | disposition home or self-care (01) ==
LOC: PHED 03:26
DX: M75.52 Bursitis of left shoulder (principal); Z87.442 Personal history of urinary calculi; Z90.710 Acquired absence of both cervix and uterus; M79.7 Fibromyalgia; J44.9 Chronic obstructive pulmonary disease, unspecified; I50.9 Heart failure, unspecified; I11.0 Hypertensive heart disease with heart failure; I25.10 Atherosclerotic heart disease of native coronary artery without angina pectoris; H91.90 Unspecified hearing loss, unspecified ear; G47.30 Sleep apnea, unspecified; F31.9 Bipolar disorder, unspecified; E11.9 Type 2 diabetes mellitus without complications; E78.00 Pure hypercholesterolemia, unspecified; K21.9 Gastro-esophageal reflux disease without esophagitis; I25.2 Old myocardial infarction
CPT/HCPCS: 81001; 96372; 99283; J1885; J2360

== ENCOUNTER 2018-01-19 13:05 | Inpatient (IN) ==
--- NOTE | 2018-01-19 13:43 | ED ---
HPI General Chief Complaint: Fall Stated Complaint: Fall Time Seen by Provider: 01/19/18 13:09 Source: patient and EMS Mode of arrival: EMS Limitations: altered mental status History of Present Illness HPI Narrative: 62-year-old female that presents to the ED via [facility] for evaluation of possible mechanical fall. Patient has a significant history of psychiatric illness as well as chronic pain with fibromyalgia. Per patient she takes Xanax and Lortab which prescribed to her by her pain management doctor. Apparently patient went to [facility] today to get an injection for her psychiatric conditions and apparently at the time when she was seen she was found to be somewhat altered and also somnolent. There were concerned the patient may be overmedicated and altered. They actually did not give her the injection and the recommended that she gets evaluated. She did refuse coming by ambulance and stated that she was going to drive herself. She made it to the parking lot and she had a observe mechanical fall where she apparently fell and hit her head. She states that she remembers the fall and she remembers hitting her head. She denies any other medical issues. She states having some back pain as well as neck pain and headache. She has chronic pain for which she takes Lortab. She denies take any more medications than usual. She denies overdosing on her medications. She is arousable and answers questions appropriately but she does appear to be somewhat somnolent. She denies any urinary or bowel movement issues. Currently her pain is 4 out of 10. She does have episodes where she appears to be somewhat altered. Patient herself denies taking more medications than her normal and states that she has not overdose. She denies any suicidal homicidal ideation. She normally does use a walker to get about. Related Data Home Medications Medication Instructions Recorded Confirmed albuterol sulfate [ProAir HFA] 2 puff INHALATION Q4-6H PRN 12/12/17 01/19/18 alprazolam [Xanax] 2 mg PO BID PRN 12/12/17 01/19/18 aspirin 81 mg PO DAILY 12/12/17 01/19/18 enalapril maleate 5 mg PO DAILY 12/12/17 01/19/18 furosemide [Lasix] 80 mg PO DAILY 12/12/17 01/19/18 hydrocodone-acetaminophen [Bristol] 2 tab PO Q6-8H PRN 12/12/17 01/19/18 levothyroxine 200 mcg PO DAILY 12/12/17 01/19/18 nitroglycerin [Nitrostat] 0.3 mg SUBLINGUAL Q5-15M PRN 12/12/17 01/19/18 potassium 10 meq PO BID 12/12/17 01/19/18 promethazine 25 mg PO BID PRN 12/12/17 01/19/18 simvastatin [Zocor] 20 mg PO QPM 12/12/17 01/19/18 trazodone 100 mg PO DAILY 12/12/17 01/19/18 Previous Rx's Medication Instructions Recorded ondansetron HCl 4 mg PO Q6H PRN #7 tab 12/12/17 Allergies Allergy/AdvReac Type Severity Reaction Status Date / Time baclofen Allergy Intermediate Hives Verified 01/19/18 16:57 citalopram Allergy Intermediate Rash Verified 01/19/18 16:57 lithium Allergy Intermediate Hives Verified 01/19/18 13:20 Sulfa (Sulfonamide Allergy Intermediate Hives Verified 01/19/18 16:57 Antibiotics) ziprasidone Allergy Intermediate Hives Verified 01/19/18 16:57 haloperidol AdvReac Severe "STIFFNESS" Verified 01/19/18 13:20 quetiapine AdvReac Severe anxiety Verified 01/19/18 13:20 risperidone AdvReac Severe anxiety Verified 01/19/18 13:20 ferrous fumarate AdvReac Intermediate dark bm's Verified 01/19/18 13:20 ferrous sulfate AdvReac Intermediate dark bm's Verified 01/19/18 13:20 ferumoxytol AdvReac Intermediate dark bm's Verified 12/12/17 02:56 iron AdvReac Intermediate dark bm's Verified 12/12/17 02:56 multivitamin infusion, adult AdvReac Intermediate dark bm's Verified 12/12/17 02 :56 no.4 with vitamin K multivitamin with iron,other AdvReac Intermediate dark bm's Verified 12/12/17 02 :56 minerals Review of Systems ROS: all other systems reviewed are negative PMFSH History History 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 Medical History Medical History Anxiety (Acute) Depression (Acute) Fibromyalgia (Acute) H/O: hysterectomy (Acute) Hx of hysterectomy (Acute) Hyperlipidemia (Acute) Hypothyroidism (Acute) Marijuana use (Acute) Morbid obesity (Acute) Tobacco abuse (Acute) COPD (chronic obstructive pulmonary disease) (Acute) Chest pain (Acute) Chronic pain (Acute) Hypertension (Acute) Schizophrenia (Acute) Thyroid disease (Acute) Social History Social History Substance History: No History of Abuse Second Hand Smoke Exposure: Yes (FRIENDS) Smoking Status: Current every day smoker Tobacco Type: Cigarettes How Often Do You Have a Drink Containing Alcohol: Never Recent Travel in [facility] within the Last 8 Weeks: No Recent Out of Country Travel within the Last 8 Weeks: No Exam Narrative Exam Narrative: GENERAL: Well-appearing but obese SKIN: Focused skin assessment warm/dry. Assess small abrasion with minimal bleeding on the lateral aspect of the right ankle. HEAD: Atraumatic. Normocephalic. EYES: Pupils equal and round. No scleral icterus. No injection or drainage. ENT: No nasal bleeding or discharge. Mucous membranes pink and moist. NECK: Trachea midline. No JVD. CARDIOVASCULAR: Regular rate and rhythm. No murmur appreciated. RESPIRATORY: No accessory muscle use. Clear to auscultation. Breath sounds equal bilaterally. GASTROINTESTINAL: Abdomen soft, non-tender, nondistended. Hepatic and splenic margins not palpable. MUSCULOSKELETAL: No obvious deformities. No clubbing. No cyanosis. No edema. Full range of motion of the upper and lower extremities bilaterally. 2+ pulses bilaterally. Sensation intact bilaterally. No obvious lumbar, thoracic, cervical spine tenderness to palpation. Patient was seen with a backboard and cervical collar noted. No obvious lacerations or abrasions to the head. NEUROLOGICAL: Awake and alert. No obvious cranial nerve deficits. Motor grossly within normal limits. Normal speech. PSYCHIATRIC: Appropriate mood and affect; insight and judgment normal. Course Initial Documented Vital Signs Temperature 98.0 F 01/19/18 13:15 Pulse Rate 85 01/19/18 13:15 Respiratory Rate 22 01/19/18 13:15 Blood Pressure 168/90 H 01/19/18 13:15 Pulse Oximetry 95 01/19/18 13:15 Last Documented Vital Signs Temperature 97.9 F 01/19/18 15:09 Pulse Rate 80 01/19/18 16:54 Respiratory Rate 22 01/19/18 16:54 Blood Pressure 108/65 01/19/18 15:09 Pulse Oximetry 96 01/19/18 16:40 Medical Decision Making MDM Narrative Medical decision making narrative: 62-year-old female that presents to the ED for evaluation of fall. Patient was properly examined and was found to have signs and symptoms consistent appears to be fall what appears to be altered mental status. Presumably secondary to overmedication. Labs and imaging order. This showed elevated troponin, acute kidney injury and what appears to be mild CHF. Also appears to be possible UTI as well. Patient was started on aspirin. Patient denies any chest pain. She was becoming a little more somnolent. My attending was made aware of this and about with the patient herself. She recommends a consult with Dr. Tamez to see whether heparin will be started. Dr. Tamez from cardiology recommended against heparin and for now just to trend the troponins. Patient will start antibiotic for her possible UTI. Patient was given 500 bolus of fluid. Case discussed with my attending who agrees with admission. Patient had to be given Narcan because she became a little more somnolent. She did walk up somewhat and able to answer more questions now. Case discussed with Dr. Baez who agrees to admission to his service. Differential Diagnosis Differential Diagnosis: Altered mental status versus head injury versus ICH versus fracture versus sepsis versus overmedication Medical Records Medical records reviewed: Yes I reviewed the patient's medical records. Lab Data Lab results reviewed: Yes I reviewed the patient's lab results. Lab results narrative: Positive troponin of 0.20 UA shows signs of UTI Result diagrams: 01/19/18 14:45 01/19/18 13:30 Lab Results 01/19/18 01/19/18 01/19/18 Range/Units 13:30 13:37 14:40 WBC (4.0-11.0) th/mm3 RBC (4.00-5.30) mil/mm3 Hgb (11.6-15.3) gm/dL Hct (35.0-46.0) % MCV (80.0-100.0) fL MCH (27.0-34.0) pg MCHC (32.0-36.0) % RDW (11.6-17.2) % Plt Count (150-450) th/mm3 MPV (7.0-11.0) fL Neut % (Auto) (16.0-70.0) % Lymph % (Auto) (9.0-44.0) % [place] % (Auto) (0.0-8.0) % Eos % (Auto) (0.0-4.0) % Baso % (Auto) (0.0-2.0) % Neut # (Auto) (1.8-7.7) th/mm3 Lymph # (Auto) (1.0-4.8) th/mm3 [place] # (Auto) (0.0-0.9) th/mm3 Eos # (Auto) (0.0-0.4) th/mm3 Baso # (Auto) (0.0-0.2) th/mm3 WBC Differential Differential Comment PT (9.8-11.6) sec INR Ratio APTT (24.3-30.1) sec Sodium 132 L (136-145) meq/L Potassium 4.7 (3.5-5.1) meq/L Chloride 100 (98-107) meq/L Carbon Dioxide 22.4 (21.0-32.0) meq/L Anion Gap 10 (5-15) meq/L BUN 50 H (7-18) mg/dL Creatinine 3.71 H (0.50-1.00) mg/dL Estimated GFR 12 L (>89) mL/min POC Glucose 145 H (68-110) mg/dl Random Glucose 126 H (74-106) mg/dL Calcium 7.4 L* (8.5-10.1) mg/dL Prot Corrected Calcium 8.2 L (8.5-10.1) mg/dL Magnesium 1.9 (1.5-2.5) mg/dL Total Bilirubin 0.2 (0.2-1.0) mg/dL AST 344 H (15-37) U/L ALT 78 H (10-53) U/L Alkaline Phosphatase 75 (45-117) U/L Troponin I 0.20 H (0.02-0.05) ng/mL B-Natriuretic Peptide (0-100) pg/mL Total Protein 5.7 L (6.4-8.2) g/dL Albumin 2.6 L (3.4-5.0) g/dL Urine Color (Yellw/Straw) Urine Clarity (Clear) Urine pH (5.0-8.5) Ur Specific [place] (1.002-1.035) Urine Protein (Neg-Trace) mg/dL Urine Glucose (UA) (Negative) mg/dL Urine Ketones (Negative) mg/dL Urine Occult Blood (Negative) Urine Nitrate (Negative) Urine Bilirubin (Negative) Urine Urobilinogen (Less than 2) mg/dL Ur Leukocyte Esterase (Negative) Urine RBC (0-3) /hpf Urine WBC (0-5) /hpf Ur Squamous Epith Cells (0-5) /hpf Urine Bacteria (None) /hpf Hyaline Casts (0-3) /lpf Urine Mucus (Occasional) /lpf Micro UA Comment Urine Culture Comments Urine Opiates Screen Pos H (Neg) Ur Barbiturates Screen Neg (Neg) Ur Amphetamines Screen Neg (Neg) U Benzodiazepines Scrn Pos H (Neg) Urine Cocaine Screen Neg (Neg) U Cannabinoids Screen Pos H (Neg) 01/19/18 01/19/18 01/19/18 Range/Units 14:40 14:41 14:45 WBC 13.7 H (4.0-11.0) th/mm3 RBC 4.25 (4.00-5.30) mil/mm3 Hgb 11.8 (11.6-15.3) gm/dL Hct 35.0 (35.0-46.0) % MCV 82.3 (80.0-100.0) fL MCH 27.8 (27.0-34.0) pg MCHC 33.8 (32.0-36.0) % RDW 15.3 (11.6-17.2) % Plt Count 281 (150-450) th/mm3 MPV 8.0 (7.0-11.0) fL Neut % (Auto) 70.8 H (16.0-70.0) % Lymph % (Auto) 19.6 (9.0-44.0) % [place] % (Auto) 9.0 H (0.0-8.0) % Eos % (Auto) 0.4 (0.0-4.0) % Baso % (Auto) 0.2 (0.0-2.0) % Neut # (Auto) 9.7 H (1.8-7.7) th/mm3 Lymph # (Auto) 2.7 (1.0-4.8) th/mm3 [place] # (Auto) 1.2 H (0.0-0.9) th/mm3 Eos # (Auto) 0.1 (0.0-0.4) th/mm3 Baso # (Auto) 0.0 (0.0-0.2) th/mm3 WBC Differential . Differential Comment Auto diff final PT 10.7 (9.8-11.6) sec INR 1.1 Ratio APTT 22.9 L (24.3-30.1) sec Sodium (136-145) meq/L Potassium (3.5-5.1) meq/L Chloride (98-107) meq/L Carbon Dioxide (21.0-32.0) meq/L Anion Gap (5-15) meq/L BUN (7-18) mg/dL Creatinine (0.50-1.00) mg/dL Estimated GFR (>89) mL/min POC Glucose (68-110) mg/dl Random Glucose (74-106) mg/dL Calcium (8.5-10.1) mg/dL Prot Corrected Calcium (8.5-10.1) mg/dL Magnesium (1.5-2.5) mg/dL Total Bilirubin (0.2-1.0) mg/dL AST (15-37) U/L ALT (10-53) U/L Alkaline Phosphatase (45-117) U/L Troponin I (0.02-0.05) ng/mL B-Natriuretic Peptide (0-100) pg/mL Total Protein (6.4-8.2) g/dL Albumin (3.4-5.0) g/dL Urine Color Yellow (Yellw/Straw) Urine Clarity Hazy H (Clear) Urine pH 5.0 (5.0-8.5) Ur Specific [place] 1.019 (1.002-1.035) Urine Protein Negative (Neg-Trace) mg/dL Urine Glucose (UA) Negative (Negative) mg/dL Urine Ketones Negative (Negative) mg/dL Urine Occult Blood Small H (Negative) Urine Nitrate Negative (Negative) Urine Bilirubin Negative (Negative) Urine Urobilinogen Less than 2 (Less than 2) mg/dL Ur Leukocyte Esterase Trace H (Negative) Urine RBC 1 (0-3) /hpf Urine WBC 6 H (0-5) /hpf Ur Squamous Epith Cells 2 (0-5) /hpf Urine Bacteria Rare H (None) /hpf Hyaline Casts 94 (0-3) /lpf Urine Mucus Few H (Occasional) /lpf Micro UA Comment Culture not ind Urine Culture Comments Culture not ind Urine Opiates Screen (Neg) Ur Barbiturates Screen (Neg) Ur Amphetamines Screen (Neg) U Benzodiazepines Scrn (Neg) Urine Cocaine Screen (Neg) U Cannabinoids Screen (Neg) 01/19/18 Range/Units 14:45 WBC (4.0-11.0) th/mm3 RBC (4.00-5.30) mil/mm3 Hgb (11.6-15.3) gm/dL Hct (35.0-46.0) % MCV (80.0-100.0) fL MCH (27.0-34.0) pg MCHC (32.0-36.0) % RDW (11.6-17.2) % Plt Count (150-450) th/mm3 MPV (7.0-11.0) fL Neut % (Auto) (16.0-70.0) % Lymph % (Auto) (9.0-44.0) % [place] % (Auto) (0.0-8.0) % Eos % (Auto) (0.0-4.0) % Baso % (Auto) (0.0-2.0) % Neut # (Auto) (1.8-7.7) th/mm3 Lymph # (Auto) (1.0-4.8) th/mm3 [place] # (Auto) (0.0-0.9) th/mm3 Eos # (Auto) (0.0-0.4) th/mm3 Baso # (Auto) (0.0-0.2) th/mm3 WBC Differential Differential Comment PT (9.8-11.6) sec INR Ratio APTT (24.3-30.1) sec Sodium (136-145) meq/L Potassium (3.5-5.1) meq/L Chloride (98-107) meq/L Carbon Dioxide (21.0-32.0) meq/L Anion Gap (5-15) meq/L BUN (7-18) mg/dL Creatinine (0.50-1.00) mg/dL Estimated GFR (>89) mL/min POC Glucose (68-110) mg/dl Random Glucose (74-106) mg/dL Calcium (8.5-10.1) mg/dL Prot Corrected Calcium (8.5-10.1) mg/dL Magnesium (1.5-2.5) mg/dL Total Bilirubin (0.2-1.0) mg/dL AST (15-37) U/L ALT (10-53) U/L Alkaline Phosphatase (45-117) U/L Troponin I (0.02-0.05) ng/mL B-Natriuretic Peptide 745 H (0-100) pg/mL Total Protein (6.4-8.2) g/dL Albumin (3.4-5.0) g/dL Urine Color (Yellw/Straw) Urine Clarity (Clear) Urine pH (5.0-8.5) Ur Specific [place] (1.002-1.035) Urine Protein (Neg-Trace) mg/dL Urine Glucose (UA) (Negative) mg/dL Urine Ketones (Negative) mg/dL Urine Occult Blood (Negative) Urine Nitrate (Negative) Urine Bilirubin (Negative) Urine Urobilinogen (Less than 2) mg/dL Ur Leukocyte Esterase (Negative) Urine RBC (0-3) /hpf Urine WBC (0-5) /hpf Ur Squamous Epith Cells (0-5) /hpf Urine Bacteria (None) /hpf Hyaline Casts (0-3) /lpf Urine Mucus (Occasional) /lpf Micro UA Comment Urine Culture Comments Urine Opiates Screen (Neg) Ur Barbiturates Screen (Neg) Ur Amphetamines Screen (Neg) U Benzodiazepines Scrn (Neg) Urine Cocaine Screen (Neg) U Cannabinoids Screen (Neg) Imaging Data Attestation: I personally reviewed and interpreted this imaging study as follows : Radiologist's impression: Cervical Spine CT 01/19/18 13:20 CONCLUSION: 1. Mild degenerative changes, negative for fracture 2. Exam is limited by the patient's large body habitus. Chest X-Ray 01/19/18 13:20 CONCLUSION: Mild congestive failure. No pneumothorax Head CT 01/19/18 13:20 CONCLUSION: 1. Minimal chronic white matter changes. 2. Nothing acute. . Pelvis X-Ray 01/19/18 13:22 CONCLUSION: Degenerative changes, no fracture. Exam limited by body habitus Lumbar Spine CT 01/19/18 13:24 CONCLUSION: 1. Stable, mild degenerative changes of the lumbar spine with small marginal spurs at multiple lumbar levels. 2. No acute fracture. Spinal canal and neural foramina appear to be adequate throughout. 3. Stable fluid collection within the left lower quadrant abdominal mesentery. This is overtly benign and may represent an old lymphocele or mesenteric cyst. Ankle X-Ray 01/19/18 14:23 CONCLUSION: No acute fracture or significant soft tissue swelling ECG Data EKG Prior to Arrival: No Attestation: I personally reviewed and interpreted this ECG as follows: Interpretation: EKG shows sinus rhythm with no sign of acute ischemia or arrhythmia read by me in attending. ID intervals of [address] elevations noted. Discharge Plan Discharge Disposition Patient Disposition: 30 Still Patient Discharge Details Diagnosis: Acute alteration in mental status, Acute kidney injury, Elevated troponin, Acute UTI Physicians Team ED Provider: Jazmin Whiteside ED Midlevel Provider: Leopoldo Schultz Rxs /Orders / Referrals /Forms Prescriptions: No Action trazodone 50 mg Tablet 100 mg PO DAILY RF: 0 enalapril maleate 5 mg Tablet 5 mg PO DAILY RF: 0 nitroglycerin [Nitrostat] 0.3 mg Tablet, Sublingual 0.3 mg SUBLINGUAL Q5-15M PRN (Reason: Chest Pain) RF: 0 hydrocodone-acetaminophen [Bristol] 10-325 mg Tablet 2 tab PO Q6-8H PRN (Reason: Pain) RF: 0 potassium 99 mg Tablet 10 meq PO BID RF: 0 furosemide [Lasix] 80 mg Tablet 80 mg PO DAILY RF: 0 simvastatin [Zocor] 20 mg Tablet 20 mg PO QPM RF: 0 promethazine 25 mg Tablet 25 mg PO BID PRN (Reason: Nausea) RF: 0 aspirin 81 mg Tablet,Chewable 81 mg PO DAILY RF: 0 levothyroxine 200 mcg Tablet 200 mcg PO DAILY RF: 0 alprazolam [Xanax] 2 mg Tablet 2 mg PO BID PRN (Reason: Anxiety) RF: 0 albuterol sulfate [ProAir HFA] 90 mcg/actuation Hfa Aerosol Inhaler 2 puff INHALATION Q4-6H PRN (Reason: Respiratory Distress) RF: 0 ondansetron HCl 4 mg tablet 4 mg PO Q6H PRN (Reason: nausea and vomiting) Qty: 7 RF: 0 Status ED Status: With Doctor
--- NOTE | 2018-01-19 14:28 | XR ---
EXAM DATE: 01/19/2018 2:26 PM EDT AGE/SEX: 62 years / Female INDICATIONS: Chest pain, fell today CLINICAL DATA: This is the patient's initial encounter. Patient reports that signs and symptoms have been present for 1 day and indicates a pain score of Nonresponsive. MEDICAL/SURGICAL HISTORY: Non-responsive. Non-responsive. COMPARISON: [facility], CHEST SINGLE AP, 12/20/2016. . FINDINGS: Heart is enlarged. Mild interstitial edema is present. There is no evidence consolidation, pleural ef fusion or pneumothorax. CONCLUSION: Mild congestive failure. No pneumothorax Electronically signed by: Biju Diop MD 01/19/2018 2:27 PM EDT
--- NOTE | 2018-01-19 14:31 | XR ---
EXAM DATE: 01/19/2018 2:28 PM EDT AGE/SEX: 62 years / Female INDICATIONS: Fell today, pain in pelvis and low back CLINICAL DATA: This is the patient's initial encounter. Patient reports that signs and symptoms have been present for 1 day and indicates a pain score of Nonresponsive. MEDICAL/SURGICAL HISTORY: Non-responsive. Non-responsive. COMPARISON: [facility], HIP RIGHT AP ONLY WO AP PELVIS, 09/06/2017. . FINDINGS: Examination of the pelvis demonstrates no evidence of fracture or dislocation. Bony mineralization i s normal. There is no widening of the sacroiliac joints. No foreign body is identified. CONCLUSION: Degenerative changes, no fracture. Exam limited by body habitus Electronically signed by: Biju Diop MD 01/19/2018 2:30 PM EDT
[2018-01-19 14:58] LABS: Albumin 2.6 g/dL (3.4-5.0); Calcium 7.4 mg/dL (8.5-10.1); Carbon Dioxide 22.4 meq/L (21.0-32.0); Magnesium 1.9 mg/dL (1.5-2.5); Potassium 4.7 meq/L (3.5-5.1); Total Protein 5.7 g/dL (6.4-8.2); Troponin I 0.2 ng/mL (0.02-0.05)
[2018-01-19] MEDS ORDERED: Sod Chloride 0.9% Inj 1,000 ML IV.SIG ONE ×2 (15:18→23:13)
[2018-01-19] MEDS ORDERED: Aspirin 325 MG Tablet PO ONE (15:24)
[2018-01-19] MEDS ORDERED: Sodium Chlor 0.9% Inj 500 ML IV.SIG ONE (15:25)
--- NOTE | 2018-01-19 15:26 | CT ---
EXAM DATE: 01/19/2018 3:21 PM EDT AGE/SEX: 62 years / Female INDICATIONS: Trauma , fall. Neck and lower back pain. CLINICAL DATA: This is the patient's initial encounter. Patient reports that signs and symptoms have been present for 1 day and indicates a pain score of 5/10. MEDICAL/SURGICAL HISTORY: Chronic obstructive pulmonary disease. Hypertension. Thyroid disease. N one. RADIATION DOSE: 56.35 CTDI (mGy) COMPARISON: [facility], CT HEAD W/O CONTRAST, 12/12/2017. . TECHNIQUE: CT of the head without contrast. Using automated exposure control and adjustment of the mA and/or kV according to patient size, radiation dose was kept as low as reasonably achievable to ob tain optimal diagnostic quality images. DICOM format image data is available electronically for revi ew and comparison. FINDINGS: Cerebrum: The ventricles are normal for age. Minimal, scattered white matter changes in the deep wh ite matter tract No evidence of midline shift, mass lesion, hemorrhage or acute infarction. No extra axial fluid collections are seen. Posterior Fossa: The cerebellum and brainstem are intact. The 4th ventricle is midline. The cerebe llopontine angle is unremarkable. Extracranial: The visualized portion of the orbits is intact. Skull: The calvaria is intact. No evidence of skull fracture. CONCLUSION: 1. Minimal chronic white matter changes. 2. Nothing acute. . Electronically signed by: Chele Howell MD 01/19/2018 3:25 PM EDT
--- NOTE | 2018-01-19 15:27 | ECG ---
Date Performed: 01/19/2018 Time Performed: 13:43:07 PTAGE: 62 years EKG: Sinus rhythm Borderline nonspecific ST T-wave changes which are new clinical correlation suggested. PREVIOUS TRACING : 09/20/2017 22.27 DOCTOR: Ambrosio Maza Interpretating Date/Time 01/19/2018 15:27:08
--- NOTE | 2018-01-19 15:36 | XR ---
EXAM DATE: 01/19/2018 2:52 PM EDT AGE/SEX: 62 years / Female INDICATIONS: Right ankle pain; fall. CLINICAL DATA: This is the patient's initial encounter. Patient reports that signs and symptoms have been present for 1 day and indicates a pain score of Nonresponsive. MEDICAL/SURGICAL HISTORY: Non-responsive. Non-responsive. COMPARISON: [facility], ANKLE RIGHT LIMITED (AP&LAT), 09/06/2017. . FINDINGS: Bony structures are intact and in normal alignment. Joints are intact without dislocation or signifi cant arthropathy. Osseous density is normal. Soft tissues are unremarkable. No radiopaque foreign bodies seen. CONCLUSION: No acute fracture or significant soft tissue swelling Electronically signed by: Chele Howell MD 01/19/2018 3:34 PM EDT
[2018-01-19] MEDS ORDERED: Naloxone Inj 0.4 MG/ML Vial IV.PUSH ONE (15:43)
--- NOTE | 2018-01-19 15:46 | CT ---
EXAM DATE: 01/19/2018 3:25 PM EDT AGE/SEX: 62 years / Female INDICATIONS: Trauma , fall. Neck and lower back pain. CLINICAL DATA: This is the patient's initial encounter. Patient reports that signs and symptoms have been present for 1 day and indicates a pain score of 5/10. MEDICAL/SURGICAL HISTORY: Chronic obstructive pulmonary disease. Hypertension. Thyroid disease . None. RADIATION DOSE: 37.43 CTDI (mGy) COMPARISON: [facility], CT LUMBAR SPINE W/O CONTRAST, 06/06/2017. . TECHNIQUE: Contiguous axial images were obtained using helical multirow detector technique. The vol umetric data was post-processed with multiplanar reconstruction in oblique axial, sagittal, and coron al planes. Using automated exposure control and adjustment of the mA and/or kV according to patient s ize, radiation dose was kept as low as reasonably achievable to obtain optimal diagnostic quality martha ges. DICOM format image data is available electronically for review and comparison. FINDINGS: Limited by body habitus. Vertebrae: Normal vertebral body height. Alignment: Normal. No subluxation. Moderate anterior osteophytes at C4-C5 and C5-C6. C2-3: The bony spinal canal is normal in size. No evidence of disc bulge or herniation. The neural foramina are bilaterally patent. C3-4: The bony spinal canal is normal in size. No evidence of disc bulge or herniation. The neural foramina are bilaterally patent. C4-5: Mild disc bulging evident without significant spinal stenosis. Neural foramen are adequate. C5-6: The bony spinal canal is normal in size. No evidence of disc bulge or herniation. The neural foramina are bilaterally patent. C6-7: Mild uncinate ridging present without significant spinal stenosis or neural foraminal encroach ment. C7-T1: The bony spinal canal is normal in size. No evidence of disc bulge or herniation. The neura l foramina are bilaterally patent. CONCLUSION: 1. Mild degenerative changes, negative for fracture 2. Exam is limited by the patient's large body habitus. Electronically signed by: Biju Diop MD 01/19/2018 3:44 PM EDT
--- NOTE | 2018-01-19 15:51 | CT ---
EXAM DATE: 01/19/2018 3:33 PM EDT AGE/SEX: 62 years / Female INDICATIONS: Trauma , fall. Neck and lower back pain. CLINICAL DATA: This is the patient's initial encounter. Patient reports that signs and symptoms have been present for 1 day and indicates a pain score of 5/10. MEDICAL/SURGICAL HISTORY: Chronic obstructive pulmonary disease. Hypertension. Thyroid disease. N one. RADIATION DOSE: 53.13 CTDI (mGy) [place] [facility] [place], 06/23/2017. . TECHNIQUE: Contiguous axial images were acquired with a multirow detector CT scanner without contras t. Multiplanar reconstructions in the sagittal and coronal plane were also performed. Using automate d exposure control and adjustment of the mA and/or kV according to patient size, radiation dose was k ept as low as reasonably achievable to obtain optimal diagnostic quality images. DICOM format image data is available electronically for review and comparison. FINDINGS: Sagittal and coronal reconstruction show marginal spur off the superior endplates of multiple lumbar vertebral bodies, particularly right lateral. Mild dextroscoliosis of the lumbar spine. Vertebral bod y heights are maintained throughout without fracture. Stable sclerosis along the superior half of the S1 vertebral body. Spinal canal is widely patent. There is a well-circumscribed fluid collection in the left lower abdominal mesentery which was identified on the prior CT scan of the abdomen and appea rs to be grossly stable. Athetotic calcification of the regional vasculature. T12-L1: The thecal sac has a normal diameter. No evidence of disc bulge or protrusion. The neural foramina are patent bilaterally. L1-L2: The thecal sac has a normal diameter. No evidence of disc bulge or protrusion. The neural f oramina are patent bilaterally. L2-L3: The thecal sac has a normal diameter. No evidence of disc bulge or protrusion. The neural f oramina are patent bilaterally. L3-L4: The thecal sac has a normal diameter. No evidence of disc bulge or protrusion. The neural f oramina are patent bilaterally. L4-L5: The thecal sac has a normal diameter. No evidence of disc bulge or protrusion. The neural f oramina are patent bilaterally. L5-S1: The thecal sac has a normal diameter. No evidence of disc bulge or protrusion. The neural f oramina are patent bilaterally. CONCLUSION: 1. Stable, mild degenerative changes of the lumbar spine with small marginal spurs at multiple lumba r levels. 2. No acute fracture. Spinal canal and neural foramina appear to be adequate throughout. 3. Stable fluid collection within the left lower quadrant abdominal mesentery. This is overtly benig n and may represent an old lymphocele or mesenteric cyst. Electronically signed by: Chele Howell MD 01/19/2018 3:49 PM EDT
[2018-01-19 15:57] LABS: Activated Partial Thrombo Time 22.9 sec (24.3-30.1); INR 1.1 Ratio
[2018-01-19 16:00] LABS: Baso % (Auto) 0.2 % (0.0-2.0); Eos # (Auto) 0.1 th/mm3 (0.0-0.4); Eos % (Auto) 0.4 % (0.0-4.0); Hemoglobin 11.8 gm/dL (11.6-15.3); Lymph # (Auto) 2.7 th/mm3 (1.0-4.8); Lymph % (Auto) 19.6 % (9.0-44.0); Mean Corpuscular HGB Conc 33.8 % (32.0-36.0); Mean Corpuscular Hemoglobin 27.8 pg (27.0-34.0); Mean Corpuscular Volume 82.3 fL (80.0-100.0); Mono # (Auto) 1.2 th/mm3 (0.0-0.9); Neut # (Auto) 9.7 th/mm3 (1.8-7.7); Neut % (Auto) 70.8 % (16.0-70.0); Platelet Count 281 th/mm3 (150-450); Red Blood Count 4.25 mil/mm3 (4.00-5.30); Red Cell Distribution Width 15.3 % (11.6-17.2); White Blood Count 13.7 th/mm3 (4.0-11.0)
[2018-01-19 16:10] LABS: Prothrombin Time 10.7 sec (9.8-11.6)
[2018-01-19 16:17] LABS: Amphetamine Screen,Urine Neg (Neg); Barbiturate Screen,Urine Neg (Neg); Cannabinoid Screen,Urine Pos (Neg); Cocaine Screen,Urine Neg (Neg)
[2018-01-19 16:19] LABS: Bacteria,Urine Rare /hpf; Bilirubin,Urine Negative (Negative); Clarity,Urine Hazy (Clear); Color,Urine Yellow (Yellw/Straw); Glucose,Urine (UA) Negative (Negative); Hyaline Casts,Urine 94 /lpf (0-3); Leukocyte Esterase,Urine Trace (Negative); Mucus,Urine Few /lpf (Occasional); Nitrite,Urine Negative (Negative); Specific Gravity,Urine 1.019 (1.002-1.035); Squamous Epithelial Cell,Urine 2 /hpf (0-5)
[2018-01-19 16:20] LABS: Opiate Screen,Urine Pos (Neg)
[2018-01-19] MEDS ORDERED: Bisacodyl 10 MG Supp RECTAL PRN (16:40)
[2018-01-19] MEDS ORDERED: Acetaminophen 325 MG Tablet PO PRN (16:40)
[2018-01-19] MEDS ORDERED: Dextrose 50% in Water 50 ML Vial IV.PUSH PRN (16:45)
[2018-01-19] MEDS: Insulin NovoLOG Aspart Correctional Sugar Inj SQ SCH ×2 (17:04→21:16)
--- NOTE | 2018-01-19 17:04 | P.HPIM ---
History of Present Illness Service: [facility] Primary Care Physician: Stacey Sinha Chief Complaint: Status post fall History of Present Illness: Patient is a 62-year-old female that presented emergency department via [facility] for evaluation of possible mechanical fall. Patient has a significant history of psychiatric illness as well as chronic pain and fibromyalgia. Patient takes Xanax and Lortab prescribed to her by her pain management doctor. Patient went to [facility] for her Invega injection, patient was noted to be very somnolent and altered. There was concern that patient was overmedicated and altered. She did not get her injection and they recommended that she got evaluated here in the emergency department. She refused to come by ambulance and drove herself here. She made it to the parking lot and had an observed mechanical fall where she fell and hit her head. She states that she remembers the fall she remembers hitting her head. Denies any other new medical issues. States she has some back pain as well as some neck pain and headache. Although patient does have chronic pain for which she takes Lortab. Denies taking any more medication than usual. She denies overdosing on her medications can be arousable but then becomes very somnolent again denies any urinary or bowel or bladder issues pain is about 4 out of 10 if not more. Does have episodes when she appears to be somewhat altered. Patient denies taking more medications than she normally takes she states that she did not overdose. She denies any suicidal or homicidal normally uses a walker to get around. 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 - Medical History Medical History: Medical History (Last Updated 01/19/18 @ 16:55 by Biju Baez DO) Anxiety Depression Fibromyalgia H/O: hysterectomy Hx of hysterectomy Hyperlipidemia Hypothyroidism Marijuana use Morbid obesity Tobacco abuse COPD (chronic obstructive pulmonary disease) Chest pain Chronic pain Hypertension Schizophrenia Thyroid disease - Family History Family History: Family History (Last Updated 01/19/18 @ 16:56 by Biju Baez DO) Other Family history of hypertension Psychiatric disorder - Tobacco History Second Hand Smoke Exposure: Yes (FRIENDS) Tobacco Use In Past 30 Days: Yes Smoking Status: Current every day smoker Tobacco Type: Cigarettes - Alcohol History How Often Do You Have a Drink Containing Alcohol: Never - Substance Use History Substance History: No History of Abuse - Travel History History of Recent Travel: No Recent Travel in the [place] Within the Last 8 Weeks: No Recent Travel Out of the Country Within the Last 8 Weeks: No - Immunization History Tetanus Immunization: >5 Years Hx Influenza Vaccine This Season: Yes Medications and Allergies Active Medications: Active Medications Acetaminophen (Tylenol) 650 mg PO Q4H PRN PRN Reason: Temp > 100.4 Al Hydroxide/Mg Hydroxide (Milk Of Magnesia Liq) 30 ml PO Q12H PRN PRN Reason: Mild Constipation Aspirin (Aspirin Chew) 81 mg PO DAILY BRUNO Bisacodyl (Dulcolax Supp) 10 mg RECTAL DAILY PRN PRN Reason: SEVERE CONSITIPATION Dextrose (D50w Vial) 50 ml IV.PUSH UNSCH PRN PRN Reason: PER HYPOGLYCEMIA PROTOCOL Glucagon (Glucagon Inj) 1 mg OTHER PRN PRN PRN Reason: for Hypoglycemia Protocol Heparin Sodium (Porcine) (Heparin Inj) 5,000 units SQ Q8H BRUNO Ceftriaxone Sodium 1,000 mg/ (Sodium Chloride) 100 mls @ 200 mls/hr IV.SIG ONCE ONE Stop: 01/19/18 16:53 Last Admin: 01/19/18 16:38 Dose: 200 mls/hr Sodium Chloride (Ns Inj) 1,000 mls @ 75 mls/hr IV.CONT .[id number] COUNTS INCLUDE 234 BEDS AT THE [facility] Insulin Aspart (Novolog Insulin Correctional Sugar Inj) 0 unit SQ ACHS AND 3AM BRUNO; Protocol Lactulose (Lactulose Liq) 30 ml PO DAILY PRN PRN Reason: SEVERE CONSITIPATION Levothyroxine Sodium (Synthroid) 200 mcg PO DAILY COUNTS INCLUDE 234 BEDS AT THE [facility] Non-Formulary Medication (Simvastatin [Zocor]) 20 mg PO QPM COUNTS INCLUDE 234 BEDS AT THE [facility] Non-Formulary Medication (Nitroglycerin [Nitrostat]) 0.3 mg SL Q5-15M PRN PRN Reason: Chest Pain Ondansetron HCl (Zofran Inj) 4 mg IV.PUSH Q6H PRN PRN Reason: NAUSEA OR VOMITING Promethazine HCl (Phenergan) 25 mg PO BID PRN PRN Reason: Nausea Senna/Docusate Sodium (Abbey-Colace) 1 tab PO BID COUNTS INCLUDE 234 BEDS AT THE [facility] Sennosides (Senokot) 17.2 mg PO Q12H PRN PRN Reason: Moderate Constipation Trazodone HCl (Desyrel) 100 mg PO DAILY BRUNO Allergies Allergy/AdvReac Type Severity Reaction Status Date / Time baclofen Allergy Intermediate Hives Verified 01/19/18 16:57 citalopram Allergy Intermediate Rash Verified 01/19/18 16:57 lithium Allergy Intermediate Hives Verified 01/19/18 13:20 Sulfa (Sulfonamide Allergy Intermediate Hives Verified 01/19/18 16:57 Antibiotics) ziprasidone Allergy Intermediate Hives Verified 01/19/18 16:57 haloperidol AdvReac Severe "STIFFNESS" Verified 01/19/18 13:20 quetiapine AdvReac Severe anxiety Verified 01/19/18 13:20 risperidone AdvReac Severe anxiety Verified 01/19/18 13:20 ferrous fumarate AdvReac Intermediate dark bm's Verified 01/19/18 13:20 ferrous sulfate AdvReac Intermediate dark bm's Verified 01/19/18 13:20 ferumoxytol AdvReac Intermediate dark bm's Verified 12/12/17 02:56 iron AdvReac Intermediate dark bm's Verified 12/12/17 02:56 multivitamin infusion, adult AdvReac Intermediate dark bm's Verified 12/12/17 02 :56 no.4 with vitamin K multivitamin with iron,other AdvReac Intermediate dark bm's Verified 12/12/17 02 :56 minerals Home Medications Medication Instructions Recorded Confirmed Type albuterol sulfate [ProAir HFA] 2 puff INHALATION Q4-6H PRN 12/12/17 01/19/18 History alprazolam [Xanax] 2 mg PO BID PRN 12/12/17 01/19/18 History aspirin 81 mg PO DAILY 12/12/17 01/19/18 History enalapril maleate 5 mg PO DAILY 12/12/17 01/19/18 History furosemide [Lasix] 80 mg PO DAILY 12/12/17 01/19/18 History hydrocodone-acetaminophen [Coolspring] 2 tab PO Q6-8H PRN 12/12/17 01/19/18 History levothyroxine 200 mcg PO DAILY 12/12/17 01/19/18 History nitroglycerin [Nitrostat] 0.3 mg SUBLINGUAL Q5-15M PRN 12/12/17 01/19/18 History potassium 10 meq PO BID 12/12/17 01/19/18 History promethazine 25 mg PO BID PRN 12/12/17 01/19/18 History simvastatin [Zocor] 20 mg PO QPM 12/12/17 01/19/18 History trazodone 100 mg PO DAILY 12/12/17 01/19/18 History Exam Vital signs: Vital Signs 01/19/18 13:15 01/19/18 13:20 01/19/18 15:09 Temperature 98.0 F 97.9 F Pulse Rate 85 89 83 Respiratory Rate 22 20 Blood Pressure 168/90 H 108/65 Pulse Oximetry 95 96 95 Intake & Output 01/18/18 01/19/18 01/19/18 18:59 06:59 18:59 Intake Total 500 / 500 Balance 500 / 500 Weight 113.398 kg Intake: IV 500 / 500 NS Inj 500 ML @ Wide Open IV. 500 / 500 SIG BOLUS ONE Rx#:[id number] Narrative: GENERAL: Arousable but very lethargic can be awake and alert oriented 1-2 SKIN: Warm and dry. HEAD: Atraumatic. Normocephalic. EYES: Pupils equal and round. No scleral icterus. No injection or drainage. ENT: No nasal bleeding or discharge. Mucous membranes pink and moist. NECK: Trachea midline. No JVD. CARDIOVASCULAR: Regular rate and rhythm. S1-S2 no S3 or S4 no heave or thrill or rub or gallop RESPIRATORY: No accessory muscle use. Clear to auscultation. Breath sounds equal bilaterally. GASTROINTESTINAL: Abdomen soft, non-tender, nondistended. Hepatic and splenic margins not palpable. Obese MUSCULOSKELETAL: Extremities without clubbing, cyanosis, or edema. No obvious deformities. NEUROLOGICAL: Has periods where she is awake and alert and then periods where she is quite somnolent. No obvious cranial nerve deficits. Motor grossly within normal limits. 4 out of 5 muscle strength in the arms and legs. ABNormal speech, patient is very lethargic. PSYCHIATRIC: INAppropriate mood and affect; insight and judgment ABnormal. Results - Labs CBC & Chem 7: 01/19/18 14:45 01/19/18 13:30 Labs: Short CBC 01/19/18 Range/Units 14:45 WBC 13.7 H (4.0-11.0) th/mm3 Hgb 11.8 (11.6-15.3) gm/dL Hct 35.0 (35.0-46.0) % Plt Count 281 (150-450) th/mm3 BMP 01/19/18 13:30 Sodium 132 L Potassium 4.7 Chloride 100 Carbon Dioxide 22.4 BUN 50 H Creatinine 3.71 H Calcium 7.4 L* Cardiac Enzymes 01/19/18 Range/Units 13:30 Troponin I 0.20 H (0.02-0.05) ng/mL Liver Function 01/19/18 Range/Units 13:30 Total Bilirubin 0.2 (0.2-1.0) mg/dL AST 344 H (15-37) U/L ALT 78 H (10-53) U/L Alkaline Phosphatase 75 (45-117) U/L Albumin 2.6 L (3.4-5.0) g/dL Urine 01/19/18 Range/Units 14:40 Urine Color Yellow (Yellw/Straw) Urine Clarity Hazy H (Clear) Urine pH 5.0 (5.0-8.5) Ur Specific [place] 1.019 (1.002-1.035) Urine Protein Negative (Neg-Trace) mg/dL Urine Glucose (UA) Negative (Negative) mg/dL - Imaging Impressions Cervical Spine CT 01/19/18 13:20 CONCLUSION: 1. Mild degenerative changes, negative for fracture 2. Exam is limited by the patient's large body habitus. Chest X-Ray 01/19/18 13:20 CONCLUSION: Mild congestive failure. No pneumothorax Head CT 01/19/18 13:20 CONCLUSION: 1. Minimal chronic white matter changes. 2. Nothing acute. . Pelvis X-Ray 01/19/18 13:22 CONCLUSION: Degenerative changes, no fracture. Exam limited by body habitus Lumbar Spine CT 01/19/18 13:24 CONCLUSION: 1. Stable, mild degenerative changes of the lumbar spine with small marginal spurs at multiple lumbar levels. 2. No acute fracture. Spinal canal and neural foramina appear to be adequate throughout. 3. Stable fluid collection within the left lower quadrant abdominal mesentery. This is overtly benign and may represent an old lymphocele or mesenteric cyst. Ankle X-Ray 01/19/18 14:23 CONCLUSION: No acute fracture or significant soft tissue swelling Caprini VTE Risk Assessment Caprini VTE Risk Assessment: Moderate/High Risk (score >= 2) Caprini Risk Assessment Model: Point Value = 1 Point Value = 2 Point Value = 3 Point Value = 5 Age 41-60 Minor surgery BMI > 25 kg/m2 Swollen legs Varicose veins or History of unexplained or recurrent spontaneous Oral contraceptives or hormone replacement Sepsis (< 1 month) Serious lung disease, including pneumonia (< 1 month) Abnormal pulmonary function Acute myocardial infarction Congestive heart failure (< 1 month) History of inflammatory bowel disease Medical patient at bed rest Age 61-74 Arthroscopic surgery Major open surgery (> 45 min) Laparoscopic surgery (> 45 min) Malignancy Confined to bed (> 72 hours) Immobilizing plaster cast Central venous access Age >= 75 History of VTE Family history of VTE Factor V Leiden Prothrombin [id number] Lupus anticoagulant Anticardiolipin antibodies Elevated serum homocysteine Heparin-induced thrombocytopenia Other congenital or acquired thrombophilia Stroke (< 1 month) Elective arthroplasty Hip, pelvis, or leg fracture Acute spinal cord injury (< 1 month) Prophylaxis Regimen: Total Risk Factor Score Risk Level Prophylaxis Regimen 0-1 Low Early ambulation 2 Moderate Order ONE of the following: *Sequential Compression Device (SCD) *Heparin 5000 units SQ BID 3-4 Higher Order ONE of the following medications: *Heparin 5000 units SQ TID *Enoxaparin/Lovenox 40 mg SQ daily (WT < 150 kg, CrCl > 30 mL/min) *Enoxaparin/Lovenox 30 mg SQ daily (WT < 150 kg, CrCl > 10-29 mL/min) *Enoxaparin/Lovenox 30 mg SQ BID (WT < 150 kg, CrCl > 30 mL/min) AND/OR *Sequential Compression Device (SCD) 5 or more Highest Order ONE of the following medications: *Heparin 5000 units SQ TID (Preferred with Epidurals) *Enoxaparin/Lovenox 40 mg SQ daily (WT < 150 kg, CrCl > 30 mL/min) *Enoxaparin/Lovenox 30 mg SQ daily (WT < 150 kg, CrCl > 10-29 mL/min) *Enoxaparin/Lovenox 30 mg SQ BID (WT < 150 kg, CrCl > 30 mL/min) AND *Sequential Compression Device (SCD) Assessment and Plan - Plan Status post fall due to possible unintentional overdose of medication -Has positive marijuana, positive opiates, and positive benzodiazepine. -We will consult psychiatry Positive troponin -No active chest pain -Trend troponins and cardiac enzymes -Echocardiogram -Nitroglycerin as needed chest pain -Consult cardiology -Subcu heparin -Continue on an aspirin Psychiatric disorder -will consult psychiatry Acute renal insufficiency/dehydration -We will continue IV fluids -Check a.m. labs -Hold off on nephrology consult at this time -May need ultrasound of kidneys if no improvement in BUN and creatinine tomorrow Hyperglycemia questionable diabetes -Check hemoglobin A1c -Diabetic cardiac diet -Accu-Cheks before meals and at bedtime with low-dose sliding scale Chronic pain -Hold off on pain medications at this time since patient is exceedingly somnolent and lethargic Hyperlipidemia -will hold Zocor at this time due to the elevated LFTs Hypothyroidism -Check a TSH and a free T4 -Continue thyroid medications if these are stable Nausea/vomiting -Continue Zofran as needed GI prophylaxis with Pepcid DVT prophylaxis with subcu heparin Code Status: Full code Discussed Condition With: RN and patient and emergency room staff Discharge Planning: Pending improvement
[2018-01-19] MEDS: Sod Chloride 0.9% Inj 1,000 ML IV.CONT SCH (17:49)
[2018-01-19] MEDS: Heparin - SQ 10,000 UNITS/ML Vial SQ SCH (17:49)
[2018-01-19 19:02] LABS: Free T4 (Free Thyroxine) 1.21 ng/dL (0.76-1.46); Thyroid Stimulating Hormone 0.019 uIU/mL (0.358-3.740); Troponin I 0.22 ng/mL (0.02-0.05)
[2018-01-19 20:13] LABS: CKMB Percent 0.2 % (0.0-4.0)
[2018-01-19 20:16] LABS: Creatine Kinase MB 89.2 ng/mL (0.5-3.6)
[2018-01-19] MEDS: Senna/Docusate Sodium 8.6/50 MG Tablet PO SCH (21:17)
[2018-01-19] MEDS: Famotidine 20 MG Tablet PO SCH (21:17)
[2018-01-19 22:41] LABS: Hemoglobin A1c 8.7 % (4.3-6.0)
[2018-01-20] MEDS: Heparin - SQ 10,000 UNITS/ML Vial SQ SCH ×3 (00:17→18:15)
[2018-01-20 00:47] LABS: Magnesium 2.1 mg/dL (1.5-2.5)
[2018-01-20 01:13] LABS: Troponin I 0.17 ng/mL (0.02-0.05)
[2018-01-20 01:27] LABS: Hepatitis A IgM Antibody Nonreactive (Nonreactive); Hepatitits B Surface Antigen Nonreactive (Nonreactive)
[2018-01-20 01:34] LABS: CKMB Percent 0.5 % (0.0-4.0)
[2018-01-20 01:35] LABS: Creatine Kinase MB 82.2 ng/mL (0.5-3.6)
[2018-01-20] MEDS: Insulin NovoLOG Aspart Correctional Sugar Inj SQ SCH ×5 (03:53→21:07)
[2018-01-20] MEDS: Sod Chloride 0.9% Inj 1,000 ML IV.CONT SCH (05:57)
--- NOTE | 2018-01-20 06:05 | ECG ---
Date Performed: 01/19/2018 Time Performed: 22:05:00 PTAGE: 62 years EKG: Marked baseline artifact Sinus rhythm MARKED RIGHT AXIS DEVIATION LOW QRS VOLTAGE IN PRECORDIAL LEADS Nonspecific T wave changes ABNORMAL ECG probably No significant change from prior electrocardiogram. PREVIOUS TRACING : 01/19/2018 17.49 DOCTOR: Ambrosio Maza Interpretating Date/Time 01/20/2018 06:03:29
--- NOTE | 2018-01-20 06:10 | ECG ---
Date Performed: 01/19/2018 Time Performed: 17:49:46 PTAGE: 62 years EKG: Sinus rhythm LOW QRS VOLTAGE IN PRECORDIAL LEADS Nonspecific T wave changes ABNORMAL ECG No significant change fr om prior electrocardiogram. PREVIOUS TRACING : 01/19/2018 13.43 DOCTOR: Ambrosio Maza Interpretating Date/Time 01/20/2018 06:08:38
[2018-01-20 08:10] LABS: Baso % (Auto) 0.2 % (0.0-2.0); Eos # (Auto) 0.1 th/mm3 (0.0-0.4); Eos % (Auto) 0.5 % (0.0-4.0); Hematocrit 33.3 % (35.0-46.0); Lymph # (Auto) 1.8 th/mm3 (1.0-4.8); Lymph % (Auto) 18.5 % (9.0-44.0); Mean Corpuscular HGB Conc 32.9 % (32.0-36.0); Mean Corpuscular Hemoglobin 27.7 pg (27.0-34.0); Mean Corpuscular Volume 84.2 fL (80.0-100.0); Mean Platelet Volume 7.9 fL (7.0-11.0); Mono # (Auto) 0.9 th/mm3 (0.0-0.9); Mono % (Auto) 9.1 % (0.0-8.0); Neut # (Auto) 6.8 th/mm3 (1.8-7.7); Neut % (Auto) 71.7 % (16.0-70.0); Platelet Count 239 th/mm3 (150-450); Red Blood Count 3.95 mil/mm3 (4.00-5.30); Red Cell Distribution Width 15.9 % (11.6-17.2); White Blood Count 9.5 th/mm3 (4.0-11.0)
[2018-01-20 08:14] LABS: INR 1.1 Ratio; Prothrombin Time 10.7 sec (9.8-11.6)
[2018-01-20] MEDS: Famotidine 20 MG Tablet PO SCH ×2 (08:40→21:07)
[2018-01-20] MEDS: Senna/Docusate Sodium 8.6/50 MG Tablet PO SCH ×2 (08:41→21:07)
[2018-01-20 09:25] LABS: Albumin 2.4 g/dL (3.4-5.0); Calcium 6.8 mg/dL (8.5-10.1); Carbon Dioxide 24.1 meq/L (21.0-32.0); Phosphorus 7.2 mg/dL (2.5-4.9); Potassium 5.4 meq/L (3.5-5.1); Total Protein 5.8 g/dL (6.4-8.2); Troponin I 0.11 ng/mL (0.02-0.05)
[2018-01-20 09:49] LABS: CKMB Percent 0.6 % (0.0-4.0); Creatine Kinase MB 86.5 ng/mL (0.5-3.6)
--- NOTE | 2018-01-20 11:07 | MB ---
cc: Stefan Castro MD DATE: 01/20/2018 REASON FOR CONSULTATION: Abnormal troponin level. HISTORY OF PRESENT ILLNESS: The patient is somewhat of a poor historian. She is a 62-year-old white female with a history of numerous medical problems including hypertension, possibly coronary artery disease, diabetes, hepatitis C, COPD, who was admitted to the hospital status post a fall during which she hit her head. The patient states she may have lost consciousness for a couple of seconds. She denies any recent chest pains, shortness of breath, palpitations, paroxysmal nocturnal dyspnea, or orthopnea. Chronically she has intermittent dependent pedal edema. Troponin levels were checked here in the hospital and found to be abnormal. PAST MEDICAL HISTORY: 1. Asthma. 2. Bipolar disorder. 3. Hyperlipidemia. 4. COPD. 5. Hypertension. 6. Nephrolithiasis. 7. Migraine headaches. 8. Hypothyroidism. 9. Paranoid schizophrenia. 10. Gastroesophageal reflux disease. 11. Hepatitis C. 12. Questionable history of coronary artery disease with a percutaneous coronary intervention in 2010 in [place]. 13. Diabetes. 14. Right breast cancer status post mastectomy. 15. Sleep apnea. 16. Fibromyalgia. PAST SURGICAL HISTORY: 1. ANDRÉS-BSO. 2. Eye surgery at age 6. 3. Right knee arthroscopy and arthroplasty. 4. Right mastectomy. CARDIAC MEDICATIONS AT HOME: 1. Simvastatin 20 mg at bedtime. 2. Potassium chloride 10 mEq b.i.d. 3. Furosemide 80 mg daily. 4. Enalapril 5 mg daily. 5. Aspirin 81 mg daily. ALLERGIES: BACLOFEN, LITHIUM, SULFA, CITALOPRAM, IRON, SEROQUEL, HALDOL, RISPERDAL. FAMILY HISTORY: The patient's mother may have had heart disease sustaining a myocardial infarction in her 50s according to the patient. SOCIAL HISTORY: The patient smokes about a pack of cigarettes per day. She denies drug or alcohol abuse. REVIEW OF SYSTEMS: As in the history of present illness, otherwise negative or noncontributory. She also denies headache, abdominal pain, melena, dyspepsia, bright red blood per rectum, fevers, wheezing. PHYSICAL EXAMINATION: VITAL SIGNS: Her blood pressure 122/56 with a pulse of 70, respirations 20. GENERAL: She is a well-developed, well-nourished white female, in no acute distress. NECK: Jugular venous pressure is hard to assess. Carotid pulses are 2+ bilaterally and without bruits. CHEST: Reveals clear lungs hyatt. CARDIAC: She has a regular rhythm and rate without S3, S4, or murmur. ABDOMEN: She has a soft, nontender abdomen. Bowel sounds are present. There is no definite hepatosplenomegaly. EXTREMITIES: Reveals no clubbing, cyanosis, or edema. LABORATORY DATA: EKG from 01/19/2018 shows normal sinus rhythm, right axis deviation, nonspecific anteroseptal T-wave abnormalities. Chest x-ray shows possible mild congestive heart failure. LABORATORY DATA: Includes WBC 9.5, hemoglobin 11.0, platelets 239. Troponin 0.22. CK 40,415, with 0.2% MB fraction. BUN 50, creatinine 3.71. IMPRESSION: Minimally abnormal troponin level, acute renal insufficiency, rhabdomyolysis, possible mild congestive heart failure in a 62-year-old white female with a history of numerous medical problems including possible coronary artery disease, diabetes, hypertension, hyperlipidemia, chronic obstructive pulmonary disease, hepatitis C, sleep apnea. Overall, there is no definite evidence for acute coronary syndrome. CK-MB percentages are negative for myocardial infarction. The patient has had no definite angina symptoms recently. Chest x-ray does suggest the possibility of mild congestive heart failure. Echocardiogram is pending. RECOMMENDATIONS: 1. Given her poor functional status, renal insufficiency, sedentary lifestyle, numerous comorbid conditions, recommend conservative cardiac management and therapy. 2. Await her 2D echo. 3. Continue daily aspirin. 4. Vigorous intravenous fluids given her rhabdomyolysis, renal insufficiency and intermittent hypotension. MD GILBERT Escalera/paulina , 09:01 AM , 09:12 AM SHANTA
--- NOTE | 2018-01-20 12:43 | P.PN ---
Subjective Interval history: Nursing denies any deterioration since last night except for the patient complaining of back pain. Patient herself denies any chest pain today. Says she does not move around a lot at home, says she is quite stationary. Says she wants to go home but she understands that she is sick and that her renal function is getting worse. Physical Exam Vital signs: Vital Signs 01/19/18 13:15 01/19/18 13:20 01/19/18 15:09 Temperature 98.0 F 97.9 F Pulse Rate 85 89 83 Respiratory Rate 22 24 Blood Pressure 168/90 H 108/65 Pulse Oximetry 95 96 95 01/19/18 16:40 01/19/18 16:54 01/19/18 20:00 Temperature 97.9 F 98.1 F Pulse Rate 80 80 78 Respiratory Rate 22 22 20 Blood Pressure 102/67 78/51 L Pulse Oximetry 95 93 L 01/19/18 23:30 01/19/18 23:45 01/20/18 00:00 Temperature 97.2 F L Pulse Rate 74 78 Respiratory Rate 16 Blood Pressure 98/46 L 77/46 L Pulse Oximetry 95 01/20/18 03:45 01/20/18 04:00 01/20/18 08:00 Temperature 97 F L 97.5 F L Pulse Rate 79 71 78 Respiratory Rate 20 18 Blood Pressure 122/56 L 100/50 L Pulse Oximetry 95 96 01/20/18 10:04 Temperature Pulse Rate Respiratory Rate Blood Pressure Pulse Oximetry 95 Intake & Output 01/19/18 01/20/18 01/20/18 18:59 06:59 18:59 Intake Total 500 / 500 1000 / 1000 Balance 500 / 500 1000 / 1000 Weight 113.398 kg 114 kg Intake: IV 500 / 500 1000 / 1000 NS Inj 1,000 ML @ 75 mls/hr IV. 1000 / 1000 CONT .[id number] BRUNO Rx#:[id number] NS Inj 500 ML @ Wide Open IV. 500 / 500 SIG BOLUS ONE Rx#:[id number] Narrative: Heart sounds regular rate rhythm, no murmurs Clear lungs bilaterally, unlabored breathing, Lying in bed, awake, alert Results - Labs CBC & Chem 7: 01/20/18 06:45 01/20/18 06:45 Laboratory Results - last 24 hr 01/19/18 01/19/18 01/19/18 13:30 13:30 13:30 WBC RBC Hgb Hct MCV MCH MCHC RDW Plt Count MPV Neut % (Auto) Lymph % (Auto) [place] % (Auto) Eos % (Auto) Baso % (Auto) Neut # (Auto) Lymph # (Auto) [place] # (Auto) Eos # (Auto) Baso # (Auto) WBC Differential Differential Comment PT INR APTT Sodium 132 L Potassium 4.7 Chloride 100 Carbon Dioxide 22.4 Anion Gap 10 BUN 50 H Creatinine 3.71 H Estimated GFR 12 L POC Glucose Random Glucose 126 H Hemoglobin A1c Lactic Acid Calcium 7.4 L* Prot Corrected Calcium 8.2 L Phosphorus Magnesium 1.9 Total Bilirubin 0.2 AST 344 H ALT 78 H Alkaline Phosphatase 75 Total Creatine Kinase CK-MB (CK-2) CK-MB (CK-2) % Troponin I 0.20 H B-Natriuretic Peptide Total Protein 5.7 L Albumin 2.6 L TSH Free T4 Urine Color Urine Clarity Urine pH Ur Specific [place] Urine Protein Urine Glucose (UA) Urine Ketones Urine Occult Blood Urine Nitrate Urine Bilirubin Urine Urobilinogen Ur Leukocyte Esterase Urine RBC Urine WBC Ur Squamous Epith Cells Urine Bacteria Hyaline Casts Urine Mucus Micro UA Comment Urine Culture Comments Salicylates 4.1 Urine Opiates Screen Acetaminophen 3.7 L Ur Barbiturates Screen Ur Amphetamines Screen U Benzodiazepines Scrn Urine Cocaine Screen U Cannabinoids Screen Hepatitis A IgM Ab Hep Bs Antigen Hep B Core IgM Ab Hep C IgG Ab 01/19/18 01/19/18 01/19/18 13:37 14:40 14:40 WBC RBC Hgb Hct MCV MCH MCHC RDW Plt Count MPV Neut % (Auto) Lymph % (Auto) [place] % (Auto) Eos % (Auto) Baso % (Auto) Neut # (Auto) Lymph # (Auto) [place] # (Auto) Eos # (Auto) Baso # (Auto) WBC Differential Differential Comment PT INR APTT Sodium Potassium Chloride Carbon Dioxide Anion Gap BUN Creatinine Estimated GFR POC Glucose 145 H Random Glucose Hemoglobin A1c Lactic Acid Calcium Prot Corrected Calcium Phosphorus Magnesium Total Bilirubin AST ALT Alkaline Phosphatase Total Creatine Kinase CK-MB (CK-2) CK-MB (CK-2) % Troponin I B-Natriuretic Peptide Total Protein Albumin TSH Free T4 Urine Color Yellow Urine Clarity Hazy H Urine pH 5.0 Ur Specific [place] 1.019 Urine Protein Negative Urine Glucose (UA) Negative Urine Ketones Negative Urine Occult Blood Small H Urine Nitrate Negative Urine Bilirubin Negative Urine Urobilinogen Less than 2 Ur Leukocyte Esterase Trace H Urine RBC 1 Urine WBC 6 H Ur Squamous Epith Cells 2 Urine Bacteria Rare H Hyaline Casts 94 Urine Mucus Few H Micro UA Comment Culture not ind Urine Culture Comments Culture not ind Salicylates Urine Opiates Screen Pos H Acetaminophen Ur Barbiturates Screen Neg Ur Amphetamines Screen Neg U Benzodiazepines Scrn Pos H Urine Cocaine Screen Neg U Cannabinoids Screen Pos H Hepatitis A IgM Ab Hep Bs Antigen Hep B Core IgM Ab Hep C IgG Ab 01/19/18 01/19/18 01/19/18 14:41 14:45 14:45 WBC 13.7 H RBC 4.25 Hgb 11.8 Hct 35.0 MCV 82.3 MCH 27.8 MCHC 33.8 RDW 15.3 Plt Count 281 MPV 8.0 Neut % (Auto) 70.8 H Lymph % (Auto) 19.6 [place] % (Auto) 9.0 H Eos % (Auto) 0.4 Baso % (Auto) 0.2 Neut # (Auto) 9.7 H Lymph # (Auto) 2.7 [place] # (Auto) 1.2 H Eos # (Auto) 0.1 Baso # (Auto) 0.0 WBC Differential . Differential Comment Auto diff final PT 10.7 INR 1.1 APTT 22.9 L Sodium Potassium Chloride Carbon Dioxide Anion Gap BUN Creatinine Estimated GFR POC Glucose Random Glucose Hemoglobin A1c Lactic Acid Calcium Prot Corrected Calcium Phosphorus Magnesium Total Bilirubin AST ALT Alkaline Phosphatase Total Creatine Kinase CK-MB (CK-2) CK-MB (CK-2) % Troponin I B-Natriuretic Peptide 745 H Total Protein Albumin TSH Free T4 Urine Color Urine Clarity Urine pH Ur Specific [place] Urine Protein Urine Glucose (UA) Urine Ketones Urine Occult Blood Urine Nitrate Urine Bilirubin Urine Urobilinogen Ur Leukocyte Esterase Urine RBC Urine WBC Ur Squamous Epith Cells Urine Bacteria Hyaline Casts Urine Mucus Micro UA Comment Urine Culture Comments Salicylates Urine Opiates Screen Acetaminophen Ur Barbiturates Screen Ur Amphetamines Screen U Benzodiazepines Scrn Urine Cocaine Screen U Cannabinoids Screen Hepatitis A IgM Ab Hep Bs Antigen Hep B Core IgM Ab Hep C IgG Ab 01/19/18 01/19/18 01/19/18 14:45 16:58 17:51 WBC RBC Hgb Hct MCV MCH MCHC RDW Plt Count MPV Neut % (Auto) Lymph % (Auto) [place] % (Auto) Eos % (Auto) Baso % (Auto) Neut # (Auto) Lymph # (Auto) [place] # (Auto) Eos # (Auto) Baso # (Auto) WBC Differential Differential Comment PT INR APTT Sodium Potassium Chloride Carbon Dioxide Anion Gap BUN Creatinine Estimated GFR POC Glucose 118 H Random Glucose Hemoglobin A1c 8.7 H Lactic Acid Calcium Prot Corrected Calcium Phosphorus Magnesium Total Bilirubin AST ALT Alkaline Phosphatase Total Creatine Kinase 68382 H CK-MB (CK-2) 89.2 H CK-MB (CK-2) % 0.2 Troponin I 0.22 H B-Natriuretic Peptide Total Protein Albumin TSH 0.019 L Free T4 1.21 Urine Color Urine Clarity Urine pH Ur Specific [place] Urine Protein Urine Glucose (UA) Urine Ketones Urine Occult Blood Urine Nitrate Urine Bilirubin Urine Urobilinogen Ur Leukocyte Esterase Urine RBC Urine WBC Ur Squamous Epith Cells Urine Bacteria Hyaline Casts Urine Mucus Micro UA Comment Urine Culture Comments Salicylates Urine Opiates Screen Acetaminophen Ur Barbiturates Screen Ur Amphetamines Screen U Benzodiazepines Scrn Urine Cocaine Screen U Cannabinoids Screen Hepatitis A IgM Ab Hep Bs Antigen Hep B Core IgM Ab Hep C IgG Ab 01/19/18 01/19/18 01/19/18 20:19 23:43 23:43 WBC RBC Hgb Hct MCV MCH MCHC RDW Plt Count MPV Neut % (Auto) Lymph % (Auto) [place] % (Auto) Eos % (Auto) Baso % (Auto) Neut # (Auto) Lymph # (Auto) [place] # (Auto) Eos # (Auto) Baso # (Auto) WBC Differential Differential Comment PT INR APTT Sodium Potassium Chloride Carbon Dioxide Anion Gap BUN Creatinine Estimated GFR POC Glucose 225 H Random Glucose Hemoglobin A1c Lactic Acid Calcium Prot Corrected Calcium Phosphorus Magnesium 2.1 Total Bilirubin AST ALT Alkaline Phosphatase Total Creatine Kinase 91151 H CK-MB (CK-2) 82.2 H CK-MB (CK-2) % 0.5 Troponin I 0.17 H B-Natriuretic Peptide Total Protein Albumin TSH Free T4 Urine Color Urine Clarity Urine pH Ur Specific [place] Urine Protein Urine Glucose (UA) Urine Ketones Urine Occult Blood Urine Nitrate Urine Bilirubin Urine Urobilinogen Ur Leukocyte Esterase Urine RBC Urine WBC Ur Squamous Epith Cells Urine Bacteria Hyaline Casts Urine Mucus Micro UA Comment Urine Culture Comments Salicylates Urine Opiates Screen Acetaminophen Ur Barbiturates Screen Ur Amphetamines Screen U Benzodiazepines Scrn Urine Cocaine Screen U Cannabinoids Screen Hepatitis A IgM Ab Nonreactive Hep Bs Antigen Nonreactive Hep B Core IgM Ab Nonreactive Hep C IgG Ab Reactive H 01/19/18 01/20/18 01/20/18 23:43 03:48 06:45 WBC 9.5 RBC 3.95 L Hgb 11.0 L Hct 33.3 L MCV 84.2 MCH 27.7 MCHC 32.9 RDW 15.9 Plt Count 239 MPV 7.9 Neut % (Auto) 71.7 H Lymph % (Auto) 18.5 [place] % (Auto) 9.1 H Eos % (Auto) 0.5 Baso % (Auto) 0.2 Neut # (Auto) 6.8 Lymph # (Auto) 1.8 [place] # (Auto) 0.9 Eos # (Auto) 0.1 Baso # (Auto) 0.0 WBC Differential . Differential Comment Auto diff final PT INR APTT Sodium Potassium Chloride Carbon Dioxide Anion Gap BUN Creatinine Estimated GFR POC Glucose 166 H Random Glucose Hemoglobin A1c Lactic Acid 1.1 Calcium Prot Corrected Calcium Phosphorus Magnesium Total Bilirubin AST ALT Alkaline Phosphatase Total Creatine Kinase CK-MB (CK-2) CK-MB (CK-2) % Troponin I B-Natriuretic Peptide Total Protein Albumin TSH Free T4 Urine Color Urine Clarity Urine pH Ur Specific [place] Urine Protein Urine Glucose (UA) Urine Ketones Urine Occult Blood Urine Nitrate Urine Bilirubin Urine Urobilinogen Ur Leukocyte Esterase Urine RBC Urine WBC Ur Squamous Epith Cells Urine Bacteria Hyaline Casts Urine Mucus Micro UA Comment Urine Culture Comments Salicylates Urine Opiates Screen Acetaminophen Ur Barbiturates Screen Ur Amphetamines Screen U Benzodiazepines Scrn Urine Cocaine Screen U Cannabinoids Screen Hepatitis A IgM Ab Hep Bs Antigen Hep B Core IgM Ab Hep C IgG Ab 01/20/18 01/20/18 01/20/18 06:45 06:45 08:18 WBC RBC Hgb Hct MCV MCH MCHC RDW Plt Count MPV Neut % (Auto) Lymph % (Auto) [place] % (Auto) Eos % (Auto) Baso % (Auto) Neut # (Auto) Lymph # (Auto) [place] # (Auto) Eos # (Auto) Baso # (Auto) WBC Differential Differential Comment PT 10.7 INR 1.1 APTT Sodium 135 L Potassium 5.4 H Chloride 101 Carbon Dioxide 24.1 Anion Gap 10 BUN 54 H Creatinine 4.09 H Estimated GFR 11 L POC Glucose 149 H Random Glucose 127 H Hemoglobin A1c Lactic Acid Calcium 6.8 L* Prot Corrected Calcium 7.5 L Phosphorus 7.2 H Magnesium Total Bilirubin 0.2 AST 284 H ALT 80 H Alkaline Phosphatase 71 Total Creatine Kinase 01539 H CK-MB (CK-2) 86.5 H CK-MB (CK-2) % 0.6 Troponin I 0.11 H B-Natriuretic Peptide Total Protein 5.8 L Albumin 2.4 L TSH Free T4 Urine Color Urine Clarity Urine pH Ur Specific [place] Urine Protein Urine Glucose (UA) Urine Ketones Urine Occult Blood Urine Nitrate Urine Bilirubin Urine Urobilinogen Ur Leukocyte Esterase Urine RBC Urine WBC Ur Squamous Epith Cells Urine Bacteria Hyaline Casts Urine Mucus Micro UA Comment Urine Culture Comments Salicylates Urine Opiates Screen Acetaminophen Ur Barbiturates Screen Ur Amphetamines Screen U Benzodiazepines Scrn Urine Cocaine Screen U Cannabinoids Screen Hepatitis A IgM Ab Hep Bs Antigen Hep B Core IgM Ab Hep C IgG Ab - Imaging Impressions Cervical Spine CT 01/19/18 13:20 CONCLUSION: 1. Mild degenerative changes, negative for fracture 2. Exam is limited by the patient's large body habitus. Chest X-Ray 01/19/18 13:20 CONCLUSION: Mild congestive failure. No pneumothorax Head CT 01/19/18 13:20 CONCLUSION: 1. Minimal chronic white matter changes. 2. Nothing acute. . Pelvis X-Ray 01/19/18 13:22 CONCLUSION: Degenerative changes, no fracture. Exam limited by body habitus Lumbar Spine CT 01/19/18 13:24 CONCLUSION: 1. Stable, mild degenerative changes of the lumbar spine with small marginal spurs at multiple lumbar levels. 2. No acute fracture. Spinal canal and neural foramina appear to be adequate throughout. 3. Stable fluid collection within the left lower quadrant abdominal mesentery. This is overtly benign and may represent an old lymphocele or mesenteric cyst. Ankle X-Ray 01/19/18 14:23 CONCLUSION: No acute fracture or significant soft tissue swelling Assessment and Plan - Plan Status post fall due to possible unintentional overdose of medication -Has positive marijuana, positive opiates, and positive benzodiazepine. -Psychiatry consultation pending Positive troponin -Believe this is secondary to acute renal failure, not ACS -Echocardiogram pending -Medical management per cardiology, appreciate recommendations Psychiatric disorder -Psychiatry consultation pending Rhabdomyolysis Worsening acute renal failure -CK significantly elevated at 40,000, will trend, continue aggressive IV fluids , consulting nephrology, trend BMP Hyperglycemia questionable diabetes -Diabetic cardiac diet -Accu-Cheks before meals and at bedtime with low-dose sliding scale Chronic pain -May resume low-dose pain medicine in 24 hours Hyperlipidemia -will hold Zocor at this time due to the elevated LFTs Hypothyroidism - continue home Synthroid DVT prophylaxis with subcu heparin
[2018-01-20] MEDS ORDERED: Paliperidone Inj 234 MG/1.5 ML Syringe IM STA (13:37)
--- NOTE | 2018-01-20 14:00 | P.CONPSY ---
Provisional Diagnosis Admission Date: January 19, 2018 16:55 History of Present Illness Service: [facility] Primary Care Provider: Stacey Warren Provider: UNKNOWN Chief Complaint: Status post fall History of Present Illness: The patient is a 62-year-old man, domiciled alone in [place], single, with psychiatry history of bipolar disorder, multiple psychiatric hospitalizations, outpatient care in [facility] with Kajal Connelly, she is on invega Sustenna 234 mg, trazodone 100 mg, she was due 2 days ago according with Ms. Connelly, no previous suicide attempts, she is well known by our service, with medical history hypothyroidism, chronic pain, hyperlipidemia, who presented emergency department via [facility] for evaluation of possible mechanical fall. Patient takes Xanax and Lortab prescribed to her by her pain management doctor. Patient went to [facility] for her Invega injection, patient was noted to be very somnolent and altered. There was concern that patient was overmedicated and altered. She did not get her injection and they recommended that she got evaluated here in the emergency department. She refused to come by ambulance and drove herself here. She made it to the parking lot and had an observed mechanical fall where she fell and hit her head. She states that she remembers the fall she remembers hitting her head. Denies any other new medical issues. States she has some back pain as well as some neck pain and headache. Although patient does have chronic pain for which she takes Lortab. Consulted to psychiatry to address medication management.Collateral form Kajal Connelly was obtained karen stated the patient did not get her Invega sustenna before yesterday because they did not have any of this medication in storage. On psychiatric evaluation the patient is calm, cooperative, reports good mood. She reports feeling much better now. Reports good mood. Reported taking her medications every month. Been stable. She denies suicidal and homicidal ideation, she denies visual and auditory hallucinations. Patient is fully oriented 3, no attention deficit, no fluctuation of consciousness. No loosening of associations, no aba, no paranoia, no delusions present. 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, Rn Bariatric / EMT - Medical History Medical History: Medical History (Last Reviewed 01/20/18 @ 07:51 by Kelli Cruz) Anxiety Depression Fibromyalgia H/O: hysterectomy Hx of hysterectomy Hyperlipidemia Hypothyroidism Marijuana use Morbid obesity Tobacco abuse COPD (chronic obstructive pulmonary disease) Chest pain Chronic pain Hypertension Schizophrenia Thyroid disease - Family History Family History: Family History (Last Reviewed 01/20/18 @ 07:51 by Kelli Cruz) Other Family history of hypertension Psychiatric disorder - Tobacco History Second Hand Smoke Exposure: Yes (FRIENDS) Tobacco Use In Past 30 Days: Yes Smoking Status: Current every day smoker Tobacco Type: Cigarettes - Alcohol History How Often Do You Have a Drink Containing Alcohol: Never - Substance Use History Substance History: No History of Abuse - Travel History History of Recent Travel: No Recent Travel in the [place] Within the Last 8 Weeks: No Recent Travel Out of the Country Within the Last 8 Weeks: No - Immunization History Tetanus Immunization: >5 Years Hx Influenza Vaccine This Season: Yes Medications and Allergies Active Medications: Active Medications Acetaminophen (Tylenol) 650 mg PO Q4H PRN PRN Reason: Temp > 100.4 Al Hydroxide/Mg Hydroxide (Milk Of Magnesia Liq) 30 ml PO Q12H PRN PRN Reason: Mild Constipation Aspirin (Aspirin Chew) 81 mg PO DAILY [facility] Last Admin: 01/20/18 08:41 Dose: 81 mg Bisacodyl (Dulcolax Supp) 10 mg RECTAL DAILY PRN PRN Reason: SEVERE CONSITIPATION Dextrose (D50w Vial) 50 ml IV.PUSH UNSCH PRN PRN Reason: PER HYPOGLYCEMIA PROTOCOL Famotidine (Pepcid) 10 mg PO BID [facility] Last Admin: 01/20/18 08:40 Dose: 10 mg Glucagon (Glucagon Inj) 1 mg OTHER PRN PRN PRN Reason: for Hypoglycemia Protocol Heparin Sodium (Porcine) (Heparin Inj) 5,000 units SQ Q8H [facility] Last Admin: 01/20/18 08:41 Dose: 5,000 units Sodium Chloride (Ns Inj) 1,000 mls @ 75 mls/hr IV.CONT .[id number] [facility] Last Admin: 01/20/18 05:57 Dose: 75 mls/hr Insulin Aspart (Novolog Insulin Correctional Sugar Inj) 0 unit SQ ACHS AND 3AM BRUNO; Protocol Last Admin: 01/20/18 13:19 Dose: 1 unit Lactulose (Lactulose Liq) 30 ml PO DAILY PRN PRN Reason: SEVERE CONSITIPATION Levothyroxine Sodium (Synthroid) 200 mcg PO DAILY@0600 [facility] Last Admin: 01/20/18 05:53 Dose: 200 mcg Nitroglycerin (Nitrostat Sl) 0.4 mg SL Q5M PRN PRN Reason: CHEST PAIN Ondansetron HCl (Zofran Inj) 4 mg IV.PUSH Q6H PRN PRN Reason: NAUSEA OR VOMITING Promethazine HCl (Phenergan) 25 mg PO BID PRN PRN Reason: Nausea Senna/Docusate Sodium (Abbey-Colace) 1 tab PO BID [facility] Last Admin: 01/20/18 08:41 Dose: 1 tab Sennosides (Senokot) 17.2 mg PO Q12H PRN PRN Reason: Moderate Constipation Trazodone HCl (Desyrel) 100 mg PO [facility] Allergies Allergy/AdvReac Type Severity Reaction Status Date / Time baclofen Allergy Intermediate Hives Verified 01/19/18 16:57 citalopram Allergy Intermediate Rash Verified 01/19/18 16:57 lithium Allergy Intermediate Hives Verified 01/19/18 13:20 Sulfa (Sulfonamide Allergy Intermediate Hives Verified 01/19/18 16:57 Antibiotics) ziprasidone Allergy Intermediate Hives Verified 01/19/18 16:57 haloperidol AdvReac Severe "STIFFNESS" Verified 01/19/18 13:20 quetiapine AdvReac Severe anxiety Verified 01/19/18 13:20 risperidone AdvReac Severe anxiety Verified 01/19/18 13:20 ferrous fumarate AdvReac Intermediate dark bm's Verified 01/19/18 13:20 ferrous sulfate AdvReac Intermediate dark bm's Verified 01/19/18 13:20 ferumoxytol AdvReac Intermediate dark bm's Verified 12/12/17 02:56 iron AdvReac Intermediate dark bm's Verified 12/12/17 02:56 multivitamin infusion, adult AdvReac Intermediate dark bm's Verified 12/12/17 02 :56 no.4 with vitamin K multivitamin with iron,other AdvReac Intermediate dark bm's Verified 12/12/17 02 :56 minerals Home Medications Medication Instructions Recorded Confirmed Type albuterol sulfate [ProAir HFA] 2 puff INHALATION Q4-6H PRN 12/12/17 01/19/18 History alprazolam [Xanax] 2 mg PO BID PRN 12/12/17 01/19/18 History aspirin 81 mg PO DAILY 12/12/17 01/19/18 History enalapril maleate 5 mg PO DAILY 12/12/17 01/19/18 History furosemide [Lasix] 80 mg PO DAILY 12/12/17 01/19/18 History hydrocodone-acetaminophen [[place]] 2 tab PO Q6-8H PRN 12/12/17 01/19/18 History levothyroxine 200 mcg PO DAILY 12/12/17 01/19/18 History nitroglycerin [Nitrostat] 0.3 mg SUBLINGUAL Q5-15M PRN 12/12/17 01/19/18 History potassium 10 meq PO BID 12/12/17 01/19/18 History promethazine 25 mg PO BID PRN 12/12/17 01/19/18 History simvastatin [Zocor] 20 mg PO QPM 12/12/17 01/19/18 History trazodone 100 mg PO DAILY 12/12/17 01/19/18 History enalapril maleate 5 mg PO DAILY 01/20/18 01/20/18 History gabapentin 300 mg PO BID 01/20/18 01/20/18 History hydrocodone-acetaminophen 1 tab PO Q6H PRN 01/20/18 01/20/18 History insulin glargine [Lantus U-100 15 unit SUB-Q HS 01/20/18 01/20/18 History Insulin] Exam Vital signs: Vital Signs 01/19/18 15:09 01/19/18 16:40 01/19/18 16:54 Temperature 97.9 F 97.9 F Pulse Rate 83 80 80 Respiratory Rate 24 22 22 Blood Pressure 108/65 102/67 Pulse Oximetry 95 95 01/19/18 20:00 01/19/18 23:30 01/19/18 23:45 Temperature 98.1 F Pulse Rate 78 74 Respiratory Rate 20 Blood Pressure 78/51 L 98/46 L Pulse Oximetry 93 L 01/20/18 00:00 01/20/18 03:45 01/20/18 04:00 Temperature 97.2 F L 97 F L Pulse Rate 78 79 71 Respiratory Rate 16 20 Blood Pressure 77/46 L 122/56 L Pulse Oximetry 95 95 01/20/18 08:00 01/20/18 10:04 01/20/18 12:00 Temperature 97.5 F L 97.0 F L Pulse Rate 78 81 Respiratory Rate 18 18 Blood Pressure 100/50 L 90/60 L Pulse Oximetry 96 95 93 L Intake & Output 01/19/18 01/20/18 01/20/18 18:59 06:59 18:59 Intake Total 500 / 500 1000 / 1000 Balance 500 / 500 1000 / 1000 Weight 113.398 kg 114 kg Intake: IV 500 / 500 1000 / 1000 NS Inj 1,000 ML @ 75 mls/hr IV. 1000 / 1000 CONT .[id number] BRUNO Rx#:[id number] NS Inj 500 ML @ Wide Open IV. 500 / 500 SIG BOLUS ONE Rx#:[id number] Mental Status Examination Appearance: Appropriate Consciousness: Alert Orientation: x4 Motor Activity: Normal gait Language: Adequate Fund of Knowledge: Adequate Attention and Concentration: Adequate Memory: Unremarkable Affect: Appropriate Thought Process & Associations: Intact Thought Content: Appropriate Hallucination Type: None Delusion Type: None Suicidal Ideation: No Suicidal Plan: No Suicidal Intention: No Homicidal Ideation: No Homicidal Plan: No Homicidal Intention: No Insight: Fair Judgment: Impulsive Assessment and Plan - Assessment (1) Bipolar disease, chronic Code(s): F31.9 - Bipolar disorder, unspecified Status: Acute - Plan Plan: Estimated LOS: [] days On psychiatric evaluation today the patient does not present any acute, concerning or significant symptomatology of depression, aba, psychosis or anxiety. The patient seems to be at baseline, this fact was confirmed with her outpatient nurse practitioners, Kajal Connelly, the patient denies suicidal and homicidal ideation, she denies visual and auditory hallucinations. She has an extensive psychiatric history of bipolar disorder, multiple psychiatric hospitalizations, outpatient care in [facility]. She is on Invega sustena 234, trazodone 100, with a good response. No significant side effects. She missed her dose of Invega for yesterday. I will order Invega 234 now. Continue trazodone 100 mg at bedtime. I have to clarify that her Xanax is not prescribed by psychiatry, so I do not see a clear indication for this medication , can put on hold given her recent falls. She does not meet criteria for involuntary psychiatric admission. Brief supportive psychotherapy provided. Justification for Continued Inpatient Stay: Admission not indicated
--- NOTE | 2018-01-20 14:57 | P.CONNP ---
History of Present Illness Service: Nephrology Consult date: 01/20/18 Requesting Physician: Robinson Butler Reason for Consult: Acute renal failure Primary Care Provider: Stacey Sinha Family Provider: UNKNOWN Chief Complaint: Status post fall History of Present Illness: Patient is a 62-year-old morbidly obese female with history of diabetes, osteoporosis, osteoarthritis, She states that she has previous CVA, who was admitted after the fall, patient states she uses a walker and could not balance herself and lost her balance and hit the floor hard causing her headache and back pain, she was diagnosed with rhabdomyolysis and getting IV fluid normal saline at 75 cc an hour over the creatinine is above 4, patient states kidney disease runs in the family and one brother has chronic renal insufficiency, he had previous nephrectomy but the details of not available. Review of Systems Constitutional: Reports body ache(s) Eyes: Denies blind spots, Denies blurry vision, Denies bulging eyes, Denies change in vision, Denies double vision, Denies discharge, Denies dry eyes, Denies floaters, Denies irritation, Denies itchy eyes, Denies loss of vision, Denies pain, Denies requires corrective lenses, Denies sensitivity to light, Denies other Ears, Nose, Mouth, and Throat: Denies abnormal hearing, Denies bleeding gums, Denies bad breath, Denies change in voice, Denies dental pain, Denies difficulty swallowing, Denies dizziness, Denies dry mouth, Denies ear discharge , Denies ear pain, Denies facial pain, Denies headache(s), Denies hearing loss, Denies hoarseness, Denies lip swelling, Denies nosebleed, Denies mouth lesions, Denies mouth pain, Denies nasal congestion, Denies nasal discharge, Denies nasal obstruction, Denies nasal trauma, Denies neck lump, Denies neck pain, Denies nose pain, Denies pain with swallowing, Denies poor balance, Denies post nasal drip, Denies ringing in the ears, Denies sinus pain, Denies sinus pressure , Denies sore throat, Denies throat swelling, Denies tongue swelling, Denies other Cardiovascular: Reports leg swelling Respiratory: Reports shortness of breath Gastrointestinal: Reports heartburn Musculoskeletal: Reports abnormal walking, Reports back pain, Reports body aches , Reports joint pain, Reports muscle weakness Neurologic: Reports weakness Psychiatric: Reports behavioral changes PMFSH - History History 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, 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 - Medical History Medical History: Medical History (Last Updated 01/20/18 @ 14:54 by Mariano Morris MD) Anxiety Depression Diabetes Fibromyalgia H/O: hysterectomy Hx of hysterectomy Hyperlipidemia Hypothyroidism Marijuana use Morbid obesity Tobacco abuse COPD (chronic obstructive pulmonary disease) Chest pain Chronic pain Hypertension Schizophrenia Thyroid disease - Family History Family History: Family History (Last Reviewed 01/20/18 @ 13:38 by Hira Ambriz) Other Family history of hypertension Psychiatric disorder - Tobacco History Second Hand Smoke Exposure: Yes (FRIENDS) Tobacco Use In Past 30 Days: Yes Smoking Status: Current every day smoker Tobacco Type: Cigarettes - Alcohol History How Often Do You Have a Drink Containing Alcohol: Never - Substance Use History Substance History: No History of Abuse - Travel History History of Recent Travel: No Recent Travel in the [place] Within the Last 8 Weeks: No Recent Travel Out of the Country Within the Last 8 Weeks: No - Immunization History Tetanus Immunization: >5 Years Hx Influenza Vaccine This Season: Yes Medications and Allergies Active Medications: Active Medications Acetaminophen (Tylenol) 650 mg PO Q4H PRN PRN Reason: Temp > 100.4 Al Hydroxide/Mg Hydroxide (Milk Of Magnesia Liq) 30 ml PO Q12H PRN PRN Reason: Mild Constipation Aspirin (Aspirin Chew) 81 mg PO DAILY [facility] Last Admin: 01/20/18 08:41 Dose: 81 mg Bisacodyl (Dulcolax Supp) 10 mg RECTAL DAILY PRN PRN Reason: SEVERE CONSITIPATION Dextrose (D50w Vial) 50 ml IV.PUSH UNSCH PRN PRN Reason: PER HYPOGLYCEMIA PROTOCOL Famotidine (Pepcid) 10 mg PO BID [facility] Last Admin: 01/20/18 08:40 Dose: 10 mg Glucagon (Glucagon Inj) 1 mg OTHER PRN PRN PRN Reason: for Hypoglycemia Protocol Heparin Sodium (Porcine) (Heparin Inj) 5,000 units SQ Q8H [facility] Last Admin: 01/20/18 08:41 Dose: 5,000 units Sodium Chloride (Ns Inj) 1,000 mls @ 75 mls/hr IV.CONT .[id number] [facility] Last Admin: 01/20/18 05:57 Dose: 75 mls/hr Insulin Aspart (Novolog Insulin Correctional Sugar Inj) 0 unit SQ ACHS AND 3AM BRUNO; Protocol Last Admin: 01/20/18 13:19 Dose: 1 unit Lactulose (Lactulose Liq) 30 ml PO DAILY PRN PRN Reason: SEVERE CONSITIPATION Levothyroxine Sodium (Synthroid) 200 mcg PO DAILY@0600 [facility] Last Admin: 01/20/18 05:53 Dose: 200 mcg Nitroglycerin (Nitrostat Sl) 0.4 mg SL Q5M PRN PRN Reason: CHEST PAIN Ondansetron HCl (Zofran Inj) 4 mg IV.PUSH Q6H PRN PRN Reason: NAUSEA OR VOMITING Promethazine HCl (Phenergan) 25 mg PO BID PRN PRN Reason: Nausea Senna/Docusate Sodium ([place]-Colace) 1 tab PO BID [facility] Last Admin: 01/20/18 08:41 Dose: 1 tab Sennosides (Senokot) 17.2 mg PO Q12H PRN PRN Reason: Moderate Constipation Trazodone HCl (Desyrel) 100 mg PO [facility] Allergies Allergy/AdvReac Type Severity Reaction Status Date / Time baclofen Allergy Intermediate Hives Verified 01/19/18 16:57 citalopram Allergy Intermediate Rash Verified 01/19/18 16:57 lithium Allergy Intermediate Hives Verified 01/19/18 13:20 Sulfa (Sulfonamide Allergy Intermediate Hives Verified 01/19/18 16:57 Antibiotics) ziprasidone Allergy Intermediate Hives Verified 01/19/18 16:57 haloperidol AdvReac Severe "STIFFNESS" Verified 01/19/18 13:20 quetiapine AdvReac Severe anxiety Verified 01/19/18 13:20 risperidone AdvReac Severe anxiety Verified 01/19/18 13:20 ferrous fumarate AdvReac Intermediate dark bm's Verified 01/19/18 13:20 ferrous sulfate AdvReac Intermediate dark bm's Verified 01/19/18 13:20 ferumoxytol AdvReac Intermediate dark bm's Verified 12/12/17 02:56 iron AdvReac Intermediate dark bm's Verified 12/12/17 02:56 multivitamin infusion, adult AdvReac Intermediate dark bm's Verified 12/12/17 02 :56 no.4 with vitamin K multivitamin with iron,other AdvReac Intermediate dark bm's Verified 12/12/17 02 :56 minerals Home Medications Medication Instructions Recorded Confirmed Type albuterol sulfate [ProAir HFA] 2 puff INHALATION Q4-6H PRN 12/12/17 01/19/18 History alprazolam [Xanax] 2 mg PO BID PRN 12/12/17 01/19/18 History aspirin 81 mg PO DAILY 12/12/17 01/19/18 History enalapril maleate 5 mg PO DAILY 12/12/17 01/19/18 History furosemide [Lasix] 80 mg PO DAILY 12/12/17 01/19/18 History hydrocodone-acetaminophen [[place]] 2 tab PO Q6-8H PRN 12/12/17 01/19/18 History levothyroxine 200 mcg PO DAILY 12/12/17 01/19/18 History nitroglycerin [Nitrostat] 0.3 mg SUBLINGUAL Q5-15M PRN 12/12/17 01/19/18 History potassium 10 meq PO BID 12/12/17 01/19/18 History promethazine 25 mg PO BID PRN 12/12/17 01/19/18 History simvastatin [Zocor] 20 mg PO QPM 12/12/17 01/19/18 History trazodone 100 mg PO DAILY 12/12/17 01/19/18 History enalapril maleate 5 mg PO DAILY 01/20/18 01/20/18 History gabapentin 300 mg PO BID 01/20/18 01/20/18 History hydrocodone-acetaminophen 1 tab PO Q6H PRN 01/20/18 01/20/18 History insulin glargine [Lantus U-100 15 unit SUB-Q HS 01/20/18 01/20/18 History Insulin] Exam Vital signs: Vital Signs 01/19/18 15:09 01/19/18 16:40 01/19/18 16:54 Temperature 97.9 F 97.9 F Pulse Rate 83 80 80 Respiratory Rate 24 22 22 Blood Pressure 108/65 102/67 Pulse Oximetry 95 95 01/19/18 20:00 01/19/18 23:30 01/19/18 23:45 Temperature 98.1 F Pulse Rate 78 74 Respiratory Rate 20 Blood Pressure 78/51 L 98/46 L Pulse Oximetry 93 L 01/20/18 00:00 01/20/18 03:45 01/20/18 04:00 Temperature 97.2 F L 97 F L Pulse Rate 78 79 71 Respiratory Rate 16 20 Blood Pressure 77/46 L 122/56 L Pulse Oximetry 95 95 01/20/18 08:00 01/20/18 10:04 01/20/18 12:00 Temperature 97.5 F L 97.0 F L Pulse Rate 78 81 Respiratory Rate 18 18 Blood Pressure 100/50 L 90/60 L Pulse Oximetry 96 95 93 L Intake & Output 01/19/18 01/20/18 01/20/18 18:59 06:59 18:59 Intake Total 500 / 500 1000 / 1000 Balance 500 / 500 1000 / 1000 Weight 113.398 kg 114 kg Intake: IV 500 / 500 1000 / 1000 NS Inj 1,000 ML @ 75 mls/hr IV. 1000 / 1000 CONT .[id number] BRUNO Rx#:[id number] NS Inj 500 ML @ Wide Open IV. 500 / 500 SIG BOLUS ONE Rx#:[id number] - Constitutional no acute distress - Routine HEENT Exam Head: Present: normocephalic Eye: Present: EOMI, PERRL - Routine Neck Exam Present: supple - Routine Respiratory Exam Present: CTA bilaterally - Routine Cardiovascular Exam Present: RRR - Routine Abdominal Exam Present: soft, normoactive bowel sounds - Routine Extremities Exam Present: pulses intact - Routine Neurological Exam Present: alert, oriented X3 Results - Lab Results 01/20/18 06:45 01/20/18 06:45 Most recent lab results Calcium 6.8 mg/dL (8.5-10.1) L* 01/20/18 06:45 Phosphorus 7.2 mg/dL (2.5-4.9) H 01/20/18 06:45 Magnesium 2.1 mg/dL (1.5-2.5) 01/19/18 23:43 Assessment and Plan - Assessment (1) Acute renal failure Code(s): N17.9 - Acute kidney failure, unspecified Status: Acute (2) Rhabdomyolysis Code(s): M62.82 - Rhabdomyolysis Status: Acute (3) Fall Code(s): W19.XXXA - Unspecified fall, initial encounter Status: Acute (4) Diabetes Code(s): E11.9 - Type 2 diabetes mellitus without complications Status: Acute - Plan Check kidney ultrasound, urine myoglobin Patient has underlying rhabdomyolysis causing acute renal failure Change IV fluid at sodium bicarbonate to IV fluid run at 125 cc an hour Patient has likely ATN from underlying rhabdomyolysis Follow BMP Avoid nephrotoxic agents Monitor blood sugars
[2018-01-20] MEDS: Sodium Bicarbonate 8.4% Inj 100 MEQ in Sodium Chloride 0.45 % Inj 900 ML IV.CONT SCH (16:43)
--- NOTE | 2018-01-20 18:35 | US ---
EXAM DATE: 01/20/2018 6:11 PM EDT AGE/SEX: 62 years / Female INDICATIONS: Increased BUN/Creatinine with decreased urine output. Cystic mass noted in the pelvis o n CT. CLINICAL DATA: This is the patient's initial encounter. Patient reports that signs and symptoms have been present for 2 days and indicates a pain score of 3/10. MEDICAL/SURGICAL HISTORY: Chronic obstructive pulmonary disease. Hypertension. Hypothyroidism . Anxiety. Chest pain. Chronic pain. Depression. Fibromyalgia. Hyperlipidemia. Schizophrenia. Hyste rectomy. COMPAR[place] [facility] [place], 06/23/2017. . MEASUREMENTS: Right Kidney:__11.5 x 5.8 x 5.5 cm Left Kidney:__11.6 x 5.5 x 5.3 cm FINDINGS: Right Kidney: Normal echotexture and cortical thickness. No mass or hydronephrosis. Left Kidney: Normal echotexture and cortical thickness. No mass or hydronephrosis. Bladder: The urinary bladder appears distended with no mass or wall thickening. A large cystic areas noted in the left lower quadrant measuring up to 13.3 x 16.5 x 10.3 cm. This corresponds to the cysti c mass seen on CT. Other: Hepatic steatosis is noted. CONCLUSION: 1. The kidneys appear grossly unremarkable with no hydronephrosis or focal lesion. 2. The known cystic mass in the pelvis is again visualized. 3. Hepatic steatosis. Electronically signed by: Mayur Ibrahim MD 01/20/2018 6:33 PM EDT
[2018-01-20] MEDS: traZODone 50 MG Tablet PO SCH (21:07)
[2018-01-21] MEDS: Sodium Bicarbonate 8.4% Inj 100 MEQ in Sodium Chloride 0.45 % Inj 900 ML IV.CONT SCH ×4 (00:56→23:53)
[2018-01-21] MEDS: Heparin - SQ 10,000 UNITS/ML Vial SQ SCH ×3 (00:56→17:44)
[2018-01-21] MEDS: Insulin NovoLOG Aspart Correctional Sugar Inj SQ SCH ×5 (02:57→20:21)
[2018-01-21 07:56] LABS: Calcium 7.6 mg/dL (8.5-10.1); Potassium 4.6 meq/L (3.5-5.1)
--- NOTE | 2018-01-21 08:10 | P.PNCA ---
Subjective Interval history: Feeling "much better". No SOB, CP, dizziness, palpitations. Slept fairly well. Physical Exam Vital signs: Vital Signs 01/20/18 10:04 01/20/18 12:00 01/20/18 15:26 Temperature 97.0 F L Pulse Rate 85 Respiratory Rate 18 Blood Pressure 90/60 L Pulse Oximetry 95 93 L 95 01/20/18 16:00 01/20/18 20:00 01/20/18 23:50 Temperature 97.9 F 97.2 F L Pulse Rate 82 90 90 Respiratory Rate 18 21 Blood Pressure 106/60 106/62 Pulse Oximetry 94 L 91 L 01/21/18 00:00 01/21/18 03:50 01/21/18 04:00 Temperature 97.5 F L 97.5 F L Pulse Rate 91 H 86 85 Respiratory Rate 20 20 Blood Pressure 96/51 L 105/63 Pulse Oximetry 95 91 L Intake & Output 01/20/18 01/21/18 01/21/18 18:59 06:59 18:59 Intake Total 1320 / 1320 1556 / 1556 Output Total 1550 / 1550 1700 / 1700 Balance -230 / -230 -144 / -144 Weight 122 kg Intake: IV 600 / 600 1316 / 1316 NS Inj 1,000 ML @ 75 mls/hr IV. 600 / 600 CONT .[id number] BRUNO Rx#:[id number] Sodium Bicarbonate 8.4% Inj 100 1316 / 1316 MEQ In 1/2 Normal Saline Inj 900 ML @ 125 mls/hr IV.CONT . Q8H BRUNO Rx#:[id number] Oral 720 / 720 240 / 240 Output: Urine 0 / 0 1700 / 1700 Urine Amount (Catheter) 1550 / 1550 Indwelling Urethral Catheter 1550 / 1550 Other: # Bowel Movements 0 - Constitutional no acute distress - Routine Neck Exam Absent: JVD - Routine Respiratory Exam Present: CTA bilaterally - Routine Cardiovascular Exam Present: RRR, S1, S2. Absent: murmur, gallop - Routine Abdominal Exam Present: soft, normoactive bowel sounds. Absent: tenderness, organomegaly - Routine Extremities Exam Absent: cyanosis, clubbing, edema - Urinary Catheter Management Indwelling Urethral Catheter Cath placed during this visit: yes Reason for continuing: Acute urinary retention Insertion date: 01/20/18 Insertion time: 15:54 Assessment and Plan - Assessment (1) Elevated troponin Code(s): R74.8 - Abnormal levels of other serum enzymes Status: Acute Plan: Stable overnight. Doubt minimal elevation in troponin of clinical significance especially in light of acute renal insufficiency. Patient without any recent angina-like symptoms. Recommend no additional evaluation. Patient poor candidate for aggressive cardiac evaluation with her renal insufficiency, numerous comorbid conditions. Continue daily aspirin. Available PRN. (2) Hypertension Code(s): I10 - Essential (primary) hypertension Status: Chronic Plan: Hypertension not active issue. (3) Coronary artery disease Code(s): I25.10 - Atherosclerotic heart disease of [place] coronary artery without angina pectoris Status: Chronic Plan: Questionable history of PCI 2010 in [place]. No evidence for ACS. EKG's unremarkable. CK MB %'s negative for [place]. Patient poor candidate for aggressive cardiac evaluation with her renal insufficiency, numerous comorbid conditions. Continue daily aspirin. - Plan Code Status: full code Discussed Condition With: patient (2) Hypertension Qualifiers: Hypertension type: essential hypertension Qualified Code(s): I10 - Essential (primary) hypertension (3) Coronary artery disease Qualifiers: Coronary Disease-Associated Artery/Lesion type: unspecified vessel or lesion type [place] vs. transplanted heart: [place] heart Associated angina: without angina Qualified Code(s): I25.10 - Atherosclerotic heart disease of [place] coronary artery without angina pectoris
[2018-01-21 08:58] LABS: CKMB Percent 0.4 % (0.0-4.0); Creatine Kinase MB 39.6 ng/mL (0.5-3.6)
[2018-01-21] MEDS: Senna/Docusate Sodium 8.6/50 MG Tablet PO SCH ×2 (10:16→20:20)
[2018-01-21] MEDS: Famotidine 20 MG Tablet PO SCH ×2 (10:16→20:20)
--- NOTE | 2018-01-21 11:29 | P.PN ---
Subjective Interval history: Nursing denies any deterioration since last night except for the patient complaining of discomfort with the Le catheter. Patient herself really wants a Le catheter removed. She thinks she is going home today after I told her that her kidney function is significantly improved. But then she becomes very tearful when I tell her that the Le catheter is they are to measure her urine output. Her family is at the bedside including her son. Son is very receptive to understanding that she needs to stay in the hospital for at least another 1-2 more days for her muscle enzyme levels to improve to safer levels. Physical Exam Vital signs: Vital Signs 01/20/18 12:00 01/20/18 15:26 01/20/18 16:00 Temperature 97.0 F L 97.9 F Pulse Rate 85 82 Respiratory Rate 18 18 Blood Pressure 90/60 L 106/60 Pulse Oximetry 93 L 95 94 L 01/20/18 20:00 01/20/18 23:50 01/21/18 00:00 Temperature 97.2 F L 97.5 F L Pulse Rate 90 90 91 H Respiratory Rate 21 20 Blood Pressure 106/62 96/51 L Pulse Oximetry 91 L 95 01/21/18 03:50 01/21/18 04:00 01/21/18 08:00 Temperature 97.5 F L 97.5 F L Pulse Rate 86 85 95 H Respiratory Rate 20 20 Blood Pressure 105/63 145/78 H Pulse Oximetry 91 L 91 L 01/21/18 08:06 Temperature Pulse Rate Respiratory Rate Blood Pressure Pulse Oximetry 95 Intake & Output 01/20/18 01/21/18 01/21/18 18:59 06:59 18:59 Intake Total 1320 / 1320 1556 / 1556 684 / 684 Output Total 1550 / 1550 1700 / 1700 Balance -230 / -230 -144 / -144 684 / 684 Weight 122 kg Intake: IV 600 / 600 1316 / 1316 684 / 684 NS Inj 1,000 ML @ 75 mls/hr IV. 600 / 600 CONT .[id number] BRUNO Rx#:[id number] Sodium Bicarbonate 8.4% Inj 100 1316 / 1316 684 / 684 MEQ In 1/2 Normal Saline Inj 900 ML @ 125 mls/hr IV.CONT . Q8H BRUNO Rx#:[id number] Oral 720 / 720 240 / 240 Output: Urine 0 / 0 1700 / 1700 Urine Amount (Catheter) 1550 / 1550 Indwelling Urethral Catheter 1550 / 1550 Other: # Bowel Movements 0 Narrative: Clear lungs bilaterally, unlabored breathing Becomes tearful eventually Ambulates just well with Le catheter in place, - Urinary Catheter Management Indwelling Urethral Catheter Cath placed during this visit: yes Reason for continuing: Acute urinary retention Insertion date: 01/20/18 Insertion time: 15:54 Results - Labs CBC & Chem 7: 01/20/18 06:45 01/22/18 05:56 Laboratory Results - last 24 hr 01/20/18 01/20/18 01/20/18 12:59 16:53 19:38 Sodium Potassium Chloride Carbon Dioxide Anion Gap BUN Creatinine Estimated GFR POC Glucose 192 H 174 H 180 H Random Glucose Calcium Total Creatine Kinase CK-MB (CK-2) CK-MB (CK-2) % 01/21/18 01/21/18 01/21/18 02:50 06:50 08:39 Sodium 139 Potassium 4.6 D Chloride 105 Carbon Dioxide 28.0 Anion Gap 6 BUN 46 H Creatinine 1.35 H Estimated GFR 40 L POC Glucose 155 H 162 H Random Glucose 129 H Calcium 7.6 L D Total Creatine Kinase 12331 H CK-MB (CK-2) 39.6 H CK-MB (CK-2) % 0.4 - Imaging Impressions Abdomen/Bladder Ultrasound 01/20/18 00:00 CONCLUSION: 1. The kidneys appear grossly unremarkable with no hydronephrosis or focal lesion. 2. The known cystic mass in the pelvis is again visualized. 3. Hepatic steatosis. Assessment and Plan - Plan Status post fall due to possible unintentional overdose of medication -Has positive marijuana, positive opiates, and positive benzodiazepine. -Psychiatry following, restarted patient's inVega, will reevaluate patient, patient should not be prescribed benzodiazepines at all. Positive troponin -Believe this is secondary to acute renal failure, not ACS -Echocardiogram pending -Medical management per cardiology, appreciate recommendations Psychiatric disorder -Psychiatry consultation pending Rhabdomyolysis Worsening acute renal failure -CK level improving with sodium bicarbonate from nephrology, strongly appreciate input, trend for another day Hyperglycemia questionable diabetes -Diabetic cardiac diet -Accu-Cheks before meals and at bedtime with low-dose sliding scale Chronic pain -low-dose pain medicine Hyperlipidemia -will hold Zocor at this time due to the elevated LFTs Hypothyroidism - continue home Synthroid DVT prophylaxis with subcu heparin Addendum: Patient said she was going to leave the hospital after her family members left the hospital. Psychiatry was contacted, said she did not have intact medical decision-making capacity at this time, patient was Lynn acted. Patient was then cooperative and decided to stay voluntarily.
--- NOTE | 2018-01-21 12:48 | P.PNPSY ---
Subjective Remarks: The patient was seen today for psychiatric reevaluation in the medical floor. The patient was in the presence of her son and [id number]. She wanted to be reevaluated in front of them. Patient reports that she feels much better, denies distress or pain, reports good mood, she says that she is ready to go back home. The patient denies suicidal and homicidal ideation, she denies visual and auditory hallucinations. The patient is oriented 3. Compliant medications. She seems to be organized, logical and coherent, even though she has been described by the nurses as episodically agitated, paranoid and even disorganized. Mental Status Examination Appearance: Appropriate Consciousness: Alert Orientation: x4 Motor Activity: Normal gait Language: Adequate Fund of Knowledge: Adequate Attention and Concentration: Adequate Memory: Unremarkable Affect: Appropriate Thought Process & Associations: Intact Thought Content: Appropriate Hallucination Type: None Delusion Type: None Suicidal Ideation: No Suicidal Plan: No Suicidal Intention: No Homicidal Ideation: No Homicidal Plan: No Homicidal Intention: No Insight: Fair Judgment: Impulsive Assessment and Plan - Assessment (1) Bipolar disease, chronic Code(s): F31.9 - Bipolar disorder, unspecified Status: Acute - Plan Plan: The patient at this moment seems to be at baseline, she denies depression, denies anxiety, denies necrosis. She denies suicidal and homicidal ideation, she denies visual and auditory hallucinations. As per nurse report the patient has been at times agitated and paranoid, but this symptom seems to be residual from chronic schizophrenia. Since the patient has been out of her invega 3 days , today I will start Invega 3 mg daily. I will follow-up Justification for Continued Inpatient Stay: No admission is indicated at the moment
--- NOTE | 2018-01-21 19:08 | P.PNNP ---
Subjective Interval history: Patient has hematuria, nurse reports she started having hematuria after she pulled Le Physical Exam Vital signs: Vital Signs 01/20/18 20:00 01/20/18 23:50 01/21/18 00:00 Temperature 97.2 F L 97.5 F L Pulse Rate 90 90 91 H Respiratory Rate 21 20 Blood Pressure 106/62 96/51 L Pulse Oximetry 91 L 95 01/21/18 03:50 01/21/18 04:00 01/21/18 08:00 Temperature 97.5 F L 97.5 F L Pulse Rate 86 85 95 H Respiratory Rate 20 20 Blood Pressure 105/63 145/78 H Pulse Oximetry 91 L 91 L 01/21/18 08:06 01/21/18 12:00 01/21/18 16:00 Temperature 97.6 F 97.4 F L Pulse Rate 102 H 101 H Respiratory Rate 20 16 Blood Pressure 156/58 H 139/74 Pulse Oximetry 95 90 L 94 L Intake & Output 01/21/18 01/21/18 01/22/18 06:59 18:59 06:59 Intake Total 1556 / 1556 2104 / 2104 Output Total 1700 / 1700 450 / 450 Balance -144 / -144 1654 / 1654 Weight 122 kg Intake: IV 1316 / 1316 1384 / 1384 Sodium Bicarbonate 8.4% Inj 100 1316 / 1316 1384 / 1384 MEQ In 1/2 Normal Saline Inj 900 ML @ 125 mls/hr IV.CONT . Q8H BRUNO Rx#:[id number] Oral 240 / 240 720 / 720 Output: Urine 1700 / 1700 450 / 450 Other: # Bowel Movements 0 - Constitutional no acute distress - Routine HEENT Exam Eye: Present: EOMI - Routine Neck Exam Present: supple - Routine Respiratory Exam Present: CTA bilaterally - Routine Cardiovascular Exam Present: RRR - Routine Abdominal Exam Present: soft, normoactive bowel sounds - Routine Extremities Exam Present: pulses intact - Urinary Catheter Management Indwelling Urethral Catheter Cath placed during this visit: yes Reason for continuing: Acute urinary retention Insertion date: 01/20/18 Insertion time: 15:54 Assessment and Plan - Assessment (1) Acute renal failure Code(s): N17.9 - Acute kidney failure, unspecified Status: Acute (2) Rhabdomyolysis Code(s): M62.82 - Rhabdomyolysis Status: Acute (3) Fall Code(s): W19.XXXA - Unspecified fall, initial encounter Status: Acute (4) Diabetes Code(s): E11.9 - Type 2 diabetes mellitus without complications Status: Acute - Plan Acute renal failure which is resolving patient has urinary retention Dysfunctional bladder need urological evaluation for removing Le safely Now having hematuria from Le trauma Decrease IV fluid to 75 cc an hour She needs to follow-up with urology Acute renal failure is due to acute urinary retention Follow BMP
[2018-01-21] MEDS: traZODone 50 MG Tablet PO SCH (20:19)
[2018-01-22] MEDS: Heparin - SQ 10,000 UNITS/ML Vial SQ SCH ×3 (00:35→18:11)
[2018-01-22] MEDS: Insulin NovoLOG Aspart Correctional Sugar Inj SQ SCH ×5 (03:14→20:29)
[2018-01-22 07:30] LABS: Calcium 8.2 mg/dL (8.5-10.1); Carbon Dioxide 32.2 meq/L (21.0-32.0); Potassium 4.4 meq/L (3.5-5.1)
[2018-01-22 07:47] LABS: CKMB Percent 0.1 % (0.0-4.0); Creatine Kinase MB 10.3 ng/mL (0.5-3.6)
[2018-01-22] MEDS: Famotidine 20 MG Tablet PO SCH ×2 (09:15→23:32)
[2018-01-22] MEDS: Senna/Docusate Sodium 8.6/50 MG Tablet PO SCH (09:15)
--- NOTE | 2018-01-22 11:56 | P.CONURO ---
History of Present Illness Service: Consult date: 01/22/18 Reason for Consult: Gross hematuria Primary Care Provider: Stacey Sinha Family Provider: UNKNOWN Chief Complaint: Status post fall History of Present Illness: Consulted to evaluate this 62-year-old female who pulled out her indwelling Le catheter and subsequently developed gross hematuria. At the time of consultation, a Le catheter had been replaced and the urine was medium red in color without clots. When questioned about why the patient had a Le catheter, the patient reports that she was uncertain and stated that she had been voiding prior to Le placement without any difficulty. 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 - Medical History Medical History: Medical History (Last Reviewed 01/20/18 @ 15:59 by Hira Ambriz) Anxiety Depression Diabetes Fibromyalgia H/O: hysterectomy Hx of hysterectomy Hyperlipidemia Hypothyroidism Marijuana use Morbid obesity Tobacco abuse COPD (chronic obstructive pulmonary disease) Chest pain Chronic pain Hypertension Schizophrenia Thyroid disease - Family History Family History: Family History (Last Reviewed 01/20/18 @ 13:38 by Hira Ambriz) Other Family history of hypertension Psychiatric disorder - Tobacco History Second Hand Smoke Exposure: Yes (FRIENDS) Tobacco Use In Past 30 Days: Yes Smoking Status: Current every day smoker Tobacco Type: Cigarettes - Alcohol History How Often Do You Have a Drink Containing Alcohol: Never - Substance Use History Substance History: No History of Abuse - Travel History History of Recent Travel: No Recent Travel in the [place] Within the Last 8 Weeks: No Recent Travel Out of the Country Within the Last 8 Weeks: No - Immunization History Tetanus Immunization: >5 Years Hx Influenza Vaccine This Season: Yes Medications and Allergies Active Medications: Active Medications Acetaminophen (Tylenol) 650 mg PO Q4H PRN PRN Reason: Temp > 100.4 Al Hydroxide/Mg Hydroxide (Milk Of Magnshin Liq) 30 ml PO Q12H PRN PRN Reason: Mild Constipation Aspirin (Aspirin Chew) 81 mg PO DAILY [facility] Last Admin: 01/22/18 09:14 Dose: Not Given Bisacodyl (Dulcolax Supp) 10 mg RECTAL DAILY PRN PRN Reason: SEVERE CONSITIPATION Dextrose (D50w Vial) 50 ml IV.PUSH UNSCH PRN PRN Reason: PER HYPOGLYCEMIA PROTOCOL Famotidine (Pepcid) 10 mg PO BID [facility] Last Admin: 01/22/18 09:15 Dose: 10 mg Glucagon (Glucagon Inj) 1 mg OTHER PRN PRN PRN Reason: for Hypoglycemia Protocol Heparin Sodium (Porcine) (Heparin Inj) 5,000 units SQ Q8H [facility] Last Admin: 01/22/18 09:18 Dose: 5,000 units Sodium Bicarbonate 100 meq/ (Sodium Chloride) 1,000 mls @ 75 mls/hr IV.CONT .[id number] [facility] Last Infusion: 01/22/18 06:45 Dose: 0 mls/hr Insulin Aspart (Novolog Insulin Correctional Sugar Inj) 0 unit SQ ACHS AND 3AM BRUNO; Protocol Last Admin: 01/22/18 09:16 Dose: Not Given Lactulose (Lactulose Liq) 30 ml PO DAILY PRN PRN Reason: SEVERE CONSITIPATION Levothyroxine Sodium (Synthroid) 200 mcg PO DAILY@0600 [facility] Last Admin: 01/22/18 05:21 Dose: 200 mcg Nitroglycerin (Nitrostat Sl) 0.4 mg SL Q5M PRN PRN Reason: CHEST PAIN Last Admin: 01/22/18 09:11 Dose: 0.4 mg Ondansetron HCl (Zofran Inj) 4 mg IV.PUSH Q6H PRN PRN Reason: NAUSEA OR VOMITING Paliperidone Palmitate (Invega Er) 3 mg PO DAILY [facility] Last Admin: 01/22/18 09:15 Dose: 3 mg Promethazine HCl (Phenergan) 25 mg PO BID PRN PRN Reason: Nausea Senna/Docusate Sodium (Abbey-Colace) 1 tab PO BID [facility] Last Admin: 01/22/18 09:15 Dose: 1 tab Sennosides (Senokot) 17.2 mg PO Q12H PRN PRN Reason: Moderate Constipation Trazodone HCl (Desyrel) 100 mg PO HS [facility] Last Admin: 01/21/18 20:19 Dose: 100 mg Allergies Allergy/AdvReac Type Severity Reaction Status Date / Time baclofen Allergy Intermediate Hives Verified 01/19/18 16:57 citalopram Allergy Intermediate Rash Verified 01/19/18 16:57 lithium Allergy Intermediate Hives Verified 01/19/18 13:20 Sulfa (Sulfonamide Allergy Intermediate Hives Verified 01/19/18 16:57 Antibiotics) ziprasidone Allergy Intermediate Hives Verified 01/19/18 16:57 haloperidol AdvReac Severe "STIFFNESS" Verified 01/19/18 13:20 quetiapine AdvReac Severe anxiety Verified 01/19/18 13:20 risperidone AdvReac Severe anxiety Verified 01/19/18 13:20 ferrous fumarate AdvReac Intermediate dark bm's Verified 01/19/18 13:20 ferrous sulfate AdvReac Intermediate dark bm's Verified 01/19/18 13:20 ferumoxytol AdvReac Intermediate dark bm's Verified 12/12/17 02:56 iron AdvReac Intermediate dark bm's Verified 12/12/17 02:56 multivitamin infusion, adult AdvReac Intermediate dark bm's Verified 12/12/17 02 :56 no.4 with vitamin K multivitamin with iron,other AdvReac Intermediate dark bm's Verified 12/12/17 02 :56 minerals Home Medications Medication Instructions Recorded Confirmed Type albuterol sulfate [ProAir HFA] 2 puff INHALATION Q4-6H PRN 12/12/17 01/19/18 History alprazolam [Xanax] 2 mg PO BID PRN 12/12/17 01/19/18 History aspirin 81 mg PO DAILY 12/12/17 01/19/18 History enalapril maleate 5 mg PO DAILY 12/12/17 01/19/18 History furosemide [Lasix] 80 mg PO DAILY 12/12/17 01/19/18 History hydrocodone-acetaminophen [[place]] 2 tab PO Q6-8H PRN 12/12/17 01/19/18 History levothyroxine 200 mcg PO DAILY 12/12/17 01/19/18 History nitroglycerin [Nitrostat] 0.3 mg SUBLINGUAL Q5-15M PRN 12/12/17 01/19/18 History potassium 10 meq PO BID 12/12/17 01/19/18 History promethazine 25 mg PO BID PRN 12/12/17 01/19/18 History simvastatin [Zocor] 20 mg PO QPM 12/12/17 01/19/18 History trazodone 100 mg PO DAILY 12/12/17 01/19/18 History enalapril maleate 5 mg PO DAILY 01/20/18 01/20/18 History gabapentin 300 mg PO BID 01/20/18 01/20/18 History hydrocodone-acetaminophen 1 tab PO Q6H PRN 01/20/18 01/20/18 History insulin glargine [Lantus U-100 15 unit SUB-Q HS 01/20/18 01/20/18 History Insulin] Physical Exam Vital Signs - 24 hr 01/21/18 12:00 01/21/18 16:00 01/21/18 19:24 Temperature 97.6 F 97.4 F L Pulse Rate 102 H 101 H Respiratory Rate 20 16 Blood Pressure 156/58 H 139/74 Pulse Oximetry 90 L 94 L 93 L 01/21/18 20:00 01/21/18 23:49 01/22/18 00:03 Temperature 97.6 F 98.0 F Pulse Rate 101 H 97 H 97 H Respiratory Rate 18 18 Blood Pressure 149/81 H 152/80 H Pulse Oximetry 94 L 95 01/22/18 03:32 01/22/18 08:00 01/22/18 10:07 Temperature 97.9 F 98.2 F Pulse Rate 93 H 97 H Respiratory Rate 18 18 Blood Pressure 128/71 141/83 H Pulse Oximetry 94 L 93 L 95 Physical Exam: GENERAL: This is a well-nourished, well-developed patient, in no apparent distress. SKIN: No rashes, ecchymoses or lesions. Cool and dry. HEAD: Atraumatic. Normocephalic. No temporal or scalp tenderness. EYES: Pupils equal round and reactive. Extraocular motions intact. No scleral icterus. No injection or drainage. ENT: Nose without bleeding, purulent drainage or septal hematoma. Throat without erythema, tonsillar hypertrophy or exudate. Uvula midline. Airway patent. NECK: Trachea midline. No JVD or lymphadenopathy. Supple, nontender, no meningeal signs. GASTROINTESTINAL: Abdomen soft, non-tender, nondistended. No hepato-splenomegaly , or palpable masses. No guarding. GENITOURINARY: Bladder not distended. Le catheter in place and draining medium red urine without clots. MUSCULOSKELETAL: Extremities without clubbing, cyanosis, or edema. No joint tenderness, effusion, or edema noted. No calf tenderness. Negative Homans sign bilaterally. NEUROLOGICAL: Awake and alert. Cranial nerves II through XII intact. Motor and sensory grossly within normal limits. Five out of 5 muscle strength in all muscle groups. Normal speech. Laboratory Results - last 24 hr 01/21/18 01/21/1801/22/18 12:30 20:09 03:13 Sodium Potassium Chloride Carbon Dioxide Anion Gap BUN Creatinine Estimated GFR POC Glucose 135 H 181 H 143 H Random Glucose Calcium Total Creatine Kinase CK-MB (CK-2) CK-MB (CK-2) % 01/22/18 01/22/18 05:56 09:13 Sodium 141 Potassium 4.4 Chloride 104 Carbon Dioxide 32.2 H Anion Gap 5 BUN 20 H Creatinine 0.70 Estimated GFR 85 L POC Glucose 137 H Random Glucose 119 H Calcium 8.2 L Total Creatine Kinase 6968 H CK-MB (CK-2) 10.3 H CK-MB (CK-2) % 0.1 Result Diagrams: 01/20/18 06:45 01/22/18 05:56 Imaging: ITS Impressions Cervical Spine CT 01/19/18 13:20 CONCLUSION: 1. Mild degenerative changes, negative for fracture 2. Exam is limited by the patient's large body habitus. Chest X-Ray 01/19/18 13:20 CONCLUSION: Mild congestive failure. No pneumothorax Head CT 01/19/18 13:20 CONCLUSION: 1. Minimal chronic white matter changes. 2. Nothing acute. . Pelvis X-Ray 01/19/18 13:22 CONCLUSION: Degenerative changes, no fracture. Exam limited by body habitus Lumbar Spine CT 01/19/18 13:24 CONCLUSION: 1. Stable, mild degenerative changes of the lumbar spine with small marginal spurs at multiple lumbar levels. 2. No acute fracture. Spinal canal and neural foramina appear to be adequate throughout. 3. Stable fluid collection within the left lower quadrant abdominal mesentery. This is overtly benign and may represent an old lymphocele or mesenteric cyst. Ankle X-Ray 01/19/18 14:23 CONCLUSION: No acute fracture or significant soft tissue swelling Abdomen/Bladder Ultrasound 01/20/18 00:00 CONCLUSION: 1. The kidneys appear grossly unremarkable with no hydronephrosis or focal lesion. 2. The known cystic mass in the pelvis is again visualized. 3. Hepatic steatosis. Assessment and Plan - Assessment (1) Gross hematuria Code(s): R31.0 - Gross hematuria Status: Acute - Plan Urologic impression: Gross hematuria related to traumatic Le catheter removal Recommendations: 1. Continue with Le catheter to gravity drainage until urine yellow in appearance 2. Irrigate Le as needed clots 3. May DC Le catheter for voiding trial after hematuria resolved.
[2018-01-22] MEDS: Sodium Bicarbonate 8.4% Inj 100 MEQ in Sodium Chloride 0.45 % Inj 900 ML IV.CONT SCH (12:36)
--- NOTE | 2018-01-22 13:40 | P.PN ---
Subjective Interval history: Follow-up gross hematuria post traumatic Grove removal/rhabdomyolysis/elevated troponin I January 22, 2018-patient seen and examined, still with gross hematuria. BP stable. Although CK trending down however still high. Patient is wondering if she can go home. Complains of back pain. Physical Exam Vital signs: Vital Signs 01/21/18 16:00 01/21/18 19:24 01/21/18 20:00 Temperature 97.4 F L 97.6 F Pulse Rate 101 H 101 H Respiratory Rate 16 18 Blood Pressure 139/74 149/81 H Pulse Oximetry 94 L 93 L 94 L 01/21/18 23:49 01/22/18 00:03 01/22/18 03:32 Temperature 98.0 F 97.9 F Pulse Rate 97 H 97 H 93 H Respiratory Rate 18 18 Blood Pressure 152/80 H 128/71 Pulse Oximetry 95 94 L 01/22/18 08:00 01/22/18 10:07 Temperature 98.2 F Pulse Rate 97 H Respiratory Rate 18 Blood Pressure 141/83 H Pulse Oximetry 93 L 95 Intake & Output 01/21/18 01/22/18 01/22/18 18:59 06:59 18:59 Intake Total 2104 / 2104 300 / 300 200 / 200 Output Total 450 / 450 Balance 1654 / 1654 300 / 300 200 / 200 Weight 123.3 kg Intake: IV 1384 / 1384 300 / 300 200 / 200 Sodium Bicarbonate 8.4% Inj 100 1384 / 1384 300 / 300 200 / 200 MEQ In 1/2 Normal Saline Inj 900 ML @ 75 mls/hr IV.CONT . [id number] [facility] Rx#:[id number] Oral 720 / 720 Output: Urine 450 / 450 Other: # Bowel Movements 0 Narrative: GENERAL: NAD SKIN: Warm and dry. HEAD: Normocephalic. EYES: No scleral icterus. No injection or drainage. NECK: Supple, trachea midline. No JVD or lymphadenopathy. CARDIOVASCULAR: Regular rate and rhythm without murmurs, gallops, or rubs. RESPIRATORY: Breath sounds equal bilaterally. No accessory muscle use. GASTROINTESTINAL: Abdomen soft, non-tender, nondistended. MUSCULOSKELETAL: No cyanosis, or edema. : grove with gross hematuria BACK: Nontender without obvious deformity. No CVA tenderness., - Urinary Catheter Management Indwelling Urethral Catheter Cath placed during this visit: yes Reason for continuing: Acute urinary retention Insertion date: 01/20/18 Insertion time: 15:54 Results - Labs CBC & Chem 7: 01/20/18 06:45 01/22/18 05:56 Laboratory Results - last 24 hr 01/21/18 01/22/18 01/22/18 20:09 03:13 05:56 Sodium 141 Potassium 4.4 Chloride 104 Carbon Dioxide 32.2 H Anion Gap 5 BUN 20 H Creatinine 0.70 Estimated GFR 85 L POC Glucose 181 H 143 H Random Glucose 119 H Calcium 8.2 L Total Creatine Kinase 6968 H CK-MB (CK-2) 10.3 H CK-MB (CK-2) % 0.1 01/22/18 01/22/18 09:13 12:28 Sodium Potassium Chloride Carbon Dioxide Anion Gap BUN Creatinine Estimated GFR POC Glucose 137 H 134 H Random Glucose Calcium Total Creatine Kinase CK-MB (CK-2) CK-MB (CK-2) % - Procedures None Assessment and Plan - Assessment (1) Gross hematuria Code(s): R31.0 - Gross hematuria Status: Acute (2) Acute renal failure Code(s): N17.9 - Acute kidney failure, unspecified Status: Acute (3) Rhabdomyolysis Code(s): M62.82 - Rhabdomyolysis Status: Acute (4) Elevated troponin Code(s): R74.8 - Abnormal levels of other serum enzymes Status: Acute - Plan 62-year-old female with Rhabdomyolysis Continue with IV fluid hydration, monitor serial CK Gross hematuria due to traumatic Grove removal Appreciate input from urology Continue with Grove, IV fluid hydration Only removal of Grove when hematuria resolved Positive troponin Elevated troponin I likely due to renal failure Appreciate input from cardiology and continue with medical management. 2D echo pending Bipolar disease Appreciate input from psychiatry Continue Invega 3 mg daily Hyperglycemia questionable diabetes -Diabetic cardiac diet -Accu-Cheks before meals and at bedtime with low-dose sliding scale Chronic pain -low-dose pain medicine Hyperlipidemia Continue to hold Zocor at this time due to the elevated LFTs Hypothyroidism continue home Synthroid Hypertension Resume enalapril 5 milligrams daily DVT prophylaxis with subcu heparin
--- NOTE | 2018-01-22 17:51 | ECHRPT ---
Indication: HYPERTENSIVE HEART DIS CONCLUSIONS Normal left ventricular size. Wall thickness is normal. The left ventricular systolic function is low normal with an estimated ejection fraction in the rang e of 50- 55%. The left atrial size is mildly dilated. The right atrial size is mildly dilated. Mild mitral valve regurgitation. There is trace tricuspid valve regurgitation. The estimated pulmonary arterial pressure is 52 mmHg. BP: / HR: Rhythm: Sinus MEASUREMENTS (Male / Female) Normal Values Technical Quality:Very technically difficult study 2D ECHO LV Diastolic Diameter PLAX 4.5 cm 4.2 - 5.9 / 3.9 - 5.3 cm LV Systolic Diameter PLAX 3.3 cm IVS Diastolic Thickness 0.9 cm 0.6 - 1.0 / 0.6 - 0.9 cm LVPW Diastolic Thickness 0.9 cm 0.6 - 1.0 / 0.6 - 0.9 cm LV Relative Wall Thickness 0.4 RV Internal Dim ED PLAX 1.5 cm LVOT Diameter 2.0 cm Aortic Root Diameter 2.9 cm LA Systolic Diameter LX 2.9 cm 3.0 - 4.0 / 2.7 - 3.8 cm DOPPLER AV Peak Velocity 160.0 cm/s AV Peak Gradient 10.2 mmHg AV Mean Gradient 5.0 mmHg AV Velocity Time Integral 28.8 cm LV E' Lateral Velocity 11.4 cm/s LV E' Septal Velocity 7.6 cm/s TR Peak Velocity 322.0 cm/s TR Peak Gradient 41.0 mmHg Right Atrial Pressure 10.0 mmHg Pulmonary Artery Systolic Pressu 51.5 mmHg Right Ventricular Systolic Press 51.5 mmHg PV Peak Velocity 57.9 cm/s PV Peak Gradient 1.3 mmHg FINDINGS LEFT VENTRICLE Normal left ventricular size. Wall thickness is normal. The left ventricular systolic function is low normal with an estimated ejection fraction in the rang e of 50- 55%. RIGHT VENTRICLE Normal right ventricular size and systolic function. LEFT ATRIUM The left atrial size is mildly dilated. RIGHT ATRIUM The right atrial size is mildly dilated. ATRIAL SEPTUM The interatrial septum not well visualized. AORTA The aortic root and proximal ascending aorta are not well visualized. MITRAL VALVE Mild mitral valve regurgitation. AORTIC VALVE No aortic valve stenosis or regurgitation. TRICUSPID VALVE There is trace tricuspid valve regurgitation. The estimated pulmonary arterial pressure is 51.5 mmHg. PULMONARY VALVE The pulmonary valve is not well visualized. VESSELS The inferior vena cava was not well visualized. PERICARDIUM No pericardial effusion. Joana Beltre MD, FACC (Electronically Signed) Final Date:22 January 2018 17:50
--- NOTE | 2018-01-22 21:27 | P.PNNP ---
Subjective Interval history: Patient doing okay Physical Exam Vital signs: Vital Signs 01/21/18 23:49 01/22/18 00:03 01/22/18 03:32 Temperature 98.0 F 97.9 F Pulse Rate 97 H 97 H 93 H Respiratory Rate 18 18 Blood Pressure 152/80 H 128/71 Pulse Oximetry 95 94 L 01/22/18 08:00 01/22/18 10:07 01/22/18 12:00 Temperature 98.2 F 98.1 F Pulse Rate 97 H 92 H Respiratory Rate 18 18 Blood Pressure 141/83 H 151/69 H Pulse Oximetry 93 L 95 95 01/22/18 16:00 01/22/18 20:00 Temperature 98.0 F 97.8 F Pulse Rate 76 95 H Respiratory Rate 16 18 Blood Pressure 142/69 H 157/80 H Pulse Oximetry 95 93 L Intake & Output 01/22/18 01/22/18 01/23/18 06:59 18:59 06:59 Intake Total 300 / 300 1160 / 1160 Output Total 1750 / 1750 Balance 300 / 300 -590 / -590 Weight 123.3 kg Intake: IV 300 / 300 200 / 200 Sodium Bicarbonate 8.4% Inj 100 300 / 300 200 / 200 MEQ In 1/2 Normal Saline Inj 900 ML @ 75 mls/hr IV.CONT . [id number] [facility] Rx#:[id number] Oral 960 / 960 Output: Urine 1750 / 1750 Other: # Bowel Movements 2 - Constitutional no acute distress - Routine HEENT Exam Eye: Present: EOMI - Routine Neck Exam Present: supple - Routine Respiratory Exam Present: CTA bilaterally - Routine Cardiovascular Exam Present: RRR - Routine Abdominal Exam Present: soft - Routine Extremities Exam Present: full ROM - Urinary Catheter Management Indwelling Urethral Catheter Cath placed during this visit: yes Reason for continuing: Acute urinary retention Insertion date: 01/20/18 Insertion time: 15:54 Assessment and Plan - Assessment (1) Acute renal failure Code(s): N17.9 - Acute kidney failure, unspecified Status: Acute (2) Rhabdomyolysis Code(s): M62.82 - Rhabdomyolysis Status: Acute (3) Fall Code(s): W19.XXXA - Unspecified fall, initial encounter Status: Acute (4) Diabetes Code(s): E11.9 - Type 2 diabetes mellitus without complications Status: Acute - Plan Acute renal failure which is resolving patient has urinary retention Dysfunctional bladder need urological evaluation for removing Le safely Now having hematuria from Le trauma I appreciate your urological evaluation keep the Le in the urine is clear Nephrology to sign off
[2018-01-22] MEDS: traZODone 50 MG Tablet PO SCH (23:32)
[2018-01-23] MEDS: Sodium Bicarbonate 8.4% Inj 100 MEQ in Sodium Chloride 0.45 % Inj 900 ML IV.CONT SCH ×3 (02:40→22:37)
[2018-01-23] MEDS: Insulin NovoLOG Aspart Correctional Sugar Inj SQ SCH ×5 (03:56→20:38)
[2018-01-23] MEDS: Famotidine 20 MG Tablet PO SCH ×2 (08:15→20:41)
[2018-01-23] MEDS: Heparin - SQ 10,000 UNITS/ML Vial SQ SCH ×3 (08:17→16:08)
[2018-01-23 10:03] LABS: CKMB Percent 0.2 % (0.0-4.0)
--- NOTE | 2018-01-23 11:30 | P.PN ---
Subjective Interval history: Follow-up gross hematuria post traumatic Grove removal/rhabdomyolysis/elevated troponin I January 22, 2018-patient seen and examined, still with gross hematuria. BP stable. Although CK trending down however still high. Patient is wondering if she can go home. Complains of back pain. January 23, 2018-patient seen and examined, patient has lost her IV access overnight. Her vitals remained stable. CK is trending down. She still has hematuria Physical Exam Vital signs: Vital Signs 01/22/18 12:00 01/22/18 16:00 01/22/18 20:00 Temperature 98.1 F 98.0 F 97.8 F Pulse Rate 92 H 76 95 H Respiratory Rate 18 Blood Pressure 151/69 H 142/69 H 157/80 H Pulse Oximetry 95 95 93 L 01/23/18 00:00 01/23/18 04:00 01/23/18 08:00 Temperature 98.1 F 97.5 F L 98.0 F Pulse Rate 92 H 100 H 98 H Respiratory Rate 18 Blood Pressure 156/74 H 160/75 H 162/68 H Pulse Oximetry 92 L 92 L 94 L Intake & Output 01/22/18 01/23/18 01/23/18 18:59 06:59 18:59 Intake Total 1160 / 1160 920 / 920 Output Total 1750 / 1750 1000 / 1000 Balance -590 / -590 -80 / -80 Weight 122.5 kg Intake: IV 200 / 200 800 / 800 Sodium Bicarbonate 8.4% Inj 100 200 / 200 800 / 800 MEQ In 1/2 Normal Saline Inj 900 ML @ 75 mls/hr IV.CONT . [id number] [facility] Rx#:[id number] Oral 960 / 960 120 / 120 Output: Urine 1750 / 1750 1000 / 1000 Other: Date of Last Bowel Movement 01/23/18 # Bowel Movements 2 Narrative: GENERAL: NAD SKIN: Warm and dry. HEAD: Normocephalic. EYES: No scleral icterus. No injection or drainage. NECK: Supple, trachea midline. No JVD or lymphadenopathy. CARDIOVASCULAR: Regular rate and rhythm without murmurs, gallops, or rubs. RESPIRATORY: Breath sounds equal bilaterally. No accessory muscle use. GASTROINTESTINAL: Abdomen soft, non-tender, nondistended. MUSCULOSKELETAL: No cyanosis, or edema. : grove with gross hematuria BACK: Nontender without obvious deformity. No CVA tenderness., - Urinary Catheter Management Indwelling Urethral Catheter Cath placed during this visit: yes Reason for continuing: Acute urinary retention Insertion date: 01/20/18 Insertion time: 15:54 Results - Labs CBC & Chem 7: 01/20/18 06:45 01/22/18 05:56 Laboratory Results - last 24 hr 01/20/18 01/22/18 01/22/18 17:34 12:28 18:11 POC Glucose 134 H 123 H Total Creatine Kinase CK-MB (CK-2) CK-MB (CK-2) % Urine Myoglobin 36 H 01/22/18 01/23/18 01/23/18 20:29 03:55 06:48 POC Glucose 147 H 150 H Total Creatine Kinase 2855 H CK-MB (CK-2) 5.0 H CK-MB (CK-2) % 0.2 Urine Myoglobin - Procedures None Assessment and Plan - Assessment (1) Gross hematuria Code(s): R31.0 - Gross hematuria Status: Acute (2) Acute renal failure Code(s): N17.9 - Acute kidney failure, unspecified Status: Acute (3) Rhabdomyolysis Code(s): M62.82 - Rhabdomyolysis Status: Acute (4) Elevated troponin Code(s): R74.8 - Abnormal levels of other serum enzymes Status: Acute - Plan 62-year-old female with Rhabdomyolysis Continue with IV fluid hydration, monitor serial CK CK down to 2855 today Gross hematuria due to traumatic Grove removal Appreciate input from urology Continue with Grove, IV fluid hydration Only removal of Grove when hematuria resolved Positive troponin Elevated troponin I likely due to renal failure Appreciate input from cardiology and continue with medical management. 2D echo pending Bipolar disease Appreciate input from psychiatry Continue Invega 3 mg daily Hyperglycemia questionable diabetes -Diabetic cardiac diet -Accu-Cheks before meals and at bedtime with low-dose sliding scale Chronic pain -low-dose pain medicine Hyperlipidemia Continue to hold Zocor at this time due to the elevated LFTs Hypothyroidism continue home Synthroid Hypertension On enalapril 5 milligrams daily DVT prophylaxis with subcu heparin
--- NOTE | 2018-01-23 13:10 | P.PNPSY ---
Subjective Remarks: Patient was seen today for psychiatric reevaluation. The patient is calm, cooperative, logical, coherent and relevant. The patient reports that she feels much better today, but she has been taking her medications and they have been working appropriately. She denies side effects. Denies symptomatology of psychosis, depression, anxiety and aba. She denies suicidal and homicidal ideation, she denies visual and auditory hallucinations. Her plan is to be discharged and continue her psychiatric care with [facility] Mental Status Examination Appearance: Appropriate Consciousness: Alert Orientation: x4 Motor Activity: Normal gait Language: Adequate Fund of Knowledge: Adequate Attention and Concentration: Adequate Memory: Unremarkable Affect: Appropriate Thought Process & Associations: Intact Thought Content: Appropriate Hallucination Type: None Delusion Type: None Suicidal Ideation: No Suicidal Plan: No Suicidal Intention: No Homicidal Ideation: No Homicidal Plan: No Homicidal Intention: No Insight: Fair Judgment: Impulsive Assessment and Plan - Assessment (1) Bipolar disease, chronic Code(s): F31.9 - Bipolar disorder, unspecified Status: Acute - Plan Plan: Continue current psychotropic regimen. No admission is indicated. Patient seems to be at baseline at the moment. We will continue psychiatric care as an outpatient in [facility]. Justification for Continued Inpatient Stay: No admission is indicated
[2018-01-23] MEDS: Loperamide 2 MG Capsule PO PRN (16:08)
[2018-01-23] MEDS: traZODone 50 MG Tablet PO SCH (20:40)
[2018-01-24] MEDS: Heparin - SQ 10,000 UNITS/ML Vial SQ SCH ×3 (01:54→18:06)
[2018-01-24] MEDS: Insulin NovoLOG Aspart Correctional Sugar Inj SQ SCH ×5 (02:02→21:09)
[2018-01-24] MEDS: Sodium Bicarbonate 8.4% Inj 100 MEQ in Sodium Chloride 0.45 % Inj 900 ML IV.CONT SCH ×2 (04:45→18:07)
[2018-01-24] MEDS: Famotidine 20 MG Tablet PO SCH ×2 (09:35→21:07)
[2018-01-24 10:21] LABS: CKMB Percent 0.8 % (0.0-4.0)
--- NOTE | 2018-01-24 11:08 | P.PN ---
Subjective Interval history: Follow-up gross hematuria post traumatic Grove removal/rhabdomyolysis/elevated troponin I January 22, 2018-patient seen and examined, still with gross hematuria. BP stable. Although CK trending down however still high. Patient is wondering if she can go home. Complains of back pain. January 23, 2018-patient seen and examined, patient has lost her IV access overnight. Her vitals remained stable. CK is trending down. She still has hematuria January 24, 2018-patient seen and examined; now with improvement of gross hematuria; CK trending down Physical Exam Vital signs: Vital Signs 01/23/18 12:00 01/23/18 16:00 01/23/18 20:00 Temperature 98.2 F 98.3 F 98.2 F Pulse Rate 94 H 88 104 H Respiratory Rate 18 18 18 Blood Pressure 179/80 H 131/78 145/84 H Pulse Oximetry 96 96 93 L 01/24/18 00:00 01/24/18 04:00 Temperature 98.0 F 97.7 F Pulse Rate 99 H 108 H Respiratory Rate 18 Blood Pressure 152/73 H 172/86 H Pulse Oximetry 93 L 95 Intake & Output 01/23/18 01/24/18 01/24/18 18:59 06:59 18:59 Intake Total 840 / 840 240 / 240 Output Total 800 / 800 200 / 200 Balance 40 / 40 40 / 40 Weight 123.3 kg Intake: Oral 840 / 840 240 / 240 Output: Urine 800 / 800 200 / 200 Other: Date of Last Bowel Movement 01/23/18 # Bowel Movements 3 Narrative: GENERAL: NAD SKIN: Warm and dry. HEAD: Normocephalic. EYES: No scleral icterus. No injection or drainage. NECK: Supple, trachea midline. No JVD or lymphadenopathy. CARDIOVASCULAR: Regular rate and rhythm without murmurs, gallops, or rubs. RESPIRATORY: Breath sounds equal bilaterally. No accessory muscle use. GASTROINTESTINAL: Abdomen soft, non-tender, nondistended. MUSCULOSKELETAL: No cyanosis, or edema. : grove with gross hematuria? BACK: Nontender without obvious deformity. No CVA tenderness., - Urinary Catheter Management Indwelling Urethral Catheter Cath placed during this visit: yes Reason for continuing: Acute urinary retention Insertion date: 01/20/18 Insertion time: 15:54 Results - Labs CBC & Chem 7: 01/20/18 06:45 01/22/18 05:56 Laboratory Results - last 24 hr 01/23/18 01/23/18 01/23/18 13:26 16:12 20:35 POC Glucose 129 H 131 H 134 H Total Creatine Kinase CK-MB (CK-2) CK-MB (CK-2) % 01/24/18 01/24/18 01/24/18 01:56 08:04 08:26 POC Glucose 121 H 110 Total Creatine Kinase 1091 H CK-MB (CK-2) 9.0 H CK-MB (CK-2) % 0.8 - Procedures None Assessment and Plan - Assessment (1) Gross hematuria Code(s): R31.0 - Gross hematuria Status: Acute (2) Acute renal failure Code(s): N17.9 - Acute kidney failure, unspecified Status: Acute (3) Rhabdomyolysis Code(s): M62.82 - Rhabdomyolysis Status: Acute (4) Elevated troponin Code(s): R74.8 - Abnormal levels of other serum enzymes Status: Acute - Plan 62-year-old female with Rhabdomyolysis Continue with IV fluid hydration, monitor serial CK CK down to 1000+ today Gross hematuria due to traumatic Grove removal-Improving Appreciate input from urology Continue with Grove, IV fluid hydration. Will change Grove today 01/24/18 Only removal of Grove when hematuria resolved Positive troponin Elevated troponin I likely due to renal failure Appreciate input from cardiology and continue with medical management. 2D echo 50-55% Bipolar disease Appreciate input from psychiatry Continue Invega 3 mg daily Hyperglycemia questionable diabetes -Diabetic cardiac diet -Accu-Cheks before meals and at bedtime with low-dose sliding scale Chronic pain -low-dose pain medicine Hyperlipidemia Continue to hold Zocor at this time due to the elevated LFTs Hypothyroidism continue home Synthroid Hypertension On enalapril 5 milligrams daily DVT prophylaxis with subcu heparin
[2018-01-24] MEDS: traZODone 50 MG Tablet PO SCH (21:09)
[2018-01-24] MEDS: Loperamide 2 MG Capsule PO PRN (21:14)
[2018-01-25] MEDS: Heparin - SQ 10,000 UNITS/ML Vial SQ SCH ×2 (00:24→09:09)
[2018-01-25] MEDS: Sodium Bicarbonate 8.4% Inj 100 MEQ in Sodium Chloride 0.45 % Inj 900 ML IV.CONT SCH (03:13)
[2018-01-25] MEDS: Insulin NovoLOG Aspart Correctional Sugar Inj SQ SCH ×2 (03:13→09:07)
[2018-01-25 08:03] LABS: Baso % (Auto) 0.3 % (0.0-2.0); Eos # (Auto) 0.1 th/mm3 (0.0-0.4); Eos % (Auto) 1.2 % (0.0-4.0); Hematocrit 34.7 % (35.0-46.0); Hemoglobin 11.4 gm/dL (11.6-15.3); Lymph # (Auto) 1.9 th/mm3 (1.0-4.8); Lymph % (Auto) 21.6 % (9.0-44.0); Mean Corpuscular HGB Conc 32.9 % (32.0-36.0); Mean Corpuscular Hemoglobin 27.3 pg (27.0-34.0); Mean Platelet Volume 7.4 fL (7.0-11.0); Mono % (Auto) 10.8 % (0.0-8.0); Neut # (Auto) 5.8 th/mm3 (1.8-7.7); Neut % (Auto) 66.1 % (16.0-70.0); Platelet Count 246 th/mm3 (150-450); Red Blood Count 4.18 mil/mm3 (4.00-5.30); White Blood Count 8.8 th/mm3 (4.0-11.0)
[2018-01-25 08:17] LABS: Albumin 2.2 g/dL (3.4-5.0); Anion Gap 9 meq/L (5-15); Aspartate Aminotransferase 35 U/L (15-37); Blood Urea Nitrogen 10 mg/dL (7-18); Carbon Dioxide 30.7 meq/L (21.0-32.0); Chloride 99 meq/L (98-107); Glomerular Filtration Rate Greater Than 89 mL/min (>89); Glucose,Random 108 mg/dL (74-106); Potassium 3.8 meq/L (3.5-5.1); Sodium 139 meq/L (136-145)
[2018-01-25 08:18] LABS: Alanine Aminotransferase 45 U/L (10-53)
[2018-01-25 08:21] LABS: Alkaline Phosphatase 74 U/L (45-117); Creatine Kinase 478 U/L (26-192); Total Protein 5.7 g/dL (6.4-8.2)
[2018-01-25 08:42] LABS: CKMB Percent 0.9 % (0.0-4.0); Creatine Kinase MB 4.1 ng/mL (0.5-3.6)
[2018-01-25] MEDS: Famotidine 20 MG Tablet PO SCH (09:10)
--- NOTE | 2018-01-25 10:31 | P.PN ---
Subjective Interval history: Follow-up gross hematuria post traumatic Le removal/rhabdomyolysis/elevated troponin I January 22, 2018-patient seen and examined, still with gross hematuria. BP stable. Although CK trending down however still high. Patient is wondering if she can go home. Complains of back pain. January 23, 2018-patient seen and examined, patient has lost her IV access overnight. Her vitals remained stable. CK is trending down. She still has hematuria January 24, 2018-patient seen and examined; now with improvement of gross hematuria; CK trending down January 25, 2018-patient seen and examined, hematuria resolved and CK now down. Alert and oriented 2. States she is ready for discharge home. Physical Exam Vital signs: Vital Signs 01/24/18 12:00 01/24/18 16:00 01/24/18 20:00 Temperature 98.6 F 97.9 F 97.3 F L Pulse Rate 108 H 100 H 97 H Respiratory Rate 16 22 18 Blood Pressure 141/83 H 140/87 136/78 Pulse Oximetry 97 95 96 01/25/18 00:00 01/25/18 04:00 01/25/18 08:00 Temperature 97.4 F L 97.3 F L 97.9 F Pulse Rate 98 H 102 H 106 H Respiratory Rate 18 18 14 Blood Pressure 135/77 139/79 135/78 Pulse Oximetry 93 L 95 94 L Intake & Output 01/24/18 01/25/18 01/25/18 18:59 06:59 18:59 Intake Total 1000 / 1000 2420 / 2420 Output Total 900 / 900 Balance 1000 / 1000 1520 / 1520 Weight 124.2 kg Intake: IV 1000 / 1000 1160 / 1160 Sodium Bicarbonate 8.4% Inj 100 1000 / 1000 1160 / 1160 MEQ In 1/2 Normal Saline Inj 900 ML @ 75 mls/hr IV.CONT . [id number] [facility] Rx#:[id number] Oral 1260 / 1260 Output: Urine 900 / 900 Narrative: GENERAL: NAD SKIN: Warm and dry. HEAD: Normocephalic. EYES: No scleral icterus. No injection or drainage. NECK: Supple, trachea midline. No JVD or lymphadenopathy. CARDIOVASCULAR: Regular rate and rhythm without murmurs, gallops, or rubs. RESPIRATORY: Breath sounds equal bilaterally. No accessory muscle use. GASTROINTESTINAL: Abdomen soft, non-tender, nondistended. MUSCULOSKELETAL: No cyanosis, or edema. BACK: Nontender without obvious deformity. No CVA tenderness., - Urinary Catheter Management Indwelling Urethral Catheter Cath placed during this visit: yes, but has since been removed by the nurse Reason for continuing: Decision to DC catheter Insertion date: 01/20/18 Insertion time: 15:54 Removal date: 01/25/18 Removal time: 06:50 Results - Labs CBC & Chem 7: 01/25/18 06:45 01/25/18 06:45 Laboratory Results - last 24 hr 01/24/18 01/24/18 01/24/18 12:14 16:26 19:36 WBC RBC Hgb Hct MCV MCH MCHC RDW Plt Count MPV Neut % (Auto) Lymph % (Auto) [place] % (Auto) Eos % (Auto) Baso % (Auto) Neut # (Auto) Lymph # (Auto) [place] # (Auto) Eos # (Auto) Baso # (Auto) WBC Differential Differential Comment Sodium Potassium Chloride Carbon Dioxide Anion Gap BUN Creatinine Estimated GFR POC Glucose 127 H 114 H 196 H Random Glucose Calcium Total Bilirubin AST ALT Alkaline Phosphatase Total Creatine Kinase CK-MB (CK-2) CK-MB (CK-2) % Total Protein Albumin 01/25/18 01/25/18 01/25/18 02:45 06:45 06:45 WBC 8.8 RBC 4.18 Hgb 11.4 L Hct 34.7 L MCV 83.0 MCH 27.3 MCHC 32.9 RDW 15.0 Plt Count 246 MPV 7.4 Neut % (Auto) 66.1 Lymph % (Auto) 21.6 [place] % (Auto) 10.8 H Eos % (Auto) 1.2 Baso % (Auto) 0.3 Neut # (Auto) 5.8 Lymph # (Auto) 1.9 [place] # (Auto) 1.0 H Eos # (Auto) 0.1 Baso # (Auto) 0.0 WBC Differential . Differential Comment Auto diff final Sodium 139 Potassium 3.8 Chloride 99 Carbon Dioxide 30.7 Anion Gap 9 BUN 10 Creatinine 0.61 Estimated GFR Greater than 89 POC Glucose 93 Random Glucose 108 H Calcium 8.0 L Total Bilirubin 0.3 AST 35 ALT 45 Alkaline Phosphatase 74 Total Creatine Kinase 478 H CK-MB (CK-2) 4.1 H CK-MB (CK-2) % 0.9 Total Protein 5.7 L Albumin 2.2 L 01/25/18 08:00 WBC RBC Hgb Hct MCV MCH MCHC RDW Plt Count MPV Neut % (Auto) Lymph % (Auto) [place] % (Auto) Eos % (Auto) Baso % (Auto) Neut # (Auto) Lymph # (Auto) [place] # (Auto) Eos # (Auto) Baso # (Auto) WBC Differential Differential Comment Sodium Potassium Chloride Carbon Dioxide Anion Gap BUN Creatinine Estimated GFR POC Glucose 118 H Random Glucose Calcium Total Bilirubin AST ALT Alkaline Phosphatase Total Creatine Kinase CK-MB (CK-2) CK-MB (CK-2) % Total Protein Albumin - Procedures None Assessment and Plan - Assessment (1) Gross hematuria Code(s): R31.0 - Gross hematuria Status: Acute (2) Acute renal failure Code(s): N17.9 - Acute kidney failure, unspecified Status: Acute (3) Rhabdomyolysis Code(s): M62.82 - Rhabdomyolysis Status: Acute (4) Elevated troponin Code(s): R74.8 - Abnormal levels of other serum enzymes Status: Acute - Plan 62-year-old female with Rhabdomyolysis-Resolved Continue with IV fluid hydration, monitor serial CK CK down to 478 today Gross hematuria due to traumatic Le removal-Resolved Appreciate input from urology Le d/maggy on 01/24. HILV Positive troponin Elevated troponin I likely due to renal failure Appreciate input from cardiology and continue with medical management. 2D echo 50-55% Bipolar disease Appreciate input from psychiatry Continue Invega 3 mg daily Hyperglycemia questionable diabetes -Diabetic cardiac diet -Accu-Cheks before meals and at bedtime with low-dose sliding scale Chronic pain -low-dose pain medicine Hyperlipidemia Resume Zocor as elevated LFTs resolved Hypothyroidism continue home Synthroid Hypertension On enalapril 5 milligrams daily DVT prophylaxis with subcu heparin
--- NOTE | 2018-01-25 10:38 | P.DS ---
Date of admission: 01/19/18 16:55 Primary care physician: Stacey Sinha Anticipated date of discharge: 01/25/18 Brief History from admission: Patient is a 62-year-old female that presented emergency department via [facility] for evaluation of possible mechanical fall. Patient has a significant history of psychiatric illness as well as chronic pain and fibromyalgia. Patient takes Xanax and Lortab prescribed to her by her pain management doctor. Patient went to [facility] for her Invega injection, patient was noted to be very somnolent and altered. There was concern that patient was overmedicated and altered. She did not get her injection and they recommended that she got evaluated here in the emergency department. She refused to come by ambulance and drove herself here. She made it to the parking lot and had an observed mechanical fall where she fell and hit her head. She states that she remembers the fall she remembers hitting her head. Denies any other new medical issues. States she has some back pain as well as some neck pain and headache. Although patient does have chronic pain for which she takes Lortab. Denies taking any more medication than usual. She denies overdosing on her medications can be arousable but then becomes very somnolent again denies any urinary or bowel or bladder issues pain is about 4 out of 10 if not more. Does have episodes when she appears to be somewhat altered. Patient denies taking more medications than she normally takes she states that she did not overdose. She denies any suicidal or homicidal normally uses a walker to get around. DS: Diagnosis - Discharge Diagnosis (1) Gross hematuria Status: Acute (2) Acute renal failure Status: Acute (3) Rhabdomyolysis Status: Acute (4) Elevated troponin Status: Acute DS: Summary Hospital Course: While in hospital, patient was treated for: Rhabdomyolysis-Resolved CK improved with IV fluid hydration Gross hematuria due to traumatic Le removal-Resolved Appreciate input from urology Le d/maggy on 01/24. HILV Positive troponin Elevated troponin I likely due to renal failure Appreciate input from cardiology and continue with medical management. 2D echo 50-55% Bipolar disease Appreciate input from psychiatry Treated with Invega 3 mg daily Hyperglycemia questionable diabetes -Diabetic cardiac diet -Accu-Cheks before meals and at bedtime with low-dose sliding scale Chronic pain -low-dose pain medicine Hyperlipidemia Resume Zocor as elevated LFTs resolved Hypothyroidism Treated with home Synthroid Hypertension On enalapril 5 milligrams daily - Time Spent with Patient Total time spent providing and/or coordinating discharge services: Less than 30 minutes Exam Vital signs: Vital Signs 01/24/18 12:00 01/24/18 16:00 01/24/18 20:00 Temperature 98.6 F 97.9 F 97.3 F L Pulse Rate 108 H 100 H 97 H Respiratory Rate 16 22 18 Blood Pressure 141/83 H 140/87 136/78 Pulse Oximetry 97 95 96 01/25/18 00:00 01/25/18 04:00 01/25/18 08:00 Temperature 97.4 F L 97.3 F L 97.9 F Pulse Rate 98 H 102 H 106 H Respiratory Rate 18 18 14 Blood Pressure 135/77 139/79 135/78 Pulse Oximetry 93 L 95 94 L Intake & Output 01/24/18 01/25/18 01/25/18 18:59 06:59 18:59 Intake Total 1000 / 1000 2420 / 2420 Output Total 900 / 900 Balance 1000 / 1000 1520 / 1520 Weight 124.2 kg Intake: IV 1000 / 1000 1160 / 1160 Sodium Bicarbonate 8.4% Inj 100 1000 / 1000 1160 / 1160 MEQ In 1/2 Normal Saline Inj 900 ML @ 75 mls/hr IV.CONT . [id number] [facility] Rx#:[id number] Oral 1260 / 1260 Output: Urine 900 / 900 Narrative: GENERAL: NAD SKIN: Warm and dry. HEAD: Normocephalic. EYES: No scleral icterus. No injection or drainage. NECK: Supple, trachea midline. No JVD or lymphadenopathy. CARDIOVASCULAR: Regular rate and rhythm without murmurs, gallops, or rubs. RESPIRATORY: Breath sounds equal bilaterally. No accessory muscle use. GASTROINTESTINAL: Abdomen soft, non-tender, nondistended. MUSCULOSKELETAL: No cyanosis, or edema. BACK: Nontender without obvious deformity. No CVA tenderness. Results Procedures completed during hospitalization: None Labs on day of discharge: Labs from last 24 hours 01/25/18 01/25/18 01/25/18 08:00 06:45 06:45 WBC 8.8 RBC 4.18 Hgb 11.4 L Hct 34.7 L MCV 83.0 MCH 27.3 MCHC 32.9 RDW 15.0 Plt Count 246 MPV 7.4 Neut % (Auto) 66.1 Lymph % (Auto) 21.6 [place] % (Auto) 10.8 H Eos % (Auto) 1.2 Baso % (Auto) 0.3 Neut # (Auto) 5.8 Lymph # (Auto) 1.9 [place] # (Auto) 1.0 H Eos # (Auto) 0.1 Baso # (Auto) 0.0 WBC Differential . Differential Comment Auto diff final Sodium 139 Potassium 3.8 Chloride 99 Carbon Dioxide 30.7 Anion Gap 9 BUN 10 Creatinine 0.61 Estimated GFR Greater than 89 POC Glucose 118 H Random Glucose 108 H Calcium 8.0 L Total Bilirubin 0.3 AST 35 ALT 45 Alkaline Phosphatase 74 Total Creatine Kinase 478 H CK-MB (CK-2) 4.1 H CK-MB (CK-2) % 0.9 Total Protein 5.7 L Albumin 2.2 L 01/25/18 01/24/18 01/24/18 02:45 19:36 16:26 WBC RBC Hgb Hct MCV MCH MCHC RDW Plt Count MPV Neut % (Auto) Lymph % (Auto) [place] % (Auto) Eos % (Auto) Baso % (Auto) Neut # (Auto) Lymph # (Auto) [place] # (Auto) Eos # (Auto) Baso # (Auto) WBC Differential Differential Comment Sodium Potassium Chloride Carbon Dioxide Anion Gap BUN Creatinine Estimated GFR POC Glucose 93 196 H 114 H Random Glucose Calcium Total Bilirubin AST ALT Alkaline Phosphatase Total Creatine Kinase CK-MB (CK-2) CK-MB (CK-2) % Total Protein Albumin 01/24/18 12:14 WBC RBC Hgb Hct MCV MCH MCHC RDW Plt Count MPV Neut % (Auto) Lymph % (Auto) [place] % (Auto) Eos % (Auto) Baso % (Auto) Neut # (Auto) Lymph # (Auto) [place] # (Auto) Eos # (Auto) Baso # (Auto) WBC Differential Differential Comment Sodium Potassium Chloride Carbon Dioxide Anion Gap BUN Creatinine Estimated GFR POC Glucose 127 H Random Glucose Calcium Total Bilirubin AST ALT Alkaline Phosphatase Total Creatine Kinase CK-MB (CK-2) CK-MB (CK-2) % Total Protein Albumin - Impressions ITS Impressions Cervical Spine CT 01/19/18 13:20 CONCLUSION: 1. Mild degenerative changes, negative for fracture 2. Exam is limited by the patient's large body habitus. Chest X-Ray 01/19/18 13:20 CONCLUSION: Mild congestive failure. No pneumothorax Head CT 01/19/18 13:20 CONCLUSION: 1. Minimal chronic white matter changes. 2. Nothing acute. . Pelvis X-Ray 01/19/18 13:22 CONCLUSION: Degenerative changes, no fracture. Exam limited by body habitus Lumbar Spine CT 01/19/18 13:24 CONCLUSION: 1. Stable, mild degenerative changes of the lumbar spine with small marginal spurs at multiple lumbar levels. 2. No acute fracture. Spinal canal and neural foramina appear to be adequate throughout. 3. Stable fluid collection within the left lower quadrant abdominal mesentery. This is overtly benign and may represent an old lymphocele or mesenteric cyst. Ankle X-Ray 01/19/18 14:23 CONCLUSION: No acute fracture or significant soft tissue swelling Abdomen/Bladder Ultrasound 01/20/18 00:00 CONCLUSION: 1. The kidneys appear grossly unremarkable with no hydronephrosis or focal lesion. 2. The known cystic mass in the pelvis is again visualized. 3. Hepatic steatosis. Discharge Plan - Discharge Disposition Patient Disposition: 01 Discharge Home - Discharge Condition Condition: Good - Discharge Order Discharge Orders: Discharge Order (Routine); Ordered 01/25/18 Ordered By: Blair Marcos - Physicians Team Attending Provider: Blair Marcos Other Providers: Neel Alvarez DO ; Xavier Shields MD ; Mariano Morris MD ; [facility] ; Perez Bermudez MD
== END 2018-01-25 11:48 | disposition home or self-care (01) ==
LOC: NEPE 13:05 → NEDA 16:55 → N04 19:14
PROVIDERS: ADMIT Hospitalist; ATTEND Hospitalist